=== PATIENT | female | born 1950 | race Caucasian/White ===

== ENCOUNTER 2018-04-14 22:10 | Inpatient (IN) | payer OTHER ==
[2018-04-14] MEDS ORDERED: MORPHINE 4 MG/ML SYR ONE (22:34)
[2018-04-14] MEDS ORDERED: ONDANSETRON 4 MG/2 ML VIAL ONE (22:34)
[2018-04-14] MEDS ORDERED: FAMOTIDINE 20 MG/2 ML VIAL IV ONE (22:34)
[2018-04-14 22:42] LABS: Absolute Lymphocytes (CBC) 1.6 K/uL (0.7-4.9); Absolute Monocytes 1.4 K/uL (0.1-1.3); Absolute Neutrophil 13.3 K/uL (1.8-8.0); Basophils % 0.2 % (0-1.3); Eosinophils % 1.2 % (0-4.4); Lymphocytes % 9.6 % (15.3-44.8); MCH 31.4 pg (27.0-35.0); MPV 7.5 fL (7.6-11.3); Monocytes % 8.4 % (3.3-12.3); RBC Red Blood Cell Count 4.67 M/uL (3.86-4.86)
[2018-04-14 23:00] LABS: Albumin 4.1 g/dL (3.4-5.0); Bilirubin Direct 0.2 mg/dL (0-0.2); Bilirubin Total 0.5 mg/dL (0.2-1.0); Magnesium 1.7 mg/dL (1.8-2.4); Potassium 3.6 mmol/L (3.5-5.1); Protein, Total 7.5 g/dL (6.4-8.2)
[2018-04-14] MEDS ORDERED: MAGNESIUM SULFATE 1 gm IVPB 1 GM/100 ML BAG IV ONE (23:39)
[2018-04-15] MEDS ORDERED: ONDANSETRON 4 MG/2 ML VIAL ONE (01:03)
[2018-04-15 01:42] LABS: Urine Blood TRACE (NEG); Urine Glucose NEGATIVE (NEG); Urine Protein NEGATIVE (NEG); Urine Specific Gravity <1.005 (1.005-1.030)
[2018-04-15] MEDS ORDERED: ACETAMINOPHEN 500 MG TAB PO PRN (02:25)
[2018-04-15] MEDS ORDERED: NA CHLORIDE 0.9% 2,000 ML ONE (02:31)
--- NOTE | 2018-04-15 02:43 | EDPHYS ---
Physician Documentation [facility] Name: Angella Jackson Age: 68 yrs Sex: Female : 1950 Arrival Date: 04/14/2018 Time: 22:12 Bed 7 Private MD: Vic Guerrero ED Physician James Bunch HPI: 04/14 22:30 This 68 yrs old Female presents to ER via EMS with complaints of Abdominal cp Pain. 22:30 The patient presents with abdominal pain in the upper abdomen. cp 22:30 Onset: The symptoms/episode began/occurred 3 month(s) ago, and became worse today. cp 22:30 Associated signs and symptoms: Pertinent positives: constipation, nausea, vomiting, cp Pertinent negatives: blood in stools, diarrhea, fever, vomiting blood. Severity of pain: in the emergency department the pain has improved mildly. Patient reports she was diagnosed with chronic pancreatitis by DR Guerrero and discharged from [facility] earlier today after being hospitalized overnight yesterday. Historical: - Allergies: 22:34 PENICILLINS; fc 22:34 Codeine; fc - Home Meds: 22:34 Zoloft 100 mg Oral tab 1 tab once daily [Active]; Valium 5 mg Oral tab 1 tab as needed fc [Active]; Singulair 10 mg Oral tab 1 tab once daily [Active]; Spiriva with HandiHaler 18 mcg inhalation CpDv 1 cap once daily [Active]; Carafate 1 gram Oral tab 1 tab 4 times per day [Active]; amlodipine 10 mg tab 1 tab once daily [Active]; aspirin 81 mg Oral chew 1 tab once daily [Active]; Cozaar 50 mg Oral tab 1 tab once daily [Active]; Dexilant 60 mg oral CpDB 1 cap once daily [Active]; ProAir HFA 90 mcg/actuation inhalation HFAA 2 puffs as needed [Active]; - PMHx: 22:34 Pancreatitis; COPD; Hypertension; GERD; Crohn's; fc - PSHx: 22:34 Tonsillectomy; Carpal Tunnel Repair; Cholecystectomy; Hysterectomy; spinal cord fc stimulator and removal; - Immunization history:: Adult Immunizations not up to date, . - Social history:: Smoking status: Patient uses tobacco products, smokes 1.5 packs per day, Patient/guardian denies using alcohol. - Ebola Screening: : Patient negative for fever greater than or equal to 101.5 degrees Fahrenheit, and additional compatible Ebola Virus Disease symptoms Patient denies exposure to infectious person Patient denies travel to an Ebola-affected area in the 21 days before illness onset Patient negative for fever greater than or equal to 101.5 degrees Fahrenheit, and additional compatible Ebola Virus Disease symptoms Patient denies exposure to infectious person Patient denies travel to an Ebola-affected area in the 21 days before illness onset. ROS: 22:32 Constitutional: Positive for poor PO intake, Negative for body aches, chills, fever. cp 22:32 Eyes: Negative for injury, pain, redness, and discharge. cp 22:32 ENT: Negative for drainage from ear(s), ear pain, sore throat, difficulty swallowing, difficulty handling secretions. 22:32 Cardiovascular: Negative for chest pain, edema, palpitations. 22:32 Respiratory: Negative for cough, shortness of breath, wheezing. 22:32 Abdomen/GI: Positive for abdominal pain, nausea and vomiting, constipation, anorexia, Negative for diarrhea, dysphagia, black/tarry stool, rectal bleeding. 22:32 : Negative for urinary symptoms, vaginal bleeding. 22:32 Skin: Negative for cellulitis, rash. 22:32 Neuro: Negative for altered mental status, headache, weakness. 22:32 All other systems are negative. Exam: 22:33 ECG was reviewed by the Attending Physician. cp 22:38 Constitutional: The patient appears in no acute distress, alert, awake, cp non-diaphoretic, non-toxic, well developed, well nourished. 22:38 Head/Face: Normocephalic, atraumatic. cp 22:38 Eyes: Periorbital structures: appear normal, Conjunctiva: normal, no exudate, no injection, Sclera: no appreciated abnormality, Lids and lashes: appear normal, bilaterally. 22:38 ENT: External ear(s): are unremarkable, Ear canal(s): are normal, clear, TM's: bulging, is not appreciated, bilaterally, dullness, bilaterally, erythema, is not appreciated, bilaterally, Nose: is normal, Mouth: Lips: dry, Oral mucosa: dry, Posterior pharynx: is normal, airway is patent, no erythema, no exudate. 22:38 Chest/axilla: Inspection: normal, Palpation: is normal, no crepitus, no tenderness. 22:38 Cardiovascular: Rate: normal, Rhythm: regular, Edema: is not appreciated, JVD: is not appreciated. 22:38 Respiratory: the patient does not display signs of respiratory distress, Respirations: normal, no use of accessory muscles, no retractions, no splinting, no tachypnea, labored breathing, is not present, Breath sounds: decreased breath sounds, that are mild, are located in both bases, wheezing: is not appreciated. 22:38 Abdomen/GI: Inspection: scar(s), Bowel sounds: active, all quadrants, Palpation: soft, in all quadrants, moderate abdominal tenderness, in the right upper quadrant and left upper quadrant, rebound tenderness, is not appreciated, voluntary guarding, is elicited in the right upper quadrant and left upper quadrant. 22:38 Back: pain, is absent, ROM is normal. 22:38 Skin: cellulitis, is not appreciated, no rash present. 22:38 Neuro: Orientation: to person, place \T\ time. Mentation: lucid, able to follow commands, Cerebellar function: is grossly normal, Motor: moves all fours, strength is normal. Vital Signs: 22:10 BP 117 / 71; Pulse 90; Resp 18; Temp 98.2(O); Pulse Ox 98% on R/A; Weight 53.52 kg (R); fc Height 5 ft. 2 in. (157.48 cm) (R); Pain 10/10; 04/15 00:15 BP 130 / 64; Pulse 84; Resp 16; Pulse Ox 99% on R/A; mt 01:45 BP 129 / 80; Pulse 76; Resp 16; Temp 98.2; Pulse Ox 99% on 2 lpm NC; Pain 0/10; ak1 03:34 BP 136 / 69; Pulse 76; Resp 18; Temp 98.; Pulse Ox 96% on 4 lpm NC; ak1 04/14 22:10 Body Mass Index 21.58 (53.52 kg, 157.48 cm) fc MDM: 04/14 22:13 Patient medically screened. cp 23:00 Differential diagnosis: AAA, acute coronary syndrome, appendicitis, bowel obstruction, cp diverticulitis, gastritis, GI Bleed, pancreatitis, Peptic Ulcer Disease, Perf. Duodenal Ulcer, Perf. Gastric Ulcer, Pyelonephritis, Ureterolithiasis, urinary tract infection. 04/15 02:25 Data reviewed: vital signs, nurses notes, lab test result(s), EKG, radiologic studies, cp CT scan. 02:25 Test interpretation: by ED physician or midlevel provider: ECG. Counseling: I had a cp detailed discussion with the patient and/or guardian regarding: the historical points, exam findings, and any diagnostic results supporting the discharge/admit diagnosis, lab results, radiology results, the need for further work-up and treatment in the hospital. Response to treatment: the patient's symptoms have mildly improved after treatment, and as a result, I will admit patient. 02:25 Physician consultation: Rosy Suarez MD was contacted at 02:15, regarding admission, cp to the telemetry unit. patient's condition, and will see patient in ED. 04/14 22:20 Order name: Basic Metabolic Panel; Complete Time: 23:24 cp 04/15 00:39 Interpretation: Normal except: NA 134; CL 96; BUN 6; GFR 71. cp 04/14 22:20 Order name: CBC with Diff; Complete Time: 23:24 cp 04/14 23:25 Interpretation: Normal except: WBC 16.5; MCV 92.0; MPV 7.5; JOCELYNN% 80.6; LYM% 9.6; NEUT A cp 13.3. 04/14 22:20 Order name: Creatinine for Radiology; Complete Time: 23:24 cp 04/14 22:20 Order name: Hepatic Function; Complete Time: 23:24 cp 04/14 22:20 Order name: Lipase; Complete Time: 23:24 cp 04/15 00:39 Interpretation: Within normal limits: LIP 121. cp 04/14 22:20 Order name: Magnesium; Complete Time: 23:24 cp 04/15 00:35 Order name: Urine Dipstick--Ancillary (enter results); Complete Time: 01:43 ms 04/15 01:43 Interpretation: Normal except: UKET 2+; UBLD TRACE. cp 04/15 02:29 Order name: CBC with Automated Diff EDMS 04/15 02:29 Order name: CBC with Automated Diff EDMS 04/15 02:29 Order name: Comprehensive Metabolic Panel EDMS 04/15 02:29 Order name: Comprehensive Metabolic Panel EDMS 04/15 02:29 Order name: Lipase EDMS 04/15 02:29 Order name: Lipase EDMS 04/15 02:29 Order name: Magnesium EDMS 04/14 22:27 Order name: CT Abd/Pelvis - W/Contrast: give oral contrast cp 04/15 02:23 Order name: XRAY Chest (1 view) cp 04/15 02:29 Order name: Magnesium EDMS 04/15 02:29 Order name: Phosphorus EDMS 04/15 02:29 Order name: Phosphorus EDMS 04/15 02:29 Order name: Abdomen W Erect EDMS 04/15 02:30 Order name: CBC with Automated Diff EDMS 04/15 02:30 Order name: Comprehensive Metabolic Panel EDIL 04/15 02:30 Order name: Lipase EDMS 04/15 02:30 Order name: Magnesium EDMS 04/15 02:30 Order name: Phosphorus EDMS 04/14 22:20 Order name: IV Saline Lock; Complete Time: 22:24 cp 04/14 22:20 Order name: Labs collected and sent; Complete Time: 22:27 cp 04/14 22:20 Order name: Urine Dipstick-Ancillary (obtain specimen); Complete Time: 03:31 cp 04/14 22:20 Order name: EKG; Complete Time: 22:20 cp 04/14 22:20 Order name: EKG - Nurse/Tech; Complete Time: 22:27 cp 04/15 02:21 Order name: NG Tube: low intermittent suction; Complete Time: 03:29 cp 04/15 02:29 Order name: CONS Physician Consult EDIL 04/15 02:29 Order name: NPO EDMS EC/30 22:33 Rate is 92 beats/min. Rhythm is regular. OR interval is normal. QRS interval is normal. cp QT interval is normal. Interpreted by me. Reviewed by me. Administered Medications: 22:32 Drug: Zofran 4 mg Route: IVP; Site: right forearm; ak1 23:00 Follow up: Response: No adverse reaction ea 22:32 Drug: Pepcid 20 mg Route: IVP; Site: right forearm; ak1 23:00 Follow up: Response: No adverse reaction ea 22:32 Drug: morphine 2 mg Route: IVP; Site: right forearm; ak1 23:00 Follow up: Response: No adverse reaction; Pain is decreased ea 23:40 Drug: Magnesium Sulfate 1 grams Route: IVPB; Infused Over: 1 hrs; Site: right ea antecubital; 04/15 00:50 Follow up: Response: No adverse reaction; IV Status: Completed infusion ea 00:55 Drug: morphine 2 mg Route: IVP; Site: right forearm; ea 03:29 Follow up: Response: No adverse reaction ak1 00:58 Drug: Zofran 4 mg Route: IVP; Site: right forearm; ea 03:30 Follow up: Response: No adverse reaction ak1 02:31 Drug: NS 0.9% 1000 ml Route: IV; Rate: 1 bolus; Site: right forearm; ak1 02:31 Follow up: IV Status: Completed infusion ak1 02:32 Drug: NS 0.9% 1000 ml Route: IV; Rate: 125 ml/hr; Site: right forearm; ak1 03:30 Follow up: IV Status: Infusion continued upon admission ak1 03:10 Drug: LevaQUIN 500 mg Volume: 100 ml; Route: IVPB; Infused Over: 60 mins; Site: left ea antecubital; 03:49 Follow up: IV Status: Infusion continued upon admission ak1 03:10 Drug: metroNIDAZOLE 500 mg Volume: 100 ml; Route: IVPB; Infused Over: 30 mins; Site: ea left antecubital; 03:44 Follow up: IV Status: Completed infusion ak1 Disposition: 06:42 Co-signature as Attending Physician, James Bunch MD I agree with the assessment and [facility] plan of care. Disposition: 04/15/18 02:43 Hospitalization ordered by Rosy Suarez for Inpatient Admission. Preliminary diagnosis is Small Bowel Obstruction. - Bed requested for Telemetry/MedSurg (Inpatient). - Status is Inpatient Admission. ak1 - Condition is Stable. - Problem is new. - Symptoms have improved. UTI on Admission? No Signatures: Dispatcher [employer] EDIL Shivani Crawford RN RN mw Anderson, Corey, MD MD cha Chretien, Felicia RN Keyla Marroquin RN RN [facility] James Mullins PA PA cp Antunez, Elena, RN RN ea Corrections: (The following items were deleted from the chart) 04/14 22:26 22:13 Social history: Smoking status: unknown [facility] 22:13 Immunization history: Adult Immunizations unknown, [facility] 04/15 03:23 02:43 Hospitalization Ordered by Rosy Suarez MD for Inpatient Admission. Preliminary mw diagnosis is Small Bowel Obstruction. Bed requested for Telemetry/MedSurg (Inpatient). Status is Inpatient Admission. Condition is Stable. Problem is new. Symptoms have improved. UTI on Admission? No. cp 04:12 03:23 04/15/2018 02:43 Hospitalization Ordered by Rosy Suarez MD for Inpatient ak1 Admission. Preliminary diagnosis is Small Bowel Obstruction. Bed requested for Telemetry/MedSurg (Inpatient). Status is Inpatient Admission. Condition is Stable. Problem is new. Symptoms have improved. UTI on Admission? No. mw
--- NOTE | 2018-04-15 02:43 | ER ---
Nurse's Notes [facility] Name: Angella Jackson Age: 68 yrs Sex: Female : 1950 Arrival Date: 04/14/2018 Time: 22:12 Bed 7 Private MD: Vic Guerrero Diagnosis: Small Bowel Obstruction Presentation: 04/14 22:10 Presenting complaint: EMS states: that pt is having severe abd pain that started on and fc off 3 months ago. Pt see's Dr Guerrero and was told that she has chronic pancreatitis. Pt ran out of her home Dilaudid 2 mg that she takes bid. Has called EMS and transported to ER x 4 in the past week. Was seen at [place] yesterday and admitted over night. Was discharged this am at 1100. Pt states that it is her upper abd that is hurting and she is also having nausea and vomiting. Pain worse today. Last BM 2 days ago. Transition of care: patient was not received from another setting of care. Onset of symptoms was April 14, 2018. Risk Assessment: Do you want to hurt yourself or someone else? Patient reports no desire to harm self or others. Initial Sepsis Screen: Does the patient meet any 2 criteria? No. Patient's initial sepsis screen is negative. Does the patient have a suspected source of infection? No. Patient's initial sepsis screen is negative. Care prior to arrival: Medication(s) given: Phenergan, 12.5 mg, Morphine 3 mg IVP IV initiated. 20 GA, in the right forearm. 22:10 Method Of Arrival: EMS: [facility] 22:10 Acuity: WADE 3 fc Historical: - Allergies: 22:34 PENICILLINS; fc 22:34 Codeine; fc - Home Meds: 22:34 Zoloft 100 mg Oral tab 1 tab once daily [Active]; Valium 5 mg Oral tab 1 tab as needed fc [Active]; Singulair 10 mg Oral tab 1 tab once daily [Active]; Spiriva with HandiHaler 18 mcg inhalation CpDv 1 cap once daily [Active]; Carafate 1 gram Oral tab 1 tab 4 times per day [Active]; amlodipine 10 mg tab 1 tab once daily [Active]; aspirin 81 mg Oral chew 1 tab once daily [Active]; Cozaar 50 mg Oral tab 1 tab once daily [Active]; Dexilant 60 mg oral CpDB 1 cap once daily [Active]; ProAir HFA 90 mcg/actuation inhalation HFAA 2 puffs as needed [Active]; - PMHx: 22:34 Pancreatitis; COPD; Hypertension; GERD; Crohn's; fc - PSHx: 22:34 Tonsillectomy; Carpal Tunnel Repair; Cholecystectomy; Hysterectomy; spinal cord fc stimulator and removal; - Immunization history:: Adult Immunizations not up to date, . - Social history:: Smoking status: Patient uses tobacco products, smokes 1.5 packs per day, Patient/guardian denies using alcohol. - Ebola Screening: : Patient negative for fever greater than or equal to 101.5 degrees Fahrenheit, and additional compatible Ebola Virus Disease symptoms Patient denies exposure to infectious person Patient denies travel to an Ebola-affected area in the 21 days before illness onset Patient negative for fever greater than or equal to 101.5 degrees Fahrenheit, and additional compatible Ebola Virus Disease symptoms Patient denies exposure to infectious person Patient denies travel to an Ebola-affected area in the 21 days before illness onset. Screenin:13 Abuse screen: Denies threats or abuse. Denies injuries from another. Nutritional ak1 screening: No deficits noted. Tuberculosis screening: No symptoms or risk factors identified. Fall Risk None identified. Assessment: 22:13 General: Appears in no apparent distress. Behavior is calm, cooperative. Pain: ak1 Complains of pain in abdomen. Neuro: No deficits noted. Cardiovascular: No deficits noted. Respiratory: No deficits noted. GI: Abdomen is round Bowel sounds present X 4 quads. Abd is soft and non tender X 4 quads. Reports nausea, vomiting. : No signs and/or symptoms were reported regarding the genitourinary system. EENT: No signs and/or symptoms were reported regarding the EENT system. Derm: No signs and/or symptoms reported regarding the dermatologic system. Musculoskeletal: No signs and/or symptoms reported regarding the musculoskeletal system. 23:11 Reassessment: Patient and/or family updated on plan of care and expected duration. Pain ea level reassessed. Patient is alert, oriented x 3, equal unlabored respirations, skin warm/dry/pink. pt completed contrast, radiation protection technician notified. 04/15 01:55 Reassessment: Patient appears in no apparent distress at this time. No changes from ak1 previously documented assessment. Patient and/or family updated on plan of care and expected duration. Pain level reassessed. Patient is alert, oriented x 3, equal unlabored respirations, skin warm/dry/pink. pt returned from CT. Vital Signs: 04/14 22:10 BP 117 / 71; Pulse 90; Resp 18; Temp 98.2(O); Pulse Ox 98% on R/A; Weight 53.52 kg (R); fc Height 5 ft. 2 in. (157.48 cm) (R); Pain 1010; 04/15 00:15 BP 130 / 64; Pulse 84; Resp 16; Pulse Ox 99% on R/A; mt 01:45 BP 129 / 80; Pulse 76; Resp 16; Temp 98.2; Pulse Ox 99% on 2 lpm NC; Pain 0/10; ak1 03:34 BP 136 / 69; Pulse 76; Resp 18; Temp 98.; Pulse Ox 96% on 4 lpm NC; ak1 04/14 22:10 Body Mass Index 21.58 (53.52 kg, 157.48 cm) ED Course: 04/14 22:10 Arm band placed on Patient placed in an exam room, on a stretcher. fc 22:12 Patient arrived in ED. am2 22:12 Vic Guerrero MD is Private Physician. am2 22:13 [facility]. cp 22:13 James Bunch MD is Attending Physician. cp 22:13 Patient has correct armband on for positive identification. Bed in low position. Call ak1 light in reach. Side rails up X2. Pulse ox on. NIBP on. 22:13 Maintain EMS IV. Dressing intact. Good blood return noted. Site clean \T\ dry. Gauge \T\ ak 1 site: 20g right forearm. 22:25 Triage completed. fc 22:32 Keyla Guzman RN is Primary Nurse. ak1 04/15 01:[address] via stretcher. kw1 01:39 CT Abd/Pelvis - W/Contrast: give oral contrast In Process Unspecified. EDMS 01:41 CT completed. Patient tolerated procedure well. Patient moved back from CT. kw1 02:34 X-ray completed. Portable x-ray completed in exam room. Patient tolerated procedure kw well. 02:35 XRAY Chest (1 view) In Process Unspecified. EDMS 02:42 Rosy Suarez MD is Hospitalizing Provider. cp 03:04 Inserted saline lock: 20 gauge in left antecubital area, using aseptic technique. ea 03:31 No provider procedures requiring assistance completed. 20g Right Forearm EMS IV ak1 infiltrated. 03:34 NGT: inserted 14 Fr. via right nare. other placed by Mina Sandra RN verified placement of ak1 air over stomach, to intermittent suction. Returned gastric contents. Amount of gastric contents removed by suction 300ml. Patient tolerated well. Administered Medications: 04/14 22:32 Drug: Zofran 4 mg Route: IVP; Site: right forearm; ak1 23:00 Follow up: Response: No adverse reaction ea 22:32 Drug: Pepcid 20 mg Route: IVP; Site: right forearm; ak1 23:00 Follow up: Response: No adverse reaction ea 22:32 Drug: morphine 2 mg Route: IVP; Site: right forearm; ak1 23:00 Follow up: Response: No adverse reaction; Pain is decreased ea 23:40 Drug: Magnesium Sulfate 1 grams Route: IVPB; Infused Over: 1 hrs; Site: right ea antecubital; 04/15 00:50 Follow up: Response: No adverse reaction; IV Status: Completed infusion ea 00:55 Drug: morphine 2 mg Route: IVP; Site: right forearm; ea 03:29 Follow up: Response: No adverse reaction ak1 00:58 Drug: Zofran 4 mg Route: IVP; Site: right forearm; ea 03:30 Follow up: Response: No adverse reaction ak1 02:31 Drug: NS 0.9% 1000 ml Route: IV; Rate: 1 bolus; Site: right forearm; ak1 02:31 Follow up: IV Status: Completed infusion ak1 02:32 Drug: NS 0.9% 1000 ml Route: IV; Rate: 125 ml/hr; Site: right forearm; ak1 03:30 Follow up: IV Status: Infusion continued upon admission ak1 03:10 Drug: LevaQUIN 500 mg Volume: 100 ml; Route: IVPB; Infused Over: 60 mins; Site: left ea antecubital; 03:49 Follow up: IV Status: Infusion continued upon admission ak1 03:10 Drug: metroNIDAZOLE 500 mg Volume: 100 ml; Route: IVPB; Infused Over: 30 mins; Site: ea left antecubital; 03:44 Follow up: IV Status: Completed infusion ak1 Outcome: 02:43 Decision to Hospitalize by Provider. cp 03:32 Condition: stable ak1 03:32 Instructed on the need for admit. 03:43 Admitted to Tele accompanied by tech, family with patient, via stretcher, room 425, ak1 with oxygen, with chart, Report called to Nikki Jamison RN 04:12 Patient left the ED. ak1 Signatures: Dispatcher [employer] EDMS Danica Elizabeth RN RN Suzette Alvarez Amber RN RN ak1 James Mullins PA PA cp Moreno, Amanda am2 Thompson, Moriah mt Antunez, Elena RN RN Reina Tejada kw1 Corrections: (The following items were deleted from the chart) 04/14 22: 22:13 Social history: Smoking status: unknown [facility] : 22:13 Immunization history: Adult Immunizations unknown, oh1
[2018-04-15] MEDS: METRONIDAZOLE 500mg IVPB 500 MG/100 ML BAG IV SCH ×3 (03:00→18:32)
[2018-04-15] MEDS: Levofloxacin500mg IV 500 MG/100 ML BAG IV SCH (03:00)
[2018-04-15] MEDS ORDERED: METRONIDAZOLE 500mg IVPB 500 MG/100 ML BAG IV ONE (03:09)
[2018-04-15] MEDS ORDERED: HYDROCORTISONE SUC 100 MG INJ IV ONE (03:49)
[2018-04-15] MEDS ORDERED: DIPHENHYDRAMINE 50 MG/ML VIAL IV PRN (03:49)
[2018-04-15] MEDS: NA CHLORIDE 0.9% 1,000 ML IV SCH ×3 (04:29→22:29)
[2018-04-15] MEDS: HYDROMORPHONE HCL 1 MG/ML INJ IV PRN ×5 (05:27→22:29)
[2018-04-15] MEDS: ONDANSETRON 4 MG/2 ML VIAL IV PRN ×3 (05:28→18:33)
[2018-04-15 06:31] LABS: Absolute Lymphocytes (CBC) 1.1 K/uL (0.7-4.9); Absolute Monocytes 0.8 K/uL (0.1-1.3); Absolute Neutrophil 6.8 K/uL (1.8-8.0); Basophils % 0.5 % (0-1.3); Eosinophils % 1.5 % (0-4.4); Hematocrit 37.9 % (36.0-45.0); Lymphocytes % 12.5 % (15.3-44.8); MCV 92.6 fL (80-100); MPV 7.4 fL (7.6-11.3); Monocytes % 9.2 % (3.3-12.3); RBC Red Blood Cell Count 4.09 M/uL (3.86-4.86)
--- NOTE | 2018-04-15 06:43 | EKG ---
Test Date: 2018-04-14 Test Time: 22:26:11 [facility]: JAMES MEASUREMENT RESULTS: Intervals: Rate: 92 NV: 150 QRSD: 78 QT: 336 QTc: 415 [place]: P: 86 NV: 150 QRS: 93 T: 71 INTERPRETIVE STATEMENTS: Normal sinus rhythm Rightward axis Borderline ECG Compared to ECG 04/10/2014 11:25:37 Right-axis deviation now present Electronically Signed On 04-15-18 06:43:01 CDT by Anton Perkins
[2018-04-15 06:45] LABS: Albumin 3.6 g/dL (3.4-5.0); Bilirubin Total 0.5 mg/dL (0.2-1.0); Magnesium 2.1 mg/dL (1.8-2.4); Phosphorus 4.1 mg/dL (2.5-4.9); Potassium 4.3 mmol/L (3.5-5.1); Protein, Total 6.6 g/dL (6.4-8.2)
[2018-04-15] MEDS ORDERED: INFLUENZA VACCINE (for 3y+) 0.5 ML DOSE IMVAC ONE (08:00)
--- NOTE | 2018-04-15 08:45 | P.HP ---
Certification for Inpatient Patient admitted to: Inpatient With expected LOS: >2 Midnights Patient will require the following post-hospital care: None Practitioner: I am a practitioner with admitting privileges, knowledge of patient current condition, hospital course, and medical plan of care. Services: Services provided to patient in accordance with Admission requirements found in Title 42 Section 412.3 of the Code of Federal Regulations Patient History Date of Service: 04/15/18 Reason for admission: Small-bowel obstruction History of Present Illness: Patient is a 68-year-old female who came into the hospital with abdominal pain. Patient was at [facility] and found to have chronic pancreatitis and Crohn 's disease with exacerbation. She was admitted for a few days. She was discharged, but her pain continued along with nausea and vomiting. She came into the emergency room for further evaluation. In the ER, we did a CT of the abdomen and pelvis which revealed a small-bowel obstruction. She states that she did not have any imaging studies done at [facility] although she did have some lab data. She states that the nausea and vomiting continued at the hospital. At this time, will go ahead and put a NG tube in get surgical consultation. She does take oral Dilaudid at home; however, the obstruction could be related to prior surgical intervention that she has had. Will wait for further recommendations per surgery. Allergies fentanyl Allergy (Verified 04/15/18 04:46) Itching hydrocodone Allergy (Verified 05/17/15 08:32) Nausea/Vomiting Penicillins Allergy (Verified 05/17/15 08:32) Hives venom-honey bee [bee venom (honey bee)] Allergy (Verified 05/17/15 08:32) Shortness of breath venom-wasp [wasp venom] Allergy (Verified 05/17/15 08:32) Shortness of breath Home Medications: Albuterol Sulfate [Proair Hfa] 2 inh IH QIDP PRN 05/17/15 Amlodipine [Norvasc] 10 mg PO BID 05/17/15 Aspirin 81 mg PO BEDTIME 05/17/15 Beclomethasone Dipropionate [Qnasl] 8.7 gm NS SEECOM 05/17/15 Cholecalciferol (Vitamin D3) [Vitamin D-3] 2,000 unit PO DAILY 05/17/15 Dexlansoprazole [Dexilant] 60 mg PO DAILY 05/17/15 Hydromorphone [Dilaudid] 2 mg PO BID PRN 05/17/15 Montelukast Sodium [Singulair] 10 mg PO BEDTIME 05/17/15 Multivitamin [Mpj-Ztsqad-Fpxuo] 1 each PO DAILY 05/17/15 Pravastatin [Pravachol] 40 mg PO BEDTIME 05/17/15 Tramadol HCl [Tramadol HCl ER] 100 mg PO Q8HP PRN 05/17/15 diazePAM [Valium] 5 mg PO QIDP PRN 05/17/15 sulfaSALAzine [AZULFIDINE EN-tabs] 1,000 mg PO BID 05/17/15 Baclofen 10 mg PO BID 04/15/18 Furosemide 40 mg PO BIDP PRN 04/15/18 Lipase/Protease/Amylase [Zenpep Dr 40,000 Unit Capsule] 1 tab PO WMP 04/15/18 Losartan Potassium 50 mg PO BEDTIME 04/15/18 Promethazine HCl 25 mg PO Q12HP PRN 04/15/18 Scopolamine [Transderm-Scop] 1 patch TD DIRECTED PRN 04/15/18 Sertraline HCl 100 mg PO DAILY 04/15/18 predniSONE [Deltasone*] 10 mg PO DAILYPRN PRN 04/15/18 - Past Medical/Surgical History Has patient received pneumonia vaccine in the past: Yes Diabetic: No -: Crohn's disease -: COPD -: Anxiety/Depression -: Hyperlipidemia -: GERD -: Chronic Pancreatitis -: Chronic Regional Pain Syndrome -: Left arm nerve surgery -: Carpel tunnel x3 -: Hysterectomy -: Tonsilectomy -: Cholecystectomy -: Appendectomy -: BLE Vascular Surgery (unable to state type) -: Spinal stimulator implanted and removed - Family History Father Medical History: Heart disease, Cancer Notes: kidney cancer Mother Medical History: Heart disease Brother Medical History: Cancer Notes: Brain tumor - Social History Smoking Status: Current every day smoker Alcohol use: No CD- Drugs: No Caffeine use: Yes Place of Residence: Home Review of Systems 10-point ROS is otherwise unremarkable Physical Examination - Vital Signs Temperature: 98.3 F Blood Pressure: 132/70 Pulse: 87 Respirations: 18 Pulse Ox (%): 92 - Physical Exam General: Alert, In no apparent distress, Oriented x3 HEENT: Atraumatic, PERRLA, Mucous membr. moist/pink, Other (NGT), EOMI, Sclerae nonicteric Neck: Supple, 2+ carotid pulse no bruit, No LAD, Without JVD or thyroid abnormality Respiratory: Clear to auscultation bilaterally, Normal air movement Cardiovascular: Regular rate/rhythm, Normal S1 S2, No murmurs Gastrointestinal: Normal bowel sounds, Soft and benign, Non-distended, No tenderness, No rebound, No guarding Musculoskeletal: No clubbing, No swelling, No tenderness Integumentary: No rashes Neurological: Normal gait, Normal speech, Normal strength at 5/5 x4 extr, Normal tone, Sensation intact, Cranial nerves 3-12 intact, Normal affect Lymphatics: No axilla or inguinal lymphadenopathy - Studies Laboratory Data (last 24 hrs) 04/14/18 22:30: Creatinine 0.80 04/14/18 22:30: WBC 16.5 H, Hgb 14.7, Hct 43.0, Plt Count 339 04/14/18 22:30: Sodium 134 L, Potassium 3.6, BUN 6 L, Creatinine 0.80, Glucose 106, Magnesium 1.7 L, Total Bilirubin 0.5, AST 21, ALT 24, Alkaline Phosphatase 60, Lipase 121 Assessment & Plan - Problems (Diagnosis) (1) SBO (small bowel obstruction) Current Visit: Yes Status: Acute (2) Crohn disease Current Visit: Yes Status: Acute (3) Chronic pancreatitis Current Visit: Yes Status: Acute (4) Chronic pain Current Visit: Yes Status: Acute (5) COPD (chronic obstructive pulmonary disease) Current Visit: No Status: Acute (6) Depression Current Visit: No Status: Acute (7) GERD (gastroesophageal reflux disease) Current Visit: No Status: Acute (8) Hyperlipidemia Current Visit: No Status: Acute - Plan Plan: 1. Continue with IV hydration 2. Continue with IV antibiotics 3. Continue with pain control 4. NPO 5. GI & general surgery consultation; NG tube to suction 6. Serial H&H, and we will monitor CBC, BMP, LFTs and lipase along with electrolytes. 7. GI and DVT prophylaxis Discharge Plan: Home Plan to discharge in: Greater than 2 days - Advance Directives Does patient have a Living Will: No Does patient have a Durable POA for Healthcare: No - Code Status/Comfort Care Code Status Assessed: Yes Code Status: Full Code Critical Care: No Time Spent Managing PTS Care (In Minutes): 50
--- NOTE | 2018-04-15 08:59 | RAD REPORT ---
EXAM DESCRIPTION: CTAbdomen Pelvis W Contrast - 04/15/2018 4:40 am CLINICAL HISTORY: Abdominal pain. ABD PAIN COMPARISON: No comparisons TECHNIQUE: Biphasic CT imaging of the abdomen and pelvis was performed with 100 ml non-ionic IV cont rast. All CT scans are performed using dose optimization technique as appropriate and may include automated exposure control or mA/KV adjustment according to patient size. FINDINGS: The lung bases are clear. The liver, spleen, pancreas, adrenal glands and kidneys are within normal limits. Cholecystectomy cli ps. Multiple distended loops of small intestine are seen compatible with mechanical small bowel obstructi on. Decompressed small-bowel loops which appears somewhat thickened are seen in the right lower quadr ant. Ioqy-od-binldfrl ascites. No free intraperitoneal air suspected. No pneumatosis suspected. No suspicious bony findings. IMPRESSION: Moderate grade severity mechanical small-bowel obstruction is present with mild ascites.
--- NOTE | 2018-04-15 09:01 | RAD REPORT ---
EXAM DESCRIPTION: RAD - Chest Single View - 04/15/2018 2:36 am CLINICAL HISTORY: abdominal pain Chest pain. COMPARISON: CHEST PA AND LAT 2 VIEW dated 04/10/2014; CHEST PA AND LAT 2 VIEW dated 11/11/2012; CHEST PA AND LAT 2 VIEW dated 10/09/2011; CHEST SINGLE VIEW dated 06/10/2009 FINDINGS: Portable technique limits examination quality. Emphysematous changes are present throughout the lungs. No focal infiltrate detected. The heart is no rmal in size. No displaced fractures. IMPRESSION: COPD.
--- NOTE | 2018-04-15 09:21 | RAD REPORT ---
EXAM DESCRIPTION: RAD - Abdomen W Erect - 04/15/2018 7:05 am CLINICAL HISTORY: SBO Pain COMPARISON: No comparisons FINDINGS: Multiple dilated small bowel loops compatible with mechanical small bowel obstruction appe ars mildly improved. Enteric tube descends in the stomach. No free air seen. Cholecystectomy clips. IMPRESSION: Mild improvement in small bowel obstruction since prior study.
[2018-04-15] MEDS: ENOXAPARIN 30 MG/0.3 ML SQ SCH (18:32)
--- NOTE | 2018-04-15 20:37 | CON ---
Date of Consultation: 04/15/2018 Reason: Small bowel obstruction. History Of Present Illness: The patient is a 68-year-old female, who was admitted with severe abdomi nal pain. On Sunday she was admitted to hospital, found to have chronic pancreatitis an d Crohn disease exacerbation and she was discharged yesterday morning; however pain became severe and she had nausea and vomiting following it and then she went to the ER in our facility and she had a C T scan, which revealed dilated small bowel, she was admitted and I was consulted. She is currently h aving some bowel movements up until yesterday. she is having gas. She had some diarrhea Sunday and Sunday. No blood in her stool. No dysuria or hematuria. No sore throat, runny nose, cough, heada ches, or dizziness. No chest pain. No fever or chills. Review of Systems: Otherwise unremarkable. Past Medical History: Significant for Crohn disease, COPD, anxiety, hyperlipidemia, GERD, chronic pa ncreatitis, chronic regional pain syndrome. Past Surgical History: Left arm surgery for nerve problems, carpal tunnel surgeries, hysterectomy, t onsillectomy, cholecystectomy, appendectomy, bilateral lower extremity vascular surgery and spinal st imulator implanted and removed. Allergies: FENTANYL, HYDROCODONE, PENICILLIN, VENOM. Social History: She does smoke, has been counseled. She denies using alcohol. Family History: Significant for heart disease, kidney cancer and brain cancer. Physical Examination: Vital signs: Stable. She is afebrile. General: She is awake, alert, and oriented x3. Head and neck: Cranial nerves 2 through 12 are grossly within normal limits. No neck masses. No JV D. Throat clear. Neck is supple. Chest: Clear. Heart: S1, S2. Abdomen: Soft, nondistended, nontender. Diminished bowel sounds. No peritonitis. No abdominal wal l hernia appreciated. Extremities: Adequately perfused. Nontender. Neuro: Nonfocal. Laboratory Data: CT of the abdomen and pelvis done yesterday shows moderate grade severity mechanica l small bowel obstruction with mild ascites. She had a followup abdominal x-ray done today, which sh ows improvement in the small bowel obstruction since prior study and her white count was 16.5, now it is 8.9 with a slight left shift. Chemistries and lipase are normal. Electrolytes are essentially w ithin normal limits. Assessment: Small-bowel obstruction. Etiology could be exacerbation of Crohn disease. Recommendation: N.p.o., IV fluids, IV antibiotics, Crohn's medication, serial abdominal exams. We w ill follow with another x-ray tomorrow and will make further recommendations as the case develops. N o need for any acute surgical intervention at this time. NAKITA/SMOOTH Voice ID: [id number] Report ID: [id number]
[2018-04-15] MEDS: METHYLPREDNISOLONE 40 MG INJ IV SCH (21:50)
[2018-04-15] MEDS: PROMETHAZINE 25 MG/ML VIAL IV PRN (21:50)
[2018-04-16] MEDS: ONDANSETRON 4 MG/2 ML VIAL IV PRN ×3 (01:42→22:43)
[2018-04-16] MEDS: METRONIDAZOLE 500mg IVPB 500 MG/100 ML BAG IV SCH ×3 (01:42→11:47)
[2018-04-16] MEDS: Levofloxacin500mg IV 500 MG/100 ML BAG IV SCH (03:44)
[2018-04-16 04:58] LABS: Absolute Lymphocytes (CBC) 0.4 K/uL (0.7-4.9); Absolute Monocytes 0.2 K/uL (0.1-1.3); Absolute Neutrophil 6.1 K/uL (1.8-8.0); Basophils % 0.2 % (0-1.3); Eosinophils % 0.2 % (0-4.4); Hematocrit 31.3 % (36.0-45.0); Lymphocytes % 6.4 % (15.3-44.8); MCV 94.2 fL (80-100); MPV 7.5 fL (7.6-11.3); Monocytes % 2.6 % (3.3-12.3); RBC Red Blood Cell Count 3.33 M/uL (3.86-4.86)
[2018-04-16 05:11] LABS: ALT/SGPT 16 U/L (12-78); AST/SGOT 13 U/L (15-37); Albumin 3.1 g/dL (3.4-5.0); Alkaline Phosphatase 42 U/L (45-117); BUN Blood Urea Nitrogen 6 mg/dL (7-18); Bicarbonate 24 mmol/L (21-32); Bilirubin Total 0.4 mg/dL (0.2-1.0); Glucose Level 94 mg/dL (74-106); Lipase 132 U/L (73-393); Magnesium 1.9 mg/dL (1.8-2.4); Protein, Total 5.9 g/dL (6.4-8.2); Sodium Level 141 mmol/L (136-145)
[2018-04-16 05:32] LABS: Blood Morphology Comment NOT SEEN (NOT SEEN); Platelet Estimate ADEQ
[2018-04-16] MEDS: PROMETHAZINE 25 MG/ML VIAL IV PRN ×3 (05:46→18:06)
[2018-04-16] MEDS: HYDROMORPHONE HCL 1 MG/ML INJ IV PRN ×4 (05:46→20:10)
--- NOTE | 2018-04-16 08:07 | RAD REPORT ---
EXAM DESCRIPTION: RAD - Abdomen W Erect - 04/16/2018 7:12 am CLINICAL HISTORY: Abdominal pain COMPARISON: 04/15/2018 FINDINGS: Nasogastric tube is coiled within the gastric fundus Dilated small bowel loops are mildly increased in caliber when compared to the prior exam. Contrast i s present within ileum. Small amount of contrast is present within the right colon Free air is not seen beneath the diaphragm IMPRESSION: Mild worsening in a mechanical small bowel obstruction
[2018-04-16] MEDS ORDERED: ALBUTEROL INHALER 60 PUFF/8 GM IH PRN (08:35)
[2018-04-16] MEDS ORDERED: BECLOMETHASONE DIPROPIONATE 8.7 GM NS SCH (08:45)
[2018-04-16] MEDS ORDERED: INFLUENZA VACCINE (for 3y+) 0.5 ML DOSE IMVAC ONE (10:00)
[2018-04-16] MEDS: ENOXAPARIN 30 MG/0.3 ML SQ SCH (10:01)
[2018-04-16] MEDS: METHYLPREDNISOLONE 40 MG INJ IV SCH ×2 (10:02→20:15)
[2018-04-16] MEDS: NA CHLORIDE 0.9% 1,000 ML IV SCH ×2 (10:33→20:16)
[2018-04-16] MEDS ORDERED: SODIUM CHLORIDE 0.9% 10ML INJ IV PRN (14:24)
[2018-04-16] MEDS: PANTOPRAZOLE 40 MG INJ IVP SCH (16:56)
[2018-04-16] MEDS: CLINDAMYCIN INJ 600 MG in NA CHLORIDE 0.9% 50 ML IV SCH (18:06)
--- NOTE | 2018-04-16 19:41 | PN ---
Date of Progress Note: 04/16/2018 Subjective: The patient states that her last flatus was last night and she felt a little bit bad thi s morning. However she had a lot of drainage out of the NG tube. This morning she feels much much b joe. She still has not had a bowel movement and not passing gas today. Objective: VITAL SIGNS: Her vital signs are stable. Afebrile. Abdominal x-ray showed slight worse erin of the small bowel obstruction pattern although there was contrast in the colon. ABDOMEN: Soft, nondistended, nontender. Positive bowel sounds. Laboratory Data: Reviewed. Assessment: Partial small bowel obstruction. Recommendations: We will follow the patient another 24 hours clinically and if she does not improve then a small bowel series will be ordered, serial abdominal exams. 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 liquids at this time. Steroids might help an d then once a small bowel series is done, I will make further recommendations. NAKITA/SMOOTH Voice ID: [id number] Report ID: [id number]
--- NOTE | 2018-04-16 19:50 | PN ---
Date of Progress Note: 04/16/2018 History: The patient is seen and examined. Chart reviewed and case discussed with RN and Dr. Rodriguez. The patient clinically seems better. States her abdominal pain has improved, not as distended. No nausea. NG tube still in place with significant output. Review of Systems: Negative except as above. Medications: List reviewed. Code Status: Full. Physical Examination: Vital Signs: Temperature 100, heart rate 89, blood pressure 157/68, respirations 20, O2 95% on room air. General: Awake, alert, oriented x3, not in any acute distress. Elderly female, somewhat ill appeari ng. CV: S1, S2. No murmurs. Peripheral pulses present. Regular rate and rhythm. Respiratory: Moving air well bilaterally. No wheezing or stridor. Gastrointestinal: Abdomen is soft. No tenderness to palpation. Not distended. Hypoactive bowel so unds. NG tube in place. Extremities: No clubbing, cyanosis, or edema. Neurologic: Nonfocal. Laboratory Data: Sodium 141, potassium 4, chloride 107, CO2 24, BUN 6, creatinine 0.6, glucose 94, c alcium 8.1, phosphorus 3, magnesium 1.9. WBC 6.7, H and H 10.6, 31.3, platelets 249, neutrophils 90% , bands 3. CT abdomen x-ray personally reviewed, shows mild worsening mechanical small bowel obstruc tion. Assessment And Plan: A 68-year-old female with: 1.Abdominal pain secondary to small bowel obstruction. 2.Crohn disease. We will continue with steroids IV as patient is n.p.o. GI on board. 3.Chronic pancreatitis. 4.Chronic pain syndrome, stable. 5.Chronic obstructive pulmonary disease, chronic bronchitis. We will continue with nebulizers as ne eded. 6.Major depressive disorder, stable. 7.Gastroesophageal reflux disease. Continue PPI IV. 8.Mixed hyperlipidemia. 9.Statin on hold. 10.Gastrointestinal and deep venous thrombosis prophylaxis addressed. Plan: Clinically, patient is improved. We will continue with IV antibiotics. The patient did have a low-grade fever of 100 degrees. We will obtain blood cultures. No signs of sepsis. The patient i s not tachycardic or tachypneic. Blood pressure stable. White count is normal, however, does have s ome bands. We will check lactate level. We will obtain small bowel series in a.m. and if the patien t is able to pass gas, we will clamp NG tube and ambulate. Continue antiemetics, IV fluids. Appreci ate Dr. Rodriguez's and Dr. Guerrero's input. /SMOOTH Voice ID: [id number] Report ID: [id number]
--- NOTE | 2018-04-16 20:53 | RAD REPORT ---
EXAM DESCRIPTION: RAD - Abdomen Single View - 04/16/2018 8:47 pm CLINICAL HISTORY: Enteric tube placement. Pain COMPARISON: Abdomen Pelvis W Contrast dated 04/15/2018 FINDINGS: The tip of the enteric tube is within the stomach.
[2018-04-17] MEDS: CLINDAMYCIN INJ 600 MG in NA CHLORIDE 0.9% 50 ML IV SCH ×3 (00:36→17:21)
[2018-04-17] MEDS: PROMETHAZINE 25 MG/ML VIAL IV PRN ×3 (00:37→15:57)
[2018-04-17] MEDS: HYDROMORPHONE HCL 1 MG/ML INJ IV PRN ×5 (00:37→23:08)
[2018-04-17] MEDS: Levofloxacin500mg IV 500 MG/100 ML BAG IV SCH (03:31)
[2018-04-17] MEDS: ONDANSETRON 4 MG/2 ML VIAL IV PRN ×2 (04:52→23:08)
[2018-04-17 05:00] LABS: Absolute Lymphocytes (CBC) 0.4 K/uL (0.7-4.9); Absolute Monocytes 0.3 K/uL (0.1-1.3); Absolute Neutrophil 10.1 K/uL (1.8-8.0); Basophils % 0.1 % (0-1.3); Hematocrit 32.4 % (36.0-45.0); Lymphocytes % 3.6 % (15.3-44.8); MCV 93.7 fL (80-100); MPV 7.8 fL (7.6-11.3); Monocytes % 3.1 % (3.3-12.3); RBC Red Blood Cell Count 3.46 M/uL (3.86-4.86)
[2018-04-17] MEDS: NA CHLORIDE 0.9% 1,000 ML IV SCH ×2 (05:00→09:49)
[2018-04-17 05:20] LABS: ALT/SGPT 15 U/L (12-78); AST/SGOT 12 U/L (15-37); Alkaline Phosphatase 37 U/L (45-117); BUN Blood Urea Nitrogen 7 mg/dL (7-18); Bicarbonate 20 mmol/L (21-32); Bilirubin Total 0.3 mg/dL (0.2-1.0); Glucose Level 94 mg/dL (74-106); Magnesium 1.8 mg/dL (1.8-2.4); Potassium 3.8 mmol/L (3.5-5.1); Protein, Total 5.9 g/dL (6.4-8.2); Sodium Level 142 mmol/L (136-145)
[2018-04-17] MEDS ORDERED: MAGNESIUM SULFATE 1 gm IVPB 1 GM/100 ML BAG IV ONE (06:30)
--- NOTE | 2018-04-17 08:57 | RAD REPORT ---
EXAM DESCRIPTION: RAD - Abdomen W Erect - 04/17/2018 8:44 am CLINICAL HISTORY: Abdominal pain, small bowel obstruction COMPARISON: None. TECHNIQUE: Supine and upright views of the abdomen were obtained. FINDINGS: The patient initially presented for small bowel follow-through examination. Television Cameraman images s how no free air or pneumatosis. No extravasation of contrast administered for the April 15 CT study. Multiple dilated small bowel loops are present. Oral contrast has reached the nondilated cecum and a scending colon. Oral contrast is still present in the dilated distal small bowel loops. Terminal ileu m is not dilated. No complete bowel obstruction is present. Patient likely has stricture or scarring at the terminal il eum. Terminal ileum detail is not sufficient to differentiate acute inflammatory changes from chronic scarring. After discussion with the referring physician, it was determined to proceed with the small bowel examination. Stomach is decompressed. NG tube is in place. Tip is in the proximal stomach with the side hole of th e NG tube in the distal esophagus. Patient was administered approximately 20 mL of small bowel contrast material. Patient quickly vomite d the small quantity that was ingested. Patient has for termination of the examination and was not li beatris that the patient would be able to ingest a quantity of contrast sufficient for small bowel exami nation. IMPRESSION: Small bowel follow-through examination was canceled. Patient quickly vomited the small a mount of contrast that was administered and mass for termination of the examination. Television Cameraman film does show that there is no complete small bowel obstruction. The April [address] has reached the right side of the colon. Narrowed, irregular terminal ileum is seen. However, detail is not sufficient to distinguish chronic terminal ileum scarring from acute inflammatory change.
[2018-04-17] MEDS ORDERED: KCL 20 MEQ/100 mL IVPB 20 MEQ/100 ML BAG IV SCH (09:00)
[2018-04-17] MEDS: METHYLPREDNISOLONE 40 MG INJ IV SCH (09:00)
[2018-04-17] MEDS: PANTOPRAZOLE 40 MG INJ IVP SCH (09:56)
[2018-04-17] MEDS: ENOXAPARIN 30 MG/0.3 ML SQ SCH (10:09)
[2018-04-17] MEDS: METHYLPREDNISOLONE 125 MG INJ IV SCH ×2 (10:58→23:08)
[2018-04-17] MEDS ORDERED: DEXTROSE 10%-WATER 500 ML IV SCH (12:00)
[2018-04-17] MEDS: AA 5%/D20W/ELECTROLYTES-TPN 2,000 ML, Lipids 20% 250 ML with MULTIVITAMINS INJ 10 ML IV SCH ×6 (17:00→23:29)
--- NOTE | 2018-04-17 19:33 | PN ---
Subjective: The patient is seen and examined. Chart reviewed and case discussed with RN. The patie nt had some deterioration in her condition today with worsening nausea and unable to tolerate her con trast. The patient states that she has had some difficulty protecting her airway and felt that she w as going to aspirate, therefore spit up the contrast. The patient will be started on TPN. Review of Systems: Negative except as above. Medications: List reviewed. Physical Examination: Vital Signs: Temperature 100.0, pulse 73, blood pressure 136/65, respiratory rate is 16, O2 99% on 3 L via nasal cannula. General: Awake, alert, oriented x3, ill-appearing elderly female. CV: S1, S2. Peripheral pulses present. Regular rate and rhythm. Respiratory: Moving air well bilaterally. No wheezing. Gastrointestinal: Abdomen is soft. Mild tenderness to palpation of the epigastric region. No rebou nd or guarding. Absent bowel sounds. NG tube in place. Extremities: No clubbing, cyanosis, or edema. Neurologic: Nonfocal. Laboratory Data: Sodium 142, potassium 3.8, chloride 109, CO2 20, BUN 7, creatinine 0.6, glucose 94, calcium 7.9, magnesium 1.8. Lipase 122. WBC 10.8, H and H 11.1 and 32.4, platelets 264, neutrophil s 93.2%. Blood cultures pending. Small-bowel series canceled. However, abdominal x-ray shows a sma ll bowel follow through examination was canceled. The patient quickly vomited small amount of contra st administered and therefore examination was terminated. Test And Balance Engineer film does show that there is no comp lete small-bowel obstruction. The April 15 CT study contrast has reached the right side of the co arthur, narrowed irregular terminal ileum is seen, however, detail is not sufficient to distinguish measurement advisor gregg terminal ileum scarring from acute inflammatory change. Assessment And Plan: A 68-year-old female with: 1.Acute abdominal pain is epigastric secondary to small-bowel obstruction. 2.Small-bowel obstruction. Even though the patient was unable to do the small-bowel series, the con trast from the CT has reached the right side of the colon. Therefore, it is not a complete obstructi on. The patient, however, is not passing gas. NG tube is still in place. Therefore, we will start on TPN and obtain PICC line. Dr. Fregoso is aware of the situation. The patient likely has small-love wel obstruction secondary to adhesions from her previous abdominal surgery. She has had appendectomy , cholecystectomy, and hysterectomy. Lipase level was normal. The patient does have history of measurement advisor gregg pancreatitis. We will continue supportive care and conservative treatment. If patient does not improve, may need surgical intervention. 3.Crohn disease. We will continue with IV steroids due to patient's n.p.o. status. GI on board. 4.Chronic pancreatitis. Lipase level is normal. 5.Chronic pain syndrome. The patient is on Dilaudid every 4 hours. We will continue along with ant iemetics. 6.Chronic obstructive pulmonary disease, chronic bronchitis. Continue nebulizer treatments. Supple mental oxygen. 7.Major depressive disorder. The patient is somewhat tearful today. Daughter at the bedside. SSRI on hold due to n.p.o. status. 8.Mixed hyperlipidemia. 9.Gastroesophageal reflux disease without esophagitis. Continue IV PPI. 10.Gastrointestinal and deep venous thrombosis prophylaxis addressed. YEVGENIY Voice ID: [id number] Report ID: [id number]
[2018-04-18] MEDS: CLINDAMYCIN INJ 600 MG in NA CHLORIDE 0.9% 50 ML IV SCH ×3 (01:11→17:32)
[2018-04-18] MEDS: NA CHLORIDE 0.9% 1,000 ML IV SCH (01:12)
[2018-04-18] MEDS: Levofloxacin500mg IV 500 MG/100 ML BAG IV SCH (03:00)
[2018-04-18] MEDS: HYDROMORPHONE HCL 1 MG/ML INJ IV PRN ×4 (04:14→22:15)
[2018-04-18] MEDS: PROMETHAZINE 25 MG/ML VIAL IV PRN ×2 (04:14→15:10)
[2018-04-18 06:10] LABS: Absolute Lymphocytes (CBC) 0.4 K/uL (0.7-4.9); Absolute Monocytes 0.4 K/uL (0.1-1.3); Absolute Neutrophil 7.6 K/uL (1.8-8.0); Basophils % 0.1 % (0-1.3); Hematocrit 29.7 % (36.0-45.0); Lymphocytes % 4.5 % (15.3-44.8); MCH 32.3 pg (27.0-35.0); MCV 92.6 fL (80-100); MPV 7.6 fL (7.6-11.3); Monocytes % 4.7 % (3.3-12.3); RBC Red Blood Cell Count 3.21 M/uL (3.86-4.86)
[2018-04-18 06:15] LABS: Bilirubin Total 0.2 mg/dL (0.2-1.0); Magnesium 1.9 mg/dL (1.8-2.4); Phosphorus 1.6 mg/dL (2.5-4.9); Potassium 3.7 mmol/L (3.5-5.1); Protein, Total 5.7 g/dL (6.4-8.2)
--- NOTE | 2018-04-18 06:31 | RAD REPORT ---
EXAM DESCRIPTION: RAD - Chest Single View - 04/17/2018 10:00 pm CLINICAL HISTORY: PICC line placement A preliminary report was provided at the time of the study and reviewed prior to final report. COMPARISON: None. FINDINGS: Portable chest was obtained following placement of a left upper extremity PICC line. The c atheter tip is in the mid SVC. Gastric tube tip overlies the proximal stomach. Distal side port is at the GE junction.
[2018-04-18] MEDS ORDERED: POTASSIUM PHOS IN 0.9 % NACL 15 MMOL/250 ML BAG IV ONE (08:00)
[2018-04-18] MEDS ORDERED: D50W 25 GM/50 ML SYRINGE IV PRN (09:02)
[2018-04-18] MEDS ORDERED: GLUCAGON 1 MG/VIAL IM PRN (09:02)
[2018-04-18] MEDS: ONDANSETRON 4 MG/2 ML VIAL IV PRN (09:18)
[2018-04-18] MEDS: ENOXAPARIN 30 MG/0.3 ML SQ SCH (09:19)
[2018-04-18] MEDS: PANTOPRAZOLE 40 MG INJ IVP SCH (09:24)
[2018-04-18] MEDS: METHYLPREDNISOLONE 125 MG INJ IV SCH ×2 (09:25→22:15)
[2018-04-18] MEDS: INSULIN -REGULAR HUMAN 50 UNIT/0.5 ML ML SQ SCH ×2 (12:00→18:00)
--- NOTE | 2018-04-18 12:16 | PN ---
Date of Progress Note: 04/18/2018 Subjective: The patient is awake, alert, but she did not have a bowel movement or flatus per nurse, however, patient insists that she did. She had an attempted small bowel series, but she was not able to tolerate, however, she does have contrast in the right side of the colon indicating there was no complete obstruction. Her vital signs are stable. Afebrile. Laboratory data reviewed. X-ray from yesterday reviewed. Abdomen is completely soft, nondistended, nontender. Positive bowel sounds. Assessment: Prolonged ileus secondary to partial small bowel obstruction. Recommendations: Continue n.p.o. NG tube, TPN, IV antibiotics and steroids for possible Crohn's exac erbation, and if patient clinically improves hopefully in the next day or 2, we can start her on akira rs and advance slowly. NAKITA/SMOOTH Voice ID: [id number] Report ID: [id number]
--- NOTE | 2018-04-18 16:03 | PN ---
Date of Progress Note: 04/18/2018 Subjective: The patient seen and examined. Chart reviewed and case discussed with RN and Dr. Rodriguez. The patient states she feels better than yesterday. Did have a very small bowel movement. She has been ambulating the hallways, was started on TPN yesterday. Pain is better controlled. Review of Systems: Negative except as above. Medications: List reviewed. Physical Examination: Vital Signs: Temperature 98.6, heart rate 78, blood pressure 131/94, respirations 18, O2 98% on 3 L via nasal cannula. General: Awake, alert, oriented x3. She is in mild distress. Elderly female, ill-appearing. CV: S1 and S2. Peripheral pulses present. No murmurs. Regular rate and rhythm. Respiratory: Clear to auscultation bilaterally. No wheezing or stridor. No use of accessory muscle s. Gastrointestinal: Abdomen is soft. Mild tenderness to palpation. No distention. Hypoactive bowel sounds. NG tube in place. No guarding or rigidity. Extremities: No clubbing, cyanosis, or edema. Neurologic: Nonfocal. Laboratory Data: Sodium 141, potassium 3.7, chloride 107, CO2 26, BUN 7, creatinine 0.8, glucose 158 , calcium 7.8, phosphorus 1.6, magnesium 1.9. Albumin is 3, lipase 122. WBC 8.3, H and H 10.4 and 2 9.7, platelets 268, neutrophils 90%. Blood cultures no growth to date. Assessment And Plan: A 68-year-old female with: 1.Acute abdominal pain epigastric, likely secondary to small bowel obstruction versus possible Crohn 's exacerbation. 2.Small bowel obstruction which is partial as studies have shown contrast passing through the right side of the colon. The patient has been started on TPN and PICC line was placed yesterday. Apprecia te Dr. Rodriguez's input. The patient continues to improve. We will start on clear liquids in a.m. the patient states she had a small bowel movement and has been ambulating. We will encourage ambulation with assist. Lipase is normal. 3.Acute on chronic Crohn disease exacerbation. Continue IV steroids, IV antibiotics. Continue n.p. o. Status. GI on board. 4.Chronic pancreatitis, stable. Repeat lipase level normal. 5.Chronic pain syndrome. Continue pain medications and antiemetics. 6.Chronic obstructive pulmonary disease, chronic bronchitis. We will continue nebulizer treatments. Continue supplemental oxygen. 7.Major depressive disorder and p.o. medications on hold at this time. 8.Mixed hyperlipidemia, stable. 9.Gastroesophageal reflux disease without esophagitis. We will continue IV PPI. 10.Gastrointestinal and deep venous thrombosis prophylaxis addressed. Plan: The patient is able to pass flatus and improving. We will start on clear liquids and clamp NG tube. If however, the patient does not improve, may need to go to LTAC for long-term TPN while mirela l function returns. /SMOOTH Voice ID: [id number] Report ID: [id number]
[2018-04-18] MEDS: AA 5%/D20W/ELECTROLYTES-TPN 2,000 ML, Lipids 20% 250 ML with MULTIVITAMINS INJ 10 ML IV SCH ×3 (17:35)
--- NOTE | 2018-04-19 00:33 | PN ---
I have been following the patient for the last few days. There seems to be some conflicting history, but to me she has completely denied having any bowel movement since Sunday, also denied passing any gas. She has a history of Crohn disease, has been in the hospital for a bowel obstruction and as per imaging appears to have a narrowing in the terminal ileum. She also has had hysterectomy prior and cholecystectomy. Her bowel obstruction likely is due to her Crohn's. Given the nature of the findin gs on the x-ray, however, fibroadhesive disease cannot be ruled out as well. Regardless, she has not seemed to have any improvement since she has been here. There is contrast that has reached the colo n; however, bowel loops are still distended. She is unable to eat at least at this time and there estrella s been no passage of gas or any bowel movement at all since Sunday, which is 5 days ago. At around 5 p.m., I had a detailed discussion with Dr. Castellon and subsequently, Dr. Rodriguez regarding the further m anagement. Given the fact that there seems to be minimal response, she may be a candidate for surgic al intervention; however, if it turns out to be Crohn disease related stricture or obstruction, it wo uld be best if she is managed by a Colorectal Surgery at a tertiary care center. I agree with Dr. Rimma briggs that we have not equipped to handle such a case here. He would like to transfer the patient to [facility] under Dr. Doll which is an appropriate plan in this case. We will continue her on the high-dose steroids as well as antibiotics. Keep the NG tube, TPN, transfer to [facility]. No active intervention from GI at this point in time. US/MODL Voice ID: [id number] Report ID: [id number]
[2018-04-19] MEDS: CLINDAMYCIN INJ 600 MG in NA CHLORIDE 0.9% 50 ML IV SCH ×3 (02:00→17:11)
[2018-04-19] MEDS: Levofloxacin500mg IV 500 MG/100 ML BAG IV SCH (03:51)
[2018-04-19 05:46] LABS: Phosphorus 1.7 mg/dL (2.5-4.9); Potassium 3.1 mmol/L (3.5-5.1)
[2018-04-19] MEDS: INSULIN -REGULAR HUMAN 50 UNIT/0.5 ML ML SQ SCH ×5 (06:00→23:54)
[2018-04-19] MEDS: ONDANSETRON 4 MG/2 ML VIAL IV PRN (07:20)
[2018-04-19] MEDS ORDERED: POTASS/SODIUM PHOSPHATE 1 PKT POWD.PACK PO SCH (08:00)
[2018-04-19] MEDS ORDERED: KCL 20 MEQ/100 mL IVPB 20 MEQ/100 ML BAG IV SCH ×2 (08:30→20:00)
[2018-04-19] MEDS: HYDROMORPHONE HCL 1 MG/ML INJ IV PRN ×3 (09:32→22:08)
[2018-04-19] MEDS: ENOXAPARIN 30 MG/0.3 ML SQ SCH (09:33)
[2018-04-19] MEDS: METHYLPREDNISOLONE 125 MG INJ IV SCH ×2 (10:00→20:16)
[2018-04-19] MEDS ORDERED: POTASSIUM PHOS IN 0.9 % NACL 15 MMOL/250 ML BAG IV ONE (10:30)
[2018-04-19] MEDS: PANTOPRAZOLE 40 MG INJ IVP SCH (10:53)
--- NOTE | 2018-04-19 12:29 | RAD REPORT ---
EXAM DESCRIPTION: RAD - Chest Single View - 04/19/2018 12:11 pm CLINICAL HISTORY: Device placement nasogastric tube placement IMPRESSION: The tip of a nasogastric tube lies within the lateral aspect of the gastric fundus proba franklin of abutting the gastric wall Dilated small bowel persists
--- NOTE | 2018-04-19 13:05 | PN ---
Date of Progress Note: 04/19/2018 Subjective: The patient states that she is passing gas, had 1 small bowel movement, no vomiting. Sh nabor did have some significant NG tube output last night, however, it looks like it has moved and may be in the distal esophagus. Her laboratory data reviewed. Objective: Abdomen is soft, nondistended, and nontender. Positive bowel sounds. There is absolutel y no evidence of obstruction clinically. Assessment: Small bowel obstruction, partial in nature. History of Crohn disease. Recommendations: This patient is clinically a little bit better. We will go ahead and check an x-ra y to make sure the NG tube is in proper place. We will clamp the NG tube, and we will start her on c lear liquids and see how the patient tolerates this. We will continue IV antibiotics and steroids as ordered. We will follow the patient. NAKITA/SMOOTH Voice ID: [id number] Report ID: [id number]
--- NOTE | 2018-04-19 17:56 | PN ---
Date of Progress Note: 04/19/2018 Subjective: The patient seen and examined. Chart reviewed and case discussed with Dr. Rodriguez. The p atient still unable to be transferred as awaiting on accepting physician. The patient, however, feel s significantly better. She is passing gas and has had multiple small bowel movements. Clinically m uch improved. Review of Systems: Negative except as above. Medications: List reviewed. Physical Examination: Vital Signs: Temperature 98.9, heart rate 62, blood pressure 137/75, respirations 20, O2 94% on 3 L via nasal cannula. General: Awake, alert, oriented x3, not in any acute distress. Elderly female, somewhat ill-appeari ng. CV: S1, S2. Regular rate and rhythm. Peripheral pulses present. Respiratory: Moving air well bilaterally. No wheezing or stridor. Gastrointestinal: Abdomen is soft. No distention. Positive bowel sounds. No guarding or rigidity. NG tube in place. Extremities: No clubbing, cyanosis, or edema. Neurologic: Nonfocal. Laboratory Data: Sodium 140, potassium 3.1, chloride 104, CO2 30, BUN 8, creatinine 0.7, glucose 183 , calcium 8, phosphorus 1.7. WBC 8.3. Blood cultures, no growth to date. Chest x-ray personally re viewed, shows tip of the nasogastric tube lies in the lateral aspect of the gastric fundus, probably abutting the gastric wall, dilated small bowel process. Assessment And Plan: A 68-year-old female with: 1.Acute abdominal pain, epigastric secondary to small bowel obstruction and Crohn's exacerbation. 2.Small bowel obstruction, partial. The patient is improving clinically, passing flatus. Has had s mall bowel movements, not as distended. Pain is better. NG tube will be clamped and starting on surendra ar liquids. Dr. Rodriguez on board. Continue ambulation. 3.Acute on chronic Crohn disease exacerbation, on IV steroids and IV antibiotics. Appreciate Dr. Rimma merritt's input. 4.Chronic pancreatitis, stable. 5.Chronic pain syndrome. Continue chronic narcotics and antiemetics. 6.Chronic obstructive pulmonary disease, chronic bronchitis. The patient on nebulizer treatments as needed and supplemental oxygen. 7.Major depressive disorder, stable. 8.Mixed hyperlipidemia, stable. 9.Gastroesophageal reflux disease without esophagitis. Continue IV PPI. 10.Gastrointestinal and deep venous thrombosis prophylaxis with PPI and Lovenox. Plan: Clamp NG tube, clear liquid diet. The patient seems to have turned around in the past 24 hour s passing gas and bowel movements. We will encourage ambulation. At this time, Dr. Rodriguez does not f eel that the patient needs to be transferred emergently for surgery by colorectal specialist. We olivia l continue to monitor. If improves over the weekend, may be discharged. However, if deteriorate, we will continue to attempt transfer process. /SMOOTH Voice ID: [id number] Report ID: [id number]
[2018-04-19] MEDS: AA 5%/D20W/ELECTROLYTES-TPN 2,000 ML, Lipids 20% 250 ML with MULTIVITAMINS INJ 10 ML IV SCH ×3 (18:18)
[2018-04-19] MEDS: PROMETHAZINE 25 MG/ML VIAL IV PRN (19:10)
[2018-04-19] MEDS: KCL 20 MEQ/100 mL IVPB 20 MEQ/100 ML BAG IV SCH ×2 (20:16→22:09)
[2018-04-20] MEDS: CLINDAMYCIN INJ 600 MG in NA CHLORIDE 0.9% 50 ML IV SCH ×3 (00:40→18:56)
[2018-04-20] MEDS: Levofloxacin500mg IV 500 MG/100 ML BAG IV SCH (02:04)
[2018-04-20] MEDS: INSULIN -REGULAR HUMAN 50 UNIT/0.5 ML ML SQ SCH ×3 (05:25→18:00)
[2018-04-20 06:27] LABS: BUN Blood Urea Nitrogen 9 mg/dL (7-18); Bicarbonate 30 mmol/L (21-32); Glucose Level 195 mg/dL (74-106); Phosphorus 2.9 mg/dL (2.5-4.9); Potassium 3.8 mmol/L (3.5-5.1); Sodium Level 139 mmol/L (136-145)
[2018-04-20] MEDS ORDERED: KCL 20 MEQ/100 mL IVPB 20 MEQ/100 ML BAG IV SCH (07:00)
[2018-04-20] MEDS: HYDROMORPHONE HCL 1 MG/ML INJ IV PRN ×2 (08:14→20:33)
[2018-04-20] MEDS: ENOXAPARIN 30 MG/0.3 ML SQ SCH (08:15)
[2018-04-20] MEDS: PANTOPRAZOLE 40 MG INJ IVP SCH (08:15)
[2018-04-20] MEDS: METHYLPREDNISOLONE 125 MG INJ IV SCH (08:15)
[2018-04-20] MEDS: ENSURE CLEAR 200 ML CAN PO SCH ×2 (09:00→14:00)
[2018-04-20] MEDS: PROMETHAZINE 25 MG/ML VIAL IV PRN ×2 (09:41→20:33)
--- NOTE | 2018-04-20 13:18 | PN ---
Date of Progress Note: 04/20/2018 Subjective: The patient is awake, alert, has mild nausea but her NG residual was only 5 cc. She did have a bowel movement again and she is passing gas. She is tolerating a clear liquids well. Objective: Vital Signs: Stable. She is afebrile. Abdomen: Soft, nondistended, nontender. Positive bowel sounds. Assessment: Small-bowel obstruction, resolving, secondary to Crohn disease. Recommendation: We will discontinue the NG tube. Slowly advance to full liquids this evening. She is cleared for treatment with sulfasalazine for her Crohn disease, and hopefully we can taper the gabriela roids down. Continue the antibiotics as ordered. At this time, the patient does not appear to need any surgical intervention, so we can hold off on the transfer. We will also taper the TPN. /MODL Voice ID: [id number] Report ID: [id number]
--- NOTE | 2018-04-20 17:27 | PN ---
Subjective: Currently, the patient is lying in bed. She looks comfortable. She had no chest pain. No abdominal pain. No fever, no chills. She was able to tolerate clear liquid diet this morning. She is still on TPN, but we were to bring that down, and transfer to [place] was aborted. Objective: Vital Signs: Currently, blood pressure is 140/76, respiratory rate 16, pulse 72, tempera ture 96.8. General: She is alert and oriented x3. Does not look in any distress. HEENT: Atraumatic, normocephalic. PERRLA. Oral mucosa is moist. Neck: Supple. No JVD. No carotid bruits. Chest: Clear to auscultation. Good air entry. Heart: Regular rate and rhythm. S1, S2 normal. No gallop or murmur. Abdomen: Soft, nontender. No masses. No hepatosplenomegaly. No guarding. Positive bowel sounds. Extremities: No clubbing, no cyanosis, no edema. No calf tenderness. Neurologic: Grossly intact. Cranial nerve exam 2 through 12 are intact. Normal sensation. Normal reflexes. Normal muscle strength. Laboratory Data: Today showed CBC normal, except for hemoglobin 10.4. Chemistry within normal. Cre atinine 0.5, glucose 195, calcium 8.2. Assessment And Plan: 1.Crohn disease exacerbation with small bowel obstruction, which is partial. At this point, the pat ient is doing better, and she is able to pass gas with active bowel sounds. The NG tube removed yest erday. She started on clear liquid, and she is tolerating that very well. 2.Abdominal pain, resolved secondary to the small-bowel obstruction. 3.Acute on chronic Crohn disease exacerbation. The patient on IV steroid and IV antibiotic still Levaquin, Solu-Medrol. GI will continue with that for now. 4.History of chronic pancreatitis, is stable at this point. 5.Chronic pain syndrome. The patient on Dilaudid as needed. 6.Deep vein thrombosis prophylaxis. She is on Lovenox 30, but I will change it to 40 as the patient 's kidney function back to normal. 7.History of major depression, depressive disorder, stable. 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 The patient on nebulizer treatment and as needed oxygen. She is currently off oxygen. 9.History of acid reflux with esophagitis. Continue with IV Protonix. 10.Discharge plan will depend on the patient tolerated of advancing diet and tapering steroid, kaushal reid would be in the next 48 hours. The patient transfer to [facility] aborted as she is clin ically doing much better. SIMI/SMOOTH Voice ID: [id number] Report ID: [id number]
--- NOTE | 2018-04-20 18:47 | RAD REPORT ---
EXAM DESCRIPTION: USExtremity Venous Uni Ltd04/20/2018 6:31 pm CLINICAL HISTORY: Left arm swelling COMPARISON: None FINDINGS: The left internal jugular, left subclavian, left cephalic, left axillary, left brachial, l eft basilic veins are generally compressible and demonstrate augmentation. Doppler demonstrates good flow. A PICC line is seen. IMPRESSION: No evidence of thrombus within the veins of the left upper extremity
[2018-04-20] MEDS: AA 5%/D20W/ELECTROLYTES-TPN 2,000 ML, Lipids 20% 250 ML with MULTIVITAMINS INJ 10 ML IV SCH ×3 (18:56)
[2018-04-21] MEDS: CLINDAMYCIN INJ 600 MG in NA CHLORIDE 0.9% 50 ML IV SCH ×3 (00:40→09:29)
[2018-04-21] MEDS: Levofloxacin500mg IV 500 MG/100 ML BAG IV SCH (02:29)
[2018-04-21 05:15] LABS: BUN Blood Urea Nitrogen 10 mg/dL (7-18); Bicarbonate 31 mmol/L (21-32); Glucose Level 94 mg/dL (74-106); Potassium 3.6 mmol/L (3.5-5.1); Sodium Level 140 mmol/L (136-145)
[2018-04-21] MEDS ORDERED: TRAMADOL HCL 50 MG TAB PO PRN (05:20)
[2018-04-21] MEDS: INSULIN -REGULAR HUMAN 50 UNIT/0.5 ML ML SQ SCH ×4 (05:57→18:00)
[2018-04-21 06:26] VITALS: BMI 21.7
[2018-04-21] MEDS ORDERED: POTASSIUM 25 MEQ EFFERV TAB PO ONE (06:36)
[2018-04-21] MEDS: PROMETHAZINE 25 MG/ML VIAL IV PRN (07:23)
[2018-04-21 08:55] VITALS: O2SAT 96
[2018-04-21] MEDS: ENSURE CLEAR 200 ML CAN PO SCH ×2 (09:00→13:51)
[2018-04-21] MEDS: PANTOPRAZOLE 40 MG INJ IVP SCH (09:22)
[2018-04-21] MEDS: predniSONE 20 MG TAB PO SCH (09:29)
[2018-04-21] MEDS: HYDROMORPHONE ORAL 2 MG TAB PO PRN ×2 (10:45→18:13)
[2018-04-21] MEDS: ONDANSETRON 4 MG/2 ML VIAL IV PRN (10:45)
[2018-04-21] MEDS: PROMETHAZINE 25 MG TABLET PO PRN ×2 (13:29→20:11)
[2018-04-21] MEDS: NICOTINE 21 MG/PAT TD SCH (13:30)
[2018-04-21] MEDS ORDERED: ENOXAPARIN 40 MG/0.4 ML SQ SCH (17:00)
[2018-04-21] MEDS: PANTOPRAZOLE 40MG TABLET PO SCH (18:14)
--- NOTE | 2018-04-21 19:30 | PN ---
Subjective: Currently, the patient is lying in bed. She looks comfortable, but she is complaining of abdominal pain and she thinks that was because I stopped he Dilaudid, which she takes chronically at home. She is able to tolerate liquid diet and some mechanical. No fever. No chills. Overnight, she had a low-grade temp of 99.1. No chest pain. No nausea or vomiting. Review of Systems: Otherwise negative. Objective: Vital Signs: Blood pressure 154/67, respiratory rate 24, heart rate 68, temperature 99.1. She is saturating normal mid 90s on room air. General: She is alert, oriented x3. Does not look in any distress. HEENT: Atraumatic, normocephalic. PERRLA. Oral mucosa is moist. Neck: Supple. No JVD. No carotid bruits. Chest: Clear to auscultation. Good air entry. Heart: Regular rate and rhythm. S1, S2 normal. No gallop or murmur. Abdomen: Soft, nontender. No masses. No hepatosplenomegaly. Positive bowel sounds. There is no rebound or guarding. Extremities: No clubbing, cyanosis, or edema. No calf tenderness. Neurologic: Grossly intact. Laboratory Data: Today showed CBC was normal except for hemoglobin 10.4, platelets 268. Chemistry was normal except for creatinine of 0.5, calcium is 8.1. Left lower extremity Doppler yesterday was negative for DVT. Assessment And Plan: 1. Crohn disease exacerbation with partial small bowel obstruction. The patient continued to improve. She is tolerating diet. 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 She had small bowel movement this morning. She continued to have abdominal pain, which apparently is somewhat chronic. She will resume her Dilaudid 2 mg every 6 hours. 2. Acute on chronic Crohn disease exacerbation, doing better. So, we switched her from IV Solu-Medrol to prednisone 60. The patient already on antibiotic with Levaquin. May be GI will consider starting the patient on sulfasalazine when they follow her up tomorrow morning. 3. History of chronic pancreatitis, stable, but the patient continued to have some abdominal pain, which is apparently chronic. We will continue with Dilaudid 2 mg every 6 hours. 4. Major depression, stable. 5. Chronic obstructive pulmonary disease history with history of emphysema. The patient on nebulizer treatment as needed. She is not requiring oxygen. 6. History of acid reflux with esophagitis. Continue Protonix and we will switch that to oral. 7. Deep vein thrombosis prophylaxis, on 40 of Lovenox. 8. Discharge plan, most likely this week in the next couple of days if the patient continued to improve and tolerate diet and GI agrees. MIRZA Voice ID: [id number] Report ID: [id number] MTDZandra
[2018-04-22] MEDS: HYDROMORPHONE ORAL 2 MG TAB PO PRN ×2 (00:43→06:16)
[2018-04-22] MEDS: CLINDAMYCIN INJ 600 MG in NA CHLORIDE 0.9% 50 ML IV SCH ×2 (00:43→09:00)
[2018-04-22] MEDS: Levofloxacin500mg IV 500 MG/100 ML BAG IV SCH (02:06)
[2018-04-22 05:32] LABS: Potassium 3.8 mmol/L (3.5-5.1)
[2018-04-22] MEDS: INSULIN -REGULAR HUMAN 50 UNIT/0.5 ML ML SQ SCH ×2 (05:56)
[2018-04-22] MEDS: PROMETHAZINE 25 MG TABLET PO PRN (06:16)
[2018-04-22] MEDS ORDERED: POTASSIUM CL SA 10 MEQ TAB PO ONE (06:20)
[2018-04-22] MEDS: predniSONE 20 MG TAB PO SCH (09:00)
[2018-04-22] MEDS: PANTOPRAZOLE 40MG TABLET PO SCH (09:00)
[2018-04-22] MEDS: NICOTINE 21 MG/PAT TD SCH (09:00)
[2018-04-22] MEDS: ENSURE CLEAR 200 ML CAN PO SCH (09:00)
[2018-04-22] MEDS ORDERED: INSULIN -REGULAR HUMAN 50 UNIT/0.5 ML ML SQ SCH (11:30)
[2018-04-22 12:11] VITALS: BP 143/70; TEMP 100
--- NOTE | 2018-04-22 16:10 | PN ---
Date of Progress Note: 04/22/2018 Subjective: The patient is awake, alert, complaining of chronic abdominal pain and nausea that she h as on a regular basis at home. She is passing gas. She is tolerating what she eats but she does not like the food over here. She has had a bowel movement. Physical Examination: Vital Signs: Stable. She is afebrile. Abdomen: Completely benign. Soft, nondistended, nontender. Positive bowel sounds. Assessment: Small-bowel obstruction resolved secondary to Crohn disease and chronic pain syndrome. Recommendation: Medical management from this point on. Reconsult Surgery p.r.n. The patient does no t need surgical intervention. Can follow up with her pain doctor as well as GI doctor as an outpatie nt. NAKITA/SMOOTH Voice ID: [id number] Report ID: [id number]
--- NOTE | 2018-04-23 14:00 | DS ---
Date of Discharge: 04/22/2018 Consultants: 1.Dr. Guerrero, GI. 2.Dr. Rodriguez with General Surgery. Procedures: None. Admitting Diagnoses: 1.Small bowel obstruction. 2.Acute Crohn disease. 3.Chronic pancreatitis. 4.Chronic pain syndrome. 5.Chronic obstructive pulmonary disease. 6.Major depressive disorder. 7.Gastroesophageal reflux disease. 8.Hyperlipidemia. Discharge Diagnoses: 1.Acute abdominal pain, epigastric, resolved. 2.Small bowel obstruction, partial, resolved. 3.Cyvrf-oh-cpcamla Crohn disease exacerbation. 4.Chronic pancreatitis. 5.Chronic pain syndrome, on chronic narcotics. 6.Chronic obstructive pulmonary disease, chronic bronchitis. 7.Major depressive disorder. 8.Mixed hyperlipidemia. 9.Gastroesophageal reflux without esophagitis. Hospital Course: The patient did have relatively prolonged course in the hospital due to her small b owel obstruction, complicated with Crohn disease. The patient was seen by General Surgery and GI. S he was started on IV antibiotics, IV fluids, and antibiotics. She was kept n.p.o. for imaging studie s. CT scan of the abdomen and pelvis showed moderate severity of mechanical small bowel obstruction with mild ascites. The patient had repeat abdominal x-rays done, however, did not have any improveme nt. She was unable to tolerate a small bowel series done on 04/17/2018. However, the physicist solid state film did show that there was some contrast from the April 15 CT that showed right-sided colon given her Cr ohn's exacerbation. The patient was started on IV steroids as well. GI and General Surgery did darrius mmend transfer to colorectal surgeon for possible surgery and Stricturoplasty as the patient had not responded well to conservative treatment. However by the time, bed was available in the transfer corinne ter and Richard called from the specialist surgery service. The patient has starting passing gas, passed stools, and being able to tolerate clear liquids. Her NG tube has been clamped at that time. Therefore, Richard recommended outpatient followup with Dr. Doll. The patient otherwise did well. The patient need TPN, however, was gradually weaned off as she was able to tolerate clear liquids a nd then finally soft liquid diet. The patient otherwise did well. She did not have any further feve rs. She was cleared for discharge from GI and surgeon's standpoint. She was able to ambulate withou t difficulty. The patient is on chronic narcotics due to chronic pain syndrome. Followup: She will need follow up with her PCP in 2-3 days. Follow up with general surgeon, Dr. Saad estrella in 2 weeks. Follow up with GI, Dr. Guerrero in 2 weeks. Return to ER for worsening condition. F ollow up with colorectal surgeon, Dr. Doll in 2-4 weeks for her possible strictures. Diet: Low GI soft, bland diet. Activity: No driving or operating heavy machinery while on narcotics. Medications: As per medication reconciliation list. The patient will finish a course of Levaquin an d taper off the steroids. The patient is on some chronic steroids. She will go back to her home dos e after taper. Total time spent discharging the patient was 39 minutes. Physical Examination: General: Awake, alert, oriented x3. No acute distress. Elderly female. CV: S1, S2. No murmurs. Respiratory: Moving air well bilaterally. Abdomen: Soft, nontender, nondistended. Positive bowel sounds. Extremities: No clubbing, cyanosis, edema. Neurologic: Nonfocal. SA/MODL Voice ID: [id number] Report ID: [id number]
== END 2018-04-22 13:39 | disposition home or self-care (01) | DRG 389 ==
LOC: ER 22:10 → ERHOLD 04-15 02:25 → 4TH 04-15 03:42
PROVIDERS: ADMIT Hospitalist; ATTEND Family Medicine
PROC: 0D9670Z Drainage of Stomach with Drainage Device, Via Natural or Artificial Opening (ICD-10-PCS; principal; 2018-04-16)
PROC: 3E0436Z Introduction of Nutritional Substance into Central Vein, Percutaneous Approach (ICD-10-PCS; 2018-04-17)
PROC: 02HV33Z Insertion of Infusion Device into Superior Vena Cava, Percutaneous Approach (ICD-10-PCS; 2018-04-17)
PROC: B548ZZA Ultrasonography of Superior Vena Cava, Guidance (ICD-10-PCS; 2018-04-17)
DX: K56.600 Partial intestinal obstruction, unspecified as to cause (principal); K50.012 Crohn's disease of small intestine with intestinal obstruction; K86.1 Other chronic pancreatitis; R18.8 Other ascites; G89.4 Chronic pain syndrome; J44.9 Chronic obstructive pulmonary disease, unspecified; F32.9 Major depressive disorder, single episode, unspecified; E78.2 Mixed hyperlipidemia; K21.9 Gastro-esophageal reflux disease without esophagitis; Z88.5 Allergy status to narcotic agent; Z88.0 Allergy status to penicillin; I10 Essential (primary) hypertension; F17.210 Nicotine dependence, cigarettes, uncomplicated; Z80.51 Family history of malignant neoplasm of kidney; Z80.8 Family history of malignant neoplasm of other organs or systems; K56.7 Ileus, unspecified
CPT/HCPCS: 36415; 71045; 74018; 74019; 74177; 80048; 80053; 80076; 81003; 82962; 83605; 83690; 83735; 84100; 84132; 84478; 85025; 87040; 93005; 93971; 99285; C9113; G0008; J1170; J1650; J1720; J2405; J2550; J2920; J2930; J3475; J7030; J7512; Q2035; Q9967

== ENCOUNTER 2018-04-23 00:02 | Emergency (ER) | payer OTHER ==
[2018-04-23] MEDS ORDERED: DIAZEPAM 10 MG/2 ML INJ SYRINGE ONE (01:02)
[2018-04-23] MEDS ORDERED: NA CHLORIDE 0.9% 1,000 ML ONE (01:59)
[2018-04-23] MEDS ORDERED: PROMETHAZINE 25 MG/ML VIAL ONE (01:59)
[2018-04-23 03:21] LABS: Absolute Monocytes 2.1 K/uL (0.1-1.3); Absolute Neutrophil 14.4 K/uL (1.8-8.0); Eosinophils % 0.1 % (0-4.4); Hematocrit 40.1 % (36.0-45.0); Lymphocytes % 10.8 % (15.3-44.8); MCH 31.5 pg (27.0-35.0); MCV 92.6 fL (80-100); Monocytes % 11.2 % (3.3-12.3); RBC Red Blood Cell Count 4.33 M/uL (3.86-4.86)
[2018-04-23 03:33] LABS: Albumin 4.1 g/dL (3.4-5.0); Bilirubin Direct 0.2 mg/dL (0-0.2); Bilirubin Total 0.5 mg/dL (0.2-1.0); Potassium 3.8 mmol/L (3.5-5.1); Protein, Total 7.6 g/dL (6.4-8.2)
[2018-04-23] MEDS ORDERED: MORPHINE 4 MG/ML SYR ONE (03:41)
[2018-04-23] MEDS ORDERED: METRONIDAZOLE 500mg IVPB 500 MG/100 ML BAG IV ONE (04:00)
[2018-04-23] MEDS ORDERED: Levofloxacin500mg IV 500 MG/100 ML BAG IV ONE (04:00)
--- NOTE | 2018-04-23 04:19 | EDPHYS ---
Physician Documentation [facility] Name: Angella Jackson Age: 68 yrs Sex: Female : 1950 Arrival Date: 04/23/2018 Time: 00:14 Bed 8 Private MD: ED Physician Waqar Longoria HPI: 04/23 01:40 This 68 yrs old Female presents to ER via EMS with complaints of Abd Pain > snw 49 y/o, Nausea/Vomiting/Diarrhea. 01:40 The patient presents with abdominal pain abdominal distention. Onset: The snw symptoms/episode began/occurred suddenly, and became persistent. The symptoms do not radiate. Associated signs and symptoms: Pertinent positives: nausea, vomiting. The symptoms are described as crampy. Severity of pain: At its worst the pain was moderate severe. The patient has experienced similar episodes in the past. Pt was dc'd from this facility less than 12 hours ago. Historical: - Allergies: 00:35 Codeine; aa1 00:35 PENICILLINS; aa1 00:35 Bees; aa1 00:35 Wasps; aa1 00:35 hydrocodone; aa1 - Home Meds: 00:35 amlodipine 10 mg tab 1 tab once daily [Active]; aspirin 81 mg Oral chew 1 tab once aa1 daily [Active]; Carafate 1 gram Oral tab 1 tab 4 times per day [Active]; Cozaar 50 mg Oral tab 1 tab once daily [Active]; Dexilant 60 mg Oral CpDB 1 cap once daily [Active]; ProAir HFA 90 mcg/actuation inhalation HFAA 2 puffs as needed [Active]; Singulair 10 mg Oral tab 1 tab once daily [Active]; Spiriva with HandiHaler 18 mcg inhalation CpDv 1 cap once daily [Active]; Valium 5 mg Oral tab 1 tab as needed [Active]; Zoloft 100 mg Oral tab 1 tab once daily [Active]; - PMHx: 00:35 COPD; Crohn's; GERD; Hypertension; Pancreatitis; SBO; aa1 - PSHx: 00:35 Tonsillectomy; Carpal Tunnel Repair; Cholecystectomy; Hysterectomy; spinal cord aa1 stimulator placement and removal; Appendectomy; - Immunization history:: Flu vaccine is up to date. - Social history:: Smoking status: Patient uses tobacco products, 1.5 PPD. - Ebola Screening: : No symptoms or risks identified at this time. ROS: 01:40 Constitutional: Negative for fever, chills, and weight loss, Eyes: Negative for injury, snw pain, redness, and discharge, ENT: Negative for injury, pain, and discharge, Neck: Negative for injury, pain, and swelling, Cardiovascular: Negative for chest pain, palpitations, and edema, Respiratory: Negative for shortness of breath, cough, wheezing, and pleuritic chest pain, Back: Negative for injury and pain, : Negative for injury, bleeding, discharge, and swelling, MS/Extremity: Negative for injury and deformity, Skin: Negative for injury, rash, and discoloration, Neuro: Negative for headache, weakness, numbness, tingling, and seizure. 01:40 Abdomen/GI: Positive for abdominal pain, nausea and vomiting, abdominal distension. Exam: 01:39 Constitutional: This is a well developed, well nourished patient who is awake, alert, snw and in no acute distress. Head/Face: Normocephalic, atraumatic. Eyes: Pupils equal round and reactive to light, extra-ocular motions intact. Lids and lashes normal. Conjunctiva and sclera are non-icteric and not injected. Cornea within normal limits. Periorbital areas with no swelling, redness, or edema. ENT: Nares patent. No nasal discharge, no septal abnormalities noted. Tympanic membranes are normal and external auditory canals are clear. Oropharynx with no redness, swelling, or masses, exudates, or evidence of obstruction, uvula midline. Mucous membranes moist. Neck: Trachea midline, no thyromegaly or masses palpated, and no cervical lymphadenopathy. Supple, full range of motion without nuchal rigidity, or vertebral point tenderness. No Meningismus. Chest/axilla: Normal chest wall appearance and motion. Nontender with no deformity. No lesions are appreciated. Cardiovascular: Regular rate and rhythm with a normal S1 and S2. No gallops, murmurs, or rubs. Normal PMI, no JVD. No pulse deficits. Respiratory: Lungs have equal breath sounds bilaterally, clear to auscultation and percussion. No rales, rhonchi or wheezes noted. No increased work of breathing, no retractions or nasal flaring. Back: No spinal tenderness. No costovertebral tenderness. Full range of motion. Skin: Warm, dry with normal turgor. Normal color with no rashes, no lesions, and no evidence of cellulitis. MS/ Extremity: Pulses equal, no cyanosis. Neurovascular intact. Full, normal range of motion. Neuro: Awake and alert, GCS 15, oriented to person, place, time, and situation. Cranial nerves II-XII grossly intact. Motor strength 5/5 in all extremities. Sensory grossly intact. Cerebellar exam normal. Normal gait. Psych: Awake, alert, with orientation to person, place and time. Behavior, mood, and affect are within normal limits. 01:39 Abdomen/GI: Inspection: distension, that is moderate, Bowel sounds: tinkling, Palpation: moderate abdominal tenderness, in all quadrants. Vital Signs: 00:14 BP 157 / 83; Pulse 84; Resp 20; Temp 97.6; Pulse Ox 98% on R/A; Weight 53.98 kg; Height aa1 5 ft. 2 in. (157.48 cm); Pain 10/10; 01:00 BP 154 / 84; Pulse 84; Resp 16; Pulse Ox 95% on 2 lpm NC; Pain 8/10; aa1 02:37 BP 170 / 97; Pulse 88; Resp 20; Pulse Ox 95% on R/A; aa1 03:39 BP 157 / 82; Pulse 76; Resp 16; Pulse Ox 95% on R/A; aa1 05:03 BP 130 / 77; Pulse 72; Resp 16; Temp 97.8; Pulse Ox 95% on 2 lpm NC; aa1 00:14 Body Mass Index 21.77 (53.98 kg, 157.48 cm) aa1 Procedures: 02:33 G-tube placement: per ED nurse. pt tolerated well, + gastric contents . snw MDM: 00:47 Patient medically screened. [facility] 03:01 Data reviewed: vital signs, nurses notes, EMS record, old medical records. Data snw interpreted: Pulse oximetry: on room air is 98 %. Interpretation: normal. Counseling: I had a detailed discussion with the patient and/or guardian regarding: the historical points, exam findings, and any diagnostic results supporting the discharge/admit diagnosis, the presence of at least one elevated blood pressure reading (>120/80) during this emergency department visit, lab results, radiology results, the need to transfer to another facility. Physician consultation: Waqar Longoria MD. Transition of care: After a detail discussion of the patient's case, care is transferred to Waqar Longoria MD. 04/23 01:38 Order name: Basic Metabolic Panel; Complete Time: 04:13 snw 04/23 01:38 Order name: CBC with Diff; Complete Time: 03:23 snw 04/23 00:48 Order name: CT Abd/Pelvis - Without Cont snw 04/23 01:38 Order name: Hepatic Function; Complete Time: 04:13 snw 04/23 01:38 Order name: Lipase; Complete Time: 04:13 snw 04/23 01:39 Order name: Blood Culture* snw 04/23 01:38 Order name: NG Tube; Complete Time: 02:19 snw 04/23 02:44 Order name: Abdomen 1 View XRAY snw 04/23 01:38 Order name: IV Saline Lock; Complete Time: 02:19 snw 04/23 01:38 Order name: Labs collected and sent; Complete Time: 02:39 snw Administered Medications: 01:02 Drug: Valium 5 mg Route: IM; Site: right deltoid; aa1 02:00 Follow up: Response: No adverse reaction; Pain is decreased aa1 01:55 Drug: NS 0.9% 1000 ml Route: IV; Rate: 75 ml/hr; Site: right wrist; aa1 04:56 Follow up: IV Status: Infusion continued upon transfer aa1 01:55 Drug: Phenergan 12.5 mg Route: IVP; Site: right wrist; aa1 02:55 Follow up: Response: No adverse reaction; Nausea is decreased aa1 03:38 Drug: morphine 4 mg Route: IVP; Site: right wrist; aa1 04:30 Follow up: Response: No adverse reaction; Pain is decreased aa1 04:05 Drug: Flagyl 500 mg Volume: 100 ml; Route: IVPB; Rate: 200 ml/hr; Infused Over: 30 aa1 mins; Site: right wrist; 04:56 Follow up: IV Status: Completed infusion aa1 04:05 Drug: LevaQUIN 500 mg Volume: 100 ml; Route: IVPB; Infused Over: 60 mins; Site: right aa1 wrist; 05:20 Follow up: IV Status: Completed infusion aa1 Disposition: 04:17 Co-signature as Attending Physician, Waqar Longoria MD. pkl Disposition: 04/23/18 04:19 Transfer ordered to [facility]. Diagnosis is Small bowel obstruction. Crohn's disease. - Reason for transfer: Higher level of care. - Accepting physician is Dr. Chetna Cruz. - Condition is Stable. - Problem is new. - Symptoms have improved. Signatures: Dispatcher [employer] Vi Bonilla, DANIELLE RN aa1 James Bunch MD MD cha Lam, Pin, MD MD pkHalina Skinner, CLINICAL UNIT EDUCATOR-C CLINICAL UNIT EDUCATOR-Csnw Corrections: (The following items were deleted from the chart) 05:31 04:19 04/23/2018 04:19 Transfer ordered to [facility]. Diagnosis is aa1 Small bowel obstruction. Crohn's disease. Reason for transfer: Higher level of care. Accepting physician is Dr. Chetna Cruz. Condition is Stable. Problem is new. Symptoms have improved. pkl
--- NOTE | 2018-04-23 04:19 | ER ---
Nurse's Notes [facility] Name: Angella Jackson Age: 68 yrs Sex: Female : 1950 Arrival Date: 04/23/2018 Time: 00:14 Bed 8 Private MD: Diagnosis: Small bowel obstruction. Crohn's disease Presentation: 04/23 00:14 Presenting complaint: Patient states: she was dc'd from the hospital earlier today aa1 after being admitted for a SBO and she is still having generalized abd pain and N/V/D. Reports she did not have to have sx for her SBO but did have an NG tube x 4 days. Pt also states she has not been eating solid foods yet either but did eat some soup earlier tonight. C/O abd pain 04/24. States she is allergic to all pain medications except Dilaudid. Transition of care: patient was not received from another setting of care. Onset of symptoms was April 14, 2018. Risk Assessment: Do you want to hurt yourself or someone else? Patient reports no desire to harm self or others. Initial Sepsis Screen: Does the patient meet any 2 criteria? No. Patient's initial sepsis screen is negative. Does the patient have a suspected source of infection? Yes: Acute abdominal pain. Care prior to arrival: Medication(s) given: Normal saline infusion, 500 mL, IV initiated. 18 GA, in the right hand. 00:14 Method Of Arrival: EMS: [facility] aa1 00:14 Acuity: WADE 3 aa1 00:15 Care prior to arrival: Medication(s) given: zofran 8 mg. aa1 Historical: - Allergies: 00:35 Codeine; aa1 00:35 PENICILLINS; aa1 00:35 Bees; aa1 00:35 Wasps; aa1 00:35 hydrocodone; aa1 - Home Meds: 00:35 amlodipine 10 mg tab 1 tab once daily [Active]; aspirin 81 mg Oral chew 1 tab once aa1 daily [Active]; Carafate 1 gram Oral tab 1 tab 4 times per day [Active]; Cozaar 50 mg Oral tab 1 tab once daily [Active]; Dexilant 60 mg Oral CpDB 1 cap once daily [Active]; ProAir HFA 90 mcg/actuation inhalation HFAA 2 puffs as needed [Active]; Singulair 10 mg Oral tab 1 tab once daily [Active]; Spiriva with HandiHaler 18 mcg inhalation CpDv 1 cap once daily [Active]; Valium 5 mg Oral tab 1 tab as needed [Active]; Zoloft 100 mg Oral tab 1 tab once daily [Active]; - PMHx: 00:35 COPD; Crohn's; GERD; Hypertension; Pancreatitis; SBO; aa1 - PSHx: 00:35 Tonsillectomy; Carpal Tunnel Repair; Cholecystectomy; Hysterectomy; spinal cord aa1 stimulator placement and removal; Appendectomy; - Immunization history:: Flu vaccine is up to date. - Social history:: Smoking status: Patient uses tobacco products, 1.5 PPD. - Ebola Screening: : No symptoms or risks identified at this time. Screenin:35 Abuse screen: Denies threats or abuse. Denies injuries from another. Nutritional aa1 screening: No deficits noted. Tuberculosis screening: No symptoms or risk factors identified. Fall Risk None identified. Assessment: 00:35 General: Appears in no apparent distress. comfortable, Behavior is calm, cooperative, aa1 appropriate for age. Pain: Complains of pain in abdomen Pain currently is 10 out of 10 on a pain scale. Pain began 1 week ago Is continuous. Neuro: Level of Consciousness is awake, alert, obeys commands, Oriented to person, place, time, situation, Moves all extremities. Cardiovascular: Heart tones S1 S2 present. Respiratory: Airway is patent Respiratory effort is even, unlabored, Respiratory pattern is regular, symmetrical. GI: Abdomen is non-distended, Abdomen is tender to palpation X 4 quads. Reports lower abdominal pain, upper abdominal pain, diarrhea, nausea, vomiting. : No signs and/or symptoms were reported regarding the genitourinary system. EENT: No signs and/or symptoms were reported regarding the EENT system. Derm: Skin is intact, is healthy with good turgor, Skin is pink, warm \T\ dry. Musculoskeletal: Circulation, motion, and sensation intact. Capillary refill < 3 seconds. 01:00 Reassessment: Patient appears in no apparent distress at this time. Patient and/or aa1 family updated on plan of care and expected duration. Pain level reassessed. Patient is alert, oriented x 3, equal unlabored respirations, skin warm/dry/pink. Pt report she uses O2 while sleeping, place on nasal cannula at this time. 01:30 Reassessment: Patient appears in no apparent distress at this time. Patient and/or aa1 family updated on plan of care and expected duration. Pain level reassessed. Patient is alert, oriented x 3, equal unlabored respirations, skin warm/dry/pink. Awaiting CT results. 02:41 Reassessment: Patient appears in no apparent distress at this time. Patient and/or aa1 family updated on plan of care and expected duration. Pain level reassessed. Patient is alert, oriented x 3, equal unlabored respirations, skin warm/dry/pink. Awaiting lab results. 03:39 Reassessment: Patient appears in no apparent distress at this time. Patient and/or aa1 family updated on plan of care and expected duration. Pain level reassessed. Patient is alert, oriented x 3, equal unlabored respirations, skin warm/dry/pink. Awaiting provider reassessment. 05:00 Reassessment: Patient appears in no apparent distress at this time. Patient and/or aa1 family updated on plan of care and expected duration. Pain level reassessed. Patient is alert, oriented x 3, equal unlabored respirations, skin warm/dry/pink. Report given to Rico Mathew RN at [facility]. 05:30 Reassessment: Patient appears in no apparent distress at this time. Patient is alert, aa1 oriented x 3, equal unlabored respirations, skin warm/dry/pink. EMS present for transport. Vital Signs: 00:14 BP 157 / 83; Pulse 84; Resp 20; Temp 97.6; Pulse Ox 98% on R/A; Weight 53.98 kg; Height aa1 5 ft. 2 in. (157.48 cm); Pain 10/10; 01:00 BP 154 / 84; Pulse 84; Resp 16; Pulse Ox 95% on 2 lpm NC; Pain 8/10; aa1 02:37 BP 170 / 97; Pulse 88; Resp 20; Pulse Ox 95% on R/A; aa1 03:39 BP 157 / 82; Pulse 76; Resp 16; Pulse Ox 95% on R/A; aa1 05:03 BP 130 / 77; Pulse 72; Resp 16; Temp 97.8; Pulse Ox 95% on 2 lpm NC; aa1 00:14 Body Mass Index 21.77 (53.98 kg, 157.48 cm) aa1 ED Course: 00:14 Patient arrived in ED. aa1 00:14 Arm band placed on right wrist. Patient placed in an exam room, on a stretcher. aa1 00:25 Vi Alves, RN is Primary Nurse. aa1 00:29 Triage completed. aa1 00:35 Patient has correct armband on for positive identification. Bed in low position. Call aa1 light in reach. Pulse ox on. NIBP on. Warm blanket given. 00:35 Maintain EMS IV. Dressing intact. Site clean \T\ dry. Gauge \T\ site: 18g R hand. aa 1 00:47 Halina Mullen FNP-C is PHCP. snw 00:47 James Bunch MD is Attending Physician. snw 01:00 Oxygen administration via nasal cannula \T\ 2L/min. aa1 01:[address] via stretcher. kw1 01:23 CT Abd/Pelvis - Without Cont In Process Unspecified. EDMS 01:24 CT completed. Patient tolerated procedure well. Patient moved back from CT. kw1 02:00 NGT: inserted 12 Fr. via right nare. verified placement of air over stomach, verified aa1 return of gastric contents, to intermittent suction. Returned bile. Patient tolerated well. 02:20 Initial lab(s) drawn, by ia, sent to lab. First set of blood cultures drawn by ia. aa1 02:35 Second set of blood cultures drawn by ia. aa1 03:04 X-ray completed. Portable x-ray completed in exam room. Patient tolerated procedure kw well. 03:05 Abdomen 1 View XRAY In Process Unspecified. EDMS 03:11 Attending Physician role handed off by James Bunch MD pkl 03:11 Waqar Longoria MD is Attending Physician. pkl 05:30 No provider procedures requiring assistance completed. Patient transferred, IV remains aa1 in place. Administered Medications: 01:02 Drug: Valium 5 mg Route: IM; Site: right deltoid; aa1 02:00 Follow up: Response: No adverse reaction; Pain is decreased aa1 01:55 Drug: NS 0.9% 1000 ml Route: IV; Rate: 75 ml/hr; Site: right wrist; aa1 04:56 Follow up: IV Status: Infusion continued upon transfer aa1 01:55 Drug: Phenergan 12.5 mg Route: IVP; Site: right wrist; aa1 02:55 Follow up: Response: No adverse reaction; Nausea is decreased aa1 03:38 Drug: morphine 4 mg Route: IVP; Site: right wrist; aa1 04:30 Follow up: Response: No adverse reaction; Pain is decreased aa1 04:05 Drug: Flagyl 500 mg Volume: 100 ml; Route: IVPB; Rate: 200 ml/hr; Infused Over: 30 aa1 mins; Site: right wrist; 04:56 Follow up: IV Status: Completed infusion aa1 04:05 Drug: LevaQUIN 500 mg Volume: 100 ml; Route: IVPB; Infused Over: 60 mins; Site: right aa1 wrist; 05:20 Follow up: IV Status: Completed infusion aa1 Outcome: 04:19 ER care complete, transfer ordered by . pkjosé luis 05:30 Transferred by ground EMS to [facility], Transfer form completed. aa1 05:30 Condition: stable 05:30 Instructed on the need for transfer, Demonstrated understanding of instructions. 05:31 Patient left the ED. aa1 Signatures: Dispatcher [employer] Vi Bonilla RN RN aa1 Waqar Longoria MD MD pkl Halina Mullen, MUSEUM TECHNICIAN-C MUSEUM TECHNICIAN-Csnw Suzette Bey Kimberly kw1
[2018-04-23 05:36] VITALS: O2SAT 95
[2018-04-23 05:40] VITALS: BP 130/77; TEMP 97.8
--- NOTE | 2018-04-23 09:09 | RAD REPORT ---
EXAM DESCRIPTION: CT - Abdomen Pelvis Wo Contrast - 04/23/2018 6:27 am CLINICAL HISTORY: Abdominal pain, recent hospitalization for bowel obstruction, prior cholecystectom y, hysterectomy and spinal cord neurostimulator placed and subsequently removed, prior appendectomy A preliminary report was provided at the time of the study and reviewed prior to final report. COMPARISON: CT imaging April 15 TECHNIQUE: Axial [address] imaging of the abdomen and pelvis was performed without IV contrast. No IV contrast was given because of allergy, abnormal renal function, patient refusal or physician re quest. No oral contrast is believed to have been given to the patient. Bowel contrast is believed to be remnant from earlier studies. All CT scans are performed using dose optimization technique as appropriate and may include automated exposure control or mA/KV adjustment according to patient size. FINDINGS: No suspicious findings in the lung bases. The liver, spleen and pancreas show no suspicious findings on non-contrast imaging. Cholecystectomy c lips are present. No biliary tree dilatation. No hydronephrosis or suspicious renal mass. No significant adrenal finding. Isodense renal masses an d pyelonephritis cannot be excluded in the absence of IV contrast. The urinary bladder is without sig nificant finding. Uterus is absent. Ovaries are absent, atrophic or obscured by adjacent on opacified bowel. Fluid is present filling but not dilating the stomach. Hiatal hernia is present. Primary gastric wall mass or gastric outlet obstruction not suspected. Contrast is present in the colon from cecum to dis vivek rectum. This is a small amount of contrast. Prominent sigmoid diverticulosis present without dive rticulitis. The colon is decompressed. Multiple dilated small bowel loops are present similar or slig htly worse than the April 15 study. There is contrast in the small bowel. This increases in density at the distal aspect of the small bowel. There is an abrupt transition near the distal ileum. There i s a short segment of contrast opacified bowel with on opacified bowel at the proximal and distal duran in. This could be scarring or adhesion. Small bowel or adjacent mesenteric mass is not excluded. Cont rast within the colon indicates that the obstruction was incomplete at the time of the April 15 ad mission. No bulky lymphadenopathy. Small amount of ascites is present. There is no free air or pneumatosis. No hernia or other mass lesion identifiable. No suspicious bony findings. IMPRESSION: Small bowel obstruction pattern with the transition point in the distal ileum. Contrast from the prior imaging is seen in the dilated distal small bowel as well is in the decompressed colon . There is irregular soft tissue at the transition point and a nondilated partially opacified closed lo op of small bowel between dilated ileum and the terminal ileum. There could be scarring or adhesion in the distal ileum. An external mass such as carcinoid near the terminal ileum is not excluded. Ascites has worsened slightly since the April 15 imaging. No free air or extravasation of contrast.
--- NOTE | 2018-04-23 09:22 | RAD REPORT ---
EXAM DESCRIPTION: RAD - Abdomen Single View - 04/23/2018 3:08 am CLINICAL HISTORY: Abdominal pain, NG tube placement COMPARISON: CT imaging same date FINDINGS: NG tube is in place curled in the stomach. No abnormal or acute bend or kink seen. Stomach does not appear to be dilated on this examination. Numerous dilated small bowel loops are present. N o free air or pneumatosis. No suspicious calcifications. No significant bony findings IMPRESSION: Multiple dilated small bowel loops to the level of the lower pelvis. No free air or pneu matosis. NG tube is in place curled in the stomach.
== END 2018-04-23 05:31 | disposition short-term general hospital (02) ==
LOC: ER 00:02
DX: K56.609 Unspecified intestinal obstruction, unspecified as to partial versus complete obstruction (principal); K50.90 Crohn's disease, unspecified, without complications; I10 Essential (primary) hypertension; J44.9 Chronic obstructive pulmonary disease, unspecified; Z79.82 Long term (current) use of aspirin; Z88.0 Allergy status to penicillin; Z88.5 Allergy status to narcotic agent; Z91.030 Bee allergy status; Z91.038 Other insect allergy status
CPT/HCPCS: 36415; 74018; 74176; 80048; 80076; 83690; 85025; 87040 ×2; 96361; 96365; 96368; 96372; 96375; 99285; J2550; J3360; J7030

== ENCOUNTER 2019-01-17 15:28 | Emergency (ER) | payer OTHER ==
--- OUTSIDE RECORDS SUMMARY | 2019-01-17 15:32 | XMS REPORT ---
:1950 [facility] Address [address] [place] [address] Dr. Keyes. [address] [place] [id number] Care Team Providers Name Role Phone Unavailable Unavailable Unavailable Problems This patient has no known problems. Allergies, Adverse Reactions, Alerts This patient has no known allergies or adverse reactions. Medications This patient has no known medications.
--- OUTSIDE RECORDS SUMMARY | 2019-01-17 15:32 | XMS REPORT | Clinical Summary ---
:1950 Author Organization [facility] Address [address] [place] [address] Care Team Providers Name Role Phone Mark Paz DO Primary Care Provider Allergies Active Allergy Reactions Severity Noted Date Comments Fentanyl Itching 04/25/2018 Fentanyl patch Penicillins Rash High 04/23/2018 Medications Medication Sig Dispensed Refills Start End Date Status Date PROAIR HFA 90 Inhale 90 mcg 0 Active mcg/actuation every 4 (four) 8 inhaler hours as needed. amLODIPine (NORVASC) Take 10 mg by 0 Active 10 mg tablet mouth daily. baclofen (LIORESAL) Take 10 mg by 0 Active 10 MG tablet mouth 3 (three) 8 times a day. SPIRIVA WITH Place 18 mcg into 0 Active HANDIHALER 18 mcg inhaler and 8 per inhalation inhale daily. capsule losartan (COZAAR) 50 Take 50 mg by 0 Active MG tablet mouth daily. 8 sulfaSALAzine Take 500 mg by 0 Active (AZULFIDINE) 500 mg mouth 4 (four) tablet times a day. diazePAM (VALIUM) 5 Take 10 mg by 0 Active MG tablet mouth every 12 (twelve) hours as needed for anxiety. dexlansoprazole Take 60 mg by 0 Active (DEXILANT) 60 mg mouth daily. capsule pravastatin Take 40 mg by 0 Active (PRAVACHOL) 40 MG mouth daily. tablet aspirin (ECOTRIN) 81 Take 81 mg by 0 Active MG enteric coated mouth daily. tablet sertraline (ZOLOFT) Take 50 mg by 0 Active 50 MG tablet mouth daily. traMADol (ULTRAM) 50 Take 50 mg by 0 Active mg tablet mouth every 6 (six) hours as needed for moderate pain. buPROPion XL Take 300 mg by 0 04/26/20 Discontinued (WELLBUTRIN XL) 300 mouth daily. 18 MG 24 hr tablet pregabalin (LYRICA) Take 75 mg by 0 04/26/20 Discontinued 75 MG capsule mouth once. 18 primidone (MYSOLINE) Take 50 mg by 0 04/26/20 Discontinued 50 MG tablet mouth 4 (four) 18 times a day. ipratropium-albutero Take 3 mL by 360 mL 0 05/27/20 l (DUO-NEB) 0.5-2.5 nebulization 8 18 mg/mL nebulizer every 4 (four) hours while awake for 30 days. promethazine Take 1 tablet (25 30 tablet 0 06/14/20 (PHENERGAN) 25 MG mg total) by 8 18 tablet mouth every 6 (six) hours as needed for nausea or vomiting for up to 30 days. Active Problems Problem Noted Date Bowel obstruction 04/23/2018 Crohn disease 04/23/2018 Essential hypertension 04/23/2018 COPD (chronic obstructive pulmonary disease) 04/23/2018 Essential tremor 04/23/2018 Chronic pain syndrome 04/23/2018 Encounters Date Type Specialty Care Team Description 05/15/2018 Refill General Surgery Tiffanie Enamorado MA 05/13/2018 Office Visit General Surgery Suzanne, Partial small bowel Paula Riley MD obstruction (HCC) (Primary Dx) 05/09/2018 Telephone General Surgery Paula Palacios MD 04/27/2018 Patient Outreach Kinjal Pepe RN 04/25/2018 Surgery General Surgery MARIA ESTHER Palacios MD LAPAROSCOPY, LYSIS OF ADHESIONS WITH RELEASE OF SMAL BOWEL OBSRTUCTION, REMOVAL OF INCARCERATED PELVIC NODULE 04/25/2018 Anesthesia Event General Surgery Brittani Gaines CRNA 04/23/2018 - Hospital Encounter General Internal Anthony, Intestinal adhesions 04/27/2018 Medicine Chetna Jamison MD with partial obstruction (HCC) (Primary Dx) 04/23/2018 Intake Access N/A 04/18/2018 Intake Access N/A after 01/16/2018 Family History Medical History Relation Name Comments Cancer Neg Hx Heart disease Neg Hx Social History Tobacco Use Types Packs/Day Years Used Date Current Every Day Smoker 1 Smokeless Tobacco: Never Used Comments: 55 pack year history Alcohol Use Drinks/Week oz/Week Comments Yes occasional Sex Assigned at Date Recorded Not on file Job Start Date Occupation Industry Not on file Not on file Not on file Travel History Travel Start Travel End No recent travel history available. Last Filed Vital Signs Vital Sign Reading Time Taken Blood Pressure 118/56 05/13/2018 2:41 PM CDT Pulse 73 05/13/2018 2:41 PM CDT Temperature 37.1 C (98.7 F) 05/13/2018 2:41 PM CDT Respiratory Rate 16 04/27/2018 12:02 PM CDT Oxygen Saturation 96% 04/27/2018 8:55 AM CDT Inhaled Oxygen Concentration - - Weight 55.8 kg (123 lb) 05/13/2018 2:41 PM CDT Height 157.5 cm (5' 2") 05/13/2018 2:41 PM CDT Body Mass Index 22.5 05/13/2018 2:41 PM CDT Plan of Treatment Health Maintenance Due Date Last Done Comments BREAST CANCER SCREENING 1999 COLONOSCOPY SCREENING 1999 SHINGLES VACCINES (#1) 1999 65+ PNEUMOCOCCAL VACCINE (1 of 2 - PCV13) 2014 INFLUENZA VACCINE 02/13/2019 Procedures Procedure Name Priority Date/Time Associated Comments Diagnosis ESTIMATED GFR Routine 04/27/2018 4:12 Results for this AM CDT procedure are in the results section. PHOSPHORUS LEVEL Routine 04/27/2018 4:12 Results for this AM CDT procedure are in the results section. MAGNESIUM LEVEL Routine 04/27/2018 4:12 Results for this AM CDT procedure are in the results section. BASIC METABOLIC PANEL Routine 04/27/2018 4:12 Results for this AM CDT procedure are in the results section. CBC WITH PLATELET AND Routine 04/27/2018 4:12 Results for this DIFFERENTIAL AM CDT procedure are in the results section. ESTIMATED GFR Routine 04/26/2018 4:06 Results for this PM CDT procedure are in the results section. COMPREHENSIVE Routine 04/26/2018 4:06 Results for this METABOLIC PANEL PM CDT procedure are in the results section. ESTIMATED GFR Routine 04/26/2018 4:56 Results for this AM CDT procedure are in the results section. PHOSPHORUS LEVEL Routine 04/26/2018 4:56 Results for this AM CDT procedure are in the results section. MAGNESIUM LEVEL Routine 04/26/2018 4:56 Results for this AM CDT procedure are in the results section. BASIC METABOLIC PANEL Routine 04/26/2018 4:56 Results for this AM CDT procedure are in the results section. ND AN ELECTIVE Routine 04/25/2018 4:51 ENDOTRACHEAL AIRWAY PM CDT Procedure Note - Chiara Josh - 04/25/2018 4:51 PM CDT Airway Performed by: SIVA JUAREZ Authorized by: SIVA JUAREZ Location: OR Urgency: Elective Difficult Airway: No Preoxygenated with 100% O2: Yes Mask Ventilation: Not attempted Final Airway Type: Endotracheal airway Final Endotracheal Airway: ETT Cuffed: Yes Technique Used: Direct laryngoscopy Devices/Methods Used in Placement: Intubating stylet and cricoid pressure Insertion Site: Oral Blade Type: [place] Laryngoscope Blade/Videolaryngoscope Blade Size: 2 ETT Size (mm): 7.0 Cuff at minimum occlusion pressure: Yes Measured from: Lips ETT to Lips (cm): 22 Placement Verified by: CO2 detection and equal breath sounds Laryngoscopic view: Grade IIb - view of arytenoids or posterior of glottis only Rapid Sequence Induction (RSI): Yes Number of Attempts at Approach: 1 NG placed on suction prior to induction. Eyes taped with LOC. Lips, dentition, and soft palate unchanged. CREATION, COLOSTOMY, 04/25/2018 4:05 PM CDT LAPAROSCOPIC SURGICAL PATHOLOGY REQUEST Routine 04/25/2018 8:43 AM CDT TYPE AND SCREEN Routine 04/25/2018 6:00 AM CDT PROTHROMBIN TIME WITH INR Routine 04/25/2018 6:00 AM CDT PARTIAL THROMBOPLASTIN TIME Routine 04/25/2018 6:00 AM CDT Results for this (PTT) procedure are in the results section. HC COMPLETE BLD COUNT W/AUTO Routine 04/25/2018 6:00 AM CDT Results for this DIFF procedure are in the results section. ESTIMATED GFR Routine 04/25/2018 4:00 AM CDT PHOSPHORUS LEVEL Routine 04/25/2018 4:00 AM CDT MAGNESIUM LEVEL Routine 04/25/2018 4:00 AM CDT BASIC METABOLIC PANEL Routine 04/25/2018 4:00 AM CDT XR ABDOMEN 1 VW STAT 04/24/2018 8:[address] ABDOMEN PELVIS W CONTRAST Routine 04/24/2018 8:34 AM CDT ESTIMATED GFR Routine 04/24/2018 4:00 AM CDT LACTIC ACID LEVEL Routine 04/24/2018 4:00 AM CDT PHOSPHORUS LEVEL Routine 04/24/2018 4:00 AM CDT MAGNESIUM LEVEL Routine 04/24/2018 4:00 AM CDT COMPREHENSIVE METABOLIC Routine 04/24/2018 4:00 AM CDT Results for this PANEL procedure are in the results section. HC COMPLETE BLD COUNT W/AUTO Routine 04/24/2018 4:00 AM CDT Results for this DIFF procedure are in the results section. XR ABDOMEN 1 VW PORTABLE STAT 04/23/2018 10:16 PM CDT XR ABDOMEN 1 VW PORTABLE Routine 04/23/2018 10:16 PM CDT BLOOD CULTURE, AEROBIC & Routine 04/23/2018 8:00 PM CDT Results for this ANAEROBIC procedure are in the results section. XR ABDOMEN 2 VW AP W UPRIGHT Routine 04/23/2018 5:51 PM CDT Results for this AND/OR DECUBITUS procedure are in the results section. XR CHEST 1 VW PORTABLE Routine 04/23/2018 11:04 AM CDT SMEAR REVIEW Routine 04/23/2018 10:45 AM CDT HEMOGLOBIN A1C Routine 04/23/2018 10:45 AM CDT HC COMPLETE BLD COUNT W/AUTO Routine 04/23/2018 10:45 AM CDT Results for this DIFF procedure are in the results section. PROTHROMBIN TIME WITH INR Routine 04/23/2018 10:45 AM CDT ECG 12-LEAD STAT 04/23/2018 10:22 AM CDT LIPASE LEVEL STAT 04/23/2018 10:03 AM CDT LACTIC ACID LEVEL STAT 04/23/2018 10:03 AM CDT LIPASE LEVEL Routine 04/23/2018 7:43 AM CDT ESTIMATED GFR Routine 04/23/2018 7:43 AM CDT PREALBUMIN LEVEL Routine 04/23/2018 7:43 AM CDT PHOSPHORUS LEVEL Routine 04/23/2018 7:43 AM CDT MAGNESIUM LEVEL Routine 04/23/2018 7:43 AM CDT LIPID PANEL Routine 04/23/2018 7:43 AM CDT COMPREHENSIVE METABOLIC Routine 04/23/2018 7:43 AM CDT Results for this PANEL procedure are in the results section. after 01/16/2018 Results Estimated GFR (04/27/2018 4:12 AM CDT)Only the most recent of6 resultswithin the time period is included. Estimated GFR >=90 mL/min/1.73 [facility] DEPARTMENT OF Comment: m2 PATHOLOGY AND CatergoryUnitsInterpretation GENOMIC MEDICINE G1 >=90 Normal or high G2 60-89Mildly decreased [id number] to moderately decreased [id number] to severely decreased G4 15-29Severely decreased G5 <15Kidney failure The eGFR was calculated using the Chronic Kidney Disease Epidemiology Collaboration (CKD-EPI) equation. Interpretation is based on recommendations of the National Kidney Foundation-Kidney Disease Outcomes Quality Initiative (NKF-KDOQI) published in 2014. Specimen Plasma specimen Performing Organization Address City/State/Zipcode Phone Number [facility] DEPARTMENT OF PATHOLOGY AND [address] [place] [address] [employer] MEDICINE CBC with platelet and differential (04/27/2018 4:12 AM CDT)Only the most recent of4 resultswithin the time period is included. WBC 6.38 4.50 - 11.00 [facility] DEPARTMENT OF k/uL PATHOLOGY AND GENOMIC MEDICINE RBC 3.24 (L) 4.20 - 5.50 [facility] DEPARTMENT OF m/uL PATHOLOGY AND GENOMIC MEDICINE HGB 10.0 (L) 12.0 - 16.0 [facility] DEPARTMENT OF g/dL PATHOLOGY AND GENOMIC MEDICINE HCT 30.5 (L) 37.0 - 47.0 % [facility] DEPARTMENT OF PATHOLOGY AND GENOMIC MEDICINE MCV 94.1 82.0 - 100.0 [facility] DEPARTMENT OF fL PATHOLOGY AND GENOMIC MEDICINE MCH 30.9 27.0 - 34.0 [facility] DEPARTMENT OF PATHOLOGY AND GENOMIC MEDICINE MCHC 32.8 31.0 - 37.0 [facility] DEPARTMENT OF g/dL PATHOLOGY AND GENOMIC MEDICINE RDW - SD 46.5 37.0 - 55.0 [facility] DEPARTMENT OF AK PATHOLOGY AND GENOMIC MEDICINE MPV 9.2 8.8 - 13.2 fL [facility] DEPARTMENT OF PATHOLOGY AND GENOMIC MEDICINE Platelet count 344 150 - 400 [facility] DEPARTMENT OF k/uL PATHOLOGY AND GENOMIC MEDICINE Nucleated RBC 0.00 /100 WBC [facility] DEPARTMENT OF PATHOLOGY AND GENOMIC MEDICINE Neutrophils 49.3 39.0 - 69.0 % [facility] DEPARTMENT OF PATHOLOGY AND GENOMIC MEDICINE Lymphocytes 33.1 25.0 - 45.0 % [facility] DEPARTMENT OF PATHOLOGY AND GENOMIC MEDICINE Monocytes 13.6 (H) 0.0 - 10.0 % [facility] DEPARTMENT OF PATHOLOGY AND GENOMIC MEDICINE Eosinophils 2.8 0.0 - 5.0 % [facility] DEPARTMENT OF PATHOLOGY AND GENOMIC MEDICINE Basophils 0.9 0.0 - 1.0 % [facility] DEPARTMENT OF PATHOLOGY AND GENOMIC MEDICINE Immature granulocytes 0.3Comment: 0.0 - 1.0 % [facility] DEPARTMENT OF "Immature PATHOLOGY AND granulocytes" GENOMIC MEDICINE (promyelocytes , myelocytes, metamyelocytes ) Specimen Blood Performing Organization Address City/State/Zipcode Phone Number [facility] DEPARTMENT OF PATHOLOGY AND [address] [place] [address] GENOMIC MEDICINE Phosphorus level (04/27/2018 4:12 AM CDT)Only the most recent of5 resultswithin the time period is included. Phosphorus 2.7 2.4 - 4.5 mg/dL [facility] DEPARTMENT OF PATHOLOGY AND GENOMIC MEDICINE Specimen Plasma specimen Performing Organization Address City/State/Zipcode Phone Number [facility] DEPARTMENT OF PATHOLOGY AND [address] [place] [address] GENOMIC MEDICINE Magnesium level (04/27/2018 4:12 AM CDT)Only the most recent of5 resultswithin the time period is included. Magnesium 2.0 1.6 - 2.4 mg/dL [facility] DEPARTMENT OF PATHOLOGY AND GENOMIC MEDICINE Specimen Plasma specimen Performing Organization Address City/[facility] Phone Number [facility] DEPARTMENT OF PATHOLOGY AND [address] [place] [address] GENOMIC MEDICINE Basic metabolic panel (04/27/2018 4:12 AM CDT)Only the most recent of3 resultswithin the time period is included. Sodium 139 135 - 148 mEq/L [facility] DEPARTMENT OF PATHOLOGY AND GENOMIC MEDICINE Potassium 3.4 (L) 3.5 - 5.0 mEq/L [facility] DEPARTMENT OF PATHOLOGY AND GENOMIC MEDICINE Chloride 103 98 - 112 mEq/L [facility] DEPARTMENT OF PATHOLOGY AND GENOMIC MEDICINE CO2 28 24 - 31 mEq/L [facility] DEPARTMENT OF PATHOLOGY AND GENOMIC MEDICINE Anion gap 8@ANIO 7 - 15 mEq/L [facility] DEPARTMENT OF PATHOLOGY AND GENOMIC MEDICINE BUN 4 (L) 8 - 23 mg/dL [facility] DEPARTMENT OF PATHOLOGY AND GENOMIC MEDICINE Creatinine 0.65 0.50 - 0.90 mg/dL [facility] DEPARTMENT OF PATHOLOGY AND GENOMIC MEDICINE Glucose 90 65 - 99 mg/dL [facility] DEPARTMENT OF PATHOLOGY AND GENOMIC MEDICINE Calcium 8.7 (L) 8.8 - 10.2 mg/dL [facility] DEPARTMENT OF PATHOLOGY AND GENOMIC MEDICINE Specimen Plasma specimen Performing Organization Address City/[facility] Cent[facility]ode Phone Number [facility] DEPARTMENT OF PATHOLOGY AND [address] [place], [place] [id number] GENOMIC MEDICINE Comprehensive metabolic panel (04/26/2018 4:06 PM CDT)Only the most recent of3 resultswithin the time period is included. Sodium 135 135 - 148 [facility] DEPARTMENT OF mEq/L PATHOLOGY AND GENOMIC MEDICINE Potassium 3.6 3.5 - 5.0 [facility] DEPARTMENT OF mEq/L PATHOLOGY AND GENOMIC MEDICINE Chloride 98 98 - 112 mEq/L [facility] DEPARTMENT OF PATHOLOGY AND GENOMIC MEDICINE CO2 26 24 - 31 mEq/L [facility] DEPARTMENT OF PATHOLOGY AND GENOMIC MEDICINE Anion gap 11@ANIO 7 - 15 mEq/L [facility] DEPARTMENT OF PATHOLOGY AND GENOMIC MEDICINE BUN 5 (L) 8 - 23 mg/dL [facility] DEPARTMENT OF PATHOLOGY AND GENOMIC MEDICINE Creatinine 0.65 0.50 - 0.90 [facility] DEPARTMENT OF mg/dL PATHOLOGY AND GENOMIC MEDICINE Glucose 97 65 - 99 mg/dL [facility] DEPARTMENT OF PATHOLOGY AND GENOMIC MEDICINE Calcium 8.6 (L) 8.8 - 10.2 [facility] DEPARTMENT OF mg/dL PATHOLOGY AND GENOMIC MEDICINE Protein 5.9 (L) 6.3 - 8.3 g/dL [facility] DEPARTMENT OF Comment: PATHOLOGY AND 4.6-7.0 g/dL GENOMIC MEDICINE 1 week 4.4-7.6 g/dL 7 months-1year5.1-7.3 g/dL 1-2 years5.6-7.5 g/dL >3 years6.0-8.0 g/dL 18-150 6.3-8.3 g/dL Albumin 3.0 (L) 3.5 - 5.0 g/dL [facility] DEPARTMENT OF PATHOLOGY AND GENOMIC MEDICINE A/G ratio 1.0 0.7 - 3.8 [facility] DEPARTMENT OF PATHOLOGY AND GENOMIC MEDICINE Alkaline phosphatase 40 35 - 104 U/L [facility] DEPARTMENT OF PATHOLOGY AND GENOMIC MEDICINE AST 78 (H) 10 - 35 U/L [facility] DEPARTMENT OF PATHOLOGY AND GENOMIC MEDICINE ALT 103 (H) 5 - 50 U/L [facility] DEPARTMENT OF PATHOLOGY AND GENOMIC MEDICINE Total bilirubin 0.4 0.0 - 1.2 [facility] DEPARTMENT OF mg/dL PATHOLOGY AND GENOMIC MEDICINE Specimen Plasma specimen Performing Organization Address City/State/[facility] Cent[facility]ode Phone Number [facility] DEPARTMENT OF PATHOLOGY AND [address] [place] [id number] GENOMIC MEDICINE Surgical pathology request (04/25/2018 8:43 AM CDT) [facility] DEPARTMENT OF PATHOLOGY AND GENOMIC MEDICINE Surgical pathology See link below [facility] DEPARTMENT OF report for PDF Lab PATHOLOGY AND Report GENOMIC MEDICINE Result status This is Final [facility] DEPARTMENT OF Report for PATHOLOGY AND [id number] GENOMIC MEDICINE Specimen Performing Organization Address City/[facility] Centercode Phone Number [facility] DEPARTMENT OF PATHOLOGY AND [address] [place] [address] [address] [facility] MEDICINE Partial thromboplastin time, activated (04/25/2018 6:00 AM CDT) PTT 27.2 23.0 - 36.0 [facility] DEPARTMENT OF Comment: sec PATHOLOGY AND PTT therapeutic range for unfractionated heparin is GENOMIC MEDICINE 61.0-112.0 seconds which corresponds to Anti-Xa 0.3-0.7 U/ml. Specimen Blood Performing Organization Address City/State/Zipcode Phone Number [facility] DEPARTMENT OF PATHOLOGY AND [address] [place] [address] GENOMIC [facility] Prothrombin time with INR (04/25/2018 6:00 AM CDT)Only the most recent of2 resultswithin the time period is included. Prothrombin time 14.6 12.0 - 15.0 [facility] DEPARTMENT OF sec PATHOLOGY AND GENOMIC MEDICINE INR 1.1 [facility] DEPARTMENT OF Comment: PATHOLOGY AND The International Normalized Ratio (INR) is a therapeutic GENOMIC MEDICINE monitoring tool for patients who are stable on oral anticoagulant therapy. An INR of 2.0-3.0 is suggested for deep vein thrombosis/pulmonary embolism. Specimen Blood Performing Organization Address City/[facility] Centercode Phone Number [facility] DEPARTMENT OF PATHOLOGY AND [address] [place] [address] GENOMIC MEDICINE Type and screen (04/25/2018 6:00 AM CDT) Pathologist [facility] ABO grouping A [facility] DEPARTMENT OF PATHOLOGY AND GENOMIC MEDICINE Rh type POS [facility] DEPARTMENT OF PATHOLOGY AND GENOMIC MEDICINE Antibody screen (gel) NEG [facility] DEPARTMENT OF PATHOLOGY AND GENOMIC MEDICINE Specimen Performing Organization Address City/[facility] Centercode Phone Number [facility] DEPARTMENT OF PATHOLOGY AND [address] [place] [address] GENOMIC MEDICINE XR Abdomen 1 Vw (04/24/2018 8:55 AM CDT) Specimen Narrative Performed At EXAMINATION: XR ABDOMEN 1 VW RADIANT INDICATION: NG tube insertion COMPARISON: 04/23/2018 IMPRESSION: Persistently dilated loops of small bowel, compatible with small bowel obstruction. No discrete free air. Nasogastric tube tip projects over the expected location of the gastric body. Contrast material is present in the renal collecting systems. Calcified granuloma left midlung. Scattered degenerative osseous changes. [facility]-[id number] Procedure Note Hm Interface, Radiology Results Incoming - 04/24/2018 9:04 AM CDT EXAMINATION: XR ABDOMEN 1 VW INDICATION: NG tube insertion COMPARISON: 04/23/2018 IMPRESSION: Persistently dilated loops of small bowel, compatible with small bowel obstruction. No discrete free air. Nasogastric tube tip projects over the expected location of the gastric body. Contrast material is present in the renal collecting systems. Calcified granuloma left midlung. Scattered degenerative osseous changes. [facility]-[id number] Performing Organization Address City/State/Zipcode Phone Number [facility] [address] [place] [address] CT Abdomen Pelvis W Contrast (04/24/2018 8:34 AM CDT) Specimen Narrative Performed At EXAMINATION:CT ABDOMEN PELVIS W CONTRAST RADIANT CLINICAL HISTORY:Abd distension, Abd painunspecified, hx of crohn's TECHNIQUE: Multiple axial images of the abdomen and pelvis were obtained following intravenous administration of iodinated contrast. Sagittal and coronal computerized reformatted images were also obtained..All CT images were acquired using radiation dose lowering technique with automated exposure control and / or iterative reconstruction. COMPARISON:No IMPRESSION: ABDOMEN: 1. Tiny right pleural effusion. Calcified granuloma in the left lung base. Otherwise clear. 2.Colonic diverticulosis most pronounced distally. The colon is completely collapsed and poorly visualized as a result. 3.A small to moderate hiatal hernia. Stomach is collapsed around an NG tube. 4.Majority of the small bowel is moderately distended, measuring up to 5.5 cm, with multiple air-fluid levels. The distal small bowel is relatively collapsed. An abrupt transition point is noted in a loop of ileum in the lower abdomen, just left of midline, series 2 image 110 through 112, and series 601 image 33 through 35. Findings indicate at least a high-grade partial small bowel obstruction. 5.No pneumatosis, portal venous gas, or free air identified. 6.Small amount of enteric contrast within the collapsed large bowel is likely from an earlier exam. 7.Cholecystectomy. Liver, demonstrates nothing unusual. Prominence of the intrahepatic bile ducts likely reservoir effect postcholecystectomy. The common bile duct is not dilated. Ectasia of the main pancreatic duct likely from senescence. Pancreas is mildly atrophic diffusely, likely from senescence. 8.Spleen, adrenal glands, abdominal aorta and kidneys demonstrates nothing unusual. PELVIS: 1. Small amount of free fluid, mostly within the pelvis. 2.No definite lymphadenopathy identified within the abdomen or pelvis. Sensitivity for detection is decreased due to the paucity of intra-abdominal fat and diffusely dilated small bowel. 3.Urinary bladder is mostly collapsed. Hysterectomy. SUMMARY: At least a high-grade partial small bowel obstruction, with transition point in the distal ileum, see above for details. No evidence of active inflammatory Crohn's disease, though the small bowel obstruction could be due to an underlying chronic Crohn's stricture given the clinical history. Incidental findings see above. Findings were discussed with nurseRachelat 04/24/2018 9:00 AM who repeated the findings and verbalized understanding. [facility]-[id number] Procedure Note [facility], Radiology Results Incoming - 04/24/2018 9:03 AM CDT EXAMINATION: CT ABDOMEN PELVIS W CONTRAST CLINICAL HISTORY: Abd distension, Abd pain unspecified, hx of crohn's TECHNIQUE: Multiple axial images of the abdomen and pelvis were obtained following intravenous administration of iodinated contrast. Sagittal and coronal computerized reformatted images were also obtained.. All CT images were acquired using radiation dose lowering technique with automated exposure control and / or iterative reconstruction. COMPARISON: No IMPRESSION: ABDOMEN: 1. Tiny right pleural effusion. Calcified granuloma in the left lung base. Otherwise clear. 2. Colonic diverticulosis most pronounced distally. The colon is completely collapsed and poorly visualized as a result. 3. A small to moderate hiatal hernia. Stomach is collapsed around an NG tube. 4. Majority of the small bowel is moderately distended, measuring up to 5.5 cm , with multiple air-fluid levels. The distal small bowel is relatively collapsed. An abrupt transition point is noted in a loop of ileum in the lower abdomen, just left of midline, series 2 image 110 through 112, and series 601 image 33 through 35. Findings indicate at least a high-grade partial small bowel obstruction. 5. No pneumatosis, portal venous gas, or free air identified. 6. Small amount of enteric contrast within the collapsed large bowel is likely from an earlier exam. 7. Cholecystectomy. Liver, demonstrates nothing unusual. Prominence of the intrahepatic bile ducts likely reservoir effect postcholecystectomy. The common bile duct is not dilated. Ectasia of the main pancreatic duct likely from senescence. Pancreas is mildly atrophic diffusely, likely from senescence. 8. Spleen, adrenal glands, abdominal aorta and kidneys demonstrates nothing unusual. PELVIS: 1. Small amount of free fluid, mostly within the pelvis. 2. No definite lymphadenopathy identified within the abdomen or pelvis. Sensitivity for detection is decreased due to the paucity of intra-abdominal fat and diffusely dilated small bowel. 3. Urinary bladder is mostly collapsed. Hysterectomy. SUMMARY: At least a high-grade partial small bowel obstruction, with transition point in the distal ileum, see above for details. No evidence of active inflammatory Crohn's disease, though the small bowel obstruction could be due to an underlying chronic Crohn's stricture given the clinical history. Incidental findings see above. Findings were discussed with nurse Paula at 04/24/2018 9:00 AM who repeated the findings and verbalized understanding. [facility]-[id number] Performing Organization Address [facility] Cent[facility]ode Phone Number [facility] [address] [place] [address] Lactic acid level (04/24/2018 4:00 AM CDT)Only the most recent of2 resultswithin the time period is included. Lactic acid 1.9 0.5 - 2.2 mmol/L [facility] DEPARTMENT OF PATHOLOGY AND GENOMIC MEDICINE Specimen Plasma specimen Performing Organization Address [facility] Phone Number [facility] DEPARTMENT OF PATHOLOGY AND [address] [place] [id number] GENOMIC MEDICINE XR Abdomen 1 Vw Portable (04/23/2018 10:16 PM CDT)Only the most recent of2 resultswithin the time period is included. Specimen Narrative Performed At EXAMINATION:XR ABDOMEN 1 VW PORTABLE [facility] CLINICAL HISTORY:NGT adjustment COMPARISON:Same day abdomen radiograph FINDINGS: NG tube has been pulled back somewhat and thickness projected over the body of the stomach Diffuse small bowel distention unchanged in keeping with distal small bowel obstruction IMPRESSION: NG tube now projects over the body of the stomach No change distal small bowel obstruction [facility]-[id number] Procedure Note Interface, Radiology Results Incoming - 04/23/2018 10:47 PM CDT EXAMINATION: XR ABDOMEN 1 VW PORTABLE CLINICAL HISTORY: NGT adjustment COMPARISON: Same day abdomen radiograph FINDINGS: NG tube has been pulled back somewhat and thickness projected over the body of the stomach Diffuse small bowel distention unchanged in keeping with distal small bowel obstruction IMPRESSION: NG tube now projects over the body of the stomach No change distal small bowel obstruction [facility]-[id number] Performing Organization Address [facility] Centercout Phone Number [facility] [address] [place] [address] Blood culture, aerobic & anaerobic (04/23/2018 8:00 PM CDT) Blood culture No growth after 5 days of incubation. [facility] DEPARTMENT OF isolate Comment: PATHOLOGY AND Specimen Information GENOMIC MEDICINE Specimen Source: Blood Specimen Site: Unspecified Specimen Blood Performing Organization Address [facility]/Zipcode Phone Number [facility] DEPARTMENT OF PATHOLOGY AND [address] [place] [address] GENOMIC MEDICINE XR Abdomen 2 Vw Ap W Upright And/Or Decubitus (04/23/2018 5:51 PM CDT) Specimen Narrative Performed At Examination: XR ABDOMEN 2 VW AP W UPRIGHT AND OR DECUBITUS [facility] Clinical history: eval for free air Comparison: None Impression: 1. Moderate gaseous distention of small bowel to as much is 5.9 cm with very minimal gas in the colon is compatible with a high-grade small bowel obstruction. Upright, flat, and decubitus images demonstrate no evidence of pneumoperitoneum at this time, though CT scan would be more sensitive for detection of small amounts of extraluminal gas. 2. NG tube is coiled in the expected location of the second portion of the duodenum. Cholecystectomy clips are present. 3. The visualized lung bases are clear. Visualized osseous structures are intact. [facility]-[id number] Procedure Note Interface, Radiology Results Incoming - 04/23/2018 6:30 PM CDT Examination: XR ABDOMEN 2 VW AP W UPRIGHT AND OR DECUBITUS Clinical history: eval for free air Comparison: None Impression: 1. Moderate gaseous distention of small bowel to as much is 5.9 cm with very minimal gas in the colon is compatible with a high-grade small bowel obstruction. Upright, flat, and decubitus images demonstrate no evidence of pneumoperitoneum at this time, though CT scan would be more sensitive for detection of small amounts of extraluminal gas. 2. NG tube is coiled in the expected location of the second portion of the duodenum. Cholecystectomy clips are present. 3. The visualized lung bases are clear. Visualized osseous structures are intact. [facility]-[id number] Performing Organization Address City/State/Zipcode Phone Number [facility] [address] [place] [address] XR Chest 1 Vw Portable (04/23/2018 11:04 AM CDT) Specimen Narrative Performed At EXAMINATION:XR CHEST 1 VW PORTABLE [facility] CLINICAL HISTORY:Shortness of breath COMPARISON:None. IMPRESSION: Calcified granuloma in the left lung Remaining lungs are clear Heart is nonenlarged Degenerative changes are present throughout the bony structures without evidence of a suspicious focal lesion. Nasogastric tube courses below the lower limits of the film [facility]-[id number] Procedure Note Hm Interface, Radiology Results Incoming - 04/23/2018 11:16 AM CDT EXAMINATION: XR CHEST 1 VW PORTABLE CLINICAL HISTORY: Shortness of breath COMPARISON: None. IMPRESSION: Calcified granuloma in the left lung Remaining lungs are clear Heart is nonenlarged Degenerative changes are present throughout the bony structures without evidence of a suspicious focal lesion. Nasogastric tube courses below the lower limits of the film [facility]-[id number] Performing Organization Address [facility]/Zipcode Phone Number [facility] [address] [place] [phone] Smear review (04/23/2018 10:45 AM CDT) Platelet slide review Maile adequate [facility] DEPARTMENT OF PATHOLOGY AND GENOMIC MEDICINE Anisocytosis Moderate [facility] DEPARTMENT OF PATHOLOGY AND GENOMIC MEDICINE Enlarged platelets Moderate (A) [facility] DEPARTMENT OF PATHOLOGY AND GENOMIC MEDICINE Specimen Performing Organization Address [facility] Centercode Phone Number [facility] DEPARTMENT OF PATHOLOGY AND [address] [place] [phone] GENOMIC MEDICINE Hemoglobin A1c (04/23/2018 10:45 AM CDT) Hemoglobin A1C 5.0 4.0 - 5.6 % [facility] DEPARTMENT OF Comment: PATHOLOGY AND HbA1c cutoffs for diagnosing diabetes: GENOMIC MEDICINE 4.0% - 5.6%=normal 5.7% - 6.4%=increased risk for diabetes (prediabetes) >=6.5%=diabetes Goals for glycemic control (ADA 2016) < 7.0%Target for non adults with diabetes. More or less stringent targets may be appropriate for individual patients. <7.5% Target for Children and adolescents with type 1 diabetes. Specimen Blood Performing Organization Address [facility] Centercode Phone Number [facility] DEPARTMENT OF PATHOLOGY AND [address] [place] [phone] [facility] ECG 12 lead (04/23/2018 10:22 AM CDT) Ventricular rate 85 [facility] Atrial rate 85 [facility] ND interval 140 [facility] QRSD interval 78 [facility] QT interval 354 [facility] QTC interval 421 [facility] P axis 1 79 [facility] QRS axis 1 80 [facility] T wave axis 69 [facility] EKG impression Normal sinus [facility] MUSE rhythm-Possible Left atrial enlargement-Borderline ECG-No previous ECGs available-Electronicall y Signed By Jeferson Grant MD ([id number]) on 04/24/2018 8:24:28 PM Specimen Performing Organization Address City/[facility] Centercode Phone Number [facility] MUSE [address] [place] [phone] Lipase level (04/23/2018 10:03 AM CDT)Only the most recent of2 resultswithin the time period is included. Lipase 37 13 - 60 U/L [facility] DEPARTMENT OF PATHOLOGY AND GENOMIC MEDICINE Specimen Blood Performing Organization Address City/[facility]ercode Phone Number [facility] DEPARTMENT OF PATHOLOGY AND [address] [place] [address] [facility] Prealbumin level (04/23/2018 7:43 AM CDT) Prealbumin 22 16 - 32 mg/dL [facility] DEPARTMENT OF PATHOLOGY AND GENOMIC MEDICINE Specimen Serum Performing Organization Address [facility] Phone Number [facility] DEPARTMENT OF PATHOLOGY AND [address] [place] [address] [facility] Lipid panel (04/23/2018 7:43 AM CDT) Cholesterol 116 <200 mg/dL [facility] DEPARTMENT OF PATHOLOGY AND GENOMIC MEDICINE Triglycerides 105 <150 mg/dL [facility] DEPARTMENT OF PATHOLOGY AND GENOMIC MEDICINE HDL cholesterol 51 >40 mg/dL [facility] DEPARTMENT OF PATHOLOGY AND GENOMIC MEDICINE LDL cholesterol 52Comment: Result <100 mg/dL [facility] DEPARTMENT obtained by direct OF PATHOLOGY AND LDL measurement GENOMIC MEDICINE Lipid panel SeeBelow [facility] DEPARTMENT interpretation Comment: OF PATHOLOGY AND Total Cholesterol (mg/dL) GENOMIC MEDICINE <200 Desirable 087-120Rabjqyjawy-[id number] >=240High Triglycerides (mg/dL) <150 Normal [id number] 200-499High >=500Very high HDL Cholesterol (mg/dL) <40Low (male) <40Low (female) LDL Cholesterol (mg/dL) <100 Optimal 100-129Near or above optimal 367-056Kbhpvfvugm-urbh 160-189High >=190Very high Risk Catergories that modify LDL goals. Risk CatergoriesLDL goal (mg/dL) CHD and CHD risk equivalent<100 (10-year risk >20%) Multiple (2+) risk factors <130 (10-year risk=<20%) 0-1 risk factors <160 (<10-year risk) Defining levels of lipids in metabolic syndrome Triglycerides>=150 mg/dL HDL Cholesterol Men<40 mg/dL Women<40 mg/dL Non-HDL cholesterol is a second target for therapy in persons with high triglycerides (>=200 mg/dL) Specimen Plasma specimen Performing Organization Address City/State/Zipcode Phone Number [facility] DEPARTMENT OF PATHOLOGY AND [address] [place] [address] GENOMIC MEDICINE after 01/16/2018 Insurance Payer Benefit Plan / Subscriber ID Effective Dates Phone Address Type Group MEDICARE MEDICARE PART A xxxxxxxxxx 2004-Present [place], [place] Medicare AND B FOR LIFE xxxxxxxxx 2016-Present Advance Directives Patient has advance care planning documents on file. For more information, please contact:Jose A [id number] [place] [address]
[2019-01-17 16:20] LABS: Absolute Lymphocytes (CBC) 1.2 K/uL (0.7-4.9); Basophils % 0.5 % (0-1.3); Eosinophils % 1.9 % (0-4.4); Hematocrit 36.4 % (36.0-45.0); Lymphocytes % 13.7 % (15.3-44.8); Monocytes % 11.5 % (3.3-12.3); RBC Red Blood Cell Count 4.08 M/uL (3.86-4.86)
[2019-01-17 16:29] LABS: Albumin 3.8 g/dL (3.4-5.0); Bilirubin Direct 0.1 mg/dL (0-0.2); Bilirubin Total 0.3 mg/dL (0.2-1.0); Magnesium 2.1 mg/dL (1.8-2.4); Potassium 3.1 mmol/L (3.5-5.1); Protein, Total 7.4 g/dL (6.4-8.2)
[2019-01-17] MEDS ORDERED: NA CHLORIDE 0.9% 1,000 ML ONE (16:38)
[2019-01-17] MEDS ORDERED: ONDANSETRON 4 MG/2 ML VIAL ONE (16:38)
[2019-01-17] MEDS ORDERED: FENTANYL CITR 100 MCG/2 ML ONE (16:38)
[2019-01-17 17:26] LABS: Urine Blood TRACE (NEG); Urine Glucose NEGATIVE (NEG); Urine Protein NEGATIVE (NEG); Urine Specific Gravity 1.005 (1.005-1.030)
--- NOTE | 2019-01-17 18:08 | RAD REPORT ---
EXAM DESCRIPTION: CT - Abdomen Pelvis W Contrast - 01/17/2019 5:48 pm CLINICAL HISTORY: Abdominal pain, history of Crohn's disease COMPARISON: CT study April 2018 TECHNIQUE: Biphasic, helical CT imaging of the abdomen and pelvis was performed following 100 ml non -ionic IV contrast. Oral contrast was given. All CT scans are performed using dose optimization technique as appropriate and may include automated exposure control or mA/KV adjustment according to patient size. FINDINGS: No suspicious findings in the lung bases. The liver, spleen, and pancreas show no suspicious findings. Cholecystectomy clips are present. No bi liary tree dilatation. Symmetric renal function is seen with no hydronephrosis or suspicious renal mass. No pyelonephritis o r acute parenchymal process. No bladder abnormalities. No adrenal abnormalities. Uterus is absent. Ov elvia are absent or atrophic. No adnexal mass. No gastric dilatation or gastric wall thickening. No dilated large or small bowel loops. No active in flammatory bowel changes identifiable. Sigmoid diverticulosis is present. Oral contrast has reached t he distal rectum. No free air, free fluid or inflammatory stranding. No hernia, mass or bulky lymphadenopathy. No suspicious bony findings. IMPRESSION: Contrast enhanced CT abdomen and pelvis imaging shows no acute finding.
[2019-01-17] MEDS ORDERED: POTASSIUM 25 MEQ EFFERV TAB ONE (18:51)
--- NOTE | 2019-01-17 19:04 | EDPHYS ---
Physician Documentation [facility] Name: Angella Jackson Age: 68 yrs Sex: Female : 1950 Arrival Date: 01/17/2019 Time: 15:33 Bed 14 Private MD: JAN Physician James Bunch HPI: 01/17 15:50 This 68 yrs old Female presents to ER via EMS with complaints of Abdominal cp Pain. 15:50 The patient presents with abdominal pain in the upper abdomen. Onset: The cp symptoms/episode began/occurred for months. The symptoms do not radiate. Associated signs and symptoms: Pertinent positives: nausea, Pertinent negatives: blood in stools, constipation, diarrhea, fever, vomiting. Historical: - Allergies: 15:48 Bees; ls4 15:48 Codeine; ls4 15:48 HYDROCODONE; ls4 15:48 PENICILLINS; ls4 15:48 Wasps; ls4 - PMHx: 15:40 COPD; Crohn's; GERD; Hypertension; Pancreatitis; SBO; ls4 - PSHx: 15:40 Tonsillectomy; Carpal Tunnel Repair; Cholecystectomy; Hysterectomy; spinal cord ls4 stimulator placement and removal; Appendectomy; - Immunization history:: Adult Immunizations unknown. - Social history:: Smoking status: unknown. - Ebola Screening: : Patient negative for fever greater than or equal to 101.5 degrees Fahrenheit, and additional compatible Ebola Virus Disease symptoms Patient denies exposure to infectious person Patient denies travel to an Ebola-affected area in the 21 days before illness onset No symptoms or risks identified at this time. ROS: 16:00 Constitutional: Negative for body aches, chills, fever, poor PO intake. cp 16:00 Eyes: Negative for injury, pain, redness, and discharge. cp 16:00 ENT: Negative for drainage from ear(s), ear pain, sore throat, difficulty swallowing, difficulty handling secretions. 16:00 Cardiovascular: Negative for chest pain, edema, palpitations. 16:00 Respiratory: Negative for cough, shortness of breath, wheezing. 16:00 Abdomen/GI: Positive for abdominal pain, nausea, anorexia, Negative for vomiting, diarrhea, constipation, black/tarry stool, rectal bleeding. 16:00 Back: Negative for radiated pain. 16:00 : Negative for urinary symptoms. 16:00 Skin: Negative for rash. 16:00 Neuro: Negative for altered mental status, headache, weakness. 16:00 All other systems are negative. Exam: 18:10 Head/Face: Normocephalic, atraumatic. cp 18:10 Constitutional: The patient appears in no acute distress, alert, awake, non-diaphoretic, non-toxic, well developed, well nourished. 18:10 Eyes: Periorbital structures: appear normal, Conjunctiva: normal, no exudate, no injection, Sclera: no appreciated abnormality, Lids and lashes: appear normal, bilaterally. 18:10 ENT: External ear(s): are unremarkable, Nose: is normal, Mouth: Lips: moist, Oral mucosa: pink and intact, moist, Posterior pharynx: is normal, airway is patent, no erythema, no exudate. 18:10 Chest/axilla: Inspection: normal, Palpation: is normal, no crepitus, no tenderness. cp 18:10 Cardiovascular: Rate: normal, Rhythm: regular, Edema: is not appreciated, JVD: is not appreciated. 18:10 Respiratory: the patient does not display signs of respiratory distress, Respirations: normal, no use of accessory muscles, no retractions, no splinting, no tachypnea, labored breathing, is not present, Breath sounds: are clear throughout, no decreased breath sounds, no stridor, no wheezing. 18:10 Abdomen/GI: Inspection: abdomen appears normal, Bowel sounds: active, all quadrants, Palpation: soft, in all quadrants, moderate abdominal tenderness, in the right upper quadrant and left upper quadrant, rebound tenderness, is not appreciated, involuntary guarding, is not appreciated. 18:10 Back: pain, is absent, ROM is normal. 18:10 Skin: no rash present. 18:10 Neuro: Orientation: to person, place \T\ time. Mentation: is normal, Motor: moves all fours, strength is normal. Vital Signs: 15:40 BP 140 / 103; Pulse 66; Resp 14; Pulse Ox 99% ; Pain 8/10; ls4 16:32 BP 150 / 81; Pulse 71; Resp 16; Pulse Ox 99% on R/A; Pain 5/10; ls4 18:55 BP 157 / 78; Pulse 75; Resp 18; Pulse Ox 99% ; jb1 19:45 BP 142 / 87; Pulse 84; Resp 18; Temp 98.6(O); Pulse Ox 100% on R/A; Pain 8/10; lp1 MDM: 15:41 Patient medically screened. carlyn 16:00 Differential diagnosis: bowel obstruction, gastritis, non-specific abd pain, cp pancreatitis, Peptic Ulcer Disease, Perf. Duodenal Ulcer, Perf. Gastric Ulcer, Pyelonephritis, Ureterolithiasis, urinary tract infection. 19:01 Data reviewed: vital signs, nurses notes, lab test result(s), radiologic studies, CT cp scan. 19:01 Counseling: I had a detailed discussion with the patient and/or guardian regarding: the cp historical points, exam findings, and any diagnostic results supporting the discharge/admit diagnosis, lab results, radiology results, the need for outpatient follow up, a technical staff assistant, to return to the emergency department if symptoms worsen or persist or if there are any questions or concerns that arise at home. Response to treatment: the patient's symptoms have mildly improved after treatment, and as a result, I will discharge patient. ED course: VSS. CT abdomen and pelvis negative for acute findings. Will discharge to home for continued monitoring. 01/17 15:42 Order name: Basic Metabolic Panel 01/17 15:42 Order name: CBC with Diff 01/17 15:42 Order name: Creatinine for Radiology 01/17 15:42 Order name: Hepatic Function; Complete Time: 16:44 cp 01/17 18:13 Interpretation: Normal except: AST 13; GLOB 3.6. cp 01/17 15:42 Order name: Lipase; Complete Time: 16:44 cp 01/17 15:42 Order name: Magnesium; Complete Time: 16:44 cp 01/17 15:42 Order name: CT Abd/Pelvis - PO and IV Contrast; Complete Time: 18:13 cp 01/17 15:43 Order name: Basic Metabolic Panel; Complete Time: 16:44 EDMS 01/17 15:43 Order name: CBC with Automated Diff; Complete Time: 16:44 EDMS 01/17 15:43 Order name: Creatinine (Radiology Only); Complete Time: 16:44 EDMS 01/17 17:16 Order name: Urine Dipstick--Ancillary (enter results); Complete Time: 18:03 dh3 01/17 15:42 Order name: IV Saline Lock; Complete Time: 16:27 cp 01/17 15:42 Order name: Labs collected and sent; Complete Time: 16:27 cp 01/17 18:14 Order name: PO challenge; Complete Time: 18:31 cp Administered Medications: 16:22 Drug: Zofran 4 mg Route: IVP; Site: left antecubital; ls4 16:50 Follow up: Response: No adverse reaction; Marked relief of symptoms ls4 16:22 Drug: fentaNYL (PF) 25 mcg Route: IVP; Site: left antecubital; ls4 16:50 Follow up: Response: No adverse reaction; Marked relief of symptoms ls4 16:29 Drug: NS 0.9% 500 ml Route: IV; Rate: bolus; Site: left antecubital; ls4 17:09 Follow up: IV Status: Completed infusion; IV Intake: 500ml ls4 17:09 Drug: NS 0.9% 1000 ml Route: IV; Rate: 125 ml/hr; Site: left antecubital; ls4 19:16 Follow up: IV Status: Completed infusion; IV Intake: 250ml ls4 18:38 Drug: Potassium Effervescent Tablet 50 mEq Route: PO; ls4 19:15 Follow up: Response: No adverse reaction ls4 19:52 Drug: Bentyl 20 mg Route: PO; lp1 19:55 Follow up: Response: Medication administered at discharge. lp1 Disposition: 01/17/19 19:02 Discharged to Home. Impression: Upper abdominal pain, unspecified. - Condition is Stable. - Discharge Instructions: Abdominal Pain, Adult. - Prescriptions for Bentyl 20 mg Oral Tablet - take 2 tablet by ORAL route every 6 hours As needed; 40 tablet. Zofran 4 mg Oral Tablet - take 1 tablet by ORAL route every 12 hours As needed; 20 tablet. - Medication Reconciliation Form, Thank You Letter, Antibiotic Education, Prescription Opioid Use form. - Follow up: Private Physician; When: 1 - 2 days; Reason: Recheck today's complaints. - Problem is new. - Symptoms have improved. Addendum: 01/22/2019 16:40 Co-signature as Attending Physician, James Bunch MD I agree with the assessment and c estrella plan of care. Signatures: Dispatcher [employer] EDSC James Bunch MD MD cha Pena, Laura RN RN lp1 Page, JamesNAHUM hogan cp, Lisa, RN RN ls4 Corrections: (The following items were deleted from the chart) 01/17 20:14 19:02 01/17/2019 19:02 Discharged to Home. Impression: Upper abdominal pain, ls4 unspecified. Condition is Stable. Forms are Medication Reconciliation Form, Thank You Letter, Antibiotic Education, Prescription Opioid Use. Follow up: Private Physician; When: 1 - 2 days; Reason: Recheck today's complaints. Problem is new. Symptoms have improved. cp
--- NOTE | 2019-01-17 19:04 | ER ---
Nurse's Notes [facility] Name: Angella Jackson Age: 68 yrs Sex: Female : 1950 Arrival Date: 01/17/2019 Time: 15:33 Bed 14 Private MD: Diagnosis: Upper abdominal pain, unspecified Presentation: 01/17 15:41 Presenting complaint: EMS states: upper abdominal pain for a few months. belching more ls4 often. Transition of care: patient was not received from another setting of care. Onset of symptoms is unknown. Risk Assessment: Do you want to hurt yourself or someone else? Patient reports no desire to harm self or others. Initial Sepsis Screen: Does the patient meet any 2 criteria? No. Patient's initial sepsis screen is negative. Does the patient have a suspected source of infection? No. Patient's initial sepsis screen is negative. Care prior to arrival: None. 15:41 Method Of Arrival: EMS: [facility] ls4 15:41 Acuity: WADE 3 ls4 Triage Assessment: 16:18 General: Appears in no apparent distress. Behavior is fussy. Pain: Complains of pain in ls4 right upper quadrant and left upper quadrant Neuro: Level of Consciousness is awake, alert, Oriented to person, place, time, situation. GI: Abdomen is non-distended, Last BM was January 17, 2019. at 08:00. Bowel sounds present X 4 quads. GI: Reports bloating, gaseousness, Patient currently denies. : No deficits noted. Derm: No deficits noted. Musculoskeletal: No deficits noted. Historical: - Allergies: 15:48 Bees; ls4 15:48 Codeine; ls4 15:48 HYDROCODONE; ls4 15:48 PENICILLINS; ls4 15:48 Wasps; ls4 - PMHx: 15:40 COPD; Crohn's; GERD; Hypertension; Pancreatitis; SBO; ls4 - PSHx: 15:40 Tonsillectomy; Carpal Tunnel Repair; Cholecystectomy; Hysterectomy; spinal cord ls4 stimulator placement and removal; Appendectomy; - Immunization history:: Adult Immunizations unknown. - Social history:: Smoking status: unknown. - Ebola Screening: : Patient negative for fever greater than or equal to 101.5 degrees Fahrenheit, and additional compatible Ebola Virus Disease symptoms Patient denies exposure to infectious person Patient denies travel to an Ebola-affected area in the 21 days before illness onset No symptoms or risks identified at this time. Screenin:51 Abuse screen: Denies threats or abuse. Denies injuries from another. ls4 14:51 Nutritional screening: No deficits noted. Tuberculosis screening: No symptoms or risk ls4 factors identified. Fall Risk None identified. Assessment: 15:45 General: Appears in no apparent distress. uncomfortable, Behavior is fussy. GI: Abd is ls4 soft and non tender X 4 quads. Abd is non tender X 4 quads Reports epigastric pain. GI: Abdomen is non-distended, Bowel sounds present X 4 quads. : No deficits noted. Derm: No deficits noted. Musculoskeletal: No deficits noted. 19:15 Reassessment: No changes from previously documented assessment. Patient and/or family ls4 updated on plan of care and expected duration. Pain level reassessed. po challenge tolerated well Patient denies pain at this time. 19:30 Reassessment: Patient appears in no apparent distress at this time. Patient reports lp1 pain 8/10 to upper abdomen;. Neuro: Level of Consciousness is awake, alert, obeys commands. Respiratory: Respiratory effort is even, unlabored. GI: Abdomen is non-distended, Reports upper abdominal pain. Derm: Skin is intact, Skin is dry, Skin is normal. 19:50 Reassessment: Patient states continued pain to upper abdomen, provider notified; Verbal lp1 order for Bentyl 20mg PO. Vital Signs: 15:40 BP 140 / 103; Pulse 66; Resp 14; Pulse Ox 99% ; Pain 8/10; ls4 16:32 BP 150 / 81; Pulse 71; Resp 16; Pulse Ox 99% on R/A; Pain 5/10; ls4 18:55 BP 157 / 78; Pulse 75; Resp 18; Pulse Ox 99% ; jb1 19:45 BP 142 / 87; Pulse 84; Resp 18; Temp 98.6(O); Pulse Ox 100% on R/A; Pain 8/10; lp1 ED Course: 14:51 Patient has correct armband on for positive identification. Bed in low position. Call ls4 light in reach. Side rails up X 1. Warm blanket given. Pillow given. Verbal reassurance given. 15:33 Patient arrived in ED. iw 15:33 Page, James, PA is PHCP. cp 15:34 James Bunch MD is Attending Physician. cp 15:40 Arm band placed on. ls4 15:41 Nikki Whelan, DANIELLE is Primary Nurse. ls4 15:44 Triage completed. ls4 15:45 Maintain EMS IV. Dressing intact. Good blood return noted. Site clean \T\ dry. Gauge \T\ ls 4 site: 20 g left ac . 17:09 Basic Metabolic Panel Sent. ls4 17:09 CBC with Diff Sent. ls4 17:09 Creatinine for Radiology Sent. ls4 17:49 CT Abd/Pelvis - PO and IV Contrast In Process Unspecified. EDMS 18:41 No provider procedures requiring assistance completed. ls4 19:50 IV discontinued, No redness/swelling at site. Pressure dressing applied. lp1 Administered Medications: 16:22 Drug: Zofran 4 mg Route: IVP; Site: left antecubital; ls4 16:50 Follow up: Response: No adverse reaction; Marked relief of symptoms ls4 16:22 Drug: fentaNYL (PF) 25 mcg Route: IVP; Site: left antecubital; ls4 16:50 Follow up: Response: No adverse reaction; Marked relief of symptoms ls4 16:29 Drug: NS 0.9% 500 ml Route: IV; Rate: bolus; Site: left antecubital; ls4 17:09 Follow up: IV Status: Completed infusion; IV Intake: 500ml ls4 17:09 Drug: NS 0.9% 1000 ml Route: IV; Rate: 125 ml/hr; Site: left antecubital; ls4 19:16 Follow up: IV Status: Completed infusion; IV Intake: 250ml ls4 18:38 Drug: Potassium Effervescent Tablet 50 mEq Route: PO; ls4 19:15 Follow up: Response: No adverse reaction ls4 19:52 Drug: Bentyl 20 mg Route: PO; lp1 19:55 Follow up: Response: Medication administered at discharge. lp1 Intake: 17:09 IV: 500ml; Total: 500ml. ls4 19:16 IV: 250ml; Total: 750ml. ls4 Outcome: 19:02 Discharge ordered by MD. cp 19:50 Discharge instructions given to patient, Instructed on discharge instructions, follow lp1 up and referral plans. medication usage, Demonstrated understanding of instructions, follow-up care, medications, Prescriptions given X 2. 19:55 Patient left the ED. lp1 19:55 Discharged to home ambulatory, with significant other. lp1 19:55 Condition: good Signatures: Dispatcher [employer] EDMS Ramon Hernández jb1 Beth Pastor, RN DANIELLE iw Fabiana Escamilla RN RN lp1 James Mullins PA PA cp Stewart, Lisa, RN RN ls4 Corrections: (The following items were deleted from the chart) 20:17 19:50 Discharged to home ambulatory, with significant other, ls4 lp1 20:17 19:50 Condition: good ls4 lp1 20:17 19:50 Discharge instructions given to patient, Instructed on discharge instructions, lp1 follow up and referral plans. medication usage, Demonstrated understanding of instructions, follow-up care, medications, Prescriptions given X 2, ls4 20:17 20:14 Patient left the ED. ls4 lp1 20:18 19:30 Reassessment: Patient appears in no apparent distress at this time. ls4 lp1 20:18 19:30 GI: Abdomen is non-distended, Reports upper abdominal pain, ls4 lp1 20:18 19:30 Neuro: Level of Consciousness is awake, alert, obeys commands, ls4 lp1 20:18 19:30 Derm: Skin is intact, Skin is normal, ls4 lp1 20:18 19:30 Respiratory: Respiratory effort is even, unlabored, ls4 lp1 20:18 19:30 Reassessment: Report pain 8/10 to upper abdomen ls4 lp1 20:19 19:45 BP 142 / 87; Pulse 84bpm; Resp 18bpm; Pulse Ox 100% RA; Temp 98.6F Oral; Pain lp1 8/10; ls4 20:20 19:50 IV discontinued, No redness/swelling at site. Pressure dressing applied, ls4 lp1
[2019-01-17] MEDS ORDERED: DICYCLOMINE HCL 10 MG CAP ONE (20:07)
[2019-01-17 21:06] VITALS: BP 142/87; TEMP 98.6; O2SAT 100
== END 2019-01-17 20:14 | disposition home or self-care (01) ==
LOC: ER 15:28
DX: R10.10 Upper abdominal pain, unspecified (principal); I10 Essential (primary) hypertension; K50.90 Crohn's disease, unspecified, without complications; Z88.0 Allergy status to penicillin; Z88.5 Allergy status to narcotic agent; Z91.030 Bee allergy status; Z91.038 Other insect allergy status
CPT/HCPCS: 96361; 85025; 80048; 36415; 83735; 80076; 81003; 83690; 74177; 96375; 96374; 99284; Q9967; J3010; J7030; J2405

== ENCOUNTER 2020-01-19 08:15 | Day surgery (SDC) | payer OTHER ==
[2020-01-19] MEDS ORDERED: Ringers Lactate 1,000 ML IV ONE (08:36)
--- OUTSIDE RECORDS SUMMARY | 2020-01-19 09:14 | XMS REPORT | Clinical Summary ---
:1950 Author Organization [facility] Address [address] [place] [address] Care Team Providers Name Role Phone Mark Paz DO Primary Care Provider Allergies Active Allergy Reactions Severity Noted Date Comments Fentanyl Itching 04/25/2018 Fentanyl patch Penicillins Rash High 04/23/2018 Medications Medication Sig Dispensed Refills Start Date End Date Status PROAIR HFA 90 Inhale 90 mcg 0 03/15/2018 A ctive mcg/actuation inhaler every 4 (four) hours as needed. amLODIPine (NORVASC) 10 Take 10 mg by 0 Active mg tablet mouth daily. baclofen (LIORESAL) 10 Take 10 mg by 0 03/04/2018 Active MG tablet mouth 3 (three) times a day. SPIRIVA WITH HANDIHALER Place 18 mcg 0 03/21/2018 Active 18 mcg per inhalation into inhaler and capsule inhale daily. losartan (COZAAR) 50 MG Take 50 mg by 0 03/04/2018 Active tablet mouth daily. sulfaSALAzine Take 500 mg by 0 A ctive (AZULFIDINE) 500 mg mouth 4 (four) tablet times a day. diazePAM (VALIUM) 5 MG Take 10 mg by 0 Active tablet mouth every 12 (twelve) hours as needed for anxiety. dexlansoprazole Take 60 mg by 0 Active (DEXILANT) 60 mg capsule mouth daily. pravastatin (PRAVACHOL) Take 40 mg by 0 Active 40 MG tablet mouth daily. aspirin (ECOTRIN) 81 MG Take 81 mg by 0 Active enteric coated tablet mouth daily. sertraline (ZOLOFT) 50 Take 50 mg by 0 Active MG tablet mouth daily. traMADol (ULTRAM) 50 mg Take 50 mg by 0 Active tablet mouth every 6 (six) hours as needed for moderate pain. Active Problems Problem Noted Date Bowel obstruction 04/23/2018 Crohn disease 04/23/2018 Essential hypertension 04/23/2018 COPD (chronic obstructive pulmonary disease) 8 Essential tremor 04/23/2018 Chronic pain syndrome 04/23/2018 Family History Medical History Relation Name Comments [...] travel history available. Last Filed Vital Signs Not on file Plan of Treatment Health Maintenance Due Date Last Done Comments DIABETIC RETINAL EYE EXAM 1950 DIABETIC FOOT EXAM 1959 URINE MICROALBUMIN 1959 BREAST CANCER SCREENING 1999 COLONOSCOPY SCREENING 1999 SHINGLES VACCINES (#1) 1999 65+ PNEUMOCOCCAL VACCINE (1 of 2 - PCV13) 2014 INFLUENZA VACCINE 02/14/2020 Results Not on fileafter 01/18/2019 Insurance Payer Benefit Plan / Subscriber ID Effective Dates Phone Addre ss Type Group MEDICARE MEDICARE PART A xxxxxxxxxx 2004-Present [place], [place] Medicare AND B FOR LIFE xxxxxxxxx 2016-Present [facility] SUPPLEMENT Advance Directives For more information, please contact: [phone] Type Date Recorded Patient Insulation Mechanic Explanati on Advance Directives, Living Will and Medical Power of Heel Cutter
--- OUTSIDE RECORDS SUMMARY | 2020-01-19 09:15 | XMS REPORT | Continuity of Care Document ---
:1950 Author Organization [facility] t Address [address] [place] [address] [address] [place] [address] Care Team Providers Name Role Phone Monica Paz DO Primary Care Physician Juanita COFFEY Attending Clinician Doctor Unassigned, Name Attending Clinician Unavailable Problems Condition Condition Condition Status Onset Resolution Last Treating Co mments Source Name Details Category Date Date Treatment Clinician Date Bowel Bowel Disease Active 2017-07 [place] obstructio obstructio 0-09 Me thodi n n 00:00: st 00 Crohn Crohn Disease Active 2017-07 [place] disease disease 0-09 [facility] 00:[facility]: st 00 Essential Essential Disease Active 2017-07 Yamil ston hypertensi hypertensi 0-09 Me thodi on on 00:00: st 00 COPD COPD Disease Active 2017-07 [place] (chronic (chronic 0-09 [facility] i obstructiv obstructiv 00:00: st e e 00 pulmonary pulmonary disease) disease) Essential Essential Disease Active 2017-07 Yamil ston tremor tremor 0-09 [facility] 00:00: st 00 Chronic Chronic Disease Active 2017-07 [place] pain 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 00:00: st 00 Allergies, Adverse Reactions, Alerts Allergy Allergy Status Severity Reaction(s) Onset Inactive Treating Comm ents Source Name Type Date Date Clinician Fentanyl [place] Active Itching 2017-07 Fentanyl Yamil ston ty to 0-11 patch [facility] adverse 00:00: st reaction 00 s to drug Penicill [place]i Active Rash 2017-07 [place] ty to 009 [facility] adverse 00:00: st reaction 00 s to drug Family History Family Member Diagnosis Comments Start Date Stop Date Source Family member Cancer [place] [facility] Family member Heart disease [place] [facility] Social History Social Habit Start Date Stop Date Quantity Comments Source Sex Assigned At [place] [facility] Cigarettes smoked 2018-05-13 2018-05-13 [place] current (pack per 00:00:00 00:00:00 [facility] ) - Reported Alcohol intake 2018-05-13 2018-05-13 Current drinker [place] 00:00:00 00:00:00 of alcohol [facility] (finding) Tobacco Comment 2018-04-23 2018-04-23 55 pack year [place] 00:00:00 00:00:00 history [facility] Alcohol Comment 2018-04-23 2018-04-23 occasional [place] 00:00:00 00:00:00 [facility] Smoking Status Start Date Stop Date Source Current every day smoker 2018-05-13 00:00:00 Yamilmicheal mattan [facility] Medications Ordered Filled Start Stop Current Ordering Indication Dosage Frequency Signature Comments Components Source Medication Medication Date Date Medication? Clinician (SIG) Name Name amLODIPine 2017-07 Yes 10mg QD Take 10 mg [place] (NORVASC) 0-13 by mouth [facility] i 10 mg 15:07: daily. st tablet 54 sulfaSALAzi 2017-07 Yes 500mg Q.25D Take 500 [place] 0-13 mg by [facility] (AZULFIDINE 15:07: mouth 4 st ) 500 mg 54 (four) tablet times a day. diazePAM 2017-07 Yes 10mg Q12H Take 10 mg Yamil suarez (VALIUM) 5 0-13 by mouth Metho di MG tablet 15:07: every 12 st 54 (twelve) hours as needed for anxiety. dexlansopra 2017-07 Yes 60mg QD Take 60 mg Jose A zole 0-13 by mouth [facility] (DEXILANT) 15:07: daily. st 60 mg 54 capsule pravastatin 2017-07 Yes 40mg QD Take 40 mg Jose A (PRAVACHOL) 0-13 by mouth Meth eusebio 40 MG 15:07: daily. st tablet 54 aspirin 2017-07 Yes 81mg QD Take 81 mg [place] (ECOTRIN) 0-13 by mouth Method i 81 MG 15:07: daily. st enteric 54 coated tablet sertraline 2017-07 Yes 50mg QD Take 50 mg [place] (ZOLOFT) 50 0-13 by mouth Meth eusebio MG tablet 15:07: daily. st 54 traMADol 2017-07 Yes 50mg Q6H Take 50 mg Yamil ston (ULTRAM) 50 0-13 by mouth Meth eusebio mg tablet 15:07: every 6 st 54 (six) hours as needed for moderate pain. SPIRIVA Yes 18ug QD Place 18 [place] WITH 9-06 mcg into [facility] HANDIHALER 00:00: inhaler st 18 mcg per 00 and inhale inhalation daily. capsule PROAIR HFA Yes 90ug Q4H Inhale 90 [place] 90 8-31 mcg every [facility] mcg/actuati 00:00: 4 (four) st on inhaler 00 hours as needed. baclofen Yes 10mg [id number] Take 10 mg [place] (LIORESAL) 8-20 [id number] by mouth 3 [facility] 10 MG 00:00: 3D (three) st tablet 00 times a day. losartan Yes 50mg QD Take 50 mg Yamil ston (COZAAR) 50 8-20 by mouth Meth eusebio MG tablet 00:00: daily. st 00 Procedures This patient has no known procedures. Plan of Care Planned Activity Planned Date Details Comments Source Future Scheduled 2020-02-14 INFLUENZA VACCINE [place] [facility] Test 00:00:00 [code = INFLUENZA VACCINE] Future Scheduled 2014 65+ PNEUMOCOCCAL [place] [facility] Test 00:00:00 VACCINE (1 of 2 - PCV13) [code = 65+ PNEUMOCOCCAL VACCINE (1 of 2 - PCV13)] Future Scheduled 1999 BREAST CANCER [facility]odist Test 00:00:00 SCREENING [code = BREAST CANCER SCREENING] Future Scheduled 1999 COLONOSCOPY SCREENING [place] [facility] Test 00:00:00 [code = COLONOSCOPY SCREENING] Future Scheduled 1999 SHINGLES VACCINES (#1) [place] [facility] Test 00:00:00 [code = SHINGLES VACCINES (#1)] Future Scheduled 1959 DIABETIC FOOT EXAM [place] [facility] Test 00:00:00 [code = DIABETIC FOOT EXAM] Future Scheduled 1959 URINE MICROALBUMIN [place] [facility] Test 00:00:00 [code = URINE MICROALBUMIN] Future Scheduled 1950 DIABETIC RETINAL EYE Yamil ston [facility] Test 00:00:00 EXAM [code = DIABETIC RETINAL EYE EXAM] Encounters Start End Encounter Admission Attending Care Care Encounter Source Date/Time Date/Time Type Type Clinicians Facility Department ID 2019-12-01 2019-12-01 Telephone Juanita [facility] [id number] 00:00:00 00:00:00 Shimichaeln [place] [id number] [place] [id number] Professio [phone] [address] 2019-11-28 2019-11-28 [facility] [id number] 00:00:00 00:00:00 (Out) Shinoemi [place] [id number] [place] [id number] Professio [phone] [address] 2019-11-26 2019-11-26 [facility] [id number] 00:00:00 00:00:00 Shimichaeln Vand[place] [id number] [place] [id number] Professio [phone] [address] 2019-11-25 2019-11-25 Orders Doctor MANJINDER [id number] 00:00:00 00:00:00 Only Unassigned, DELFIN [id number] [place] [facility] [id number] 2019-11-16 2019-11-16 [facility] [id number] 00:00:00 00:00:00 Shimichaeln [place] [id number] [place] [id number] Professio [phone] [address] 2019-11-13 2019-11-13 [facility] [id number] 08:26:11 08:46:11 ne Visit Karla Ross [id number] [place] [id number] Professio [phone] nal 085 [facility] 2019-10-27 2019-10-27 Telephone GrantEMETERIO [id number] 00:00:00 00:00:00 Karla Ross [id number] [place] [id number] Professio [phone] [facility] 085 [facility] 2019-08-14 2019-08-14 Office EMETERIO Grant [id number] 14:22:50 14:42:50 Visit Karla Ross [id number] [place] [id number] [facility] [phone] [address] Results This patient has no known results.
--- OUTSIDE RECORDS SUMMARY | 2020-01-19 09:15 | XMS REPORT | Summary of Care ---
:1950 Author Organization [facility] Address [address] [place] [address] Care Team Providers Name Role Phone Pcp, Patient Does Not Have A Primary Care Provider +[id number] 0-0000 Reason for Visit Reason Comments Assessment Encounter Details Date Type Department Care Team Description 10/27/2019 Telephone [facility] ADC Pulmonary Karla Grant DO Assessment [facility] [address] Sabrina Collier [address] [place] [id number] [phone] Allergies Active Allergy Reactions Severity Noted Date Comments Azithromycin Other - See comments 10/27/2019 Codeine Nausea and/or Vomiting 01/06/2019 Metronidazole Hcl Nausea and/or Vomiting 10/27/2019 Hydrocodone Nausea and/or Vomiting 01/06/2019 Penicillin Hives 03/30/2016 documented as of this encounter (statuses as of 10/30/2019) Medications Medication Sig Dispensed Refills Start Date End Date Status pravastatin Take 10 mg by 0 Acti ve (PRAVACHOL) 10 mg mouth at bedtime. tablet primidone (MYSOLINE) Take 250 mg by 0 Active 250 mg tablet mouth every 8 (eight) hours. ergocalciferol, Take 50,000 Units 0 Active vitamin d2, (VITAMIN by mouth weekly. D2) 50,000 unit capsule baclofen (LIORESAL) Take 10 mg by 0 Active 10 mg tablet mouth 3 (three) times daily. SERTraline (ZOLOFT) Take 25 mg by 0 Active 25 mg tablet mouth daily. cyclobenzaprine Take 10 mg by 0 Active (FLEXERIL) 10 mg mouth daily. tablet roflumilast Take by mouth 0 Act keily (DALIRESP) 500 mcg daily. tablet pregabalin (LYRICA) Take 75 mg by 0 Active 75 mg mouth 2 (two) capsuleIndications: times daily. 2caps Indications: 2caps Dexlansoprazole Take by mouth 0 Active (DEXILANT) 60 mg daily. capsule MULTIVITAMIN ORAL Take by mouth 0 Active daily. VITAMIN E, Take by mouth 0 Acti ve DL,TOCOPHERYL ACET, daily. (VITAMIN E, DL, Indications: 2 ACETATE,) 400 unit CapIndications: 2 amLODIPine (NORVASC) Take 10 mg by 0 Active 10 mg tablet mouth daily. LACTOBACILLUS Take by mouth 0 A ctive ACIDOPHILUS daily. (ACIDOPHILUS ORAL) aspirin 81 mg Take 81 mg by 0 Ac tive chewable tablet mouth daily. Cholecalciferol, Take by mouth 0 Active Vitamin D3, (VITAMIN daily. D3) 2,000 unit capsule diazepam (VALIUM) 5 Take 5 mg by 0 Active mg tablet mouth 2 (two) times daily. BECLOMETHASONE Use in each 0 Ac tive DIPROPIONATE (QNASL nostril. NASAL)Indications: 2 Indications: 2 sprays each nostril sprays each daily nostril daily CETIRIZINE HCL Take by mouth 0 Active (ZYRTEC ORAL) daily. predniSONE Take 10 mg by 0 Activ e (DELTASONE) 10 mg mouth daily. tabletIndications: as Indications: as needed needed budesonide-formoterol Inhale 2 Puffs 2 10.2 g 11 11/09/2016 Active (SYMBICORT) 160-4.5 (two) times mcg/actuation daily. inhalerIndications: 2 Indications: 2 puffs puffs tiotropium (SPIRIVA Inhale 1 capsule 30 capsule 11 11/09/2016 Active WITH HANDIHALER) 18 daily. mcg inhalation MONTELUKAST 10 mg TAKE 1 TABLET 90 tablet 3 06/03/2018 Active tablet DAILY ondansetron (ZOFRAN Take 1 tablet by 10 tablet 0 01/06/2019 Active ODT) 4 mg mouth every 8 disintegrating (eight) hours as tabletIndications: needed for Nausea Abdominal pain, and Vomiting unspecified abdominal (N/V). location albuterol (PROAIR USE 2 INHALATIONS 34 g 4 08/18/2019 Active HFA) 90 mcg/actuation EVERY 6 HOURS inhaler NEEDED doxycycline hyclate Take 1 tablet by 14 tablet 0 10/29/2019 Active 100 mg mouth 2 (two) tabletIndications: times daily for 7 Bronchitis days. documented as of this encounter (statuses as of 10/30/2019) Active Problems No known active problemsdocumented as of this encounter (statuses as of 10/30/2019) Immunizations Name Administration Dates Next Due Influenza High Dose 07/03/2017 Pneumococcal Polysaccharide, PPSV23 (PNEUMOVAX) 04/19/2015 Tdap 04/29/2015 documented as of this encounter Social History Tobacco Use Types Packs/Day Years Used Date Current Every Day Smoker 1 55 Smokeless Tobacco: Never Used Comments: 1-2 packs Alcohol Use Drinks/Week oz/Week Comments Not Asked 0 Standard drinks or equivalent 0.0 Sex Assigned at Date Recorded Not on file Job Start Date Occupation Industry Not on file Not on file Not on file Travel History Travel Start Travel End No recent travel history available. documented as of this encounter Last Filed Vital Signs Not on filedocumented in this encounter Plan of Treatment Date Type Specialty Care Team Description 11/13/2019 Office Visit Pulmonary Disease Karla Grant, [facility] [place] [address] Health Maintenance Due Date Last Done Comments LUNG CANCER SCREEN: Recommended 01/26/2004 for age 55-80 with 30 + pack year history Breast Cancer Screening 07/16/2020 Postpone d from 1989 (MAMMOGRAM) (Alternative [place]) COLONOSCOPY 07/16/2020 Postponed from 0 1999 (Alternative [place]) HEPATITIS C (HCV) SCREEN 07/16/2020 Postpon ed from 1949 (Alternative [place]) Osteoporosis Screening 07/16/2020 Postponed from 2014 (Alternative [place]) Zoster Recombinant Vaccine 07/16/2020 Postp oned from 1999 (SHINGRIX) (1 of 2) (Alternative Guidelines) INFLUENZA VACCINE (#1) 2020 07/03/2017 Postponed from 03/16/2019 (Refused) Medicare Wellness Visit 08/14/2020 Postpone d from 2014 (Alternative [place]) PNEUMOCOCCAL VACCINES 65+ (2 of 2 08/15/2020 04/19/2015 Postponed from 04/19/2016 - PCV13) (Alternative [place]) DTaP,Tdap,and Td Vaccines (2 - 04/29/2025 04/29/2015 Td) documented as of this encounter Results Not on filedocumented in this encounter Visit Diagnoses Diagnosis Bronchitis - Primary Bronchitis, not specified as acute or ch ronic documented in this encounter Insurance Payer Benefit Plan Subscriber ID Effective Phone Address Typ e / Group Dates MEDICARE MEDICARE PART xxxxxxxxxxx 2004-[place] [phone] [address] [place] X Medicare A & B nt [id number] [place] [phone] FOR [id number] 2014-[place] Med icare LIFE nt Supplement documented as of this encounter
--- OUTSIDE RECORDS SUMMARY | 2020-01-19 09:16 | XMS REPORT | Summary of Care ---
:1950 Author Organization [facility] Address [address] [place] [address] Care Team Providers Name Role Phone Pcp, Patient Does Not Have A Primary Care Provider +1-000-00 0-0000 Reason for Visit Reason Comments Forms Encounter Details Date Type Department Care Team Description 11/26/2019 Telephone [facility] ADC Pulmonary Karla Grant, DO Forms Clinic [address] Sabrina Collier [address] [place] [phone] Allergies Active Allergy Reactions Severity Noted Date Comments Azithromycin Other - See comments 10/27/2019 Codeine Nausea and/or Vomiting 01/06/2019 Metronidazole Hcl Nausea and/or Vomiting 10/27/2019 Hydrocodone Nausea and/or Vomiting 01/06/2019 Penicillin Hives 03/30/2016 documented as of this encounter (statuses as of 11/27/2019) Medications Medication Sig Dispensed Refills Start Date End Date Status pravastatin Take 10 mg by 0 Acti ve (PRAVACHOL) 10 mg mouth at bedtime. tablet primidone (MYSOLINE) Take 250 mg by 0 Active 250 mg tablet mouth every 8 (eight) hours. ergocalciferol, Take 50,000 Units 0 Active vitamin d2, (VITAMIN by mouth weekly. D2) 50,000 unit capsule baclofen (LIORESAL) 10 Take 10 mg by 0 Active mg tablet mouth 3 (three) times daily. SERTraline (ZOLOFT) 25 Take 25 mg by 0 Active mg tablet mouth daily. cyclobenzaprine Take 10 mg by 0 Active (FLEXERIL) 10 mg mouth daily. tablet roflumilast (DALIRESP) Take by mouth 0 Active 500 mcg tablet daily. pregabalin (LYRICA) 75 Take 75 mg by 0 Active mg capsuleIndications: mouth 2 (two) 2caps times daily. Indications: 2caps Dexlansoprazole Take by mouth 0 [...] ACIDOPHILUS daily. (ACIDOPHILUS ORAL) aspirin 81 mg chewable Take 81 mg by 0 Active tablet mouth daily. Cholecalciferol, Take by mouth 0 Active Vitamin D3, (VITAMIN daily. D3) 2,000 unit capsule diazepam (VALIUM) 5 mg Take 5 mg by 0 Active tablet mouth 2 (two) times daily. CETIRIZINE HCL (ZYRTEC Take by mouth 0 Active ORAL) daily. predniSONE (DELTASONE) Take 10 mg by 0 Active 10 mg mouth daily. tabletIndications: as Indications: as needed needed MONTELUKAST 10 mg TAKE 1 TABLET 90 tablet 3 06/03/2018 Active tablet DAILY ondansetron (ZOFRAN Take 1 tablet by 10 tablet 0 01/06/2019 Active ODT) 4 mg mouth every 8 disintegrating (eight) hours as tabletIndications: needed for Nausea Abdominal pain, and Vomiting unspecified abdominal (N/V). location albuterol (PROAIR HFA) USE 2 INHALATIONS 34 g 4 0 Active 90 mcg/actuation EVERY 6 HOURS inhaler NEEDED beclomethasone Use 2 Sprays in 26.1 g 3 11/13/2019 Active dipropionate (QNASL) each nostril 80 mcg/actuation nasal daily. sprayIndications: Allergic rhinitis, unspecified seasonality, unspecified trigger albuterol 2.5 mg /3 mL Inhale 3 mL every 12 Box 3 0 Active (0.083 %) nebulizer 4 (four) hours as solutionIndications: needed for Allergic rhinitis, Wheezing or unspecified Shortness of seasonality, Breath. unspecified trigger budesonide-formoteroL Inhale 2 Puffs 2 10.2 g 11 11/13/2019 Active (SYMBICORT) 160-4.5 (two) times mcg/actuation daily. inhalerIndications: 2 Indications: 2 puffs puffs tiotropium (SPIRIVA Inhale 1 capsule 30 capsule 11 11/13/2019 Active WITH HANDIHALER) 18 daily. mcg inhalationIndications: Allergic rhinitis, unspecified seasonality, unspecified trigger documented as of this encounter (statuses as of 11/27/2019) Active Problems No known active problemsdocumented as of this encounter (statuses as of 11/27/2019) Immunizations Name Administration Dates Next Due Influenza [...] Treatment Date Type Specialty Care Team Description 02/19/2020 Office Visit Pulmonary Disease Karla Grant DO [address] [place] [phone] Health Maintenance Due Date Last Done Comments [...] (1 of 2) (Alternative Guidelines) INFLUENZA VACCINE (Season Ended) 2020 07/03/2017 Postponed from 03/16/2020 (Refused) Medicare Wellness Visit 08/14/2020 Postpone d from 2014 (Alternative [place]) PNEUMOCOCCAL VACCINES 65+ (2 of 2 08/15/2020 04/19/2015 Postponed from 04/19/2016 - PCV13) (Alternative [place]) DTaP,Tdap,and Td Vaccines (2 - 04/29/2025 04/29/2015 Td) documented as of this encounter Results Not on filedocumented in this encounter Insurance Payer Benefit Plan Subscriber ID Effective Phone Address Typ e / Group Dates MEDICARE MEDICARE PART xxxxxxxxxxx 2004-Erik [phone] [address] X Medicare A & B nt [id number] NA[place]UM [place]CC[place] [id number] FOR [id number] 2014-Erik Med icare LIFE nt Supplement documented as of this encounter
--- OUTSIDE RECORDS SUMMARY | 2020-01-19 09:16 | XMS REPORT | Summary of Care ---
:1950 Author Organization [facility] Address [address] [place] [address] Care Team Providers Name Role Phone Pcp, Patient Does Not Have A Primary Care Provider +1-000-00 0-0000 Reason for Visit Reason Comments Rx Concern/Question Alternate per insurance Encounter Details Date Type Department Care Team Description 11/16/2019 Telephone [facility] ADC Karla Grant DO Rx Concern/Question Pulmonary Clinic [address] [place] [address] (Alternate per [address] [place] [address] , [facility]) [address] [place] [phone] Allergies Active Allergy Reactions Severity Noted Date Comments Azithromycin Other - See comments 10/27/2019 Codeine Nausea and/or Vomiting 01/06/2019 Metronidazole Hcl Nausea and/or Vomiting 10/27/2019 Hydrocodone Nausea and/or Vomiting 01/06/2019 Penicillin Hives 03/30/2016 documented as of this encounter (statuses as of 11/18/2019) Medications Medication Sig Dispensed Refills Start Date [...] mg tablet mouth 2 (two) times daily. CETIRIZINE HCL Take by mouth 0 Active [...] Active dipropionate (QNASL) each nostril 80 mcg/actuation daily. nasal sprayIndications: Allergic rhinitis, unspecified seasonality, unspecified trigger albuterol 2.5 mg /3 Inhale 3 mL every 12 Box 3 11/13/2019 Active mL (0.083 %) 4 (four) hours as nebulizer needed for solutionIndications: Wheezing or Allergic rhinitis, Shortness of unspecified Breath. seasonality, unspecified trigger predniSONE 20 mg Take 2 tablets by 10 tablet 0 11/13/2019 05/0 11/2019 Active tabletIndications: mouth daily for 5 Allergic rhinitis, days. unspecified seasonality, unspecified trigger budesonide-formoteroL Inhale 2 Puffs 2 10.2 g 11 11/13/2019 Active (SYMBICORT) 160-4.5 (two) times mcg/actuation daily. inhalerIndications: 2 Indications: 2 puffs puffs tiotropium (SPIRIVA Inhale 1 capsule 30 capsule 11 11/13/2019 Active WITH HANDIHALER) 18 daily. mcg inhalationIndications : Allergic rhinitis, unspecified seasonality, unspecified trigger documented as of this encounter (statuses as of 11/18/2019) Active Problems No known active problemsdocumented as of this encounter (statuses as of 11/18/2019) Immunizations Name Administration Dates Next Due Influenza [...] Description 02/19/2020 Office Visit Pulmonary Disease Karla Grant, [address] [place] [address] Health Maintenance Due Date Last [...] / Group Dates MEDICARE MEDICARE PART xxxxxxxxxxx 2004-Prese [phone] [address] Medicare A & B nt [id number] [place] [id number] FOR [id number] 2014-Prese Med icare LIFE nt Supplement documented as of this encounter
--- OUTSIDE RECORDS SUMMARY | 2020-01-19 09:16 | XMS REPORT | Summary of Care ---
:1950 Author Organization [facility] Address [address] [place] [address] Care Team Providers Name Role Phone Pcp, Patient Does Not Have A Primary Care Provider +1-000-00 0-0000 Reason for Visit Reason Comments COPD Encounter Details Date Type Department Care Team Description 11/13/2019 Telemedicine Visit [facility] ADC Karla Grant DO COPD exacerbation (Primary Dx); Pulmonary Clinic [address] [place] [address] Allergic rhinitis, unspecifi ed seasonality, unspecified trigger [address] [place] [address] , [facility] [address] [place] [phone] Allergies Active Allergy Reactions Severity Noted Date Comments Azithromycin Other - See comments 10/27/2019 Codeine Nausea and/or Vomiting 01/06/2019 Metronidazole Hcl Nausea and/or Vomiting 10/27/2019 Hydrocodone Nausea and/or Vomiting 01/06/2019 Penicillin Hives 03/30/2016 documented as of this encounter (statuses as of 11/13/2019) Medications Medication Sig Dispensed Refills Start End Date Status Date pravastatin Take 10 mg by 0 Acti ve (PRAVACHOL) 10 mg mouth at tablet bedtime. primidone Take 250 mg by 0 Activ e (MYSOLINE) 250 mg mouth every 8 tablet (eight) hours. ergocalciferol, Take 50,000 0 Ac tive vitamin d2, Units by mouth (VITAMIN D2) 50,000 weekly. unit capsule baclofen (LIORESAL) Take 10 mg [...] 2 ACETATE,) 400 unit CapIndications: 2 amLODIPine Take 10 mg by 0 Activ e (NORVASC) 10 mg mouth daily. tablet LACTOBACILLUS Take by mouth 0 A ctive ACIDOPHILUS daily. (ACIDOPHILUS ORAL) aspirin 81 mg Take 81 mg by 0 Ac tive chewable tablet mouth daily. Cholecalciferol, Take by mouth 0 Active Vitamin D3, daily. (VITAMIN D3) 2,000 unit capsule diazepam (VALIUM) 5 Take 5 mg by 0 Active mg tablet mouth 2 (two) times daily. CETIRIZINE HCL Take by mouth 0 Active (ZYRTEC ORAL) daily. predniSONE Take 10 mg by 0 Activ e (DELTASONE) 10 mg mouth daily. tabletIndications: Indications: as as needed needed MONTELUKAST 10 mg TAKE 1 TABLET 90 tablet 3 Active tablet DAILY 8 ondansetron (ZOFRAN Take 1 tablet 10 tablet 0 Active ODT) 4 mg by mouth every 9 disintegrating 8 (eight) hours tabletIndications: as needed for Abdominal pain, Nausea and unspecified Vomiting (N/V). abdominal location albuterol (PROAIR USE 2 34 g 4 Ac tive HFA) 90 INHALATIONS 0 mcg/actuation EVERY 6 HOURS inhaler NEEDED beclomethasone Use 2 Sprays in 26.1 g 3 Active dipropionate each nostril 0 (QNASL) 80 daily. mcg/actuation nasal sprayIndications: Allergic rhinitis, unspecified seasonality, unspecified trigger albuterol 2.5 mg /3 Inhale 3 mL 12 Box 3 Active mL (0.083 %) every 4 (four) 0 nebulizer hours as needed solutionIndications for Wheezing or : Allergic Shortness of rhinitis, Breath. unspecified seasonality, unspecified trigger predniSONE 20 mg Take 2 tablets 10 tablet 0 11/18/19 Active tabletIndications: by mouth daily 0 20 Allergic rhinitis, for 5 days. unspecified seasonality, unspecified trigger budesonide-formoter Inhale 2 Puffs 10.2 g 11 Active oL (SYMBICORT) 2 (two) times 0 160-4.5 daily. mcg/actuation Indications: 2 inhalerIndications: puffs 2 puffs tiotropium (SPIRIVA Inhale 1 30 capsule 11 Active WITH HANDIHALER) 18 capsule daily. 0 mcg inhalationIndicatio ns: Allergic rhinitis, unspecified seasonality, unspecified trigger BECLOMETHASONE Use in each 0 11/13/19 Di scontinued DIPROPIONATE (QNASL nostril. 20 NASAL)Indications: Indications: 2 2 sprays each sprays each nostril daily nostril daily budesonide-formoter Inhale 2 Puffs 10.2 g 11 11/12 Discontinued ol (SYMBICORT) 2 (two) times 7 20 ( Reorder) 160-4.5 daily. mcg/actuation Indications: 2 inhalerIndications: puffs 2 puffs tiotropium (SPIRIVA Inhale 1 30 capsule 11 11/13/19 Discontinued WITH HANDIHALER) 18 capsule daily. 7 20 (Reorder) mcg inhalation documented as of this encounter (statuses as of 11/13/2019) Active Problems No known active problemsdocumented as of this encounter (statuses as of 11/13/2019) Immunizations Name Administration Dates Next Due Influenza [...] Signs Not on filedocumented in this encounter Progress Notes Karla Grant DO - 11/13/2019 1:00 PM CDT [facility] Interventional Pulmonology Telemedicine Note Verbal consent obtained from Patient: Angella Jackson for telehealth services provided below. Communication with patient was conducted via Telephone due to patient unable to obtain video call option. Location of Patient: Home Location of Provider: Clinic Date of Service: 11/13/2019 Chief Complaint: Follow up COPD/bronchitis History of Present Illness: Angella Jackson is a 69 year old female here for follow up. In interval developed bronchitis given antibiotics and they did help some. Still with some coughing, and sinus issues, nasal congestion, and breathing is worse then baseline. Right now shortness of breath with fairly normal exertion. Improved with rest. No fevers. Past Medical History: has a past medical history of Hypertension, Pulmonary emphysema, Transfusion history, and Tremor. She also has no past medical history of Cancer, CHF (congestive heart failure), Diabetes mellitus, Seizures, or Stroke. Past Surgical History: has a past surgical history that includes tonsillectomy; hysterectomy; cholecystectomy; and endoscopic carpal tunnel release. Family History: family history includes Brain Cancer in her brother; Cancer in her paternal grandmother; Heart in her father and mother; Kidney Cancer in her father. Social History: reports that she has been smoking. She has a 55.00 pack-year smoking history. She has never used smokeless tobacco. Review of Systems: Review of Systems Constitutional: Negative. HENT: Positive for congestion and rhinorrhea. Eyes: Negative. Respiratory: Positive for cough and shortness of breath. Cardiovascular: Negative. Gastrointestinal: Negative. Genitourinary: Negative. Musculoskeletal: Negative. Skin: Negative. Neurological: Negative. Psychiatric/Behavioral: Negative. Endocrine: Endocrine negative Physical Examination: A limited physical exam was able to be performed due to the telephone encounter Physical Exam Constitutional: She is oriented to person, place, and time. No distress. Pulmonary/Chest: Effort normal. No respiratory distress. Neurological: She is alert and oriented to person, place, and time. Psychiatric: Mood, memory, affect and judgment normal. Laboratory/Studies: Spirometry: FVC 3.6L (126%), FEV1 1.55L (70%), ratio 43%, TLC 140%, RV/TLC 139%, DLCO 66%, DLVA 66% 6MW 780 ft, Lowest O2 saturation 90% Assessment & Plan Angella Jackson is a 69 year old female with ICD-10-CM ICD-9-CM 1. COPD exacerbation J44.1 491.21 2. Allergic rhinitis, unspecified seasonality, unspecified trigger J30.9 477.9 1. Five days of prednisone 2. Continue with Spiriva and Symbicort 3. Continue with Albuterol 4. Continue with QNasal for allergic rhinitis A total of 15 minutes was spent on the Telephone due to patient unable to obtain video call option with the patient. After visit summary (AVS) documentation will be available through [employer] for this encounter. documented in this encounter Plan of Treatment Health Maintenance Due Date [...] filedocumented in this encounter Visit Diagnoses Diagnosis COPD exacerbation - Primary Obstructive chronic bronchitis with exac erbation Allergic rhinitis, unspecified seasonali ty, unspecified trigger documented in this encounter Insurance Payer Benefit Plan Subscriber ID Effective Phone Address Typ e / Group Dates MEDICARE MEDICARE PART xxxxxxxxxxx 2004-Erik [phone] [address] X Medicare A & B nt 82 [id number] NA[place]UM [place] [id number] FOR [id number] 2014-Erik Med icare LIFE nt Supplement documented as of this encounter
--- OUTSIDE RECORDS SUMMARY | 2020-01-19 09:17 | XMS REPORT | Summary of Care ---
:1950 Author Organization [facility] Address [address] [place] [address] Care Team Providers Name Role Phone Pcp, Patient Does Not Have A Primary Care Provider +1-000-00 0-0000 Encounter Details Date Type Department Care Team Description 11/25/2019 Orders Only [facility] Doctor Unassigned, No [address] [facility] Name [place] [phone] [place] [address] Allergies Active Allergy Reactions Severity Noted Date [...] 02/19/2020 Office Visit Pulmonary Disease Karla Grant, [facility] [place] [address] Health Maintenance Due Date Last [...] 04/29/2015 Td) documented as of this encounter Procedures Procedure Name Priority Date/Time Associated Diagnosis Comme nts MEDICAL Routine 11/25/2019 12:01 AM CDT RELEASE/CLEARANCE FORMS documented in this encounter Results Not on filedocumented in this encounter Insurance Payer Benefit Plan Subscriber ID Effective Phone Address Typ e / Group Dates MEDICARE MEDICARE PART xxxxxxxxxxx 2004-Erik [phone] [address] X Medicare A & B nt [id number] NA[place]UM [place] [phone] FOR [id number] 2014-Erik Med icare LIFE nt Supplement documented as of this encounter
--- OUTSIDE RECORDS SUMMARY | 2020-01-19 09:18 | XMS REPORT | Summary of Care ---
:1950 Author Organization [facility] Address [address] [place] [address] Care Team Providers Name Role Phone Pcp, Patient Does Not Have A Primary Care Provider +1-000-00 0-0000 Encounter Details Date Type Department Care Team Description 11/28/2019 Letter (Out) [facility] ADC Pulmonary Karla Grant DO Clinic [address] , [place] [address] [place] [address] [phone] Allergies Active Allergy Reactions Severity Noted Date Comments Azithromycin Other - See comments 10/27/2019 Codeine Nausea and/or Vomiting 01/06/2019 Metronidazole Hcl Nausea and/or Vomiting 10/27/2019 Hydrocodone Nausea and/or Vomiting 01/06/2019 Penicillin Hives 03/30/2016 documented as of this encounter (statuses as of 11/28/2019) Medications Medication Sig Dispensed Refills Start Date [...] as of this encounter (statuses as of 11/28/2019) Active Problems No known active problemsdocumented as of this encounter (statuses as of 11/28/2019) Immunizations Name Administration Dates Next Due Influenza [...] 02/19/2020 Office Visit Pulmonary Disease Karla Grant, DO [address] [place] [phone] Health Maintenance Due Date Last Done [...] X Medicare A & B nt 82 [id number] [place] [id number] FOR [id number] 2014-Erik Med icare LIFE nt Supplement documented as of this encounter
--- OUTSIDE RECORDS SUMMARY | 2020-01-19 09:18 | XMS REPORT | Summary of Care ---
:1950 Author Organization [facility] Address [address] [place] [address] Care Team Providers Name Role Phone Pcp, Patient Does Not Have A Primary Care Provider +1-000-00 0-0000 Reason for Visit Reason Comments Assessment Encounter Details Date Type Department Care Team Description 12/01/2019 Telephone [facility] ADC Pulmonary Karla Grant DO Assessment Clinic [address] Sabrina Collier [address] [place] [address] [phone] Allergies Active Allergy Reactions Severity Noted Date Comments Azithromycin Other - See comments 10/27/2019 Codeine Nausea and/or Vomiting 01/06/2019 Metronidazole Hcl Nausea and/or Vomiting 10/27/2019 Hydrocodone Nausea and/or Vomiting 01/06/2019 Penicillin Hives 03/30/2016 documented as of this encounter (statuses as of 12/03/2019) Medications Medication Sig Dispensed Refills Start Date [...] as of this encounter (statuses as of 12/03/2019) Active Problems No known active problemsdocumented as of this encounter (statuses as of 12/03/2019) Immunizations Name Administration Dates Next Due Influenza [...] Visit Pulmonary Disease Karla Grant DO [address] [place] [phone] Health Maintenance Due Date Last Done Comments [...] X Medicare A & B nt 82 [id number] [place] [id number] FOR [id number] 2014-Erik Med icare LIFE nt Supplement documented as of this encounter
[2020-01-19] MEDS ORDERED: LIDOCAINE 1% MPF 5 ML VIAL ONE (10:35)
[2020-01-19] MEDS ORDERED: propofoL 200 MG/20 ML VIAL IV ONE ×2 (10:35→10:58)
[2020-01-19] MEDS ORDERED: ONDANSETRON 4 MG/2 ML VIAL ONE (10:38)
--- NOTE | 2020-01-19 10:58 | ENDO RPT ---
[address], [address] EGD WITH DILATION PROCEDURE REPORT EXAM DATE: 01/19/2020 PATIENT NAME: Angella Jackson MR#: [id number] BIRTHDATE: 1950 ATTENDING: Ryan Hansen Dr STATUS: outpatient OPTIONS ADVISOR: Bren Pillai RN and Leann Telles RN INDICATIONS: The patient is a 69 yr old Female here for an EGD with dilation due to GERD, dysphagia, mid epigastric abdominal pain, and left upper quadrant abdominal pain PROCEDURE PERFORMED: EGD with biopsy and EGD with dilatation over guidewire MEDICATIONS: Per Anesthesia. TOPICAL ANESTHETIC: none CONSENT: The patient understands the risks and benefits of the procedure and understands that these risks include, but are not limited to: sedation, allergic reaction, infection, perforation and/or bleeding. Alternative means of evaluation and treatment include, among others: physical exam, x-rays, and/or surgical intervention. The patient elects to proceed with this endoscopic procedure. DESCRIPTION OF PROCEDURE: During intra-op preparation period all mechanical medical equipment was checked for proper function. Hand hygiene and appropriate measures for infection prevention was taken. After the risks, benefits and alternatives of the procedure were thoroughly explained, Informed consent was verified, confirmed and timeout was successfully executed by the treatment team. The patient was anesthetized with topical anesthesia and the [id number] ([id number]) endoscope was introduced through the mouth and advanced to the second portion of the duodenum. The instrument was slowly withdrawn as the mucosa was fully examined. A Schatzki's ring was found in the lower esophagus. Savary dilation over a eosinophiic esophagitis with some concentric rings in the mid to distal esophagus. A moderate sized hiatal hernia was found Nodular mucosa was found in the body of the stomach. Mild gastritis was found in the body and the antrum of the stomach. Multiple biopsies were obtained and sent to pathology. Dilation was performed at lower esophagus. DILATOR: SIZE(S): RESISTANCE: HEME: APPEARANCE: Dilator: Savary over guidewire Size(s): 14 mm Resistance: minimal Heme: none Appearance: adequate COMMENT: Retroflexed views revealed a moderate sized hiatal hernia. ADVERSE EVENTS: There were no complications. IMPRESSIONS: 1. Schatzki's ring in the lower esophagus, s/p 14 mm Savary with some concentric rings in the mid to distal esophagus 2. Moderate sized hiatal hernia 3. Nodular mucosa in the body of the stomach 4. Mild gastritis in the body and the antrum of the stomach RECOMMENDATIONS: 1. await biopsy results 2. acid suppression therapy REPEAT EXAM: Ryan Hansen Dr eSigned: Ryan Hansen Dr 01/19/2020 10:58 AM cc: Mark Paz CPT CODES: ICD9 CODES: PATIENT NAME: Angella Jackson MR#: [id number]
[2020-01-19 11:03] VITALS: TEMP 97.8
[2020-01-19 11:06] VITALS: O2SAT 100
[2020-01-19 11:07] VITALS: BP 140/49
== END 2020-01-19 11:22 | disposition home or self-care (01) ==
LOC: OR 08:15
PROVIDERS: ATTEND Internal Medicine Gastroenterology
PROC: 0DB58ZX Excision of Esophagus, Via Natural or Artificial Opening Endoscopic, Diagnostic (ICD-10-PCS; 2020-01-19)
PROC: 0DB68ZX Excision of Stomach, Via Natural or Artificial Opening Endoscopic, Diagnostic (ICD-10-PCS; 2020-01-19)
PROC: 0D758ZZ Dilation of Esophagus, Via Natural or Artificial Opening Endoscopic (ICD-10-PCS; principal; 2020-01-19 09:45)
DX: K22.2 Esophageal obstruction (principal); K44.9 Diaphragmatic hernia without obstruction or gangrene; K21.0 Gastro-esophageal reflux disease with esophagitis; K29.50 Unspecified chronic gastritis without bleeding; K50.80 Crohn's disease of both small and large intestine without complications; I10 Essential (primary) hypertension; J44.9 Chronic obstructive pulmonary disease, unspecified; F41.8 Other specified anxiety disorders; F17.210 Nicotine dependence, cigarettes, uncomplicated; Z71.6 Tobacco abuse counseling; Z11.59 Encounter for screening for other viral diseases; Z88.6 Allergy status to analgesic agent; Z88.0 Allergy status to penicillin; Z88.3 Allergy status to other anti-infective agents
CPT/HCPCS: 43248; 43239; 88312; 88305; U0002; J2704 ×2; J7120; J2405

== ENCOUNTER 2020-03-04 10:53 | Day surgery (SDC) | payer OTHER ==
[2020-03-04] MEDS ORDERED: DIPHENHYDRAMINE 25 MG TAB/CAP ONE (11:43)
[2020-03-04] MEDS ORDERED: METHYLPREDNISOLONE 125 MG INJ ONE (11:43)
[2020-03-04] MEDS ORDERED: NA CHLORIDE 0.9% 250 ML ONE ×2 (11:44→12:26)
[2020-03-04] MEDS ORDERED: ACETAMINOPHEN 325 MG TABLET ONE (11:50)
[2020-03-04] MEDS ORDERED: INFLIXIMAB-DYYB 400 MG in NA CHLORIDE 0.9% 250 ML IV ONE (12:00)
--- OUTSIDE RECORDS SUMMARY | 2020-03-04 12:11 | XMS REPORT | Continuity of Care Document ---
:1950 Author Organization [facility] t Address [address] [place] [address] Dr. Case [address] [place] [address] Care Team Providers Name Role Phone Monica Paz DO Primary Care Physician Juanita COFFEY Attending Clinician Doctor Unassigned, Name Attending Clinician Unavailable Problems Condition Condition Condition Status Onset Resolution Last Treating Co mments Source Name Details Category Date Date Treatment Clinician Date Bowel Bowel Disease Active 2017-07 [place] obstructio obstructio 0-09 Me thodi n n 00:00: st 00 Crohn Crohn Disease Active 2017-07 Shaniko disease disease 0-09 Methodi 00:00: st 00 Essential Essential Disease Active 2017-07 Yamil ston hypertensi hypertensi 0-09 Me thodi on on 00:00: st 00 COPD COPD Disease Active 2017-07 Shaniko (chronic (chronic 0-09 Method i obstructiv obstructiv 00:00: st e e 00 pulmonary pulmonary disease) disease) Essential Essential Disease Active 2017-07 Yamil ston tremor tremor 0-09 Methodi 00:00: st 00 Chronic Chronic Disease Active 2017-07 Shaniko pain 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 00:00: [...] Met hodist Family member Heart disease [place] Hinduism Social History Social Habit Start Date Stop Date Quantity Comments Source Sex Assigned At Shaniko Hinduism Cigarettes smoked 2018-05-13 2018-05-13 Shaniko current (pack per 00:00:00 00:00:00 Methodi ) - Reported Alcohol intake 2018-05-13 2018-05-13 Current drinker [place] 00:00:00 00:00:00 of alcohol Hinduism (finding) Tobacco Comment 2018-04-23 2018-04-23 55 pack year Shaniko 00:00:00 00:00:00 history Hinduism Alcohol Comment 2018-04-23 2018-04-23 occasional Shaniko 00:00:00 00:00:00 Hinduism Smoking Status Start Date Stop Date Source Current every day smoker 2018-05-13 00:00:00 Yamilmicheal mattan Hinduism Medications Ordered Filled Start Stop Current Ordering [...] 00 hours as needed. baclofen Yes 10mg [id number] Take 10 mg [place] (LIORESAL) 8-20 [id number] by mouth 3 Methodi 10 MG 00:00: 3D (three) st tablet 00 times a day. losartan Yes 50mg QD Take 50 mg Yamil ston (COZAAR) 50 8-20 by mouth Meth eusebio MG tablet 00:00: daily. st 00 Procedures This patient has no known procedures. Plan of Care Planned Activity Planned Date Details Comments Source Future Scheduled 2020-03-16 INFLUENZA VACCINE [place] [facility] Test 00:00:00 [code = INFLUENZA VACCINE] Future Scheduled 2014 65+ PNEUMOCOCCAL [place] Hinduism Test 00:00:00 VACCINE (1 of 2 - PCV13) [code = 65+ PNEUMOCOCCAL VACCINE (1 of 2 - PCV13)] Future Scheduled 1999 BREAST CANCER [facility] thodist Test 00:00:00 SCREENING [code = BREAST CANCER SCREENING] Future Scheduled 1999 COLONOSCOPY SCREENING [place] [facility] Test 00:00:00 [code = COLONOSCOPY SCREENING] Future Scheduled 1999 SHINGLES VACCINES (#1) [place] [facility] Test 00:00:00 [code = SHINGLES VACCINES (#1)] Future Scheduled 1959 DIABETIC FOOT EXAM [place] [facility] Test 00:00:00 [code = DIABETIC FOOT EXAM] Future Scheduled 1959 URINE MICROALBUMIN [place] [facility] Test 00:00:00 [code = URINE MICROALBUMIN] Future Scheduled 1949 DIABETIC RETINAL EYE Yamil ston Hinduism Test 00:00:00 EXAM [code = DIABETIC RETINAL EYE EXAM] Encounters Start End Encounter Admission Attending Care Care Encounter Source Date/Time Date/Time Type Type Clinicians Facility Department ID 2019-12-01 2019-12-01 Telephone Juanita [facility] [id number] 00:00:00 00:00:00 Shimichaeln [place] [id number] [place] [id number] Professio [phone] [address] 2019-11-28 2019-11-28 [facility] [id number] 00:00:00 00:00:00 (Out) Shinoemi [place] [id number] [place] [id number] Professio [phone] [address] 2019-11-26 2019-11-26 [facility] [id number] 00:00:00 00:00:00 Shimichaeln Vandana [id number] [place] [id number] Professio [phone] [address] 2019-11-25 2019-11-25 Orders Doctor MANJINDER [id number] 00:00:00 00:00:00 Only Unassigned, DELFIN [id number] [place] [facility] [phone] [id number] 2019-11-16 2019-11-16 [facility] [id number] 00:00:00 00:00:00 Shimichaeln [place] [id number] [place] [id number] Professio [phone] [address] 2019-11-13 2019-11-13 Telemedici [facility] [id number] 08:26:11 08:46:11 ne Visit Karla Ross [id number] [place] [id number] Professio [phone] nal 085 [facility] 2019-10-27 2019-10-27 Telephone GrantEMETERIO [id number] 00:00:00 00:00:00 Karla Ross [id number] [place] [id number] Professio [phone] [facility] 085 [facility] 2019-08-14 2019-08-14 Office EMETERIO Grant [id number] 14:22:50 14:42:50 Visit Karla Ross [id number] [place] [id number] [phone] [address] Results This patient has no known results.
--- OUTSIDE RECORDS SUMMARY | 2020-03-04 12:11 | XMS REPORT | Clinical Summary ---
:1950 Author Organization [facility] Address [address] [place] [address] Care Team Providers Name Role Phone Mark [...] of 2 - PCV13) 2014 INFLUENZA VACCINE 03/16/2020 Results Not on fileafter 03/04/2019 Insurance Payer Benefit Plan / Subscriber ID Effective Dates Phone Addre ss Type Group MEDICARE MEDICARE PART A xxxxxxxxxx 2004-Present [place], [place] Medicare AND B FOR LIFE xxxxxxxxx 2016-Present [facility] SUPPLEMENT Advance Directives For more information, please contact: [phone] Type Date Recorded Patient Photography Instructor Explanati on Advance Directives, Living Will and Medical Power of Maternal Fetal Physician
[2020-03-04 14:28] VITALS: BMI 29.4
[2020-03-04 14:38] VITALS: BP 93/70; TEMP 98.5; O2SAT 93
== END 2020-03-04 14:45 | disposition home or self-care (01) ==
LOC: DS 10:53
PROVIDERS: ATTEND Internal Medicine Gastroenterology
DX: K50.818 Crohn's disease of both small and large intestine with other complication (principal)
CPT/HCPCS: 96365; 96366; Q5103; J7050 ×3; J2930

== ENCOUNTER → 2020-03-26 | Day surgery (SDC) | payer OTHER ==
[~2020-03-26] MED LIST: ACETAMINOPHEN 325 MG TABLET ONE; INFLIXIMAB-DYYB 400 MG in NA CHLORIDE 0.9% 250 ML IV ONE; METHYLPREDNISOLONE 125 MG INJ ONE; NA CHLORIDE 0.9% 250 ML ONE
--- OUTSIDE RECORDS SUMMARY | 2020-03-26 10:58 | XMS REPORT | Continuity of Care Document ---
:1950 Author Organization [facility] t Address [address] [place] [address] [address]. [address] [place] [address] Care Team Providers Name Role Phone Monica Paz DO Primary Care Physician Juanita COFFEY Attending Clinician Doctor Unassigned, Name Attending Clinician Unavailable Problems Condition Condition Condition Status Onset Resolution Last Treating Co mments Source Name Details Category Date Date Treatment Clinician Date Bowel Bowel Disease Active 2017-07 [place] obstructio obstructio 0-09 Me thodi n n 00:00: st 00 Crohn Crohn Disease Active 2017-07 [place] disease disease 0-09 Methodi 00:00: st 00 Essential Essential Disease Active 2017-07 Yamil ston hypertensi hypertensi 0-09 Me thodi on on 00:00: st 00 COPD COPD Disease Active 2017-07 [place] (chronic (chronic 0-09 Method i obstructiv obstructiv 00:00: st e e 00 pulmonary pulmonary disease) disease) Essential Essential Disease Active 2017-07 Yamil ston tremor tremor 0-09 Methodi 00:00: st 00 Chronic Chronic Disease Active 2017-07 [place] pain 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 00:00: [...] Met hodist Family member Heart disease [place] Religious Social History Social Habit Start Date Stop Date Quantity Comments Source Sex Assigned At [place] Religious Cigarettes smoked 2018-05-13 2018-05-13 [place] current (pack per 00:00:00 00:00:00 Methodi ) - Reported Alcohol intake 2018-05-13 2018-05-13 Current drinker [place] 00:00:00 00:00:00 of alcohol Religious (finding) Tobacco Comment 2018-04-23 2018-04-23 55 pack year [place] 00:00:00 00:00:00 history Religious Alcohol Comment 2018-04-23 2018-04-23 occasional [place] 00:00:00 00:00:00 Religious Smoking Status Start Date Stop Date Source Current every day smoker 2018-05-13 00:00:00 Yamilmicheal mattan Religious Medications Ordered Filled Start Stop Current Ordering [...] 00 hours as needed. baclofen Yes 10mg [id number] Take 10 mg [place] (LIORESAL) 8-20 [id number] by mouth 3 Methodi 10 MG 00:00: 3D (three) st tablet 00 times a day. losartan Yes 50mg QD Take 50 mg Yamil ston (COZAAR) 50 8-20 by mouth Meth eusebio MG tablet 00:00: daily. st 00 Procedures This patient has no known procedures. Plan of Care Planned Activity Planned Date Details Comments Source Future Scheduled 2020-04-15 INFLUENZA VACCINE [place] [facility] Test 00:00:00 [code = INFLUENZA VACCINE] Future Scheduled 2014 65+ PNEUMOCOCCAL [place] Religious Test 00:00:00 VACCINE (1 of 2 - PCV13) [code = 65+ PNEUMOCOCCAL VACCINE (1 of 2 - PCV13)] Future Scheduled 1999 BREAST CANCER [facility] thodist Test 00:00:00 SCREENING [code = BREAST CANCER SCREENING] Future Scheduled 1999 COLONOSCOPY SCREENING [place] [facility] Test 00:00:00 [code = COLONOSCOPY SCREENING] Future Scheduled 1999 SHINGLES VACCINES (#1) [place] [facility] Test 00:00:00 [code = SHINGLES VACCINES (#1)] Future Scheduled 1959 DIABETIC FOOT EXAM [place] [facility] Test 00:00:00 [code = DIABETIC FOOT EXAM] Future Scheduled 1959 URINE MICROALBUMIN [place] [facility] Test 00:00:00 [code = URINE MICROALBUMIN] Future Scheduled 1949 DIABETIC RETINAL EYE Yamil ston Religious Test 00:00:00 EXAM [code = DIABETIC RETINAL EYE EXAM] Encounters Start End Encounter Admission Attending Care Care Encounter Source Date/Time Date/Time Type Type Clinicians Facility Department ID 2019-12-01 2019-12-01 Telephone Juanita [facility] [id number] 00:00:00 00:00:00 Shimichaeln [place] [id number] [place] [id number] Professio [phone] [address] 2019-11-28 2019-11-28 [facility] [id number] 00:00:00 00:00:00 (Out) Shinoemi [place] [id number] [place] [id number] Professio [phone] [address] 2019-11-26 2019-11-26 [facility]phone [facility] [id number] 00:00:00 00:00:00 Shimichaeln Vandana [id number] [place] [id number] Professio [phone] [address] 2019-11-25 2019-11-25 Orders Doctor MANJINDER [id number] 00:00:00 00:00:00 Only Unassigned, DELFIN [id number] [place] [facility] [id number] [id number] 2019-11-16 2019-11-16 Telephone [facility] [id number] 00:00:00 00:00:00 Shimichaeln [place] [id number] [place] [id number] Professio [phone] [address] 2019-11-13 2019-11-13 Telemedici [facility] [id number] 08:26:11 08:46:11 ne Visit Karla Ross [id number] [place] [id number] Professio [phone] nal 085 [facility] 2019-10-27 2019-10-27 Telephone GrantEMETERIO [id number] 00:00:00 00:00:00 Karla Ross [id number] [place] [id number] Professio [phone] [facility] 085 [facility] 2019-08-14 2019-08-14 Office EMETERIO Grant [id number] 14:22:50 14:42:50 Visit Karla Ross [id number] [place] [id number] [facility] [phone] [address] Results This patient has no known results.
--- OUTSIDE RECORDS SUMMARY | 2020-03-26 10:58 | XMS REPORT | Clinical Summary ---
:1950 Author Organization [facility] Address [address] [place] [address] Care Team Providers Name Role Phone Mark [...] of 2 - PCV13) 2014 INFLUENZA VACCINE 04/15/2020 Results Not on fileafter 03/26/2019 Insurance Payer Benefit Plan / Subscriber ID Effective Dates Phone Addre ss Type Group MEDICARE MEDICARE PART A xxxxxxxxxx 2004-Present [place], [place] Medicare AND B FOR LIFE xxxxxxxxx 2016-Present [facility] SUPPLEMENT Advance Directives For more information, please contact: [phone] Type Date Recorded Patient Senior Office Support Assistant Sosa Explanati on Advance Directives, Living Will and Medical Power of Map Editor
[2020-03-26 15:43] VITALS: BMI 29.2
[2020-03-26 15:59] VITALS: TEMP 98.1
[2020-03-26 16:09] VITALS: BP 129/59; O2SAT 85
== END ==
LOC: DS 10:56
PROVIDERS: ATTEND Internal Medicine Gastroenterology
DX: K50.818 Crohn's disease of both small and large intestine with other complication (principal)
CPT/HCPCS: 96365; 96366; Q5103; J7050 ×2; J2930

== ENCOUNTER 2020-05-25 11:21 | Day surgery (SDC) | payer OTHER ==
--- OUTSIDE RECORDS SUMMARY | 2020-05-25 11:46 | XMS REPORT | Continuity of Care Document ---
:1950 Author Organization [facility] t Address [address] [place] [address] Dr. Case [address] [place] [address] Care Team Providers Name Role Phone Monica Paz DO Primary Care Physician Juanita COFFEY Attending Clinician Doctor Unassigned, Name Attending Clinician Unavailable Problems Condition Condition Condition Status Onset Resolution Last Treating Co mments Source Name Details Category Date Date Treatment Clinician Date Bowel Bowel Disease Active 2017-07 [place] obstructio obstructio 0-09 Me thodi n n 00:00: st 00 Crohn Crohn Disease Active 2017-07 [place] disease disease 0-09 Methodi 00:00: st 00 Essential Essential Disease Active 2017-07 Yamil ston hypertensi hypertensi 0-09 Me thodi on on 00:00: st 00 COPD COPD Disease Active 2017-07 [place] (chronic (chronic 0-09 Method i obstructiv obstructiv 00:00: st e e 00 pulmonary pulmonary disease) disease) Essential Essential Disease Active 2017-07 Yamil ston tremor tremor 0-09 Methodi 00:00: st 00 Chronic Chronic Disease Active 2017-07 [place] pain 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 00:00: st 00 Allergies, Adverse Reactions, Alerts Allergy Allergy Status Severity Reaction(s) Onset Inactive Treating Comm ents Source Name Type Date Date Clinician Fentanyl Propensi Active Itching 2017-07 Fentanyl Yamil ston ty to 0-11 patch Methodi adverse 00:00: st reaction 00 s to drug Penicill Propensi Active Rash 2017-07 [place] ty to 0-09 Methodi adverse 00:00: st reaction 00 s to drug Family History Family Member Diagnosis Comments Start Date Stop Date Source Family member Cancer [place] Met hodist Family member Heart disease [place] Sabianist Social History Social Habit Start Date Stop Date Quantity Comments Source Sex Assigned At [place] Sabianist Cigarettes smoked 2018-05-13 2018-05-13 [place] current (pack per 00:00:00 00:00:[address] day) - Reported Tobacco use and 2018-05-13 2018-05-13 Never used [place] exposure 00:00:00 00:00:00 Sabianist Alcohol intake 2018-05-13 2018-05-13 Current drinker [place] 00:00:00 00:00:00 of alcohol Sabianist (finding) Tobacco Comment 2018-04-23 2018-04-23 55 pack year [place] 00:00:00 00:00:00 history Sabianist Alcohol Comment 2018-04-23 2018-04-23 occasional [place] 00:00:00 00:00:00 Sabianist Smoking Status Start Date Stop Date Source Current every day smoker 2018-05-13 00:00:00 Yamil ston Sabianist Medications Ordered Filled Start Stop Current Ordering Indication Dosage Frequency Signature Comments Components Source Medication Medication Date Date Medication? Clinician (SIG) Name Name amLODIPine 2017-07 Yes 10mg QD Take 10 mg [place] (NORVASC) 0-13 by mouth Method i 10 mg 15:07: daily. st tablet 54 sulfaSALAzi 2017-07 Yes 500mg Q.25D Take 500 [place] ne 0-13 mg by Methodi (AZULFIDINE 15:07: mouth 4 st ) 500 mg 54 (four) tablet times a day. diazePAM 2017-07 Yes 10mg Q12H Take 10 mg Yamil ston (VALIUM) 5 0-13 by mouth Metho di MG tablet 15:07: every 12 st 54 (twelve) hours as needed for anxiety. dexlansopra 2017-07 Yes 60mg QD Take 60 mg Jose A zole 0-13 by mouth Methodi (DEXILANT) 15:07: daily. st 60 mg 54 capsule pravastatin 2017-07 Yes 40mg QD Take 40 mg [place] (PRAVACHOL) 0-13 by mouth Meth eusebio 40 MG 15:07: daily. st tablet 54 aspirin 2017-07 Yes 81mg QD Take 81 mg [place] (ECOTRIN) 0-13 by mouth Method i 81 [...] 00 hours as needed. baclofen Yes 10mg [id number] Take 10 mg [place] (LIORESAL) 8-20 [id number] by mouth 3 Methodi 10 MG 00:00: 3D (three) st tablet 00 times a day. losartan Yes 50mg QD Take 50 mg Yamil ston (COZAAR) 50 8-20 by mouth Meth eusebio MG tablet 00:00: daily. st 00 Procedures This patient has no known procedures. Plan of Care Planned Activity Planned Date Details Comments Source Future Scheduled 2020-02-14 INFLUENZA VACCINE [place] Sab[facility]ist Test 00:00:00 [code = INFLUENZA VACCINE] Future Scheduled 2014 65+ PNEUMOCOCCAL [place] Sabianist Test 00:00:00 VACCINE (1 of 1 - PPSV23) [code = 65+ PNEUMOCOCCAL VACCINE (1 of 1 - PPSV23)] Future Scheduled 1999 BREAST CANCER [facility] thodist Test 00:00:00 SCREENING [code = BREAST CANCER SCREENING] Future Scheduled 1999 COLONOSCOPY SCREENING [place] [facility] Sabianist Test 00:00:00 [code = COLONOSCOPY SCREENING] Future Scheduled 1999 SHINGLES VACCINES (#1) [place] Sabianist Test 00:00:00 [code = SHINGLES VACCINES (#1)] Future Scheduled 1959 DIABETES: RETINAL EYE [place] [facility] Test 00:00:00 EXAM [code = DIABETES: RETINAL EYE EXAM] Future Scheduled 1959 DIABETIC FOOT EXAM [place] [facility] Test 00:00:00 [code = DIABETIC FOOT EXAM] Future Scheduled 1959 URINE MICROALBUMIN [place] [facility]ist Test 00:00:00 [code = URINE MICROALBUMIN] Encounters Start End Encounter Admission Attending Care Care Encounter Source Date/Time Date/Time Type Type Clinicians Facility Department ID 2020-05-14 2020-05-14 Telemedici EMETERIO Grant [id number] 11:24:18 11:44:18 ne Visit Karla Ross [id number] [place] [id number] Professio [phone] [address] 2019-12-01 2019-12-01 Telephone EMETERIO Grant [id number] 00:00:00 00:00:00 Karla Ross [id number] [place] [id number] Professio [phone] [address] 2019-11-28 2019-11-28 Letter EMETERIO Grant [id number] 00:00:00 00:00:00 (Out) Karla Ross [id number] [place] [id number] Professio [phone] [address] 2019-11-26 2019-11-26 Telephone EMETERIO Grant [id number] 00:00:00 00:00:00 Karla Ross [id number] [place] [id number] Professio [phone] [address] 2019-11-25 2019-11-25 Orders Doctor MANJINDER [id number] 00:00:00 00:00:00 Only Unassigned, [place] [id number] [place] [facility] [phone] [id number] 2019-11-16 2019-11-16 Telephone Juanita IDJARRED [id number] 00:00:00 00:00:00 Ashleen Turpin [id number] [place] [id number] Professio [phone] [address] 2019-11-13 2019-11-13 Telemedici [place] [id number] 08:26:11 08:46:11 ne Visit Karla Ross [id number] [place] [id number] Professio [phone] [address] 2019-10-27 2019-10-27 Telephone [facility] [id number] 00:00:00 00:00:00 Karla [place] [id number] [place] [id number] Professio [phone] [address] 2019-08-14 2019-08-14 Office [facility] [id number] 14:22:50 14:42:50 Visit Karla Ross [id number] [place] [id number] Professio [phone] [address] Results This patient has no known results.
--- OUTSIDE RECORDS SUMMARY | 2020-05-25 11:46 | XMS REPORT | Clinical Summary ---
:1950 Author Organization [facility] Address [address] [place] [address] Care Team Providers Name Role Phone Mark [...] Essential tremor 04/23/2018 Chronic pain syndrome 04/23/2018 Surgical History Surgery Date Site/Laterality Comments HYSTERECTOMY CHOLECYSTECTOMY CARPAL TUNNEL RELEASE TONSILLECTOMY CREATION, COLOSTOMY, 04/25/2018 Abdomen/N/A Procedure: DIAGNOSTIC LAPAROSCOPIC LAPAROSCOPY, PREMA IS OF ADHESIONS WITH R ELEASE OF SMAL BOWEL OBSRT UCTION, REMOVAL OF INCAR CERATED PELVIC NODULE; Surgeon: Paula del castillo MD; Location: [facility] OR; Service: Colon a nd Rectal Surgery; Latera lity: N/A; Medical History Medical History Date Comments Crohn disease (HCC) COPD (chronic obstructive pulmonary disease) (HCC) Hypertension PAD (peripheral artery disease) (HCC) RSD (reflex sympathetic dystrophy) Essential tremor Anxiety Family History Medical History Relation Name Comments Cancer Neg Hx Heart disease Neg Hx Social History Tobacco Use Types Packs/Day Years Used Date Current Every Day Smoker 1 Smokeless Tobacco: Never Used Comments: 55 pack year history Alcohol Use Drinks/Week oz/Week Comments Yes occasional Sex Assigned at Date Recorded Not on file Last Filed Vital Signs Not on file Plan of Treatment Health Maintenance Due Date Last Done Comments DIABETES: RETINAL EYE EXAM 1959 DIABETIC FOOT EXAM 1959 URINE MICROALBUMIN 1959 BREAST CANCER SCREENING 1999 COLONOSCOPY SCREENING 1999 SHINGLES VACCINES (#1) 1999 65+ PNEUMOCOCCAL VACCINE (1 of 1 - PPSV23) 2014 INFLUENZA VACCINE 02/14/2020 Results Not on fileafter 05/25/2019 Insurance Payer Benefit Plan / Subscriber ID Effective Dates Phone Addre ss Type Group MEDICARE MEDICARE PART A [id number] 2004-Present [place] MCNEIL Medicare AND B FOR LIFE [id number] 2016-Present [facility] SUPPLEMENT Advance Directives For more information, please contact: [phone] Type Date Recorded Patient Windows Infrastructure Engineer Explanati on Advance Directives, Living Will and Medical Power of Manager Channel
--- OUTSIDE RECORDS SUMMARY | 2020-05-25 11:46 | XMS REPORT | Summary of Care ---
:1950 Author Organization [facility] Address [address] [place] [address] Care Team Providers Name Role Phone Pcp, Patient Does Not Have A Primary Care Provider +1-000-00 0-0000 Reason for Referral (Routine) Status Reason Specialty Diagnoses / Referred By Referred To Procedures Contact Contact Open Patient is Diagnoses Moderate COPD (chronic obstructive pulmonary disease) Karla Grant Herrera, Established with a Procedures CONSULT/REFERRAL ENT DO Denise Friend Specific Provider [address] [place] [address] [place] [phone] Phone: Fax: Reason for Visit Reason Comments Shortness of Breath Encounter Details Date Type Department Care Team Description 05/14/2020 Telemedicine Visit [facility] ADC Karla Grant DO Moderate COPD Pulmonary Clinic [address] [place] [address] ([address] , [facility] pulmonary disease) [address] [place], [place] (Primary Dx) [place] [phone] Allergies Active Allergy Reactions Severity Noted Date Comments Azithromycin Other - See comments 10/27/2019 Codeine Nausea and/or Vomiting 01/06/2019 Metronidazole Hcl Nausea and/or Vomiting 10/27/2019 Hydrocodone Nausea and/or Vomiting 01/06/2019 Penicillin Hives 03/30/2016 documented as of this encounter (statuses as of 05/14/2020) Medications Medication Sig Dispensed Refills Start Date [...] inhalationIndications: Allergic rhinitis, unspecified seasonality, unspecified trigger buPROPion XL 300 mg 24 Take 300 mg by 0 Active hr tablet mouth. dicyclomine 20 mg Take 20 mg by 0 10/07/2019 Active tablet mouth. dicyclomine 10 mg 0 05/10/2020 A ctive capsule escitalopram oxalate Take 20 mg by 0 Active 20 mg tablet mouth. losartan 50 mg tablet Take 50 mg by 0 03/04/2018 Active mouth. lubiprostone (AMITIZA) 0 09/19/2019 Active 24 mcg capsule methotrexate 2.5 mg Take by mouth 0 04/15/2020 Active tablet documented as of this encounter (statuses as of 05/14/2020) Active Problems No known active problemsdocumented as of this encounter (statuses as of 05/14/2020) Immunizations Name Administration Dates Next Due Influenza High Dose 07/03/2017 Pneumococcal Polysaccharide, PPSV23 (PNEUMOVAX) 04/19/2015 TDAP 04/29/2015 documented as of this encounter Social History Tobacco Use Types Packs/Day Years Used Date Current Every Day Smoker 1 55 Smokeless Tobacco: Never Used Comments: 1-2 packs Alcohol Use Drinks/Week oz/Week Comments Not Asked 0 Standard drinks or equivalent 0.0 Sex Assigned at Date Recorded Not on file documented as of this encounter Last Filed Vital Signs Not on filedocumented in this encounter Progress Notes Karla Grant, - 05/14/2020 3:40 PM CDT [facility] Interventional Pulmonology Telemedicine Note Verbal consent obtained from Patient: Angella Jackson for telehealth services provided below. Communication with patient was conducted via Video Call. Location of Patient: Home Location of Provider: Clinic Date of Service: 05/14/2020 Chief Complaint: Shortness of breath History of Present Illness: Angella Jackson is a 70 year old female here or follow up of COPD. She has been having shortness of breath that comes and goes that is different than her asthma and COPD. She has spells in which she has trouble breathing that comes and goes. Not related to exertion. Feels like she has trouble getting air in AND out. Does not improve with inhaler. Improves when she uses CPAP. Has been using prednisone 10 mg daily for her asthma. Past Medical History: has a past medical [...] Systems: Review of Systems Constitutional: Negative. HENT: Negative. Eyes: Negative. Respiratory: Positive for cough and shortness of breath. Cardiovascular: Negative. Gastrointestinal: Negative. Genitourinary: Negative. Musculoskeletal: Negative. Skin: Negative. Neurological: Negative. Psychiatric/Behavioral: Negative. Endocrine: Endocrine negative Physical Examination: A limited physical exam was able to be performed due to the video encounter Physical Exam Constitutional: She is oriented to person, place, and time and well-developed, well-nourished, and in no distress. HENT: Head: Normocephalic and atraumatic. Eyes: Conjunctivae and EOM are normal. Pulmonary/Chest: Effort normal. No respiratory distress. Neurological: She is alert and oriented to person, place, and time. Psychiatric: Mood, memory, affect and judgment normal. Laboratory/Studies: PFT moderate obstruction Assessment & Plan Angella Jackson is a 70 year old female with ICD-10-CM ICD-9-CM 1. Moderate COPD (chronic obstructive pulmonary disease) J44.9 496 Dyspnea may be related to COPD or may be something else May be related to medications (methotrexate) May be vocal cord dysfunction PLAN 1. Will get CXR 2. Will c/w Spirva, Symbicort, Albuterol 3. Okay to continue prednisone 10 mg daily for now 4. ENT evaluation for vocal cord dysfunction A total of 15 minutes was spent on the Video Call, chart review, and coordination of care with specialists. documented in this encounter Plan of Treatment Name Type Priority Associated Diagnoses Order S chedule XR CHEST 2 VW IMAGING Routine Moderate COPD (chronic Expe cted: 05/14/2020, obstructive pulmonary s: 05/14/2021 disease) Health Maintenance Due Date Last Done Comments COLON CANCER SCREENING ANNUAL 1999 FIT/FOBT COLON CANCER SCREENING FIT DNA 1999 EVERY 3 YEARS COLON CANCER SCREENING 1999 SIGMOIDOSCOPY EVERY 5 YEARS LUNG CANCER SCREEN: Recommended 01/26/2004 for age 55-80 with 30 + pack year history INFLUENZA VACCINE (#1) 2020 07/03/2017 Breast Cancer Screening 07/16/2020 Postpone d from 1989 (MAMMOGRAM) (Alternative [place]) COLONOSCOPY 07/16/2020 Postponed from 0 1999 (Alternative [place]) Colorectal Cancer Screening 07/16/2020 Post poned from 1999 HEPATITIS C (HCV) SCREEN 07/16/2020 Postpon ed from 1949 (Alternative [place]) Osteoporosis Screening 07/16/2020 Postponed from 2014 (Alternative [place]) Zoster Recombinant Vaccine 07/16/2020 Postp oned from 1999 (SHINGRIX) (1 of 2) (Alternative Guidelines) Depression Screening 08/14/2020 08/14/2019 Medicare Wellness Visit 08/14/2020 Postpone d from 2014 (Alternative [place]) DTaP,Tdap,and Td Vaccines (2 - Td) 04/29/2025 04/29/2015 PNEUMOCOCCAL VACCINES 65+ Completed 04/19/2015 documented as of this encounter Results Not on filedocumented in this encounter Visit Diagnoses Diagnosis Moderate COPD (chronic obstructive pulmo nary disease) - Primary Chronic airway obstruction, not elsewher e classified documented in this encounter Insurance Payer Benefit Plan Subscriber ID Effective Phone Address Typ e / Group Dates MEDICARE MEDICARE PART [id number] 2004-Prese [phone] [address] [place] X Medicare A & B nt 82 [id number] NAHUM [place] [phone] FOR [id number] 2014-Prese Med icare LIFE nt Supplement documented as of this encounter
[2020-05-25 11:47] VITALS: BMI 29.2
[2020-05-25] MEDS ORDERED: INFLIXIMAB-DYYB 400 MG in NA CHLORIDE 0.9% 250 ML IV ONE (12:00)
[2020-05-25] MEDS ORDERED: NA CHLORIDE 0.9% 250 ML ONE (12:01)
[2020-05-25 15:30] VITALS: BP 119/65; TEMP 97.5; O2SAT 96
== END 2020-05-25 14:25 | disposition home or self-care (01) ==
LOC: DS 11:21
PROVIDERS: ATTEND Internal Medicine Gastroenterology
DX: K50.818 Crohn's disease of both small and large intestine with other complication (principal)
CPT/HCPCS: 96365; 96366; Q5103; J7050 ×2

== ENCOUNTER 2020-08-11 06:17 | Day surgery (SDC) | payer OTHER ==
--- OUTSIDE RECORDS SUMMARY | 2020-08-11 06:19 | XMS REPORT | Clinical Summary ---
:1950 Author Organization [facility] Address [address] [place] [address] Care Team Providers Name Role Phone Mark [...] NODULE; Surgeon: Paula del castillo MD; Location: [facility] OR; Service: Colon a nd Rectal Surgery; [...] DIABETIC FOOT EXAM 1959 URINE MICROALBUMIN 1959 COVID-19 VACCINE (1 of 2) 1965 BREAST CANCER SCREENING 1999 COLONOSCOPY SCREENING 1999 SHINGLES VACCINES (#1) 1999 65+ PNEUMOCOCCAL VACCINE (1 of 1 - PPSV23) 2014 INFLUENZA VACCINE 02/14/2020 Results Not on fileafter 08/11/2019 Insurance Payer Benefit Plan / Subscriber ID Effective Dates Phone Addre ss Type Group MEDICARE MEDICARE PART A [id number] 2004-Present SAMSON Merrill, [place] Medicare AND B FOR LIFE [id number] 2016-Present [facility] SUPPLEMENT Advance Directives For more information, please contact: [phone] Type Date Recorded Patient Condominium Property Manager Explanati on Advance Directives, Living Will and Medical Power of Manual Equipment Mechanic
--- OUTSIDE RECORDS SUMMARY | 2020-08-11 06:20 | XMS REPORT | Continuity of Care Document ---
:1950 Author Organization [facility] t Address [address] [place] [address] [address] [place] [address] Care Team Providers Name Role Phone Monica Paz DO Primary Care Physician Juanita COFFEY Attending Clinician Doctor Unassigned, Name Attending Clinician Unavailable Problems Condition Condition Condition Status Onset Resolution Last Treating Co mments Source Name Details Category Date Date Treatment Clinician Date Bowel Bowel Disease Active 2017-07 [place] obstructio obstructio 0-09 Me thodi n n 00:00: st 00 Crohn Crohn Disease Active 2017-07 [place] disease disease 0-09 Methodi 00:00: st 00 Essential Essential Disease Active 2017-07 Yamil ston hypertensi hypertensi 0-09 Me thodi on on 00:00: st 00 COPD COPD Disease Active 2017-07 [place] (chronic (chronic 0-09 Method i obstructiv obstructiv 00:00: st e e 00 pulmonary pulmonary disease) disease) Essential Essential Disease Active 2017-07 Yamil ston tremor tremor 0-09 Methodi 00:00: st 00 Chronic Chronic Disease Active 2017-07 [place] pain 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 00:00: [...] Date Quantity Comments Source Sex Assigned At [place] [facility] Cigarettes smoked 2018-05-13 2018-05-13 [place] current (pack per 00:00:00 00:00:[address] day) - Reported Tobacco use and 2018-05-13 2018-05-13 Never used [place] exposure 00:00:00 00:00:00 Protestant Alcohol intake 2018-05-13 2018-05-13 Current drinker [place] 00:00:00 00:00:00 of alcohol Protestant (finding) Tobacco Comment 2018-04-23 2018-04-23 55 pack year [place] 00:00:00 00:00:00 history Protestant Alcohol Comment 2018-04-23 2018-04-23 occasional [place] 00:00:00 00:00:00 [facility] Smoking Status Start Date Stop Date Source Current every day smoker 2018-05-13 00:00:00 Yamil ston Protestant Medications Ordered Filled Start Stop Current [...] 00 hours as needed. baclofen Yes 10mg [id number] Take 10 mg [place] (LIORESAL) 8-20 [id number] by mouth 3 Methodi 10 MG 00:00: 3D (three) st tablet 00 times a day. losartan Yes 50mg QD Take 50 mg Yamil ston (COZAAR) 50 8-20 by mouth Meth eusebio MG tablet 00:00: daily. st 00 Procedures This patient has no known procedures. Plan of Care Planned Activity Planned Date Details Comments Source Future Scheduled 2020-02-14 INFLUENZA VACCINE Dave n Protestant Test 00:00:00 [code = INFLUENZA VACCINE] Future Scheduled 2014 65+ PNEUMOCOCCAL [place] Protestant Test 00:00:00 VACCINE (1 of 1 - PPSV23) [code = 65+ PNEUMOCOCCAL VACCINE (1 of 1 - PPSV23)] Future Scheduled 1999 BREAST CANCER [facility] thodist Test 00:00:00 SCREENING [code = BREAST CANCER SCREENING] Future Scheduled 1999 COLONOSCOPY SCREENING Ho ch[place]u Protestant Test 00:00:00 [code = COLONOSCOPY SCREENING] Future Scheduled 1999 SHINGLES VACCINES (#1) H von Protestant Test 00:00:00 [code = SHINGLES VACCINES (#1)] Future Scheduled 1965 COVID-19 VACCINE (1 of [place] Protestant Test 00:00:00 2) [code = COVID-19 VACCINE (1 of 2)] Future Scheduled 1959 DIABETES: RETINAL EYE [place] [facility] Test 00:00:00 EXAM [code = DIABETES: RETINAL EYE EXAM] Future Scheduled 1959 DIABETIC FOOT EXAM [place] [facility] Test 00:00:00 [code = DIABETIC FOOT EXAM] Future Scheduled 1959 URINE MICROALBUMIN [place] [facility] Test 00:00:00 [code = URINE MICROALBUMIN] Encounters Start End Encounter Admission Attending Care Care Encounter Source Date/Time Date/Time Type Type Clinicians Facility Department ID 2020-07-02 2020-07-02 Juan Grant [place] [id number] 08:53:25 09:08:25 ne Visit Juliannenoemi Vandana [id number] [place] [id number] Professio [phone] [address] 2020-06-03 2020-06-03 Telephone Juanita COJARRED [id number] 00:00:00 00:00:00 Ashleecat Ross [id number] [place] [id number] Professio [phone] [address] 2020-06-03 2020-06-03 Orders Doctor MANJINDER [id number] 00:00:00 00:00:00 Only Unassigned, DELFIN [id number] Potter [facility] [phone] [id number] 2020-05-14 2020-05-14 [facility] Juanita [facility] [id number] 11:24:18 11:44:18 ne Visit Karla Oconnorton [id number] [place] [id number] Professio [phone] [address] 2019-12-01 2019-12-01 Telephone Juanita COJARRED [id number] 00:00:00 00:00:00 Ashleecat Ross [id number] [place] [id number] Professio [phone] [address] 2019-11-28 2019-11-28 Letter [facility] [id number] 00:00:00 00:00:00 (Out) Karla Ross [id number] [place] [id number] Professio [phone] [address] 2019-11-26 2019-11-26 Telephone [facility] [id number] 00:00:00 00:00:00 Shimichaeln Vandana [id number] [place] [id number] Professio [phone] [address] 2019-11-25 2019-11-25 Orders Doctor MANJINDER [id number] 00:00:00 00:00:00 Only Unassigned, DELFIN [id number] Potter [facility] [phone] [facility] 2019-11-16 2019-11-16 Telephone [facility] [id number] 00:00:00 00:00:00 Karla Ross [id number] [place] [id number] Professio [phone] [address] 2019-11-13 2019-11-13 Telemedici [facility] [id number] 08:26:11 08:46:11 ne Visit Karla Ross [id number] [place] [id number] Professio [phone] [address] 2019-10-27 2019-10-27 Telephone [facility] [id number] 00:00:00 00:00:00 Karla Ross [id number] [place] [id number] Professio [phone] [address] 2019-08-14 2019-08-14 Office [facility] [id number] 14:22:50 14:42:50 Visit Karla Ross [id number] [place] [id number] Professio [phone] [facility] Building Results This patient has no known results.
--- OUTSIDE RECORDS SUMMARY | 2020-08-11 06:20 | XMS REPORT | Summary of Care ---
:1950 Author Organization [facility] Address [address] [place] [address] Care Team Providers Name Role Phone Pcp, Patient Does Not Have A Primary Care Provider +1-000-00 0-0000 Reason for Visit Reason Comments Refill Request Rx Concern/Question Encounter Details Date Type Department Care Team Description 06/03/2020 Telephone [facility] ADC Karla Grant, Refill Request; Rx Pulmonary Clinic [address] [facility] Concern/Question [address] [place] [address] , [facility] [address] [place] [phone] Allergies Active Allergy Reactions Severity Noted Date Comments Azithromycin Other - See comments 10/27/2019 Codeine Nausea and/or Vomiting 01/06/2019 Metronidazole Hcl Nausea and/or Vomiting 10/27/2019 Hydrocodone Nausea and/or Vomiting 01/06/2019 Penicillin Hives 03/30/2016 documented as of this encounter (statuses as of 06/03/2020) Medications Medication Sig Dispensed Refills Start Date [...] as of this encounter (statuses as of 06/03/2020) Active Problems No known active problemsdocumented as of this encounter (statuses as of 06/03/2020) Immunizations Name Administration Dates Next Due Influenza [...] Signs Not on filedocumented in this encounter Miscellaneous Notes Telephone Encounter - Laura Marshall MA - 06/03/2020 4:30 PM CSTOrder for new nebulizer machine faxed to [facility] Patient. elephone Encounter - Yady Reyes - 06/03/2020 2:42 PM CSTAngella Jackson is a 70 year old female patient calling requesting a order be called in for new nebulizer to [facility]. She is stating that the machine has been used for a while and is not steaming correctly. Please advise. documented in this encounter Plan of Treatment Date Type Specialty Care Team Description 07/02/2020 Telemedicine Visit Pulmonary Disease Ashlee Grant, DO [address] [place] [address] Health Maintenance Due Date Last [...] e / Group Dates MEDICARE MEDICARE PART [id number] 2004-[place] [phone] [address] [place] X Medicare A & B nt 82 [id number] NA[place] [phone] FOR [id number] 2014-[facility] LIFE nt Supplement documented as of this encounter
--- OUTSIDE RECORDS SUMMARY | 2020-08-11 06:21 | XMS REPORT | Summary of Care ---
:1950 Author Organization [facility] Address [address] [place] [address] Care Team Providers Name Role Phone Pcp, Patient Does Not Have A Primary Care Provider +1-000-00 0-0000 Reason for Visit Reason Comments Cancellation (Routine) Status Reason Specialty Diagnoses / Referred By Referred To Procedures Contact Contact Open Patient is Otolaryngology Diagnoses Moderate COPD (chronic obstructive pulmonary disease) Karla Grant Herrera, Established with Procedures CONSULT/REFERRAL ENT DO Denise wetzel Specific [address] [place] [address] [place] [address] [place] [address] Phone: Fax: Encounter Details Date Type Department Care Team Description 07/02/2020 Telemedicine Visit [facility] Karla Grant DO CANCELLATION Pulmonary Clinic [facility] (Primary Dx) [address] [place] [address] , [facility] [address] [place] [phone] Allergies Active Allergy Reactions Severity Noted Date Comments Azithromycin Other - See comments 10/27/2019 Codeine Nausea and/or Vomiting 01/06/2019 Metronidazole Hcl Nausea and/or Vomiting 10/27/2019 Hydrocodone Nausea and/or Vomiting 01/06/2019 Penicillin Hives 03/30/2016 documented as of this encounter (statuses as of 07/02/2020) Medications Medication Sig Dispensed Refills Start Date [...] as of this encounter (statuses as of 07/02/2020) Active Problems No known active problemsdocumented as of this encounter (statuses as of 07/02/2020) Immunizations Name Administration Dates Next Due Influenza [...] encounter Progress Notes Karla Grant DO - 07/02/2020 3:40 PM CSTUnable to get a hold of patient. documented in this encounter Plan of Treatment [...] filedocumented in this encounter Visit Diagnoses Diagnosis CANCELLATION - Primary documented in this encounter Insurance Payer Benefit Plan Subscriber ID Effective Phone Address Typ e / Group Dates MEDICARE MEDICARE PART [id number] 2004-Erik [phone] [address] [place] X Medicare A & B nt [id number] NAHUM [place] [phone] FOR [id number] 2014-[place] Med icare LIFE nt Supplement documented as of this encounter
--- OUTSIDE RECORDS SUMMARY | 2020-08-11 06:21 | XMS REPORT | Summary of Care ---
:1950 Author Organization [facility] Address [address] [place] [address] Care Team Providers Name Role Phone Pcp, Patient Does Not Have A Primary Care Provider +1-000-00 0-0000 Encounter Details Date Type Department Care Team Description 06/03/2020 Orders Only [facility] Doctor Unassigned, No [address] [facility] Name [place] [phone] [place] [id number] Allergies Active Allergy Reactions Severity Noted Date Comments Azithromycin Other - See comments 10/27/2019 Codeine Nausea and/or Vomiting 01/06/2019 Metronidazole Hcl Nausea and/or Vomiting 10/27/2019 Hydrocodone Nausea and/or Vomiting 01/06/2019 Penicillin Hives 03/30/2016 documented as of this encounter (statuses as of 06/17/2020) Medications Medication Sig Dispensed Refills Start Date [...] as of this encounter (statuses as of 06/17/2020) Active Problems No known active problemsdocumented as of this encounter (statuses as of 06/17/2020) Immunizations Name Administration Dates Next Due Influenza [...] Description 07/02/2020 Telemedicine Visit Pulmonary Disease Ashlee Grant n, [address] [place] [phone] Health Maintenance Due Date Last Done Comments [...] Completed 04/19/2015 documented as of this encounter Procedures Procedure Name Priority Date/Time Associated Diagnosis Comme nts DME/SUPPLY JUSTIFICATION Routine 06/03/2020 12:01 AM [employer] documented in this encounter Results Not on filedocumented in this encounter Insurance Payer Benefit Plan Subscriber ID Effective Phone Address Typ e / Group Dates MEDICARE MEDICARE PART [id number] 2004-Erik [phone] [address] [place] X Medicare A & B nt 82 [id number] NAHUM [place] [phone] FOR [id number] 2014-[place] Med icare LIFE nt Supplement documented as of this encounter
[2020-08-11] MEDS ORDERED: Ringers Lactate 1,000 ML IV ONE (06:58)
[2020-08-11] MEDS ORDERED: EPINEPHRINE/PF 1 MG/ML AMP ONE (07:17)
[2020-08-11] MEDS ORDERED: propofoL 200 MG/20 ML VIAL IV ONE ×2 (10:12→10:13)
[2020-08-11] MEDS ORDERED: LIDOCAINE 1% MPF 5 ML VIAL ONE (10:13)
[2020-08-11] MEDS ORDERED: PROMETHAZINE INJ 25 MG/ML AMP ONE (10:21)
--- NOTE | 2020-08-11 10:38 | ENDO RPT ---
[address], [address] COLONOSCOPY PROCEDURE REPORT EXAM DATE: 08/11/2020 PATIENT NAME: Angella Jackson MR #: [id number] BIRTHDATE: 1950 ATTENDING: Ryan Hansen Dr STATUS: outpatient STARCH FACTORY LABORER: Beryl Arana RN, Bri Richards RN, and Lizbeth Chandler CST INDICATIONS: The patient is a 70 yr old Female here for a colonoscopy due to history of chronic inflammatory bowel disease / Crohn's disease, change in bowel habits, and unexplained chronic diarrhea PROCEDURE PERFORMED: Colonoscopy with biopsy and Colonoscopy with biopsy - cold polypectomy MEDICATIONS: Per Anesthesia. ESTIMATED BLOOD LOSS: None CONSENT: The patient understands the risks and benefits of the procedure and understands that these risks include, but are not limited to: sedation, allergic reaction, infection, perforation and/or bleeding. Alternative means of evaluation and treatment include, among others: physical exam, x-rays, and/or surgical intervention. The patient elects to proceed with this endoscopic procedure. DESCRIPTION OF PROCEDURE: During intra-op preparation period all mechanical medical equipment was checked for proper function. Hand hygiene and appropriate measures for infection prevention was taken. Procedure, possible complications, alternatives including, but not limited to possibility of bleeding, perforation, tear, infection, sepsis, need for surgery, need for blood transfusion, were explained to the patient. After the risks, benefits and alternatives of the procedure were thoroughly explained, Informed consent was verified, confirmed and timeout was successfully executed by the treatment team. The patient was placed in the left lateral position. A digital rectal exam was performed and revealed no abnormalities of the rectum. After appropriate level of anesthesia, the scope was passed. The EC-[id number] ([id number]) endoscope was introduced through the anus and advanced to the terminal ileum which was intubated for a short distance. The quality of the prep was fair. The instrument was then slowly withdrawn as the colon was fully examined. Scope withdrawal time was 8 minutes. COLON FINDINGS: A sessile polyp measuring 4 mm in size was found in the rectum. A polypectomy was performed with cold forceps. Mild diverticulosis was noted throughout the entire examined colon. No bleeding was noted from the diverticulosis. Random biopsies of the terminal ileum / right colon / left colon / rectum obtained with history of Crohn's disease. Small internal hemorrhoids were found. Retroflexed views revealed small hemorrhoids. The scope was then completely withdrawn from the patient and the procedure terminated. ADVERSE EVENTS: There were no complications. IMPRESSIONS: 1. 4 mm sessile polyp in the rectum; polypectomy was performed with cold forceps 2. Random biopsies of the terminal ileum / right colon / left colon / rectum obtained with history of Crohn's disease 3. Mild diverticulosis was noted throughout the entire examined colon 4. Small internal hemorrhoids 5. Intubation to terminal ileum RECOMMENDATIONS: 1. await biopsy results 2. avoid NSAIDS for 2 weeks 3. fiber rich diet RECALL: Return in 1 year(s) for Colonoscopy. Ryan Hansen Dr eSigned: Ryan Hansen Dr 08/11/2020 10:38 AM cc: Mark Paz CPT CODES: ICD9 CODES: PATIENT NAME: Angella Jackson MR#: [id number]
[2020-08-11 11:35] VITALS: BP 146/82; TEMP 98.7; O2SAT 98
== END 2020-08-11 11:00 | disposition home or self-care (01) ==
LOC: OR 06:17
PROVIDERS: ATTEND Internal Medicine Gastroenterology
PROC: 0DBP8ZX Excision of Rectum, Via Natural or Artificial Opening Endoscopic, Diagnostic (ICD-10-PCS; 2020-08-11)
PROC: 0DBF8ZX Excision of Right Large Intestine, Via Natural or Artificial Opening Endoscopic, Diagnostic (ICD-10-PCS; 2020-08-11)
PROC: 0DBG8ZX Excision of Left Large Intestine, Via Natural or Artificial Opening Endoscopic, Diagnostic (ICD-10-PCS; 2020-08-11)
PROC: 0DBB8ZX Excision of Ileum, Via Natural or Artificial Opening Endoscopic, Diagnostic (ICD-10-PCS; principal; 2020-08-11 07:30)
DX: D12.7 Benign neoplasm of rectosigmoid junction (principal); J44.9 Chronic obstructive pulmonary disease, unspecified; K21.9 Gastro-esophageal reflux disease without esophagitis; K57.92 Diverticulitis of intestine, part unspecified, without perforation or abscess without bleeding; I10 Essential (primary) hypertension; F17.210 Nicotine dependence, cigarettes, uncomplicated
CPT/HCPCS: 45380; 88305; U0002; J2704; J2550; J7120; J0171

== ENCOUNTER 2020-08-20 11:38 | Day surgery (SDC) | payer OTHER ==
--- OUTSIDE RECORDS SUMMARY | 2020-08-20 11:43 | XMS REPORT | Clinical Summary ---
:1950 Author Organization [facility] Address [address] [place] [address] Care Team Providers Name Role Phone Mark [...] Paula del castillo MD; Location: [facility] OR; Service: Colon a nd Rectal [...] 1959 COVID-19 VACCINE (1 of 2) 1965 HEPATITIS C SCREENING 1967 BREAST CANCER SCREENING 1999 COLONOSCOPY SCREENING 1999 SHINGLES VACCINES (#1) 1999 65+ PNEUMOCOCCAL VACCINE (1 of 1 - PPSV23) 2014 INFLUENZA VACCINE 02/14/2020 Results Not on fileafter 08/20/2019 Insurance Payer Benefit Plan / Subscriber ID Effective Dates Phone Addre ss Type Group MEDICARE MEDICARE PART A [id number] 2004-Present OLIVER MCNEIL Medicare AND B FOR LIFE [id number] 2016-Present [facility] SUPPLEMENT Advance Directives For more information, please contact: [phone] Type Date Recorded Patient Assistant Community Director Explanati on Advance Directives, Living Will and Medical Power of Site Physician
--- OUTSIDE RECORDS SUMMARY | 2020-08-20 11:43 | XMS REPORT | Continuity of Care Document ---
:1950 Author Organization [facility] t Address [address] [place] [address] [address] [place] [address] Care Team Providers Name Role Phone Monica Paz DO Primary Care Physician Juanita COFFEY Attending Clinician Doctor Unassigned, Name Attending Clinician Unavailable Problems Condition Condition Condition Status Onset Resolution Last Treating Co mments Source Name Details Category Date Date Treatment Clinician Date Bowel Bowel Disease Active 2017-07 [place] obstructio obstructio 0-09 Me thodi n n 00:00: st 00 Crohn Crohn Disease Active 2017-07 [place] disease disease 0-09 Methodi 00:00: st 00 Essential Essential Disease Active 2017-07 [facility] [address]on hypertensi hypertensi 0-09 Me thodi on on 00:00: st 00 COPD COPD Disease Active 2017-07 [place] (chronic (chronic 0-09 Method i obstructiv obstructiv 00:00: st e e 00 pulmonary pulmonary disease) disease) Essential Essential Disease Active 2017-07 Yamil ston tremor tremor 0-09 Methodi 00:00: st 00 Chronic Chronic Disease Active 2017-07 [place] pain 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 00:00: [...] Met hodist Family member Heart disease [place] [facility] Social History Social Habit Start Date Stop Date Quantity Comments Source Sex Assigned At [place] [facility] Cigarettes smoked 2018-05-13 2018-05-13 [place] current (pack per 00:00:00 00:00:[address] day) - Reported Tobacco use and 2018-05-13 2018-05-13 Never used [place] exposure 00:00:00 00:00:00 Voodoo Alcohol intake 2018-05-13 2018-05-13 Current drinker [place] 00:00:00 00:00:00 of alcohol V[facility]oo (finding) Tobacco Comment 2018-04-23 2018-04-23 55 pack year [place] 00:00:00 00:00:00 history Voodoo Alcohol Comment 2018-04-23 2018-04-23 occasional [place] 00:00:00 00:00:00 Voodoo Smoking Status Start Date Stop Date Source Current every day smoker 2018-05-13 00:00:00 Yamil ston [facility]oo Medications Ordered Filled Start Stop Current Ordering [...] 00 hours as needed. baclofen Yes 10mg [id number] Take 10 mg [place] (LIORESAL) 8-20 [id number] by mouth 3 Methodi 10 MG 00:00: 3D (three) st tablet 00 times a day. losartan Yes 50mg QD Take 50 mg Yamil ston (COZAAR) 50 8-20 by mouth Meth eusebio MG tablet 00:00: daily. st 00 Procedures This patient has no known procedures. Plan of Care Planned Activity Planned Date Details Comments Source Future Scheduled 2020-02-14 INFLUENZA VACCINE Dave n [facility]oo Test 00:00:00 [code = INFLUENZA VACCINE] Future Scheduled 2014 65+ PNEUMOCOCCAL Jose A Voodoo Test 00:00:00 VACCINE (1 of 1 - PPSV23) [code = 65+ PNEUMOCOCCAL VACCINE (1 of 1 - PPSV23)] Future Scheduled 1999 BREAST CANCER [facility] thodist Test 00:00:00 SCREENING [code = BREAST CANCER SCREENING] Future Scheduled 1999 COLONOSCOPY SCREENING Ho chinedu Voodoo Test 00:00:00 [code = COLONOSCOPY SCREENING] Future Scheduled 1999 SHINGLES VACCINES (#1) H von [facility] Test 00:00:00 [code = SHINGLES VACCINES (#1)] Future Scheduled 1967 Hepatitis C screening [place] [facility] Test 00:00:00 (procedure) [code = [id number]] Future Scheduled 1965 COVID-19 VACCINE (1 of [place] [facility] Test 00:00:00 2) [code = COVID-19 VACCINE (1 of 2)] Future Scheduled 1959 DIABETES: RETINAL EYE [place] [facility] Test 00:00:00 EXAM [code = DIABETES: RETINAL EYE EXAM] Future Scheduled 1959 DIABETIC FOOT EXAM [place] [facility] Test 00:00:00 [code = DIABETIC FOOT EXAM] Future Scheduled 1959 URINE MICROALBUMIN [place] [facility] Test 00:00:00 [code = URINE MICROALBUMIN] Encounters Start End Encounter Admission Attending Care Care Encounter Source Date/Time Date/Time Type Type Clinicians Facility Department ID 2020-07-02 2020-07-02 EMETERIO Artis [id number] 08:53:25 09:08:25 ne Visit Ashleecat Vandana [id number] [place] [id number] Professio [phone] [address] 2020-06-03 2020-06-03 Telephone EMETERIO Grant [id number] 00:00:00 00:00:00 Karla Oconnorton [id number] [place] [id number] Professio [phone] [address] 2020-06-03 2020-06-03 Orders Doctor MANJINDER [id number] 00:00:00 00:00:00 Only Unassigned, DELFIN [id number] [place] [facility] [id number] [id number] 2020-05-14 2020-05-14 EMETERIO Artis [id number] 11:24:18 11:44:18 ne Visit Karla Oconnorton [id number] [place] [id number] Professio [phone] [address] 2019-12-01 2019-12-01 Telephone EMETERIO Grant [id number] 00:00:00 00:00:00 [place] [id number] [place] [id number] Professio [phone] [address] 2019-11-28 2019-11-28 [facility] [id number] 00:00:00 00:00:00 (Out) [place]wan [place] [id number] [place] [id number] Professio [phone] [address] 2019-11-26 2019-11-[address] [facility] [id number] 00:00:00 00:00:00 [place] [id number] [place] [id number] Professio [phone] [address] 2019-11-25 2019-11-25 Orders Doctor MANJINDER [id number] 00:00:00 00:00:00 Only Unassigned, DELFIN [id number] [place] [facility] [id number] [id number] 2019-11-16 2019-11-16 [facility]phone [facility] [id number] 00:00:00 00:00:00 [place]wan [place] [id number] [place] [id number] Professio [phone] [address] 2019-11-13 2019-11-13 [facility] [id number] 08:26:11 08:46:11 ne Visit Shimichaeln [place] [id number] [place] [id number] Professio [id number] [address] 2019-10-27 2019-10-27 [facility]phone [facility] [id number] 00:00:00 00:00:00 [place] [id number] [place] [id number] Professio [phone] [address] 2019-08-14 2019-08-14 Office EMETERIO Grant [id number] 14:22:50 14:42:50 Visit Karla Ross [id number] [place] [id number] Cec[place] [phone] [facility] Building Results This patient has no known results.
[2020-08-20] MEDS ORDERED: INFLIXIMAB-DYYB 400 MG in NA CHLORIDE 0.9% 250 ML IV ONE (12:00)
[2020-08-20] MEDS ORDERED: METHYLPREDNISOLONE 125 MG INJ ONE (12:17)
[2020-08-20] MEDS ORDERED: ACETAMINOPHEN 325 MG TABLET ONE (12:17)
[2020-08-20 16:12] VITALS: BP 128/70; TEMP 97.6; O2SAT 99; BMI 30.7
== END 2020-08-20 15:30 | disposition home or self-care (01) ==
LOC: DS 11:38
PROVIDERS: ATTEND Internal Medicine Gastroenterology
DX: K50.818 Crohn's disease of both small and large intestine with other complication (principal)
CPT/HCPCS: 96365; 96366; Q5103; J7050; J2930

== ENCOUNTER 2021-06-02 12:38 | Emergency (ER) | payer OTHER ==
--- OUTSIDE RECORDS SUMMARY | 2021-06-02 12:45 | XMS REPORT | Continuity of Care Document ---
:[address] [facility] t Address [address] [place] [address] [address] [place] [address] Care Team Providers Name Role Phone Pcp, Does Not Have A Primary Care Physician Doctor Unassigned, Name Attending Clinician Unavailable Albert Attending Clinician Unavailable CHRISTIANO Attending Clinician Unavailable CHRISTIANO Attending Clinician Unavailable Christiano COFFEY Attending Clinician Payers Payer Name Policy Type Policy Number Effective Date Expiration Date Amelia [employer] [id number] 2014 00:00:00 Problems Condition Condition Condition Status Onset Resolution Last Treating Co mments Source Name Details Category Date Date Treatment Clinician Date No known No known Disease Unive rs active active ity of problems problems [facility] Allergies, Adverse Reactions, Alerts Allergy Allergy Status Severity Reaction(s) Onset Inactive Treating Comm ents Source Name Type Date Date Clinician AZITHROM DRUG Active Other-Cmnt 2020-0 Univ ers YCIN INGREDI 4-13 ity of 00:00: [place] 00 [facility] METRONID DRUG Active N/V 2020-0 Univers AZOLE INGREDI 4-13 ity of HCL 00:00: [place] 00 [facility] Azithrom Propensi Active Other - See 2020-0 U nivers ycin ty to comments 4-13 ity of adverse 00:00: [place] reaction 00 [facility] Branch Metronid Propensi Active Nausea 2020-0 Univer s azole ty to and/or 4-13 ity of Hcl adverse Vomiting 00:00: [place] reaction 00 [facility] Codeine Propensi Active Nausea 2019-0 Univers ty to and/or 6-24 ity of adverse Vomiting 00:00: [place] reaction 00 [facility] Hydrocod Propensi Active Nausea 2018-0 Univer s one ty to and/or 624 ity of adverse Vomiting 00:00: [place] reaction 00 Medical s Branch CODEINE DRUG Active N/V 2018-0 Univers INGREDI 6-24 ity of 00:00: [place] 00 Medical Branch HYDROCOD DRUG Active N/V 2019-0 Univers ONE INGREDI 6 ity of 00:00: [place] 00 [facility] Penicill Propensi Active Hives 2015-0 Univer s in ty to 15 ity of adverse 00:00: [place] reaction 00 Medical s Branch Penicill Propensi Active Hives 2015-0 Univer s in ty to 15 ity of adverse 00:00: [place] reaction 00 Medical s Branch PENICILL DRUG Active Hives 2015- Univers IN INGREDI 03-30 ity of 00:00: [place] 00 Medical Branch Social History Social Habit Start Date Stop Date Quantity Comments Source Alcohol intake 2019-08-14 2019-08-14 0 /d [facility] 00:00:00 00:00:00 Medical Branch Tobacco use and 2016-03-30 2016-03-30 Never used [facility] exposure 00:00:00 00:00:00 Medical Branch Cigarettes smoked 2016-03-30 2016-03-30 [facility] current (pack per 00:00:00 00:00:00 Medical Branch day) - Reported Cigarette 2016-03-30 2016-03-30 [facility] pack-years 00:00:00 00:00:00 Medical Branch Tobacco Comment 2016-03-30 2016-03-30 1-2 packs [facility] 00:00:00 00:00:00 Medical Branch Sex [birth year] [facility] 00:00:00 00:00:00 Medical Branch Smoking Status Start Date Stop Date Source Current every day smoker 2016-03-30 00:00:[facility] [place] Medications Ordered Filled Start Stop Current Ordering Indication Dosage Frequency Signature Comments Components Source Medication Medication Date Date Medication? Clinician (SIG) Name Name escitalopra 2019-07 Yes 20mg Take 20 mg Univers m oxalate 0-29 by mouth. ity o f 20 mg 13:25: [place] tablet 37 Medical Branch escitalopra 2019-07 Yes 20mg Take 20 mg Univers m oxalate 0-29 by mouth. ity o f 20 mg 13:25: [place] tablet 37 Medical Branch escitalopra 2019- Yes 20mg Take 20 mg Univers m oxalate 0-29 by mouth. ity o f 20 mg 13:25: [place] tablet 37 Medical Branch escitalopra 2019- Yes 20mg Take 20 mg Univers m oxalate 0-29 by mouth. ity o f 20 mg 13:25: [place] tablet 37 Medical Branch buPROPion 2019- Yes 300mg Take 300 Uni vers XL 300 mg 0-29 mg by ity of 24 hr 13:25: mouth. [place] tablet 36 Medical Branch buPROPion 2019- Yes 300mg Take 300 Uni vers XL 300 mg 0-29 mg by ity of 24 hr 13:25: mouth. [place] tablet 36 Medical Branch buPROPion 2019-07 Yes 300mg Take 300 Uni vers XL 300 mg 0-29 mg by ity of 24 hr 13:25: mouth. [place] tablet 36 Medical Branch buPROPion 2019-07 Yes 300mg Take 300 Uni vers XL 300 mg 0-29 mg by ity of 24 hr 13:25: mouth. [place] tablet 36 Medical Branch escitalopra 2019-07 Yes 20mg Take 20 mg Univers m oxalate 0-29 by mouth. ity o f 20 mg 08:25: [place] tablet 37 Medical Branch buPROPion 2019-07 Yes 300mg Take 300 Uni vers XL 300 mg 0-29 mg by ity of 24 hr 08:25: mouth. [place] tablet 36 Medical Branch dicyclomine 2019-07 Yes Univer s 10 mg 0-26 ity of capsule 00:00: Medical Branch dicyclomine 2019- Yes Univer s 10 mg 0-26 ity of capsule 00:00: Medical Branch dicyclomine 2019- Yes Univer s 10 mg 0-26 ity of capsule 00:00: Medical Branch dicyclomine 2019- Yes Univer s 10 mg 0-26 ity of capsule 00:00: Medical Branch dicyclomine 2019- Yes Univer s 10 mg 0-26 ity of capsule 00:00: Medical Branch methotrexat 2019- Yes Take by Uni vers e 2.5 mg 0-01 mouth ity of tablet 00:00: Medical Branch methotrexat 2019- Yes Take by Uni vers e 2.5 mg 0-01 mouth ity of tablet 00:00: [place] 00 Medical Branch methotrexat 2019- Yes Take by Uni vers e 2.5 mg 0-01 mouth ity of tablet 00:00: [place] 00 Medical Branch methotrexat 2019- Yes Take by Uni vers e 2.5 mg 0-01 mouth ity of tablet 00:00: [place] 00 Medical Branch methotrexat 2019- Yes Take by Uni vers e 2.5 mg 0-01 mouth ity of tablet 00:00: [place] 00 Medical Branch BECLOMETHAS 2019-0 2020- No Use in Un lia ONE 4-30 04-30 each ity of DIPROPIONAT 19:04: 00:00 nostril. [place] E (QNASL 58 :00 Indication Medic al NASAL) s: 2 Branch sprays each nostril daily beclomethas 2019-0 Yes [id number] 2{spray Use 2 Univers one 4-30 } Sprays in ity of dipropionat 00:00: each [place] e (QNASL) 00 nostril Medical 80 daily. Branch mcg/actuati on nasal spray albuterol 2019-0 Yes [id number] 2.5mg Inhale 3 Univers 2.5 mg /3 4-30 mL every 4 ity of mL (0.083 00:00: (four) [place] %) 00 hours as Medical nebulizer needed for Bran ch solution Wheezing or Shortness of Breath. budesonide- Yes 2{puff} Inhale 2 Univers formoteroL 4-30 Puffs 2 ity of (SYMBICORT) 00:00: (two) [place] 160-4.5 00 times Medical mcg/actuati daily. Branch on inhaler Indication s: 2 puffs tiotropium 2019-0 Yes [id number] 18ug Inhale 1 Univers (SPIRIVA 4-30 capsule ity of WITH 00:00: daily. [place] HANDIHALER) 00 Medical 18 mcg Branch inhalation beclomethas 2020-0 Yes [id number] 2{spray Use 2 Univers one 4-30 } Sprays in ity of dipropionat 00:00: each [place] e (QNASL) 00 nostril Medical 80 daily. Branch mcg/actuati on nasal spray albuterol 2019-0 Yes [id number] 2.5mg Inhale 3 Univers 2.5 mg /3 4-30 mL every 4 ity of mL (0.083 00:00: (four) [place] %) 00 hours as Medical nebulizer needed for Bran ch solution Wheezing or Shortness of Breath. budesonide- 2020-0 Yes 2{puff} Inhale 2 Univers formoteroL 4-30 Puffs 2 ity of (SYMBICORT) 00:00: (two) [place] 160-4.5 00 times Medical mcg/actuati daily. Branch on inhaler Indication s: 2 puffs tiotropium 2020-0 Yes [id number] 18ug Inhale 1 Univers (SPIRIVA 4-30 capsule ity of WITH 00:00: daily. [place] HANDIHALER) 00 Medical 18 mcg Branch inhalation beclomethas 2020-0 Yes [id number] 2{spray Use 2 Univers one 4-30 } Sprays in ity of dipropionat 00:00: each [place] e (QNASL) 00 nostril Medical 80 daily. Branch mcg/actuati on nasal spray albuterol 2020-0 Yes [id number] 2.5mg Inhale 3 Univers 2.5 mg /3 4-30 mL every 4 ity of mL (0.083 00:00: (four) [place] %) 00 hours as Medical nebulizer needed for Bran ch solution Wheezing or Shortness of Breath. budesonide- 2020-0 Yes 2{puff} Inhale 2 Univers formoteroL 4-30 Puffs 2 ity of (SYMBICORT) 00:00: (two) [place] 160-4.5 00 times Medical mcg/actuati daily. Branch on inhaler Indication s: 2 puffs tiotropium 2020-0 Yes [id number] 18ug Inhale 1 Univers (SPIRIVA 4-30 capsule ity of WITH 00:00: daily. [place] HANDIHALER) 00 Medical 18 mcg Branch inhalation beclomethas 2020-0 Yes [id number] 2{spray Use 2 Univers one 4-30 } Sprays in ity of dipropionat 00:00: each [place] e (QNASL) 00 nostril Medical 80 daily. Branch mcg/actuati on nasal spray albuterol 2020-0 Yes [id number] 2.5mg Inhale 3 Univers 2.5 mg /3 4-30 mL every 4 ity of mL (0.083 00:00: (four) [place] %) 00 hours as Medical nebulizer needed for Bran ch solution Wheezing or Shortness of Breath. budesonide- 2020-0 Yes 2{puff} Inhale 2 Univers formoteroL 4-30 Puffs 2 ity of (SYMBICORT) 00:00: (two) [place] 160-4.5 00 times Medical mcg/actuati daily. Branch on inhaler Indication s: 2 puffs tiotropium 2020-0 Yes [id number] 18ug Inhale 1 Univers (SPIRIVA 4-30 capsule ity of WITH 00:00: daily. [place] HANDIHALER) 00 Medical 18 mcg Branch inhalation beclomethas 2020-0 Yes [id number] 2{spray Use 2 Univers one 4-30 } Sprays in ity of dipropionat 00:00: each [place] e (QNASL) 00 nostril Medical 80 daily. Branch mcg/actuati on nasal spray albuterol 2020-0 Yes [id number] 2.5mg Inhale 3 Univers 2.5 mg /3 4-30 mL every 4 ity of mL (0.083 00:00: (four) [place] %) 00 hours as Medical nebulizer needed for Bran ch solution Wheezing or Shortness of Breath. budesonide- 2020-0 Yes 2{puff} Inhale 2 Univers formoteroL 4-30 Puffs 2 ity of (SYMBICORT) 00:00: (two) [place] 160-4.5 00 times Medical mcg/actuati daily. Branch on inhaler Indication s: 2 puffs tiotropium 2020-0 Yes [id number] 18ug Inhale 1 Univers (SPIRIVA 4-30 capsule ity of WITH 00:00: daily. [place] HANDIHALER) 00 Medical 18 mcg Branch inhalation beclomethas 2020-0 Yes [id number] 2{spray Use 2 Univers one 4-30 } Sprays in ity of dipropionat 00:00: each [place] e (QNASL) 00 nostril Medical 80 daily. Branch mcg/actuati on nasal spray albuterol 2020-0 Yes [id number] 2.5mg Inhale 3 Univers 2.5 mg /3 4-30 mL every 4 ity of mL (0.083 00:00: (four) [place] %) 00 hours as Medical nebulizer needed for Bran ch solution Wheezing or Shortness of Breath. budesonide- 2020-0 Yes 2{puff} Inhale 2 Univers formoteroL 4-30 Puffs 2 ity of (SYMBICORT) 00:00: (two) [place] 160-4.5 00 times Medical mcg/actuati daily. Branch on inhaler Indication s: 2 puffs tiotropium 2020-0 Yes [id number] 18ug Inhale 1 Univers (SPIRIVA 4-30 capsule ity of WITH 00:00: daily. [place] HANDIHALER) 00 Medical 18 mcg Branch inhalation beclomethas 2020-0 Yes [id number] 2{spray Use 2 Univers one 4-30 } Sprays in ity of dipropionat 00:00: each [place] e (QNASL) 00 nostril Medical 80 daily. Branch mcg/actuati on nasal spray albuterol 2020-0 Yes [id number] 2.5mg Inhale 3 Univers 2.5 mg /3 4-30 mL every 4 ity of mL (0.083 00:00: (four) [place] %) 00 hours as Medical nebulizer needed for Bran ch solution Wheezing or Shortness of Breath. budesonide- 2020-0 Yes 2{puff} Inhale 2 Univers formoteroL 4-30 Puffs 2 ity of (SYMBICORT) 00:00: (two) [place] 160-4.5 00 times Medical mcg/actuati daily. Branch on inhaler Indication s: 2 puffs tiotropium 2020-0 Yes [id number] 18ug Inhale 1 Univers (SPIRIVA 4-30 capsule ity of WITH 00:00: daily. [place] HANDIHALER) 00 Medical 18 mcg Branch inhalation beclomethas 2020-0 Yes [id number] 2{spray Use 2 Univers one 4-30 } Sprays in ity of dipropionat 00:00: each [place] e (QNASL) 00 nostril Medical 80 daily. Branch mcg/actuati on nasal spray albuterol 2020-0 Yes [id number] 2.5mg Inhale 3 Univers 2.5 mg /3 4-30 mL every 4 ity of mL (0.083 00:00: (four) [place] %) 00 hours as Medical nebulizer needed for Bran ch solution Wheezing or Shortness of Breath. budesonide- 2020-0 Yes 2{puff} Inhale 2 Univers formoteroL 4-30 Puffs 2 ity of (SYMBICORT) 00:00: (two) [place] 160-4.5 00 times Medical mcg/actuati daily. Branch on inhaler Indication s: 2 puffs tiotropium 2020-0 Yes [id number] 18ug Inhale 1 Univers (SPIRIVA 4-30 capsule ity of WITH 00:00: daily. [place] HANDIHALER) 00 Medical 18 mcg Branch inhalation beclomethas 2020-0 Yes [id number] 2{spray Use 2 Univers one 4-30 } Sprays in ity of dipropionat 00:00: each [place] e (QNASL) 00 nostril Medical 80 daily. Branch mcg/actuati on nasal spray albuterol 2020-0 Yes [id number] 2.5mg Inhale 3 Univers 2.5 mg /3 4-30 mL every 4 ity of mL (0.083 00:00: (four) [place] %) 00 hours as Medical nebulizer needed for Bran ch solution Wheezing or Shortness of Breath. budesonide- 2020-0 Yes 2{puff} Inhale 2 Univers formoteroL 4-30 Puffs 2 ity of (SYMBICORT) 00:00: (two) [place] 160-4.5 00 times Medical mcg/actuati daily. Branch on inhaler Indication s: 2 puffs tiotropium 2020-0 Yes [id number] 18ug Inhale 1 Univers (SPIRIVA 4-30 capsule ity of WITH 00:00: daily. [place] HANDIHALER) 00 Medical 18 mcg Branch inhalation beclomethas 2020-0 Yes [id number] 2{spray Use 2 Univers one 4-30 } Sprays in ity of dipropionat 00:00: each [place] e (QNASL) 00 nostril Medical 80 daily. Branch mcg/actuati on nasal spray albuterol 2020-0 Yes [id number] 2.5mg Inhale 3 Univers 2.5 mg /3 4-30 mL every 4 ity of mL (0.083 00:00: (four) [place] %) 00 hours as Medical nebulizer needed for Bran ch solution Wheezing or Shortness of Breath. budesonide- 2020-0 Yes 2{puff} Inhale 2 Univers formoteroL 4-30 Puffs 2 ity of (SYMBICORT) 00:00: (two) [place] 160-4.5 00 times Medical mcg/actuati daily. Branch on inhaler Indication s: 2 puffs tiotropium 2020-0 Yes [id number] 18ug Inhale 1 Univers (SPIRIVA 4-30 capsule ity of WITH 00:00: daily. [place] HANDIHALER) 00 Medical 18 mcg Branch inhalation beclomethas 2020-0 Yes [id number] 2{spray Use 2 Univers one 4-30 } Sprays in ity of dipropionat 00:00: each [place] e (QNASL) 00 nostril Medical 80 daily. Branch mcg/actuati on nasal spray albuterol 2020-0 Yes [id number] 2.5mg Inhale 3 Univers 2.5 mg /3 4-30 mL every 4 ity of mL (0.083 00:00: (four) [place] %) 00 hours as Medical nebulizer needed for Bran ch solution Wheezing or Shortness of Breath. budesonide- 2020-0 Yes 2{puff} Inhale 2 Univers formoteroL 4-30 Puffs 2 ity of (SYMBICORT) 00:00: (two) [place] 160-4.5 00 times Medical mcg/actuati daily. Branch on inhaler Indication s: 2 puffs tiotropium 2020-0 Yes [id number] 18ug Inhale 1 Univers (SPIRIVA 4-30 capsule ity of WITH 00:00: daily. [place] HANDIHALER) 00 Medical 18 mcg Branch inhalation predniSONE 2020-0 2020- No [id number] 40mg Take 2 Univers 20 mg 4-30 05-06 tablets by ity of tablet 00:00: 04:59 mouth [place] 00 :00 daily for Medical 5 days. Branch predniSONE 2020-0 2020- No [id number] 40mg Take 2 Univers 20 mg 4-30 05-06 tablets by ity of tablet 00:00: 04:59 mouth [place] 00 :00 daily for Medical 5 days. Branch doxycycline 2020-0 2020- No [id number] 100mg Take 1 Univers hyclate 100 4-15 04-23 tablet by it y of mg tablet 00:00: 04:59 mouth 2 [place] :00 (two) Medical times Branch daily for 7 days. dicyclomine 2020-0 Yes 20mg Take 20 mg Univers 20 mg 3-24 by mouth. ity of tablet 00:00: 00 Medical Branch dicyclomine 2020-0 Yes 20mg Take 20 mg Univers 20 mg 3-24 by mouth. ity of tablet 00:00: Medical Branch dicyclomine 2020-0 Yes 20mg Take 20 mg Univers 20 mg 3-24 by mouth. ity of tablet 00:00: Medical Branch dicyclomine 2020-0 Yes 20mg Take 20 mg Univers 20 mg 3-24 by mouth. ity of tablet 00:00: Medical Branch dicyclomine 2020-0 Yes 20mg Take 20 mg Univers 20 mg 3-24 by mouth. ity of tablet 00:00: Medical Branch lubiproston 2020-0 Yes Univer s e (AMITIZA) 3-06 ity of 24 mcg 00:00: [place] capsule 00 Medical Branch lubiproston 2020-0 Yes Univer s e (AMITIZA) 3-06 ity of 24 mcg 00:00: [place] capsule 00 Medical Branch lubiproston 2020-0 Yes Univer s e (AMITIZA) 3-06 ity of 24 mcg 00:00: [place] capsule 00 Medical Branch lubiproston 2020-0 Yes Univer s e (AMITIZA) 3-06 ity of 24 mcg 00:00: [place] capsule 00 Medical Branch lubiproston 2020-0 Yes Univer s e (AMITIZA) 3-06 ity of 24 mcg 00:00: [place] capsule Medical Branch albuterol 2020-0 Yes USE 2 Univers (PROAIR 2-03 INHALATION ity of HFA) 90 00:00: S EVERY 6 [place] mcg/actuati 00 HOURS Medi sean on inhaler NEEDED Branch albuterol 2020-0 Yes USE 2 Univers (PROAIR 2-03 INHALATION ity of HFA) 90 00:00: S EVERY 6 [place] mcg/actuati 00 HOURS Medi sean on inhaler NEEDED Branch albuterol 2020-0 Yes USE 2 Univers (PROAIR 2-03 INHALATION ity of HFA) 90 00:00: S EVERY 6 [place] mcg/actuati 00 HOURS Medi sean on inhaler NEEDED Branch albuterol 2020-0 Yes USE 2 Univers (PROAIR 2-03 INHALATION ity of HFA) 90 00:00: S EVERY 6 [place] mcg/actuati 00 HOURS Medi sean on inhaler NEEDED Branch albuterol 2020-0 Yes USE 2 Univers (PROAIR 2-03 INHALATION ity of HFA) 90 00:00: S EVERY 6 [place] mcg/actuati 00 HOURS Medi sean on inhaler NEEDED Branch albuterol 2020-0 Yes USE 2 Univers (PROAIR 2-03 INHALATION ity of HFA) 90 00:00: S EVERY 6 [place] mcg/actuati 00 HOURS Medi sean on inhaler NEEDED Branch albuterol 2020-0 Yes USE 2 Univers (PROAIR 2-03 INHALATION ity of HFA) 90 00:00: S EVERY 6 [place] mcg/actuati 00 HOURS Medi sean on inhaler NEEDED Branch albuterol 2020-0 Yes USE 2 Univers (PROAIR 2-03 INHALATION ity of HFA) 90 00:00: S EVERY 6 [place] mcg/actuati 00 HOURS Medi sean on inhaler NEEDED Branch albuterol 2020-0 Yes USE 2 Univers (PROAIR 2-03 INHALATION ity of HFA) 90 00:00: S EVERY 6 [place] mcg/actuati 00 HOURS Medi sean on inhaler NEEDED Branch albuterol 2020-0 Yes USE 2 Univers (PROAIR 2-03 INHALATION ity of HFA) 90 00:00: S EVERY 6 [place] mcg/actuati 00 HOURS Medi sean on inhaler NEEDED Branch albuterol 2020-0 Yes USE 2 Univers (PROAIR 2-03 INHALATION ity of HFA) 90 00:00: S EVERY 6 [place] mcg/actuati 00 HOURS Medi sean on inhaler NEEDED Branch albuterol 2020-0 Yes USE 2 Univers (PROAIR 2-03 INHALATION ity of HFA) 90 00:00: S EVERY 6 [place] mcg/actuati 00 HOURS Medi sean on inhaler NEEDED Branch ondansetron 2019-0 Yes [id number] 4mg Take 1 Univers (ZOFRAN 6-24 tablet by ity of ODT) 4 mg 00:00: mouth [place] disintegrat 00 every 8 Medic al ing tablet (eight) Branch hours as needed for Nausea and Vomiting (N/V). ondansetron 2019-0 Yes [id number] 4mg Take 1 Univers (ZOFRAN 6-24 tablet by ity of ODT) 4 mg 00:00: mouth [place] disintegrat 00 every 8 Medic al ing tablet (eight) Branch hours as needed for Nausea and Vomiting (N/V). ondansetron 2019-0 Yes [id number] 4mg Take 1 Univers (ZOFRAN 6-24 tablet by ity of ODT) 4 mg 00:00: mouth [place] disintegrat 00 every 8 Medic al ing tablet (eight) Branch hours as needed for Nausea and Vomiting (N/V). ondansetron 2019-0 Yes [id number] 4mg Take 1 Univers (ZOFRAN 6-24 tablet by ity of ODT) 4 mg 00:00: mouth [place] disintegrat 00 every 8 Medic al ing tablet (eight) Branch hours as needed for Nausea and Vomiting (N/V). ondansetron 2019-0 Yes [id number] 4mg Take 1 Univers (ZOFRAN 6-24 tablet by ity of ODT) 4 mg 00:00: mouth [place] disintegrat 00 every 8 Medic al ing tablet (eight) Branch hours as needed for Nausea and Vomiting (N/V). ondansetron 2019-0 Yes [id number] 4mg Take 1 Univers (ZOFRAN 6-24 tablet by ity of ODT) 4 mg 00:00: mouth [place] disintegrat 00 every 8 Medic al ing tablet (eight) Branch hours as needed for Nausea and Vomiting (N/V). ondansetron 2019-0 Yes [id number] 4mg Take 1 Univers (ZOFRAN 6-24 tablet by ity of ODT) 4 mg 00:00: mouth [place] disintegrat 00 every 8 Medic al ing tablet (eight) Branch hours as needed for Nausea and Vomiting (N/V). ondansetron 2019-0 Yes [id number] 4mg Take 1 Univers (ZOFRAN 6-24 tablet by ity of ODT) 4 mg 00:00: mouth [place] disintegrat 00 every 8 Medic al ing tablet (eight) Branch hours as needed for Nausea and Vomiting (N/V). ondansetron 2019-0 Yes [id number] 4mg Take 1 Univers (ZOFRAN 6-24 tablet by ity of ODT) 4 mg 00:00: mouth [place] disintegrat 00 every 8 Medic al ing tablet (eight) Branch hours as needed for Nausea and Vomiting (N/V). ondansetron 2019-0 Yes [id number] 4mg Take 1 Univers (ZOFRAN 6-24 tablet by ity of ODT) 4 mg 00:00: mouth [place] disintegrat 00 every 8 Medic al ing tablet (eight) Branch hours as needed for Nausea and Vomiting (N/V). ondansetron 2019-0 Yes [id number] 4mg Take 1 Univers (ZOFRAN 6-24 tablet by ity of ODT) 4 mg 00:00: mouth [place] disintegrat 00 every 8 Medic al ing tablet (eight) Branch hours as needed for Nausea and Vomiting (N/V). ondansetron 2019-0 Yes [id number] 4mg Take 1 Univers (ZOFRAN 6-24 tablet by ity of ODT) 4 mg 00:00: mouth [place] disintegrat 00 every 8 Medic al ing tablet (eight) Branch hours as needed for Nausea and Vomiting (N/V). ondansetron 2019-0 Yes [id number] 4mg Take 1 Univers (ZOFRAN 6-24 tablet by ity of ODT) 4 mg 00:00: mouth [place] disintegrat 00 every 8 Medic al ing tablet (eight) Branch hours as needed for Nausea and Vomiting (N/V). ondansetron 2018-0 Yes [id number] 4mg Take 1 Univers (ZOFRAN 6-24 tablet by ity of ODT) 4 mg 00:00: mouth [place] disintegrat 00 every 8 Medic al ing tablet (eight) Branch hours as needed for Nausea and Vomiting (N/V). MONTELUKAST 2017-07 Yes TAKE 1 Univ ers 10 mg 1-19 TABLET [facility] ers 10 mg 1-19 TABLET ity of tablet 00:00: DAILY [facility] MONTELUKAST 2017-07 Yes TAKE 1 Univ ers 10 mg 1-19 TABLET ity of tablet 00:00: DAILY [facility] MONTELUKAST 2017-07 Yes TAKE 1 Univ ers 10 mg 1-19 TABLET ity of tablet 00:00: DAILY [facility] MONTELUKAST 2017-07 Yes TAKE 1 Univ ers 10 mg 1-19 TABLET ity of tablet 00:00: DAILY [facility] MONTELUKAST 2017-07 Yes TAKE 1 Univ ers 10 mg 1-19 TABLET ity of tablet 00:00: DAILY [facility] MONTELUKAST 2017-07 Yes TAKE 1 Univ ers 10 mg 1-19 TABLET ity of tablet 00:00: DAILY [facility] MONTELUKAST 2017-07 Yes TAKE 1 Univ ers 10 mg 1-19 TABLET ity of tablet 00:00: DAILY [facility] MONTELUKAST 2017-07 Yes TAKE 1 Univ ers 10 mg 1-19 TABLET ity of tablet 00:00: DAILY [facility] MONTELUKAST 2017-07 Yes TAKE 1 Univ ers 10 mg 1-19 TABLET ity of tablet 00:00: DAILY [facility] MONTELUKAST 2017-07 Yes TAKE 1 Univ ers 10 mg 1-19 TABLET ity of tablet 00:00: DAILY [facility] MONTELUKAST 2017-07 Yes TAKE 1 Univ ers 10 mg 1-19 TABLET ity of tablet 00:00: DAILY [facility] MONTELUKAST 2017-07 Yes TAKE 1 Univ ers 10 mg 1-19 TABLET ity of tablet 00:00: DAILY [facility] MONTELUKAST 2017-07 Yes TAKE 1 Univ ers 10 mg 1-19 TABLET ity of tablet 00:00: DAILY [facility] PROAIR HFA Yes USE 2 Univer s 90 8-31 INHALATION ity of mcg/actuati 00:00: S EVERY 6 [place] on inhaler 00 HOURS Medic al NEEDED Branch PROAIR HFA Yes USE 2 Univer s 90 8-31 INHALATION ity of mcg/actuati 00:00: S EVERY 6 [place] on inhaler 00 HOURS Medic al NEEDED Branch losartan 50 0 Yes 50mg Take 50 mg Univers mg tablet 8-20 by mouth. ity o f 00:00: [place] [facility] losartan 50 2017-0 Yes 50mg Take 50 mg Univers mg tablet 8-20 by mouth. ity o f 00:00: [place] [facility] losartan 50 0 Yes 50mg Take 50 mg Univers mg tablet 8-20 by mouth. ity o f 00:00: [place] [facility] losartan 50 2018-0 Yes 50mg Take 50 mg Univers mg tablet 8-20 by mouth. ity o f 00:00: [place] [facility] losartan 50 0 Yes 50mg Take 50 mg Univers mg tablet 8-20 by mouth. ity o f 00:00: [place] [facility] budesonide- 2017-0 Yes 2{puff} Inhale 2 Univers formoterol 4-27 Puffs 2 ity of (SYMBICORT) 00:00: (two) [place] 160-4.5 00 times Medical mcg/actuati daily. Branch on inhaler Indication s: 2 puffs tiotropium 2017-0 Yes 18ug Inhale 1 Uni vers (SPIRIVA 4-27 capsule ity of WITH 00:00: daily. [place] HANDIHALER) 00 Medical 18 mcg Branch inhalation budesonide- [id number] Yes 2{puff} Inhale 2 Univers formoterol 4-27 Puffs 2 ity of (SYMBICORT) 00:00: (two) [place] 160-4.5 00 times Medical mcg/actuati daily. Branch on inhaler Indication s: 2 puffs tiotropium 2017-0 Yes 18ug Inhale 1 Uni vers (SPIRIVA 4-27 capsule ity of WITH 00:00: daily. [place] HANDIHALER) 00 Medical 18 mcg Branch inhalation budesonide- 0 Yes 2{puff} Inhale 2 Univers formoterol 4-27 Puffs 2 ity of (SYMBICORT) 00:00: (two) [place] 160-4.5 00 times Medical mcg/actuati daily. Branch on inhaler Indication s: 2 puffs tiotropium 2017-0 Yes 18ug Inhale 1 Uni vers (SPIRIVA 4-27 capsule ity of WITH 00:00: daily. [place] HANDIHALER) 00 Medical 18 mcg Branch inhalation budesonide- 2017-0 2020- No 2{puff} Inhale 2 [facility] formoterol 4-27 04-30 Puffs 2 ity o f (SYMBICORT) 00:00: 00:00 (two[place] 160-4.5 00 :00 times Medical mcg/actuati daily. Branch on inhaler Indication s: 2 puffs tiotropium 2017-0 2020- No 18ug Inhale 1 [facility] (SPIRIVA 4-27 04-30 capsule ity of WITH 00:00: 00:00 daily. [place] HANDIHALER) 00 :00 Medical 18 mcg Branch inhalation predniSONE 2015-07 Yes 10mg Take 10 mg [facility] (DELTASONE) 1-10 by mouth ity of 10 mg 19:12: daily. [place] tablet 44 Indication Medical s: as Branch needed pravastatin 2015-07 Yes 10mg Take 10 mg [facility] (PRAVACHOL) 1-10 by mouth ity of 10 mg 19:12: at [place] tablet 44 bedtime. Medical Branch primidone 2015-07 Yes 250mg Take 250 Uni vers (MYSOLINE) 1-10 mg by ity of 250 mg 19:12: mouth [place] tablet 44 every 8 Medical (eight) Branch hours. ergocalcife 2015-07 Yes [id number] Take [facility] ers rol, 1-10 50,000 ity of vitamin d2, 19:12: Units by [place] (VITAMIN 44 mouth Medical D2) 50,000 weekly. Branch unit capsule baclofen 2015-07 Yes 10mg Take 10 mg [facility] vers (LIORESAL) 1-10 by mouth 3 ity of 10 mg 19:12: (three) [place] tablet 44 times Medical daily. Branch SERTraline 2015-07 Yes 25mg Take 25 mg [facility] (ZOLOFT) 25 1-10 by mouth ity of mg tablet 19:12: daily. [address] Branch cyclobenzap 2015-07 Yes 10mg Take 10 mg [facility] rine 1-10 by mouth ity of (FLEXERIL) 19:12: daily. [place] 10 mg 44 Medical tablet Branch roflumilast 2015-07 Yes Take by [facility] (DALIRESP) 1-10 mouth ity of 500 mcg 19:12: daily. [address] Branch pregabalin 2015-07 Yes 75mg Take 75 mg [facility] (LYRICA) 75 1-10 by mouth 2 it y of mg capsule 19:12: (two) [place] 44 times Medical daily. Branch Indication s: 2caps Dexlansopra 2015-07 Yes Take by [facility] zole 1-10 mouth ity of (DEXILANT) 19:12: daily. [place] 60 mg 44 Medical capsule Branch MULTIVITAMI 2015-07 Yes Take by [facility] N ORAL 1-10 mouth ity of 19:12: daily. [address] Branch VITAMIN E, 2015-07 Yes Take by Uni vers DL,TOCOPHER 1-10 mouth ity of YL ACET, 19:12: daily. [place] (VITAMIN E, 44 Indication Me dical DL, s: 2 Branch ACETATE,) 400 unit Cap amLODIPine 2015-07 Yes 10mg Take 10 mg [facility] (NORVASC) 1-10 by mouth ity of 10 mg 19:12: daily. [address] Branch LACTOBACILL 2015-07 Yes Take by [facility] US 1-10 mouth ity of ACIDOPHILUS 19:12: daily. [place] (ACIDOPHILU 44 Medical S ORAL) Branch aspirin 81 2015-07 Yes 81mg Take 81 mg [facility] mg chewable 1-10 by mouth ity of tablet 19:12: daily. [address] Branch Cholecalcif 2015-07 Yes Take by [facility] george, 1-10 mouth ity of Vitamin D3, 19:12: daily. [place] (VITAMIN 44 Medical D3) 2,000 Branch unit capsule diazepam 2015-07 Yes 5mg Take 5 mg [facility] ers (VALIUM) 5 1-10 by mouth 2 ity of mg tablet 19:12: (two) [place] 44 times Medical daily. Branch CETIRIZINE 2015-07 Yes Take by [facility] HCL (ZYRTEC 1-10 mouth ity of ORAL) 19:12: daily. [address] predniSONE 2015-07 Yes 10mg Take 10 mg [facility] (DELTASONE) 1-10 by mouth ity of 10 mg 19:12: daily. [place] tablet 44 Indication Medical s: as Branch needed pravastatin 2015-07 Yes 10mg Take 10 mg [facility] (PRAVACHOL) 1-10 by mouth ity of 10 mg 19:12: at [place] tablet 44 bedtime. Medical Branch primidone 2015-07 Yes 250mg Take 250 [facility] vers (MYSOLINE) 1-10 mg by ity of 250 mg 19:12: mouth [place] tablet 44 every 8 Medical (eight) Branch hours. pravastatin 2015-07 Yes 10mg Take 10 mg [facility] (PRAVACHOL) 1-10 by mouth ity of 10 mg 19:12: at [place] tablet 44 bedtime. Medical Branch ergocalcife 2015-07 Yes [id number] Take [facility] ers rol, 1-10 50,000 ity of vitamin d2, 19:12: Units by [place] (VITAMIN 44 mouth Medical D2) 50,000 weekly. Branch unit capsule baclofen 2015-07 Yes 10mg Take 10 mg [facility] (LIORESAL) 1-10 by mouth 3 ity of 10 mg 19:12: (three) [place] tablet 44 times Medical daily. Branch SERTraline 2015-07 Yes 25mg Take 25 mg [facility] (ZOLOFT) 25 1-10 by mouth ity of mg tablet 19:12: daily. [place] 44 Medical Branch cyclobenzap 2015-07 Yes 10mg Take 10 mg [facility] rine 1-10 by mouth ity of (FLEXERIL) 19:12: daily. [place] 10 mg 44 Medical tablet Branch roflumilast 2015- Yes Take by [facility] (DALIRESP) 1-10 mouth ity of 500 mcg 19:12: daily. [place] tablet Medical Branch pregabalin 2015- Yes 75mg Take 75 mg [facility] (LYRICA) 75 1-10 by mouth 2 it y of mg capsule 19:12: (two) [place] [address] times Medical daily. Branch Indication s: 2caps Dexlansopra 2015- Yes Take by [facility] zole 1-10 mouth ity of (DEXILANT) 19:12: daily. [place] 60 mg 44 Medical capsule Branch MULTIVITAMI 2015-07 Yes Take by [facility] N ORAL 1-10 mouth ity of 19:12: daily. [address] VITAMIN E, 2015- Yes Take by Uni vers DL,TOCOPHER 1-10 mouth ity of YL ACET, 19:12: daily. [place] (VITAMIN E, 44 Indication Me dical DL, s: 2 Branch ACETATE,) 400 unit Cap amLODIPine 2015- Yes 10mg Take 10 mg [facility] (NORVASC) 1-10 by mouth ity of 10 mg 19:12: daily. [place] [address] Medical Branch primidone 2015-07 Yes 250mg Take 250 Uni vers (MYSOLINE) 1-10 mg by ity of 250 mg 19:12: mouth [place] tablet 44 every 8 Medical (eight) Branch hours. LACTOBACILL 2015- Yes Take by [facility] US 1-10 mouth ity of ACIDOPHILUS 19:12: daily. [place] (ACIDOPHILU 44 Medical S ORAL) Branch aspirin 81 2015- Yes 81mg Take 81 mg [facility] mg chewable 1-10 by mouth ity of tablet 19:12: daily. [address] Branch Cholecalcif 2015- Yes Take by [facility] george, 1-10 mouth ity of Vitamin D3, 19:12: daily. [place] (VITAMIN 44 Medical D3) 2,000 Branch unit capsule diazepam 2015- Yes 5mg Take 5 mg [facility] ers (VALIUM) 5 1-10 by mouth 2 ity of mg tablet 19:12: (two) [place] [address] times Medical daily. Branch CETIRIZINE 2016-1 Yes Take by [facility] vers HCL (ZYRTEC 1-10 mouth ity of ORAL) 19:12: daily. [place] [address] Medical Branch predniSONE 2015-07 Yes 10mg Take 10 mg [facility] (DELTASONE) 1-10 by mouth ity of 10 mg 19:12: daily. [place] tablet 44 Indication Medical s: as Branch needed ergocalcife 2015-07 Yes [id number] Take [facility] ers rol, 1-10 50,000 ity of vitamin d2, 19:12: Units by [place] (VITAMIN 44 mouth Medical D2) 50,000 weekly. Branch unit capsule pravastatin 2015-07 Yes 10mg Take 10 mg [facility] (PRAVACHOL) 1-10 by mouth ity of 10 mg 19:12: at [place] tablet 44 bedtime. Medical Branch baclofen 2015-07 Yes 10mg Take 10 mg [facility] vers (LIORESAL) 1-10 by mouth 3 ity of 10 mg 19:12: (three) [place] tablet 44 times Medical daily. Branch primidone 2015-07 Yes 250mg Take 250 [facility] vers (MYSOLINE) 1-10 mg by ity of 250 mg 19:12: mouth [place] tablet 44 every 8 Medical (eight) Branch hours. ergocalcife 2015-07 Yes [id number] Take [facility] ers rol, 1-10 50,000 ity of vitamin d2, 19:12: Units by [place] (VITAMIN 44 mouth Medical D2) 50,000 weekly. Branch unit capsule baclofen 2015-07 Yes 10mg Take 10 mg [facility] vers (LIORESAL) 1-10 by mouth 3 ity of 10 mg 19:12: (three) [place] tablet 44 times Medical daily. Branch SERTraline 2015-07 Yes 25mg Take 25 mg [facility] (ZOLOFT) 25 1-10 by mouth ity of mg tablet 19:12: daily. [place] [address] Medical Branch cyclobenzap 2015-07 Yes 10mg Take 10 mg [facility] rine 1-10 by mouth ity of (FLEXERIL) 19:12: daily. [place] 10 mg 44 Medical tablet Branch roflumilast 2015-07 Yes Take by [facility] (DALIRESP) 1-10 mouth ity of 500 mcg 19:12: daily. [place] [address] Medical Branch pregabalin 2015-07 Yes 75mg Take 75 mg [facility] (LYRICA) 75 1-10 by mouth 2 it y of mg capsule 19:12: (two) [place] [address] times Medical daily. Branch Indication s: 2caps Dexlansopra 2015-07 Yes Take by [facility] zole 1-10 mouth ity of (DEXILANT) 19:12: daily. [place] 60 mg 44 Medical capsule Branch MULTIVITAMI 2015-07 Yes Take by [facility] N ORAL 1-10 mouth ity of 19:12: daily. [place] [address] Medical Branch VITAMIN E, 2015-07 Yes Take by Uni vers DL,TOCOPHER 1-10 mouth ity of YL ACET, 19:12: daily. [place] (VITAMIN E, 44 Indication Me dical DL, s: 2 Branch ACETATE,) 400 unit Cap SERTraline 2015-07 Yes 25mg Take 25 mg [facility] (ZOLOFT) 25 1-10 by mouth ity of mg tablet 19:12: daily. [address] Branch amLODIPine 2015-07 Yes 10mg Take 10 mg [facility] (NORVASC) 1-10 by mouth ity of 10 mg 19:12: daily. [place] [address] Medical Branch LACTOBACILL 2015-07 Yes Take by [facility] US 1-10 mouth ity of ACIDOPHILUS 19:12: daily. [place] (ACIDOPHILU 44 Medical S ORAL) Branch aspirin 81 2015-07 Yes 81mg Take 81 mg [facility] mg chewable 1-10 by mouth ity of tablet 19:12: daily. [address] Branch Cholecalcif 2015-07 Yes Take by [facility] george, 1-10 mouth ity of Vitamin D3, 19:12: daily. [place] (VITAMIN 44 Medical D3) 2,000 Branch unit capsule diazepam 2015-07 Yes 5mg Take 5 mg [facility] ers (VALIUM) 5 1-10 by mouth 2 ity of mg tablet 19:12: (two) [place] [address] times Medical daily. Branch CETIRIZINE 2015-07 Yes Take by [facility] vers HCL (ZYRTEC 1-10 mouth ity of ORAL) 19:12: daily. [address] Branch predniSONE 2015-07 Yes 10mg Take 10 mg [facility] (DELTASONE) 1-10 by mouth ity of 10 mg 19:12: daily. [place] tablet 44 Indication Medical s: as Branch needed cyclobenzap 2015-07 Yes 10mg Take 10 mg [facility] rine 1-10 by mouth ity of (FLEXERIL) 19:12: daily. [place] 10 mg 44 Medical tablet Branch pravastatin 2015-07 Yes 10mg Take 10 mg [facility] (PRAVACHOL) 1-10 by mouth ity of 10 mg 19:12: at [place] tablet 44 bedtime. Medical Branch roflumilast 2015-07 Yes Take by [facility] (DALIRESP) 1-10 mouth ity of 500 mcg 19:12: daily. [place] tablet 44 Medical Branch primidone 2015-07 Yes 250mg Take 250 Uni vers (MYSOLINE) 1-10 mg by ity of 250 mg 19:12: mouth [place] tablet 44 every 8 Medical (eight) Branch hours. ergocalcife 2015-07 Yes [id number] Take [facility] ers rol, 1-10 50,000 ity of vitamin d2, 19:12: Units by [place] (VITAMIN 44 mouth Medical D2) 50,000 weekly. Branch unit capsule baclofen 2015-07 Yes 10mg Take 10 mg [facility] vers (LIORESAL) 1-10 by mouth 3 ity of 10 mg 19:12: (three) [place] tablet 44 times Medical daily. Branch SERTraline 2015-07 Yes 25mg Take 25 mg [facility] (ZOLOFT) 25 1-10 by mouth ity of mg tablet 19:12: daily. [address] Branch cyclobenzap 2015-07 Yes 10mg Take 10 mg [facility] rine 1-10 by mouth ity of (FLEXERIL) 19:12: daily. [place] 10 mg 44 Medical tablet Branch roflumilast 2015-07 Yes Take by [facility] (DALIRESP) 1-10 mouth ity of 500 mcg 19:12: daily. [place] tablet 44 Medical Branch pregabalin 2015-07 Yes 75mg Take 75 mg [facility] (LYRICA) 75 1-10 by mouth 2 it y of mg capsule 19:12: (two) [place] 44 times Medical daily. Branch Indication s: 2caps Dexlansopra 2015- Yes Take by [facility] zole 1-10 mouth ity of (DEXILANT) 19:12: daily. [place] 60 mg 44 Medical capsule Branch MULTIVITAMI 2015-07 Yes Take by [facility] N ORAL 1-10 mouth ity of 19:12: daily. [address] Branch VITAMIN E, 2015-07 Yes Take by Uni vers DL,TOCOPHER 1-10 mouth ity of YL ACET, 19:12: daily. [place] (VITAMIN E, 44 Indication Me dical DL, s: 2 Branch ACETATE,) 400 unit Cap pregabalin 2016- Yes 75mg Take 75 mg [facility] (LYRICA) 75 1-10 by mouth 2 it y of mg capsule 19:12: (two) [place] 44 times Medical daily. Branch Indication s: 2caps amLODIPine 2015- Yes 10mg Take 10 mg [facility] (NORVASC) 1-10 by mouth ity of 10 mg 19:12: daily. [place] tablet 44 Medical Branch LACTOBACILL 2015- Yes Take by [facility] US 1-10 mouth ity of ACIDOPHILUS 19:12: daily. [place] (ACIDOPHILU 44 Medical S ORAL) Branch aspirin 81 2015-07 Yes 81mg Take 81 mg [facility] mg chewable 1-10 by mouth ity of tablet 19:12: daily. [place] [address] Medical Branch Cholecalcif 2015-07 Yes Take by [facility] george, 1-10 mouth ity of Vitamin D3, 19:12: daily. [place] (VITAMIN 44 Medical D3) 2,000 Branch unit capsule diazepam 2015-07 Yes 5mg Take 5 mg [facility] ers (VALIUM) 5 1-10 by mouth 2 ity of mg tablet 19:12: (two) [place] [address] times Medical daily. Branch CETIRIZINE 2015-07 Yes Take by [facility] vers HCL (ZYRTEC 1-10 mouth ity of ORAL) 19:12: daily. [place] [address] Medical Branch predniSONE 2015-07 Yes 10mg Take 10 mg [facility]ivers (DELTASONE) 1-10 by mouth ity of 10 mg 19:12: daily. [place] tablet 44 Indication Medical s: as Branch needed Dexlansopra 2015-07 Yes Take by [facility] zole 1-10 mouth ity of (DEXILANT) 19:12: daily. [place] 60 mg 44 Medical capsule Branch MULTIVITAMI 2015-07 Yes Take by [facility] N ORAL 1-10 mouth ity of 19:12: daily. [place] [address] Medical Branch pravastatin 2015-07 Yes 10mg Take 10 mg [facility] (PRAVACHOL) 1-10 by mouth ity of 10 mg 19:12: at [place] [address] bedtime. Medical Branch primidone 2015-07 Yes 250mg Take 250 Uni vers (MYSOLINE) 1-10 mg by ity of 250 mg 19:12: mouth [place] tablet 44 every 8 Medical (eight) Branch hours. ergocalcife 2015-07 Yes [id number] Take Univ ers rol, 1-10 50,000 ity of vitamin d2, 19:12: Units by [place] (VITAMIN 44 mouth Medical D2) 50,000 weekly. Branch unit capsule baclofen 2015-07 Yes 10mg Take 10 mg [facility] vers (LIORESAL) 1-10 by mouth 3 ity of 10 mg 19:12: (three) [place] tablet 44 times Medical daily. Branch SERTraline 2015-07 Yes 25mg Take 25 mg [facility] (ZOLOFT) 25 1-10 by mouth ity of mg tablet 19:12: daily. [address] Branch cyclobenzap 2015-07 Yes 10mg Take 10 mg [facility] rine 1-10 by mouth ity of (FLEXERIL) 19:12: daily. [place] 10 mg 44 Medical tablet Branch roflumilast 2015-07 Yes Take by [facility] (DALIRESP) 1-10 mouth ity of 500 mcg 19:12: daily. [address] Branch pregabalin 2015-07 Yes 75mg Take 75 mg [facility] (LYRICA) 75 1-10 by mouth 2 it y of mg capsule 19:12: (two) [place] 44 times Medical daily. Branch Indication s: 2caps Dexlansopra 2015- Yes Take by [facility] zole 1-10 mouth ity of (DEXILANT) 19:12: daily. [place] 60 mg 44 Medical capsule Branch MULTIVITAMI 2015-07 Yes Take by [facility] N ORAL 1-10 mouth ity of 19:12: daily. [address] VITAMIN E, 2015-07 Yes Take by Uni vers DL,TOCOPHER 1-10 mouth ity of YL ACET, 19:12: daily. [place] (VITAMIN E, 44 Indication Me dical DL, s: 2 Branch ACETATE,) 400 unit Cap VITAMIN E, 2015-07 Yes Take by Uni vers DL,TOCOPHER 1-10 mouth ity of YL ACET, 19:12: daily. [place] (VITAMIN E, 44 Indication Me dical DL, s: 2 Branch ACETATE,) 400 unit Cap amLODIPine 2015- Yes 10mg Take 10 mg [facility] (NORVASC) 1-10 by mouth ity of 10 mg 19:12: daily. [place] tablet 44 Medical Branch LACTOBACILL 2015-07 Yes Take by Un [facility] US 1-10 mouth ity of ACIDOPHILUS 19:12: daily. [place] (ACIDOPHILU 44 Medical S ORAL) Branch aspirin 81 2015-07 Yes 81mg Take 81 mg [facility] mg chewable 1-10 by mouth ity of tablet 19:12: daily. [place] [address] Medical Branch Cholecalcif 2015-07 Yes Take by [facility] george, 1-10 mouth ity of Vitamin D3, 19:12: daily. [place] (VITAMIN 44 Medical D3) 2,000 Branch unit capsule diazepam 2015- Yes 5mg Take 5 mg [facility] ers (VALIUM) 5 1-10 by mouth 2 ity of mg tablet 19:12: (two) [place] [address] times Medical daily. Branch CETIRIZINE 2015-07 Yes Take by [facility] vers HCL (ZYRTEC 1-10 mouth ity of ORAL) 19:12: daily. [place] [address] Medical Branch predniSONE 2015-07 Yes 10mg Take 10 mg [facility] (DELTASONE) 1-10 by mouth ity of 10 mg 19:12: daily. [place] [address] Indication Medical s: as Branch needed amLODIPine 2015-07 Yes 10mg Take 10 mg [facility] (NORVASC) 1-10 by mouth ity of 10 mg 19:12: daily. [place] [address] Medical Branch LACTOBACILL 2015-07 Yes Take by Un lia US 1-10 mouth ity of ACIDOPHILUS 19:12: daily. [place] (ACIDOPHILU 44 Medical S ORAL) Branch pravastatin 2015-07 Yes 10mg Take 10 mg [facility] (PRAVACHOL) 1-10 by mouth ity of 10 mg 19:12: at [place] tablet 44 bedtime. Medical Branch primidone 2015-07 Yes 250mg Take 250 Uni vers (MYSOLINE) 1-10 mg by ity of 250 mg 19:12: mouth [place] tablet 44 every 8 Medical (eight) Branch hours. ergocalcife 2015- Yes [id number] Take Univ ers rol, 1-10 50,000 ity of vitamin d2, 19:12: Units by [place] (VITAMIN 44 mouth Medical D2) 50,000 weekly. Branch unit capsule baclofen 2015-07 Yes 10mg Take 10 mg [facility] vers (LIORESAL) 1-10 by mouth 3 ity of 10 mg 19:12: (three) [place] tablet 44 times Medical daily. Branch SERTraline 2015-07 Yes 25mg Take 25 mg [facility] (ZOLOFT) 25 1-10 by mouth ity of mg tablet 19:12: daily. [address] Branch cyclobenzap 2015-07 Yes 10mg Take 10 mg [facility] rine 1-10 by mouth ity of (FLEXERIL) 19:12: daily. [place] 10 mg 44 Medical tablet Branch roflumilast 2015-07 Yes Take by [facility] (DALIRESP) 1-10 mouth ity of 500 mcg 19:12: daily. [place] [address] Medical Branch pregabalin 2015-07 Yes 75mg Take 75 mg [facility] (LYRICA) 75 1-10 by mouth 2 it y of mg capsule 19:12: (two) [place] 44 times Medical daily. Branch Indication s: 2caps Dexlansopra 2015-07 Yes Take by [facility] zole 1-10 mouth ity of (DEXILANT) 19:12: daily. [place] 60 mg 44 Medical capsule Branch MULTIVITAMI 2015-07 Yes Take by [facility] N ORAL 1-10 mouth ity of 19:12: daily. [address] aspirin 81 2015-07 Yes 81mg Take 81 mg U nivers mg chewable 1-10 by mouth ity of tablet 19:12: daily. [address] Branch VITAMIN E, 2015-07 Yes Take by Uni vers DL,TOCOPHER 1-10 mouth ity of YL ACET, 19:12: daily. [place] (VITAMIN E, 44 Indication Me dical DL, s: 2 Branch ACETATE,) 400 unit Cap amLODIPine 2015-07 Yes 10mg Take 10 mg [facility] (NORVASC) 1-10 by mouth ity of 10 mg 19:12: daily. [address] Branch LACTOBACILL 2015-07 Yes Take by Un lia US 1-10 mouth ity of ACIDOPHILUS 19:12: daily. [place] (ACIDOPHILU 44 Medical S ORAL) Branch aspirin 81 2015-07 Yes 81mg Take 81 mg U nivers mg chewable 1-10 by mouth ity of tablet 19:12: daily. [address] Branch Cholecalcif 2015-07 Yes Take by [facility] ge[place], 1-10 mouth ity of Vitamin D3, 19:12: daily. [place] (VITAMIN 44 Medical D3) 2,000 Branch unit capsule diazepam 2015-07 Yes 5mg Take 5 mg [facility] ers (VALIUM) 5 1-10 by mouth 2 ity of mg tablet 19:12: (two) [place] 44 times Medical daily. Branch CETIRIZINE 2015-07 Yes Take by [facility] vers HCL (ZYRTEC 1-10 mouth ity of ORAL) 19:12: daily. [place] [address] Medical Branch predniSONE 2015-07 Yes 10mg Take 10 mg [facility] (DELTASONE) 1-10 by mouth ity of 10 mg 19:12: daily. [place] tablet 44 Indication Medical s: as Branch needed Cholecalcif 2015-07 Yes Take by [facility] [place], 1-10 mouth ity of Vitamin D3, 19:12: daily. [place] (VITAMIN 44 Medical D3) 2,000 Branch unit capsule diazepam 2015-07 Yes 5mg Take 5 mg [facility] ers (VALIUM) 5 1-10 by mouth 2 ity of mg tablet 19:12: (two) [place] [address] times Medical daily. Branch pravastatin 2015-07 Yes 10mg Take 10 mg [facility] (PRAVACHOL) 1-10 by mouth ity of 10 mg 19:12: at [place] tablet 44 bedtime. Medical Branch primidone 2015-07 Yes 250mg Take 250 Uni vers (MYSOLINE) 1-10 mg by ity of 250 mg 19:12: mouth [place] tablet 44 every 8 Medical (eight) Branch hours. ergocalcife 2015-07 Yes [id number] Take Univ ers rol, 1-10 50,000 ity of vitamin d2, 19:12: Units by [place] (VITAMIN 44 mouth Medical D2) 50,000 weekly. Branch unit capsule baclofen 2015-07 Yes 10mg Take 10 mg Uni vers (LIORESAL) 1-10 by mouth 3 ity of 10 mg 19:12: (three) [place] tablet 44 times Medical daily. Branch SERTraline 2015-07 Yes 25mg Take 25 mg U nivers (ZOLOFT) 25 1-10 by mouth ity of mg tablet 19:12: daily. [place] [address] Medical Branch cyclobenzap 2015-07 Yes 10mg Take 10 mg [facility] rine 1-10 by mouth ity of (FLEXERIL) 19:12: daily. [place] 10 mg 44 Medical tablet Branch roflumilast 2015-07 Yes Take by [facility] (DALIRESP) 1-10 mouth ity of 500 mcg 19:12: daily. [place] [address] Medical Branch BECLOMETHAS 2015-07 Yes Use in Uni vers ONE 1-10 each ity of DIPROPIONAT 19:12: nostril. [place] (QNASL 44 Indication Medic al NASAL) s: 2 Branch sprays each nostril daily pregabalin 2015-07 Yes 75mg Take 75 mg [facility]ivers (LYRICA) 75 1-10 by mouth 2 it y of mg capsule 19:12: (two) [place] [address] times Medical daily. Branch Indication s: 2caps Dexlansopra 2015-07 Yes Take by [facility] zole 1-10 mouth ity of (DEXILANT) 19:12: daily. [place] 60 mg 44 Medical capsule Branch MULTIVITAMI 2015-07 Yes Take by [facility] N ORAL 1-10 mouth ity of 19:12: daily. [address] VITAMIN E, 2015-07 Yes Take by Uni vers DL,TOCOPHER 1-10 mouth ity of YL ACET, 19:12: daily. [place] (VITAMIN E, 44 Indication Me dical DL, s: 2 Branch ACETATE,) 400 unit Cap amLODIPine 2015-07 Yes 10mg Take 10 mg [facility] nivers (NORVASC) 1-10 by mouth ity of 10 mg 19:12: daily. [place] [address] Medical Branch LACTOBACILL 2015-07 Yes Take by Un lia US 1-10 mouth ity of ACIDOPHILUS 19:12: daily. [place] (ACIDOPHILU 44 Medical S ORAL) Branch aspirin 81 2015-07 Yes 81mg Take 81 mg U nivers mg chewable 1-10 by mouth ity of tablet 19:12: daily. [address] Branch Cholecalcif 2015-07 Yes Take by Un lia [place], 1-10 mouth ity of Vitamin D3, 19:12: daily. [place] (VITAMIN 44 Medical D3) 2,000 Branch unit capsule diazepam 2015-07 Yes 5mg Take 5 mg [facility] ers (VALIUM) 5 1-10 by mouth 2 ity of mg tablet 19:12: (two) [place] [address] times Medical daily. Branch CETIRIZINE 2015-07 Yes Take by [facility] vers HCL (ZYRTEC 1-10 mouth ity of ORAL) 19:12: daily. [address] CETIRIZINE 2015-07 Yes Take by [facility] vers HCL (ZYRTEC 1-10 mouth ity of ORAL) 19:12: daily. [place] [address] Medical Branch predniSONE 2015-07 Yes 10mg Take 10 mg U nivers (DELTASONE) 1-10 by mouth ity of 10 mg 19:12: daily. [place] tablet 44 Indication Medical s: as Branch needed predniSONE 2015-07 Yes 10mg Take 10 mg U nivers (DELTASONE) 1-10 by mouth ity of 10 mg 19:12: daily. [place] tablet 44 Indication Medical s: as Branch needed pravastatin 2015-07 Yes 10mg Take 10 mg [facility] (PRAVACHOL) 1-10 by mouth ity of 10 mg 19:12: at [place] tablet 44 bedtime. Medical Branch primidone 2015-07 Yes 250mg Take 250 Uni vers (MYSOLINE) 1-10 mg by ity of 250 mg 19:12: mouth [place] tablet 44 every 8 Medical (eight) Branch hours. ergocalcife 2015-07 Yes [id number] Take Univ ers rol, 1-10 50,000 ity of vitamin d2, 19:12: Units by [place] (VITAMIN 44 mouth Medical D2) 50,000 weekly. Branch unit capsule baclofen 2015-07 Yes 10mg Take 10 mg Uni vers (LIORESAL) 1-10 by mouth 3 ity of 10 mg 19:12: (three) [place] tablet 44 times Medical daily. Branch SERTraline 2015-07 Yes 25mg Take 25 mg U nivers (ZOLOFT) 25 1-10 by mouth ity of mg tablet 19:12: daily. [address] Branch cyclobenzap 2015-07 Yes 10mg Take 10 mg [facility] rine 1-10 by mouth ity of (FLEXERIL) 19:12: daily. [place] 10 mg 44 Medical tablet Branch roflumilast 2015-07 Yes Take by [facility] (DALIRESP) 1-10 mouth ity of 500 mcg 19:12: daily. [place] [address] Medical Branch pregabalin 2015-07 Yes 75mg Take 75 mg U nivers (LYRICA) 75 1-10 by mouth 2 it y of mg capsule 19:12: (two) [place] 44 times Medical daily. Branch Indication s: 2caps Dexlansopra 2015-07 Yes Take by [facility] zole 1-10 mouth ity of (DEXILANT) 19:12: daily. [place] 60 mg 44 Medical capsule Branch MULTIVITAMI 2015-07 Yes Take by Un lia N ORAL 1-10 mouth ity of 19:12: daily. [place] [address] Medical Branch VITAMIN E, 2015-07 Yes Take by Uni vers DL,TOCOPHER 1-10 mouth ity of YL ACET, 19:12: daily. [place] (VITAMIN E, 44 Indication Me dical DL, s: 2 Branch ACETATE,) 400 unit Cap amLODIPine 2016- Yes 10mg Take 10 mg U nivers (NORVASC) 1-10 by mouth ity of 10 mg 19:12: daily. [place] tablet Medical Branch LACTOBACILL 2015- Yes Take by Un lia US 1-10 mouth ity of ACIDOPHILUS 19:12: daily. [place] (ACIDOPHILU 44 Medical S ORAL) Branch aspirin 81 2015-07 Yes 81mg Take 81 mg U nivers mg chewable 1-10 by mouth ity of tablet 19:12: daily. [address] Branch Cholecalcif 2015-07 Yes Take by Un lia [place], 1-10 mouth ity of Vitamin D3, 19:12: daily. [place] (VITAMIN 44 Medical D3) 2,000 Branch unit capsule diazepam 2015-07 Yes 5mg Take 5 mg Univ ers (VALIUM) 5 1-10 by mouth 2 ity of mg tablet 19:12: (two) [place] [address] times Medical daily. Branch CETIRIZINE 2015-07 Yes Take by [facility] HCL (ZYRTEC 1-10 mouth ity of ORAL) 19:12: daily. [address] Branch predniSONE 2015-07 Yes 10mg Take 10 mg U nivers (DELTASONE) 1-10 by mouth ity of 10 mg 19:12: daily. [place] tablet 44 Indication Medical s: as Branch needed pravastatin 2015-07 Yes 10mg Take 10 mg [facility] (PRAVACHOL) 1-10 by mouth ity of 10 mg 19:12: at [place] tablet 44 bedtime. Medical Branch primidone 2015-07 Yes 250mg Take 250 Uni vers (MYSOLINE) 1-10 mg by ity of 250 mg 19:12: mouth [place] tablet 44 every 8 Medical (eight) Branch hours. ergocalcife 2015-07 Yes [id number] Take Univ ers rol, 1-10 50,000 ity of vitamin d2, 19:12: Units by [place] (VITAMIN 44 mouth Medical D2) 50,000 weekly. Branch unit capsule baclofen 2015-07 Yes 10mg Take 10 mg [facility] vers (LIORESAL) 1-10 by mouth 3 ity of 10 mg 19:12: (three) [place] tablet 44 times Medical daily. Branch SERTraline 2015-07 Yes 25mg Take 25 mg U nivers (ZOLOFT) 25 1-10 by mouth ity of mg tablet 19:12: daily. [address] Branch cyclobenzap 2015-07 Yes 10mg Take 10 mg Univers rine 1-10 by mouth ity of (FLEXERIL) 19:12: daily. [place] 10 mg 44 Medical tablet Branch roflumilast 2015-07 Yes Take by Un lia (DALIRESP) 1-10 mouth ity of 500 mcg 19:12: daily. [place] tablet Medical Branch pregabalin 2015-07 Yes 75mg Take 75 mg U nivers (LYRICA) 75 1-10 by mouth 2 it y of mg capsule 19:12: (two) [place] [address] times Medical daily. Branch Indication s: 2caps Dexlansopra 2015-07 Yes Take by Un lia zole 1-10 mouth ity of (DEXILANT) 19:12: daily. [place] 60 mg 44 Medical capsule Branch MULTIVITAMI 2015-07 Yes Take by Un lia N ORAL 1-10 mouth ity of 19:12: daily. [address] VITAMIN E, 2015-07 Yes Take by Uni vers DL,TOCOPHER 1-10 mouth ity of YL ACET, 19:12: daily. [place] (VITAMIN E, 44 Indication Me dical DL, s: 2 Branch ACETATE,) 400 unit Cap amLODIPine 2015- Yes 10mg Take 10 mg U nivers (NORVASC) 1-10 by mouth ity of 10 mg 19:12: daily. [address] Branch LACTOBACILL 2015-07 Yes Take by Un lia US 1-10 mouth ity of ACIDOPHILUS 19:12: daily. [place] (ACIDOPHILU 44 Medical S ORAL) Branch aspirin 81 2015-07 Yes 81mg Take 81 mg U nivers mg chewable 1-10 by mouth ity of tablet 19:12: daily. [address] Branch Cholecalcif 2015-07 Yes Take by Un lia george, 1-10 mouth ity of Vitamin D3, 19:12: daily. [place] (VITAMIN 44 Medical D3) 2,000 Branch unit capsule diazepam 2015-07 Yes 5mg Take 5 mg Univ ers (VALIUM) 5 1-10 by mouth 2 ity of mg tablet 19:12: (two) [place] 44 times Medical daily. Branch CETIRIZINE 2015-07 Yes Take by Uni vers HCL (ZYRTEC 1-10 mouth ity of ORAL) 19:12: daily. [place] [address] Medical Branch predniSONE 2015-07 Yes 10mg Take 10 mg U nivers (DELTASONE) 1-10 by mouth ity of 10 mg 19:12: daily. [place] tablet 44 Indication Medical s: as Branch needed pravastatin 2015-07 Yes 10mg Take 10 mg Univers (PRAVACHOL) 1-10 by mouth ity of 10 mg 19:12: at [place] tablet 44 bedtime. Medical Branch primidone 2015-07 Yes 250mg Take 250 Uni vers (MYSOLINE) 1-10 mg by ity of 250 mg 19:12: mouth [place] tablet 44 every 8 Medical (eight) Branch hours. ergocalcife 2015-07 Yes [id number] Take Univ ers rol, 1-10 50,000 ity of vitamin d2, 19:12: Units by [place] (VITAMIN 44 mouth Medical D2) 50,000 weekly. Branch unit capsule baclofen 2015-07 Yes 10mg Take 10 mg Uni vers (LIORESAL) 1-10 by mouth 3 ity of 10 mg 19:12: (three) [place] tablet 44 times Medical daily. Branch SERTraline 2015-07 Yes 25mg Take 25 mg U nivers (ZOLOFT) 25 1-10 by mouth ity of mg tablet 19:12: daily. [place] [address] Medical Branch cyclobenzap 2015-07 Yes 10mg Take 10 mg Univers rine 1-10 by mouth ity of (FLEXERIL) 19:12: daily. [place] 10 mg 44 Medical tablet Branch roflumilast 2015-07 Yes Take by Un lia (DALIRESP) 1-10 mouth ity of 500 mcg 19:12: daily. [place] [address] Medical Branch pregabalin 2015-07 Yes 75mg Take 75 mg U nivers (LYRICA) 75 1-10 by mouth 2 it y of mg capsule 19:12: (two) [place] 44 times Medical daily. Branch Indication s: 2caps Dexlansopra 2015-07 Yes Take by Un lia zole 1-10 mouth ity of (DEXILANT) 19:12: daily. [place] 60 mg 44 Medical capsule Branch MULTIVITAMI 2015-07 Yes Take by Un lia N ORAL 1-10 mouth ity of 19:12: daily. [place] [address] Medical Branch VITAMIN E, 2015-07 Yes Take by Uni vers DL,TOCOPHER 1-10 mouth ity of YL ACET, 19:12: daily. [place] (VITAMIN E, 44 Indication Me dical DL, s: 2 Branch ACETATE,) 400 unit Cap amLODIPine 2016- Yes 10mg Take 10 mg U nivers (NORVASC) 1-10 by mouth ity of 10 mg 19:12: daily. [place] tablet Medical Branch LACTOBACILL 2015- Yes Take by Un lia US 1-10 mouth ity of ACIDOPHILUS 19:12: daily. [place] (ACIDOPHILU 44 Medical S ORAL) Branch aspirin 81 2015-07 Yes 81mg Take 81 mg U nivers mg chewable 1-10 by mouth ity of tablet 19:12: daily. [address] Branch Cholecalcif 2015-07 Yes Take by Un lia george, 1-10 mouth ity of Vitamin D3, 19:12: daily. [place] (VITAMIN 44 Medical D3) 2,000 Branch unit capsule diazepam 2015-07 Yes 5mg Take 5 mg Univ ers (VALIUM) 5 1-10 by mouth 2 ity of mg tablet 19:12: (two) [place] [address] times Medical daily. Branch CETIRIZINE 2015-07 Yes Take by Uni vers HCL (ZYRTEC 1-10 mouth ity of ORAL) 19:12: daily. [address] Branch predniSONE 2015-07 Yes 10mg Take 10 mg U nivers (DELTASONE) 1-10 by mouth ity of 10 mg 19:12: daily. [place] tablet 44 Indication Medical s: as Branch needed pravastatin 2015- Yes 10mg Take 10 mg Univers (PRAVACHOL) 1-10 by mouth ity of 10 mg 19:12: at [place] tablet 44 bedtime. Medical Branch primidone 2015-07 Yes 250mg Take 250 Uni vers (MYSOLINE) 1-10 mg by ity of 250 mg 19:12: mouth [place] tablet 44 every 8 Medical (eight) Branch hours. ergocalcife 2015-07 Yes [id number] Take Univ ers rol, 1-10 50,000 ity of vitamin d2, 19:12: Units [place] (VITAMIN 44 mouth Medical D2) 50,000 weekly. Branch unit capsule baclofen 2015-07 Yes 10mg Take 10 mg Uni vers (LIORESAL) 1-10 by mouth 3 ity of 10 mg 19:12: (three) [place] tablet 44 times Medical daily. Branch SERTraline 2015-07 Yes 25mg Take 25 mg U nivers (ZOLOFT) 25 1-10 by mouth ity of mg tablet 19:12: daily. [address] Branch cyclobenzap 2015-07 Yes 10mg Take 10 mg Univers rine 1-10 by mouth ity of (FLEXERIL) 19:12: daily. [place] 10 mg 44 Medical tablet Branch roflumilast 2015-07 Yes Take by Un lia (DALIRESP) 1-10 mouth ity of 500 mcg 19:12: daily. [place] tablet Medical Branch pregabalin 2015-07 Yes 75mg Take 75 mg U nivers (LYRICA) 75 1-10 by mouth 2 it y of mg capsule 19:12: (two) [place] [address] times Medical daily. Branch Indication s: 2caps Dexlansopra 2015-07 Yes Take by Un lia zole 1-10 mouth ity of (DEXILANT) 19:12: daily. [place] 60 mg 44 Medical capsule Branch MULTIVITAMI 2015-07 Yes Take by Un lia N ORAL 1-10 mouth ity of 19:12: daily. [address] VITAMIN E, 2015-07 Yes Take by Uni vers DL,TOCOPHER 1-10 mouth ity of YL ACET, 19:12: daily. [place] (VITAMIN E, 44 Indication Me dical DL, s: 2 Branch ACETATE,) 400 unit Cap amLODIPine 2015-07 Yes 10mg Take 10 mg U nivers (NORVASC) 1-10 by mouth ity of 10 mg 19:12: daily. [address] Branch LACTOBACILL 2015-07 Yes Take by Un lia US 1-10 mouth ity of ACIDOPHILUS 19:12: [facility]. [facility] Medical S ORAL) Branch aspirin 81 2015-07 Yes 81mg Take 81 mg U nivers mg chewable 1-10 by mouth ity of tablet 19:12: daily. [address] Cholecalcif 2015-07 Yes Take by Un lia george, 1-10 mouth ity of Vitamin D3, 19:12: daily. [place] (VITAMIN 44 Medical D3) 2,000 Branch unit capsule diazepam 2015-07 Yes 5mg Take 5 mg Univ ers (VALIUM) 5 1-10 by mouth 2 ity of mg tablet 19:12: (two) [place] 44 times Medical daily. Branch BECLOMETHAS 2015-07 Yes Use in Uni vers ONE 1-10 each ity of DIPROPIONAT 19:12: nostril. [place] (QNASL 44 Indication Medic al NASAL) s: 2 Branch sprays each nostril daily CETIRIZINE 2015-07 Yes Take by Uni vers HCL (ZYRTEC 1-10 mouth ity of ORAL) 19:12: daily. [place] [address] Medical Branch predniSONE 2015-07 Yes 10mg Take 10 mg U nivers (DELTASONE) 1-10 by mouth ity of 10 mg 19:12: daily. [place] tablet 44 Indication Medical s: as Branch needed pravastatin 2015-07 Yes 10mg Take 10 mg Univers (PRAVACHOL) 1-10 by mouth ity of 10 mg 19:12: at [place] tablet 44 bedtime. Medical Branch primidone 2015-07 Yes 250mg Take 250 Uni vers (MYSOLINE) 1-10 mg by ity of 250 mg 19:12: mouth [place] tablet 44 every 8 Medical (eight) Branch hours. ergocalcife 2015-07 Yes [id number] Take Univ ers rol, 1-10 50,000 ity of vitamin d2, 19:12: Units by [place] (VITAMIN 44 mouth Medical D2) 50,000 weekly. Branch unit capsule baclofen 2015-07 Yes 10mg Take 10 mg Uni vers (LIORESAL) 1-10 by mouth 3 ity of 10 mg 19:12: (three) [place] tablet 44 times Medical daily. Branch SERTraline 2015-07 Yes 25mg Take 25 mg U nivers (ZOLOFT) 25 1-10 by mouth ity of mg tablet 19:12: daily. [place] [address] Medical Branch cyclobenzap 2015-07 Yes 10mg Take 10 mg Univers rine 1-10 by mouth ity of (FLEXERIL) 19:12: daily. [place] 10 mg 44 Medical tablet Branch roflumilast 2015-07 Yes Take by Un lia (DALIRESP) 1-10 mouth ity of 500 mcg 19:12: daily. [place] tablet 44 Medical Branch pregabalin 2015-07 Yes 75mg Take 75 mg U nivers (LYRICA) 75 1-10 by mouth 2 it y of mg capsule 19:12: (two) [place] [address] times Medical daily. Branch Indication s: 2caps Dexlansopra 2015-07 Yes Take by Un lia zole 1-10 mouth ity of (DEXILANT) 19:12: daily. [place] 60 mg 44 Medical capsule Branch MULTIVITAMI 2015-07 Yes Take by Un lia N ORAL 1-10 mouth ity of 19:12: daily. [address] Branch VITAMIN E, 2015-07 Yes Take by Uni vers DL,TOCOPHER 1-10 mouth ity of YL ACET, 19:12: daily. [place] (VITAMIN E, 44 Indication Me dical DL, s: 2 Branch ACETATE,) 400 unit Cap amLODIPine 2015- Yes 10mg Take 10 mg U nivers (NORVASC) 1-10 by mouth ity of 10 mg 19:12: daily. [place] [address] Medical Branch LACTOBACILL 2015-07 Yes Take by Un lia US 1-10 mouth ity of ACIDOPHILUS 19:12: daily. [place] (ACIDOPHILU 44 Medical S ORAL) Branch aspirin 81 2015-07 Yes 81mg Take 81 mg U nivers mg chewable 1-10 by mouth ity of tablet 19:12: daily. [address] Branch Cholecalcif 2015-07 Yes Take by Un lia george, 1-10 mouth ity of Vitamin D3, 19:12: daily. [place] (VITAMIN 44 Medical D3) 2,000 Branch unit capsule diazepam 2015-07 Yes 5mg Take 5 mg Univ ers (VALIUM) 5 1-10 by mouth 2 ity of mg tablet 19:12: (two) [place] [address] times Medical daily. Branch BECLOMETHAS 2015-07 Yes Use in Uni vers ONE 1-10 each ity of DIPROPIONAT 19:12: nostril. [place] E (QNASL 44 Indication Medic al NASAL) s: 2 Branch sprays each nostril daily CETIRIZINE 2015-07 Yes Take by Uni vers HCL (ZYRTEC 1-10 mouth ity of ORAL) 19:12: daily. [address] pravastatin 2015-07 Yes 10mg Take 10 mg Univers (PRAVACHOL) 1-10 by mouth ity of 10 mg 13:12: at [place] tablet 44 bedtime. Medical Branch primidone 2015-07 Yes 250mg Take 250 Uni vers (MYSOLINE) 1-10 mg by ity of 250 mg 13:12: mouth [place] tablet 44 every 8 Medical (eight) Branch hours. ergocalcife 2015-07 Yes [id number] Take Univ ers rol, 1-10 50,000 ity of vitamin d2, 13:12: Units by [place] (VITAMIN 44 mouth Medical D2) 50,000 weekly. Branch unit capsule baclofen 2015-07 Yes 10mg Take 10 mg Uni vers (LIORESAL) 1-10 by mouth 3 ity of 10 mg 13:12: (three) [place] tablet 44 times Medical daily. Branch SERTraline 2015-07 Yes 25mg Take 25 mg U nivers (ZOLOFT) 25 1-10 by mouth ity of mg tablet 13:12: daily. [address] Branch cyclobenzap 2015-07 Yes 10mg Take 10 mg Univers rine 1-10 by mouth ity of (FLEXERIL) 13:12: daily. [place] 10 mg 44 Medical tablet Branch roflumilast 2015-07 Yes Take by Un lia (DALIRESP) 1-10 mouth ity of 500 mcg 13:12: daily. [place] [address] Medical Branch pregabalin 2015-07 Yes 75mg Take 75 mg U nivers (LYRICA) 75 1-10 by mouth 2 it y of mg capsule 13:12: (two) [place] 44 times Medical daily. Branch Indication s: 2caps Dexlansopra 2015-07 Yes Take by Un lia zole 1-10 mouth ity of (DEXILANT) 13:12: daily. [place] 60 mg 44 Medical capsule Branch MULTIVITAMI 2015-07 Yes Take by Un lia N ORAL 1-10 mouth ity of 13:12: daily. [address] Branch VITAMIN E, 2015-07 Yes Take by Uni vers DL,TOCOPHER 1-10 mouth ity of YL ACET, 13:12: daily. [place] (VITAMIN E, 44 Indication Me dical DL, s: 2 Branch ACETATE,) 400 unit Cap amLODIPine 2015-07 Yes 10mg Take 10 mg U nivers (NORVASC) 1-10 by mouth ity of 10 mg 13:12: daily. [address] Branch LACTOBACILL 2015-07 Yes Take by Un lia US 1-10 mouth ity of ACIDOPHILUS 13:12: daily. [facility] Medical S ORAL) Branch aspirin 81 2015-07 Yes 81mg Take 81 mg U nivers mg chewable 1-10 by mouth ity of tablet 13:12: daily. [place] [address] Medical Branch Cholecalcif 2015-07 Yes Take by Un lia george, 1-10 mouth ity of Vitamin D3, 13:12: daily. [facility] ([facility] Medical D3) 2,000 Branch unit capsule diazepam 2015-07 Yes 5mg Take 5 mg Univ ers (VALIUM) 5 1-10 by mouth 2 ity of mg tablet 13:12: (two) [place] [address] times Medical daily. Branch CETIRIZINE 2015-07 Yes Take by Uni vers HCL (ZYRTEC 1-10 mouth ity of ORAL) 13:12: daily. [place] [address] Medical Branch predniSONE 2015-07 Yes 10mg Take 10 mg U nivers (DELTASONE) 1-10 by mouth ity of 10 mg 13:12: daily. [place] [address] Indication Medical s: as Branch needed Immunizations Ordered Filled Immunization Date Status Comments [facility] Immunization Name Name Influenza High Dose 2017-07-03 Completed Unive rsity of 00:00:00 [facility] Influenza High Dose 2017-07-03 Completed Unive rsity of 00:00:00 [facility] Influenza High Dose 2017-07-03 Completed Unive rsity of 00:00:00 [facility] Influenza High Dose 2017-07-03 Completed Unive rsity of 00:00:00 [facility] Influenza High Dose 2017-07-03 Completed Unive rsity of 00:00:00 [facility] Influenza High Dose 2017-07-03 Completed Unive rsity of 00:00:00 [facility] Influenza High Dose 2017-07-03 Completed Unive rsity of 00:00:00 [facility] Influenza High Dose 2017-07-03 Completed Unive rsity of 00:00:00 [facility] Influenza High Dose 2017-07-03 Completed Unive rsity of 00:00:00 [facility] Influenza High Dose 2017-07-03 Completed Unive rsity of 00:00:00 [facility] Influenza High Dose 2017-07-03 Completed Unive rsity of 00:00:00 [facility] Influenza High Dose 2017-07-03 Completed Unive rsity of 00:00:00 [facility] Influenza High Dose 2017-07-03 Completed Unive rsity of 00:00:00 [facility] Influenza High Dose 2017-07-03 Completed Unive rsity of 00:00:00 [facility] Tdap 2015-04-29 Completed University of 00:00:00 [facility] Tdap 2015-04-29 Completed University of 00:00:00 [facility] Tdap 2015-04-29 Completed University of 00:00:00 [facility] Tdap 2015-04-29 Completed University of 00:00:00 [facility] Tdap 2015-04-29 Completed University of 00:00:00 [facility] Tdap 2015-04-29 Completed University of 00:00:00 [facility] Tdap 2015-04-29 Completed University of 00:00:00 [facility] TDAP 2015-04-29 Completed University of 00:00:00 [facility] TDAP 2015-04-29 Completed University of 00:00:00 [facility] Tdap 2015-04-29 Completed University of 00:00:00 [facility] TDAP 2015-04-29 Completed University of 00:00:00 [facility] TDAP 2015-04-29 Completed University of 00:00:00 [facility] TDAP 2015-04-29 Completed University of 00:00:00 [facility] Tdap 2015-04-29 Completed University of 00:00:00 [facility] Pneumococcal 2015-04-19 Completed University o f Polysaccharide, 00:00:00 [place] Med ical PPSV23 (PNEUMOVAX) Branch Pneumococcal 2015-04-19 Completed University o f Polysaccharide, 00:00:00 [place] Med ical PPSV23 (PNEUMOVAX) Branch Pneumococcal 2015-04-19 Completed University o f Polysaccharide, 00:00:00 [place] Med ical PPSV23 (PNEUMOVAX) Branch Pneumococcal 2015-04-19 Completed University o f Polysaccharide, 00:00:00 [place] Med ical PPSV23 (PNEUMOVAX) Branch Pneumococcal 2015-04-19 Completed University o f Polysaccharide, 00:00:00 [place] Med ical PPSV23 (PNEUMOVAX) Branch Pneumococcal 2015-04-19 Completed University o f Polysaccharide, 00:00:00 [place] Med ical PPSV23 (PNEUMOVAX) Branch Pneumococcal 2015-04-19 Completed University o f Polysaccharide, 00:00:00 [place] Med ical PPSV23 (PNEUMOVAX) Branch Pneumococcal 2015-04-19 Completed University o f Polysaccharide, 00:00:00 [place] Med ical PPSV23 (PNEUMOVAX) Branch Pneumococcal 2015-04-19 Completed University o f Polysaccharide, 00:00:00 [place] Med ical PPSV23 (PNEUMOVAX) Branch Pneumococcal 2015-04-19 Completed University o f Polysaccharide, 00:00:00 [place] Med ical PPSV23 (PNEUMOVAX) Branch Pneumococcal 2015-04-19 Completed University o f Polysaccharide, 00:00:00 [place] Med ical PPSV23 (PNEUMOVAX) Branch Pneumococcal 2015-04-19 Completed University o f Polysaccharide, 00:00:00 [place] Med ical PPSV23 (PNEUMOVAX) Branch Pneumococcal 2015-04-19 Completed University o f Polysaccharide, 00:00:00 [place] Med ical PPSV23 (PNEUMOVAX) Branch Pneumococcal 2015-04-19 Completed University o f Polysaccharide, 00:00:00 [place] Med ical PPSV23 (PNEUMOVAX) Branch Vital Signs Vital Name Observation Time Observation Value Comments Source Systolic blood 2019-08-14 20:58:00 116 mm[facility]Hg[facility] 2019-08-14 20:58:00 70 mm[Hg] Unive [facility] Heart rate 2019-08-14 20:58:00 82 /min [facility] Respiratory rate 2019-08-14 20:58:00 19 /min [facility] Body weight 2019-08-14 20:58:00 64.411 kg [facility] BMI 2019-08-14 20:58:00 25.97 kg/m2 [facility] Oxygen saturation in 2019-08-14 20:58:00 89 /min [facility] Arterial blood by [facility] Pulse oximetry Branch Systolic blood 2019-08-14 20:58:00 116 mm[Hg] [facility] Diastolic blood 2019-08-14 20:58:00 70 [facility]Hg[facility] 2019-08-14 20:58:00 82 /min [facility] Respiratory rate 2019-08-14 20:58:00 19 /min [facility] Body weight 2019-08-14 20:58:00 [facility] BMI 2019-08-14 20:58:00 25.97 kg/m2 [facility] Oxygen saturation in 2019-08-14 20:58:00 89 /min [facility] Arterial blood by [facility] Pulse oximetry Branch Procedures Procedure Date / Time Performing Clinician Source Performed DME/SUPPLY JUSTIFICATION 2021-04-28 05:01:00 Doctor Unassigned, No [facility] DME/SUPPLY JUSTIFICATION 2020-06-03 06:01:00 Doctor Unassigned, No [facility] MEDICAL 2019-11-25 05:01:00 Doctor Unassigned, No [facility] RELEASE/CLEARANCE FORMS [facility] Encounters Start End Encounter Admission Attending Care Care Encounter Source Date/Time Date/Time Type Type Clinicians Facility Department ID 2021-04-28 2021-04-28 Orders Doctor DUNBAR [id number] [id number] Univers 00:00:00 00:00:00 Only UnassignedDELFIN [id number] ity [facility] [id number] Natan as [id number] [place] [address] Branch 2020-07-02 2020-07-02 Outpatient R BENJIE ALVARADO [facility] 10 [id number] Univers 15:40:00 15:40:00 BENJIE ALVARADO i ty of [facility] 2020-07-02 2020-07-02 Outpatient R BENJIE ALVARADO [facility] [id number] Univers 11:00:00 11:00:00 BENJIE ALVARADO [id number] i ty of [facility] 2020-07-02 2020-07-02 Outpatient R BENJIE ALVARADO [facility] 10 [id number] Univers 11:00:00 11:00:00 BENJIE ALVARADO i ty of [facility] 2020-07-02 2020-07-02 Telemedici Christiano FLJARRED 1.2.840.114 [id number] 08:53:25 09:08:25 ne Visit Benjie Ross [id number] [place] [id number] Professio [phone] [address] 2020-07-02 2020-07-02 Telemedici Christiano [facility] 1.2.840.114 [id number] Univers 08:53:25 09:08:25 ne Visit Juliannenoemi Ross [id number] ity [id number] Profess[place] [phone] Tn dic[address] 2020-06-03 2020-06-03 Telephone Christiano [facility] [id number] 00:00:00 00:00:00 Ashleecat Ross [id number] [place] [id number] Professio [phone] [address] 2020-06-03 2020-06-03 Orders Doctor MANJINDER 1.2.840.114 [id number] 00:00:00 00:00:00 Only Unassigned, [place] [id number] [place] [facility] [id number] [id number] [facility] 2020-06-03 2020-06-03 Telephone Christiano [facility] [id number] Univers 00:00:00 00:00:00 Benjie Ross [id number] i ty [id number] [phone] Tn dic[address] 2020-06-03 2020-06-03 Orders Doctor MANJINDER 1.2.840.114 [id number] Univers 00:00:00 00:00:00 Only Unassigned, DELFIN [id number] ity of [place] [facility] [id number] Natan as [phone] [address] 2020-05-14 2020-05-14 Outpatient R BENJIE ALVARADO [facility] [id number] Univers 15:40:00 15:40:00 BENJIE ALVARADO i ty of [facility] 2020-05-14 2020-05-14 Outpatient R BENJIE ALVARADO [facility] 10 [id number] Univers 15:40:00 15:40:00 BENJIE ALVARADO i ty of [facility] 2020-05-14 2020-05-14 [facility] 1.2.840.114 [id number] 11:24:18 11:44:18 ne Visit Benjie Ross [id number] [place] [id number] Professio [phone] [address] 2020-05-14 2020-05-14 [facility]medici [facility] [id number] Univers 11:24:18 11:44:18 ne Visit Benjie Ross [id number] [place]y [id number] [phone] Tn dical [address] 2020-05-13 2020-05-13 Outpatient R BENJIE ALVARADO [facility] 10 [id number] Univers 14:40:00 14:40:00 BENJIE ALVARADO i ty of [facility] 2020-05-13 2020-05-13 Outpatient R BENJIE ALVARADO [facility] [id number] Univers 14:40:00 14:40:00 BENJIE ALVARADO [id number] i ty of [facility] 2020-05-07 2020-05-07 Outpatient R BENJIE ALVARADO [facility] [id number] Univers 14:20:00 14:20:00 BENJIE ALVARADO [id number] i ty of [facility] 2020-05-07 2020-05-07 Outpatient R BENJIE ALVARADO [facility] 10 [id number] Univers 14:20:00 14:20:00 BENJIE ALVARADO i ty of [facility] 2020-04-09 2020-04-09 Outpatient R BENJIE ALVARADO [facility] [id number] Univers 14:20:00 14:20:00 BENJIE ALVARADO [id number] i ty of [facility] 2020-04-09 2020-04-09 Outpatient R BENJIE ALVARADO [facility] 10 [id number] Univers 14:20:00 14:20:00 BENJIE ALVARADO i ty of [facility] 2020-03-05 2020-03-05 Outpatient R BENJIE ALVARADO [facility] [id number] Univers 12:40:00 12:40:00 BENJIE ALVARADO [id number] i ty of [facility] 2020-03-05 2020-03-05 Outpatient R BENJIE ALVARADO [facility] 10 [id number] Univers 12:40:00 12:40:00 BENJIE ALVARADO i ty of [facility] 2020-02-26 2020-02-26 Outpatient R BENJIE ALVARADO [facility] [id number] Univers 14:40:00 14:40:00 BENJIE ALVARADO [id number] i ty of [facility] 2020-02-26 2020-02-26 Outpatient R BENJIE ALVARADO [facility] 10 [id number] Univers 14:40:00 14:40:00 BENJIE ALVARADO i ty of [facility] 2020-02-19 2020-02-19 Outpatient R BENJIE ALVARADO [facility] [id number] Univers 10:20:00 10:20:00 BENJIE ALVARADO i ty of [facility] 2020-02-19 2020-02-19 Outpatient R BENJIE ALVARADO [facility] 10 [id number] Univers 10:20:00 10:20:00 BENJIE ALVARADO i ty of [facility] 2019-12-01 2019-12-01 Telephone [facility] [id number] Univers 00:00:00 00:00:00 Benjie Ross [id number] i ty [id number] [phone] Tn dic[address] 2019-12-01 2019-12-01 Telephone [facility] [id number] 00:00:00 00:00:00 Benjie Ross [id number] [place] [id number] Professio [phone] [address] 2019-11-28 2019-11-28 Letter Christiano [facility] [id number] Univers 00:00:00 00:00:00 (Out) Benjie Ross [id number] i [id number] [phone] [address] 2019-11-28 2019-11-28 Letter [facility] [id number] 00:00:00 00:00:00 (Out) Shiwan Hatch [id number] [place] [id number] Professio [phone] [address] 2019-11-26 2019-11-26 Telephone [facility] [id number] 00:00:00 00:00:00 Shiwan Hatch [id number] [place] [id number] Professio [phone] [address] 2019-11-26 2019-11-26 Telephone [facility] [id number] Univers 00:00:00 00:00:00 Shiwan Hatch 350.1.13.10 [place] [phone] [address] 2019-11-25 2019-11-25 Orders Doctor MANJINDER [id number] 00:00:00 00:00:00 Only Unassigned, DELFIN 350.1.13.10 [facility] 4.2.7.2.686 [id number] [facility] 2019-11-25 2019-11-25 Orders Doctor MANJINDER [id number] [facility] 00:00:00 00:00:00 Only Unassigned, DELFIN 350.1.13.10 ity of [facility] 4.2.7.2.686 Natan as [phone] [address] 2019-11-16 2019-11-16 Telephone [facility] [id number] [facility] 00:00:00 00:00:00 Shiwan Hatch 350.1.13.10 [place] [phone] [address] 2019-11-16 2019-11-16 Telephone [facility] [id number] 00:00:00 00:00:00 Shiwan Hatch 350.1.13.10 [place] 4.2.7.2.686 Professio [phone] [address] 2019-11-13 2019-11-13 Outpatient R CHRISTIANO BENJIE [facility] [id number] Univers 13:00:00 13:00:00 BENJIE ALVARADO [id number] i ty of [facility] 2019-11-13 2019-11-13 Outpatient R CHRISTIANO BENJIE [facility] 10 [id number] Univers 13:00:00 13:00:00 BENJIE ALVARADO i ty of [facility] 2019-11-13 2019-11-13 Telemedici [facility] [id number] [facility] 08:26:11 08:46:11 ne Visit Benjie Oconnorton 350.1.13.10 [place] [phone] [address] 2019-11-13 2019-11-13 Telemedici [facility] [id number] 08:26:11 08:46:11 ne Visit Benjie Oconnorton 350.1.13.10 [place] 4.2.7.2.686 Professio [phone] [address] 2019-10-27 2019-10-27 Telephone [facility] [id number] [facility] 00:00:00 00:00:00 Shiwan Hatch 350.1.13.10 [place] [phone] [address] 2019-10-27 2019-10-27 Telephone [facility] [id number] 00:00:00 00:00:00 Shiwan Hatch 350.1.13.10 [place] 4.2.7.2.686 Professio [phone] [address] 2019-08-14 2019-08-14 [facility] 1.2.840.114 [id number] Univers 14:22:50 14:42:50 Visit Benjie Oconnorton 350.1.13.10 i ty of [place] 4.2.7.2.686 Stella giles Professio [phone] Tn dical nal 085 [facility] 2019-08-14 2019-08-14 Office EMETERIO Alvarado [id number] 14:22:50 14:42:50 Visit Benjie Ross 350.1.13.10 [place] 4.2.7.2.686 Professio [phone] [facility]5 [facility] Results Test Description Test Time Test Comments Results Result [facility] e Comments MRI ABDOMEN WO/W 2021-03-22 14:53:30 [facility] HANK MALIK : 1950 Sex: F CLINI SEAN INDICATION: K50.818, Crohn's disease of both small and large intestine with other complication. MODALITY: [email or web address] 3T MRITECHNIQUE: Parallel imaging is accomplished using T2, diffusion, in-phase, wxp-us-cwexi, and breath-holding sequences. IV contrast, Dotarem is administered. Dynamic post-contrast fat saturation breath-hold imaging is then performed. Oral Valium, 5 mg was also administered for sedation.IMPRESSION:1. Limited examination due to patient respiratory motion.2. No evidence of wall thickening, inflammatory change, or abnormal enhancement within the visualized small or large bowel.3. Moderate sigmoid and descending colonic diverticulosis.4. Mild dilatation of the pancreatic duct within the pancreatic neck and body, nonspecific. This can be compared with prior imaging for stability. 5. Mild dilatation of the extrahepatic common bile duct, likely related to prior cholecystectomy.FINDIN GS:COMPARISON: None.Examination is limited secondary to patient respiratory motion, specifically on the postcontrast images.Lung bases are clear. No pleural fluid is seen.The liver appears homogeneous. No discrete hepatic mass is visualized. The gallbladder is not visualized, surgically absent. There is mild dilatation of the common bile duct measuring 9 mm. Distal duct tapers smoothly without evidence of choledocholithiasis. TSpleen is normal in size and contour. The stomach appears unremarkable.There is no evidence of discrete pancreatic mass or peripancreatic edema. here is mild diffuse prominence of the pancreatic duct within the neck and body, measuring 5 mm. Pancreatic duct within the tail and head is normal in caliber. Adrenal glands and kidneys are morphologically normal. No cystic or solid mass lesions. No hydronephrosis. No pathological retrocrural nor retroperitoneal lymph nodes are seen. No retroperitoneal mass is present. No vascular abnormalities are noted.Abdominal wall is intact. No evidence of ascites.No evidence of small or large bowel mass, mural thickening or pericolic edema. Specifically, the terminal ileum is normal in caliber without evidence of significant wall thickening or mural enhancement. Moderate sigmoid and descending colonic diverticulosis is present.Visualized bladder is within normal limits. Uterus is surgically absent. Right ovary measures 1.7 X 1.2 cm. Left ovary measures 2.0 X 1.5 cm.There is no evidence of pathological pelvic lymphadenopathy. No significant pelvic ascites is present.No destructive osseous lesion is present.
[2021-06-02 14:32] LABS: Absolute Lymphocytes (CBC) 0.4 K/uL (0.7-4.9); Basophils % 0.4 % (0-1.3); Hematocrit 34.1 % (36.0-45.0); Lymphocytes % 3.5 % (15.3-44.8); RBC Red Blood Cell Count 3.55 M/uL (3.86-4.86)
--- NOTE | 2021-06-02 14:51 | RAD REPORT ---
EXAM DESCRIPTION: US - UPPER EXTREMITY VENOUS UNILATE - 06/02/2021 2:39 pm CLINICAL HISTORY: Swelling;Pain COMPARISON: Extremity Venous Uni Ltd dated 04/20/2018 FINDINGS: The right IJ, subclavian, cephalic, axillary, brachial, and basilic veins are all compress ible. Normal flow is present. No filling defects. IMPRESSION: Negative for right upper extremity venous thrombosis.
[2021-06-02 14:57] LABS: Potassium 3.1 mmol/L (3.5-5.1)
[2021-06-02] MEDS ORDERED: HYDROMORPHONE HCL 2 MG/ML inj ONE (16:08)
[2021-06-02] MEDS ORDERED: ONDANSETRON 4 MG/2 ML VIAL ONE (16:08)
[2021-06-02] MEDS ORDERED: POTASSIUM CL SA 10 MEQ TAB PO ONE (16:09)
[2021-06-02] MEDS ORDERED: levoFLOXacin 500 MG TAB ONE (16:09)
--- NOTE | 2021-06-02 16:52 | EDPHYS ---
Physician Documentation [facility] Name: Angella Jackson Age: 71 yrs Sex: Female : 1950 Arrival Date: 06/02/2021 Time: 12:49 Bed 8 Private MD: ED Physician Arnel Sage HPI: 06/02 17:40 This 71 yrs old Female presents to ER via Wheelchair with complaints of arm kdr swelling. 17:40 The patient or guardian complains of decreased range of motion, pain, that is acute, kdr swelling. The complaints affect the dorsal aspect of right forearm, right wrist, right hand, right elbow and palmar aspect of right forearm. Context: The problem was sustained at home, resulted from unknown cause, Possible wound on her right elbow, patient states that she has really bad psoriasis and that sometimes when she either picks at the psoriatic lesions or accidentally bumps her elbow she may open up a wound on her elbow. Apparently this may have happened in some combination recently resulting in the lateral cellulitic right forearm. Onset: The symptoms/episode began/occurred gradually, 4 day(s) ago. Treatment prior to arrival includes: no previous treatment. Modifying factors: The symptoms are alleviated by nothing. the symptoms are aggravated by nothing. Associated signs and symptoms: The patient has no apparent associated signs or symptoms. Severity of symptoms: At their worst the symptoms were mild, in the emergency department the symptoms. The patient has not experienced similar symptoms in the past. Routine care from her physicians and provider. Patient states that she has had pain and swelling and redness to her right arm for the last 4 days. She has a wound on her elbow which she had been aggravating both Percocet accidentally for the past few days which apparently has been the nidus for the infection down her forearm. She stated that last night when she slept with a pillow under her arm and on her chest, the swelling was completely resolved. However during the latter portion of the night, she rolled off of the pillow and now has swelling which is painful to the right forearm. Historical: - Allergies: 12:52 Bees; iw 12:52 Codeine; iw 12:52 HYDROCODONE; iw 12:52 PENICILLINS; iw 12:52 Wasps; iw 12:52 Bactrim; iw 12:52 Flagyl; iw - Home Meds: 12:54 albuterol sulfate 2.5 mg /3 mL (0.083 %) Nebulizer nebu [Active]; aspirin 81 mg Oral iw chew 1 tab once daily [Active]; baclofen 10 mg Oral tab 1 tab 3 times per day [Active]; beclomethasone diprop (AQ) 0.084 % nasal spry twice a day [Active]; dicyclomine 20 mg Oral tab 1 tab 3 times per day [Active]; Dilaudid 2 mg oral tab twice a day [Active]; furosemide 40 mg Oral tab 1 tab 2 times per day [Active]; pantoprazole 40 mg oral grps 1 packet once daily [Active]; pravastatin 40 mg oral tab 1 tab once daily [Active]; prednisone 10 mg Oral tab once daily [Active]; promethazine 25 mg Oral tab three times a day [Active]; sertraline 100 mg oral tab 1 tab once daily [Active]; Singulair 10 mg Oral tab 1 tab once daily [Active]; sucralfate 1 gram Oral tab three times a day [Active]; Valium 5 mg Oral tab 1 tab 4 times per day [Active]; - PMHx: 12:52 COPD; Crohn's; GERD; Hypertension; Pancreatitis; SBO; iw 12:54 Chronic pain; CRPS; iw - Immunization history:: Client reports having NOT received the Covid vaccine. - Social history:: Smoking status: Patient reports the use of cigarette tobacco products, smokes two packs cigarettes per day. ROS: 17:40 Constitutional: Negative for fever, chills, and weight loss, Eyes: Negative for injury, kdr pain, redness, and discharge, Neck: Negative for injury, pain, and swelling, Cardiovascular: Negative for chest pain, palpitations, and edema, Respiratory: Negative for shortness of breath, cough, wheezing, and pleuritic chest pain, Abdomen/GI: Negative for abdominal pain, nausea, vomiting, diarrhea, and constipation, Back: Negative for injury and pain, : Negative for injury, bleeding, discharge, and swelling, Skin: Negative for injury, rash, and discoloration, Neuro: Negative for headache, weakness, numbness, tingling, and seizure activity. Psych: Negative for depression, anxiety, suicide ideation, homicidal ideation, and hallucinations, Allergy/Immunology: Negative for hives, rash, and allergies, Endocrine: Negative for neck swelling, polydipsia, polyuria, polyphagia, and marked weight changes, Hematologic/Lymphatic: Negative for swollen nodes, abnormal bleeding, and unusual bruising. 17:40 MS/extremity: Positive for abrasion, decreased range of motion, erythema, pain, swelling, tenderness, of the dorsal aspect of right forearm, right wrist, right hand, right elbow and palmar aspect of right forearm. Exam: 17:40 Constitutional: This is a well developed, well nourished patient who is awake, alert, kdr and in no acute distress. 17:40 Skin: cellulitis, that is moderate, confluent, on the dorsal aspect of right forearm, right wrist, right hand, right elbow and palmar aspect of right forearm, induration, that is moderate is noted, Other Same location as previously noted. Vital Signs: 12:50 BP 107 / 51; Pulse 85; Resp 16; Temp 99.4; Pulse Ox 97% on R/A; Weight 68.04 kg; Height iw 5 ft. 2 in. (157.48 cm); 14:00 BP 107 / 58; Pulse 69; Resp 15; Pulse Ox 95% ; jl7 14:29 BP 108 / 52; Pulse 80; Resp 15; Pulse Ox 95% ; jl7 16:17 BP 109 / 95; Pulse 71; Resp 15; Pulse Ox 97% ; jl7 12:50 Body Mass Index 27.44 (68.04 kg, 157.48 cm) iw MDM: 16:52 Patient medically screened. kdr 16:57 ED course: I spoke with Dr. Rai who is on-call for the patient's physician. She kdr stated she would relay the message that the patient was to be seen tomorrow in follow-up. 17:40 Data reviewed: vital signs, lab test result(s), radiologic studies. Counseling: I had a kdr detailed discussion with the patient and/or guardian regarding: the historical points, exam findings, and any diagnostic results supporting the discharge/admit diagnosis, lab results, radiology results, the need for outpatient follow up. 06/02 13:52 Order name: Basic Metabolic Panel; Complete Time: 15:27 [facility] 06/02 13:52 Order name: CBC with Diff 06/02 13:52 Order name: Procalcitonin; Complete Time: 15:27 [facility] 06/02 13:53 Order name: Blood Culture Adult (2) [facility] 06/02 14:15 Order name: UPPER EXTREMITY VENOUS UNILATE; Complete Time: 15:27 [facility] 06/02 14:29 Order name: IV Saline Lock; Complete Time: 14:29 [facility] Administered Medications: 16:30 Drug: Zofran (Ondansetron) 4 mg Route: IVP; Site: left antecubital; ll3 17:07 Follow up: Response: No adverse reaction jl7 16:38 Drug: Potassium Chloride 40 mEq Route: PO; ll3 17:07 Follow up: Response: No adverse reaction jl7 16:38 Drug: Dilaudid (HYDROmorphone) 2 mg Route: IVP; Site: left antecubital; 3 17:07 Follow up: Response: No adverse reaction; Pain is decreased jl7 16:38 Drug: LevaQUIN (levofloxacin) 500 mg Route: PO; ll3 17:00 Follow up: Response: No adverse reaction jl7 16:55 Drug: vancoMYCIN 1.5 grams Route: IVPB; Rate: calculated rate; Site: left antecubital; jl7 19:00 Follow up: Response: No adverse reaction; IV Status: Completed infusion jl7 Disposition Summary: 06/02/21 16:52 Discharge Ordered Location: Home kdr Problem: new kdr Symptoms: have improved kdr Condition: Stable kdr Diagnosis - Cellulitis of left upper limb kdr - Cellulitis of right upper limb kdr Followup: kdr - With: Mark Paz, DO - When: Tomorrow - Reason: If symptoms return, Further diagnostic work-up, Recheck today's complaints, Continuance of care, Re-evaluation by your physician Discharge Instructions: - Discharge Summary Sheet kdr - Cellulitis, Adult kdr Forms: - Medication Reconciliation Form kdr - Thank You Letter kdr - Antibiotic Education kdr Prescriptions: - levofloxacin 500 mg Oral tablet - take 1 tablet by ORAL route once daily for 10 days; 10 tablet; Refills: 0, kdr Product Selection Permitted Signatures: Dispatcher [employer] EDSD Arnel Sage MD MD kdr Beth Pastor RN RN iw Shabnam Rivera RN RN jl7 Adilene Calvert RN RN ll3 Corrections: (The following items were deleted from the chart) 14:14 13:53 Extremity Venous Uni Ltd+[id number].RAD.BRZ ordered. EDMS EDMS 14:15 14:14 Upper Ext Artery Uni Amrit ordered. EDMS EDMS
--- NOTE | 2021-06-02 16:52 | ER ---
Nurse's Notes [facility] Name: Angella Jackson Age: 71 yrs Sex: Female : 1950 Arrival Date: 06/02/2021 Time: 12:49 Bed 8 Private MD: Diagnosis: Cellulitis of left upper limb;Cellulitis of right upper limb Presentation: 06/02 12:50 Chief complaint: Patient states: redness, pain and swelling to right arm and hand X 4 iw days, she scratches her arms a lot bc of itching and thinks that's how it got infected, also has a sore on right elbow, denies feeling sick, denies fever. Coronavirus screen: At this time, the client does not indicate any symptoms associated with coronavirus-19. Ebola Screen: Patient negative for fever greater than or equal to 101.5 degrees Fahrenheit, and additional compatible Ebola Virus Disease symptoms Patient denies exposure to infectious person. Patient denies travel to an Ebola-affected area in the 21 days before illness onset. No symptoms or risks identified at this time. Initial Sepsis Screen: Does the patient meet any 2 criteria? No. Patient's initial sepsis screen is negative. Does the patient have a suspected source of infection? Yes:. Risk Assessment: Do you want to hurt yourself or someone else? Patient reports no desire to harm self or others. Onset of symptoms was May 29, 2021. 12:50 Method Of Arrival: Wheelchair iw 12:50 Acuity: WADE 3 iw Historical: - Allergies: 12:52 Bees; iw 12:52 Codeine; iw 12:52 HYDROCODONE; iw 12:52 PENICILLINS; iw 12:52 Wasps; iw 12:52 Bactrim; iw 12:52 Flagyl; iw - Home Meds: 12:54 albuterol sulfate 2.5 mg /3 mL (0.083 %) Nebulizer nebu [Active]; aspirin 81 mg Oral iw chew 1 tab once daily [Active]; baclofen 10 mg Oral tab 1 tab 3 times per day [Active]; beclomethasone diprop (AQ) 0.084 % nasal spry twice a day [Active]; dicyclomine 20 mg Oral tab 1 tab 3 times per day [Active]; Dilaudid 2 mg oral tab twice a day [Active]; furosemide 40 mg Oral tab 1 tab 2 times per day [Active]; pantoprazole 40 mg oral grps 1 packet once daily [Active]; pravastatin 40 mg oral tab 1 tab once daily [Active]; prednisone 10 mg Oral tab once daily [Active]; promethazine 25 mg Oral tab three times a day [Active]; sertraline 100 mg oral tab 1 tab once daily [Active]; Singulair 10 mg Oral tab 1 tab once daily [Active]; sucralfate 1 gram Oral tab three times a day [Active]; Valium 5 mg Oral tab 1 tab 4 times per day [Active]; - PMHx: 12:52 COPD; Crohn's; GERD; Hypertension; Pancreatitis; SBO; iw 12:54 Chronic pain; CRPS; iw - Immunization history:: Client reports having NOT received the Covid vaccine. - Social history:: Smoking status: Patient reports the use of cigarette tobacco products, smokes two packs cigarettes per day. Screenin:22 Abuse screen: Denies threats or abuse. Denies injuries from another. Nutritional jl7 screening: No deficits noted. Tuberculosis screening: No symptoms or risk factors identified. Fall Risk IV access (20 points). Total Bettencourt Fall Scale indicates No Risk (0-24 pts). Assessment: 13:15 General: Appears in no apparent distress. uncomfortable, Behavior is calm, cooperative, jl7 appropriate for age. Pain: Complains of pain in right arm Pain currently is 8 out of 10 on a pain scale. Pain began x 4 days. Neuro: Level of Consciousness is awake, alert, obeys commands, Oriented to person, place, time, situation. Cardiovascular: Patient's skin is warm and dry. Respiratory: Airway is patent Respiratory effort is even, unlabored, Respiratory pattern is regular, symmetrical. Derm: Skin is pink, warm \T\ dry. Musculoskeletal: Swelling present in right arm. 14:00 Reassessment: Pt will be discharged once fluids are done infusing. Reassessment: jl7 Patient appears in no apparent distress at this time. No changes from previously documented assessment. Patient and/or family updated on plan of care and expected duration. Pain level reassessed. Patient is alert, oriented x 3, equal unlabored respirations, skin warm/dry/pink. 15:00 Reassessment: Patient appears in no apparent distress at this time. No changes from jl7 previously documented assessment. Patient and/or family updated on plan of care and expected duration. Pain level reassessed. Patient is alert, oriented x 3, equal unlabored respirations, skin warm/dry/pink. 16:10 Reassessment: Vancomycin order faxed o pharmacy, awaiting delivery for administration jl7 Patient states feeling better. Patient states symptoms have improved. Vital Signs: 12:50 BP 107 / 51; Pulse 85; Resp 16; Temp 99.4; Pulse Ox 97% on R/A; Weight 68.04 kg; Height iw 5 ft. 2 in. (157.48 cm); 14:00 BP 107 / 58; Pulse 69; Resp 15; Pulse Ox 95% ; jl7 14:29 BP 108 / 52; Pulse 80; Resp 15; Pulse Ox 95% ; jl7 16:17 BP 109 / 95; Pulse 71; Resp 15; Pulse Ox 97% ; jl7 12:50 Body Mass Index 27.44 (68.04 kg, 157.48 cm) iw ED Course: 12:49 Patient arrived in ED. iw 12:52 Triage completed. iw 12:53 Arm band placed on. iw 12:57 Arnel Sage MD is Attending Physician. kdr 13:02 Pedrito Sales, RN is Primary Nurse. bp 13:15 Shabnam Rivera, DANIELLE is Primary Nurse. jl7 13:30 Patient has correct armband on for positive identification. Placed in gown. Bed in low jl7 position. Call light in reach. Side rails up X2. Pulse ox on. NIBP on. 13:45 Initial lab(s) drawn, by wi, sent to lab. First set of blood cultures drawn by me jl7 Second set of blood cultures drawn by wi. Inserted saline lock: 20 gauge in left antecubital area, using aseptic technique. Blood collected. 14:39 UPPER EXTREMITY VENOUS UNILATE In Process Unspecified. EDMS 16:50 Mark Paz DO is Referral Physician. kdr 19:30 No provider procedures requiring assistance completed. IV discontinued, intact, df1 bleeding controlled, No redness/swelling at site. Pressure dressing applied. Administered Medications: 16:30 Drug: Zofran (Ondansetron) 4 mg Route: IVP; Site: left antecubital; ll3 17:07 Follow up: Response: No adverse reaction jl7 16:38 Drug: Potassium Chloride 40 mEq Route: PO; ll3 17:07 Follow up: Response: No adverse reaction jl7 16:38 Drug: Dilaudid (HYDROmorphone) 2 mg Route: IVP; Site: left antecubital; ll3 17:07 Follow up: Response: No adverse reaction; Pain is decreased jl7 16:38 Drug: LevaQUIN (levofloxacin) 500 mg Route: PO; ll3 17:00 Follow up: Response: No adverse reaction jl7 16:55 Drug: vancoMYCIN 1.5 grams Route: IVPB; Rate: calculated rate; Site: left antecubital; jl7 19:00 Follow up: Response: No adverse reaction; IV Status: Completed infusion jl7 Outcome: 16:52 Discharge ordered by MD. kdr 19:30 Discharged to home via wheelchair. df1 19:30 Condition: good 19:30 Discharge instructions given to patient, Instructed on discharge instructions, follow up and referral plans. medication usage, Demonstrated understanding of instructions, follow-up care, medications, Prescriptions given X 1. 19:32 Patient left the ED. df1 Signatures: Dispatcher [employer] EDMS Arnel Sage MD MD kdr Beth Pastor RN RN iw Shabnam Rivera RN RN jl7 Pedrito Sales RN RN bp Furlich, Dawn df1 Adilene Calvert RN RN ll3 Corrections: (The following items were deleted from the chart) 12:59 12:50 BP 133 / 93; Pulse 85bpm; Resp 16bpm; Pulse Ox 97% RA; Temp 99.4F; 68.04 kg; iw Height 5 ft. 2 in.; BMI: 27.4; iw
[2021-06-02] MEDS ORDERED: VANCOMYCIN 1.5 GM in NA CHLORIDE 0.9% 500 ML IVPB ONE (17:00)
[2021-06-02 19:50] VITALS: TEMP 99.4
[2021-06-02 19:54] VITALS: BP 109/95; O2SAT 97
[2021-06-02 20:35] LABS: Blood Morphology Comment NOT SEEN (NOT SEEN); Platelet Estimate INCR; White Blood Cell Scan OK (OK)
== END 2021-06-02 19:32 | disposition home or self-care (01) ==
LOC: ER 12:38
DX: L03.113 Cellulitis of right upper limb (principal); L03.114 Cellulitis of left upper limb; I10 Essential (primary) hypertension; J44.9 Chronic obstructive pulmonary disease, unspecified; F17.210 Nicotine dependence, cigarettes, uncomplicated; Z88.5 Allergy status to narcotic agent; Z88.0 Allergy status to penicillin; Z88.1 Allergy status to other antibiotic agents; Z91.030 Bee allergy status
CPT/HCPCS: 96365; 87040 ×2; 85025; 80048; 36415; 84145; 93971; 96375; 99284; 96366; J1170; J3370; J7040; J2405

== ENCOUNTER 2022-05-04 19:13 | Emergency (ER) | payer OTHER ==
--- OUTSIDE RECORDS SUMMARY | 2022-05-04 19:22 | XMS REPORT | Continuity of Care Document ---
:1950 Author Organization [facility] t Address [address] [place] [address] Care Team Providers Name Role Phone PCP, PATIENT DOES NOT HAVE A Primary Care Physician Unavaila BENJIE Juan Attending Clinician Unavailable BENJIE ALVARADO Attending Clinician Unavailable Vito Lino Attending Clinician Doctor Unassigned, Golva Attending Clinician Unavailable Benjie Alvarado DO Attending Clinician Lillian Price Attending Clinician Unavailable Payers Payer Name Policy Type Policy Number Effective Date Expiration Date [facility] PART A [id number] 2004 \T\ B 00:00:00 FOR LIFE [id number] 2021 00:00:00 FOR LIFE [id number] 2014 00:00:00 Problems Condition Condition Condition Status Onset Resolution Last Treating Co mments Source Name Details Category Date Date Treatment Clinician Date Bowel Bowel Disease Active 2017-[address] [facility] [address] [facility] l Crohn Crohn Disease Active 2017-07 [facility] disease disease 0 00:[facility]: [facility] 00 l Essential Essential Disease Active 2017-07 Met hodi hypertensi hypertensi 0 on on 00:00: Hospita 00 l COPD COPD Disease Active 2017-07 [facility] (chronic (chronic 0- st obstructiv obstructiv 00:00: Ho spita e e 00 l pulmonary pulmonary disease) disease) Essential Essential Disease Active 2017-07 [facility] hodi tremor tremor 0- st 00:00: Hospita 00 l Chronic Chronic Disease Active 2017-07 [facility] pain pain 0-09 st syndrome syndrome 00:00: Hospit a 00 l Amnesia Amnesia Problem Active 2022-03-24 Me moria (finding) (finding) 08-11 03:33:39 l Active 00:00: Chace 08/11/2016 00 Problem 03/24/2022 [facility] Transient Transient Problem Active 2022-03-24 Memoria altered altered 08-11 03:33:39 l mental mental 00:00: Chace status status 00 (finding) (finding) Active 08/11/2016 Problem 03/24/2022 [facility] Essential Essential Problem Active 2022-03-24 Memoria tremor tremor 6-17 03:33:39 l (disorder) (disorder) 00:00: [place] Active 00 12/31/2015 Problem 03/24/2022 [facility] No known No known Disease Unive rs active active ity of problems problems [facility] Headache Headache Problem Active 2022-03-24 Memoria (finding) (finding) 03:33:39 l Active [place] Problem 03/24/2022 [facility] Hypertensi Hypertens Problem Active 2022-03-24 Memoria ve keily 03:33:39 l disorder, disorder, Herm gladis systemic systemic arterial arterial (disorder) (disorder) Active Problem 03/24/2022 [facility] Hyperlipid Hyperlipi Problem Active 2022-03-24 Memoria emia demia 03:33:39 l (disorder) (disorder) [place] Active Problem 03/24/2022 [facility] Paresthesi Paresthes Problem Active 2022-03-24 Memoria a ia 03:33:39 l (finding) (finding) Herm gladis Active Problem 03/24/2022 [facility] Shoulder Shoulder Problem Active 2022-03-24 Memoria pain pain 03:33:39 l (finding) (finding) Herm gladis Active Problem 03/24/2022 [facility] Ecchymosis Ecchymosi Problem Active 2022-03-24 Memoria (finding) s 03:33:39 l (finding) [place] Active Problem 03/24/2022 [facility] 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 03:33:39 l (disorder) (disorder) Jm isaacann Active Problem 03/24/2022 [facility] Allergies, Adverse Reactions, Alerts Allergy Allergy Status Severity Reaction(s) Onset Inactive Treating Comm ents Source Name Type Date Date Clinician AZITHROM DRUG Active Other-Cmnt 2020-0 Univ ers YCIN INGREDI 4-13 ity of 00:00: [place] 00 [facility] METRONID DRUG Active N/V 2019-0 Univers AZOLE INGREDI 4-13 ity of HCL 00:00: [place] 00 [facility] Azithrom Propensi Active Other - See 2019-0 U nivers ycin ty to comments 4-13 ity of adverse 00:00: [place] reaction 00 Medical s Branch Metronid Propensi Active Nausea 2019-0 Univer s azole ty to and/or 4-13 ity of Hcl adverse Vomiting 00:00: [place] reaction 00 Medical s Branch Codeine Propensi Active Nausea 2019-0 Univers ty to and/or 6-24 ity of adverse Vomiting 00:00: [place] reaction Medical s Branch Hydrocod Propensi Active Nausea 2019-0 Univer s one ty to and/or 6-24 ity of adverse Vomiting 00:00: [place] reaction 00 Medical s Branch CODEINE DRUG Active N/V 2019-0 Univers INGREDI 6-24 ity of 00:00: [place] [facility] HYDROCOD DRUG Active N/V 2019-0 Univers ONE INGREDI 6-24 ity of 00:00: [place] 00 [facility] Fentanyl Propensi Active Itching 2017-07 Fentanyl Met hodi ty to 0-[address] adverse 00:00: Hospita reaction 00 l s to drug Penicill Propensi Active Rash 2017-07 Method i ins ty to 0-09 st adverse 00:00: Hospita reaction 00 l s to drug Penicill Propensi Active Hives 0 Univer s in ty to 9-15 ity of adverse 00:00: [place] reaction 00 Medical s Branch Penicill Propensi Active Hives 0 Univer s in ty to 9-15 ity of adverse 00:00: [place] reaction 00 Medical s Branch PENICILL DRUG Active Hives 2015- Univers IN INGREDI -15 ity of 00:00: [place] 00 [facility] penicill penicill Active Memori a ins ins l Chace Family History Family Member Diagnosis Comments Start Date Stop Date Source Family member [facility] Family member Heart disease [facility] Social History Social Habit Start Date Stop Date Quantity Comments Source History of tobacco Cigarette Smoker University of use [facility] Tobacco use and 2019-08-14 2019-08-14 Smokeless tobacco Un iversity of exposure 00:00:00 00:00:00 non-user [facility] Cigarette 2019-08-14 2019-08-14 University of pack-years 00:00:00 00:00:00 [facility] Alcohol intake 2018-05-13 2018-05-13 Current drinker [facility] 00:00:00 00:00:00 of alcohol Hospital (finding) Cigarettes smoked 2018-04-25 2018-04-[address] current (pack per 00:00:00 00:00:00 [facility] day) - Reported Tobacco Comment 2018-04-23 2018-04-[address] 00:00:00 00:00:00 history Hospital Alcohol Comment 2018-04-23 2018-04-23 occasional [facility] 00:00:00 00:00:00 Hospital Sex Ass[birth year] At [birth year] [facility] 00:00:00 00:00:00 Hospital Smoking Status Start Date Stop Date Source Social History 2022-03-21 15:46:30 [facility] Medications Ordered Filled Start Stop Current Ordering Indication Dosage Frequency Signature Comments Components Source Medication Medication Date Date Medication? Clinician (SIG) Name Name Namenda 5 Yes 5 mg = 1 Apollo raf mg oral 03-21 tab, PO, l tablet 16:08: BID, # 60 Lino n 00 tab, 3 Refill(s), Pharmacy: [facility], 158.75, cm, 03/21/22 10:56:00 CDT, Height, 68.182, kg, 03/21/22 10:56:00 CDT, Weight buPROPion Yes 300mg Take 300 Uni vers XL 300 mg 4-29 mg by ity of 24 hr 13:41: mouth. [place] tablet 50 Medical Branch escitalopra 2022-0 Yes 20mg Take 20 mg Univers m oxalate 4-29 by mouth. ity o f 20 mg 13:41: [place] tablet 50 [facility] buPROPion 2021-0 Yes 300mg Take 300 Uni vers XL 300 mg 4-29 mg by ity of 24 hr 13:41: mouth. [place] tablet 50 [facility] escitalopra 2021-0 Yes 20mg Take 20 mg Univers m oxalate 4-29 by mouth. ity o f 20 mg 13:41: [place] tablet 50 [facility] gabapentin 2021-0 Yes 300 mg = 1 M emoria 300 MG Oral 3-03 cap, PO, l Capsule 18:02: BID, # 180 Herm gladis 00 cap, 3 Refill(s), Pharmacy: [facility], 64.659, kg, 08/18/21 14:07:00 [facility] [employer], Weight gabapentin 2021-0 No 300 mg = 1 M emoria 300 MG Oral 3-03 cap, PO, l Capsule 18:01: BID, # 180 Herm gladis 00 cap, 3 Refill(s), Pharmacy: [facility], 64.659, kg, 08/18/21 14:07:00 [employer], Weight sertraline 2021-0 Yes 100 mg = 1 M emoria 100 mg oral 2-11 tab, PO, l tablet 20:51: Daily, # Chace 00 30 tab, 1 Refill(s), Pharmacy: [facility], 64.659, kg, 08/18/21 14:07:00 [employer], Weight gabapentin 2021-0 No 300 mg = 1 M emoria 300 MG Oral 2-11 cap, PO, l Capsule 20:51: BID, X 30 [place] nn 00 day, # 60 cap, 2 Refill(s), Pharmacy: [facility], 64.659, kg, 08/18/21 14:07:00 [employer], Weight topiramate 2021-0 Yes 25 mg = 1 Me moria 25 MG Oral 2-03 tab, PO, l Tablet 21:30: BID, # 60 Lino n [Topamax] 00 tab, 3 Refill(s), [facility], 64.659, kg, 08/18/21 14:07:00 [employer], Weight sertraline 2021-0 Yes 50 mg = 1 Me moria 50 mg oral 2-03 tab, PO, l tablet 21:15: Daily, # Chace 00 90 tab, 1 Refill(s), Pharmacy: [facility], 64.659, kg, 08/18/21 14:07:00 [employer], Weight methscopola Yes 5 mg = 1 Me moria mine 5 mg 2-03 tab, PO, l oral tablet 20:28: Before Herm gladis 00 Meals & Bedtime, # 120 tab, 0 Refill(s) dicyclomine Yes 20 mg = 1 M emoria 20 mg oral 2-03 tab, PO, l tablet 20:28: QID, # 28 Lino n 00 tab, 0 Refill(s) Lorazepam 1 Yes See Memori a MG Oral 6-17 Instructio l Tablet 22:27: ns, Take 1 Alma nn [Ativan] 00 tab po 1 hour prior to MRI, may repeat q 15 min. if still anxious, # 5 tab, 0 Refill(s), Pharmacy: [facility], 157.48, cm, 05/27/19 13:37:00 [employer], Height, 66.364, kg, 05/27/19 13:37:00 [employer], Weight diazepam 5 2020- Yes 5 mg = 1 Mem oria mg oral 5-21 tab, PO, l tablet 20:45: TID, X 30 Lino n 00 day, # 90 tab, 2 Refill(s), Pharmacy: [facility], 157.48, cm, 05/27/19 13:37:00 [employer], Height, 66.364, kg, 05/27/19 13:37:00 [employer], Weight topiramate 2019-07 Yes 25 mg = 1 Me moria 25 mg oral 1-03 cap, PO, l capsule, 22:30: Daily, # Alma nn extended 00 30 cap, 3 release Refill(s), Pharmacy: [facility], 157.48, cm, 05/27/19 13:37:00 [employer], Height, 66.364, kg, 05/27/19 13:37:00 [employer], Weight Diazepam 5 2019-07 Yes 5 mg = 1 Mem oria MG Oral 1-03 tab, PO, l Tablet 22:21: TID, X 30 Lino n [Valium] 00 day, # 90 tab, 3 Refill(s), Pharmacy: [facility], 157.48, cm, 05/27/19 13:37:00 [employer], Height, 66.364, kg, 05/27/19 13:37:00 [employer], Weight infliximab 2019-07 Yes IV, 0 Memori a 10 MG/ML 07-18 Refill(s) l Injectable 22:19: [place] Solution 00 [Remicade] Methotrexat 2019-07 Yes 0 Memori a e 07-18 Refill(s) l 22:18: [place] 00 escitalopra 2019-07 Yes 20mg Take 20 mg Univers m oxalate 0-29 by mouth. ity o f 20 mg 13:25: [place] tablet 37 [facility] escitalopra 2019-07 Yes 20mg Take 20 mg Univers m oxalate 0-29 by mouth. ity o f 20 mg 13:25: [place] tablet 37 [facility] escitalopra 2019-07 Yes 20mg Take 20 mg Univers m oxalate 0-29 by mouth. ity o f 20 mg 13:25: [place] tablet 37 [facility] escitalopra 2019-07 Yes 20mg Take 20 mg Univers m oxalate 0-29 by mouth. ity o f 20 mg 13:25: [place] tablet 37 [facility] buPROPion 2019-07 Yes 300mg Take 300 Uni vers XL 300 mg 0-29 mg by ity of 24 hr 13:25: mouth. [place] tablet 36 [facility] buPROPion 2019-07 Yes 300mg Take 300 Uni vers XL 300 mg 0-29 mg by ity of 24 hr 13:25: mouth. [place] tablet 36 [facility] buPROPion 2019-07 Yes 300mg Take 300 Uni vers XL 300 mg 0-29 mg by ity of 24 hr 13:25: mouth. [place] tablet 36 [facility] Branch buPROPion 2019-07 Yes 300mg Take 300 Uni vers XL 300 mg 0-29 mg by ity of 24 hr 13:25: mouth. [place] tablet 36 [facility] escitalopra 2019-07 Yes 20mg Take 20 mg Univers m oxalate 0-29 by mouth. ity o f 20 mg 08:25: [place] tablet 37 [facility] buPROPion 2019-07 Yes 300mg Take 300 Uni vers XL 300 mg 0-29 mg by ity of 24 hr 08:25: mouth. [place] tablet 36 [facility] Branch dicyclomine 2020- Yes Univer s 10 mg 0-26 ity of capsule 00:00: [place] [facility] dicyclomine 2020- Yes Univer s 10 mg 0-26 ity of capsule 00:00: [place] [facility] dicyclomine 2019-07 Yes Univer s 10 mg 0-26 ity of capsule 00:00: [place] [facility] dicyclomine 2020- Yes Univer s 10 mg 0-26 ity of capsule 00:00: [place] [facility] dicyclomine 2019- Yes Univer s 10 mg 0-26 ity of capsule 00:00: [place] [facility] dicyclomine 2019-07 Yes Univer s 10 mg 0-26 ity of capsule 00:00: [place] [facility] dicyclomine 2019-07 Yes Univer s 10 mg 0-26 ity of capsule 00:00: [place] [facility] methotrexat 2020 Yes Take by Uni vers e 2.5 mg 0-01 mouth ity of tablet 00:00: [place] [facility] methotrexat 2020- Yes Take by Uni vers e 2.5 mg 0-01 mouth ity of tablet 00:00: [place] [facility] methotrexat 2020- Yes Take by Uni vers e 2.5 mg 0-01 mouth ity of tablet 00:00: [place] [facility] methotrexat 2020- Yes Take by Uni vers e 2.5 mg 0-01 mouth ity of tablet 00:00: [place] [facility] methotrexat 2020- Yes Take by Uni vers e 2.5 mg 0-01 mouth ity of tablet 00:00: [place] [facility] methotrexat 2020- Yes Take by Uni vers e 2.5 mg 0-01 mouth ity of tablet 00:00: [place] [facility] methotrexat 2020- Yes Take by Uni vers e 2.5 mg 0-01 mouth ity of tablet 00:00: [place] [facility] [place] diazepam 5 2020-0 Yes 5 mg = 1 Mem oria mg oral 7-08 tab, PO, l tablet 17:32: TID, X 30 Lino n 00 day, # 90 tab, 2 Refill(s), Pharmacy: [facility], 157.48, cm, 05/27/19 13:37:00 [employer], Height, 66.364, kg, 05/27/19 13:37:00 [employer], Weight BECLOMETHAS 2020-0 2020- No Use in Uni vers ONE 4-30 04-30 each ity of DIPROPIONAT 19:04: 00:00 nostril. [place] E (QNASL 58 :00 Indication Medic al NASAL) s: 2 Branch sprays each nostril daily beclomethas 2020-0 Yes [id number] 2{spray Use 2 Univers one 4-30 } Sprays in ity of dipropionat 00:00: each [place] e (QNASL) 00 nostril Medical 80 daily. Branch mcg/actuati on nasal spray albuterol 2020-0 Yes [id number] 2.5mg Inhale 3 Univers 2.5 mg /3 [...] Indication s: 2 puffs tiotropium 2020-0 Yes [id number] 18ug Inhale 1 Univers (SPIRIVA 4-30 capsule ity of WITH 00:00: daily. [place] HANDIHALER) 00 Medical 18 mcg Branch inhalation beclomethas 2020-0 Yes [id number] 2{spray Use 2 Univers one 4-30 } Sprays in ity of dipropionat 00:00: each [place] e (QNASL) 00 nostril Medical 80 daily. Branch mcg/actuati on nasal spray albuterol 2020-0 Yes [id number] 2.5mg Inhale 3 Univers 2.5 mg /3 [...] Indication s: 2 puffs tiotropium 2020-0 Yes [id number] 18ug Inhale 1 Univers (SPIRIVA 4-30 capsule ity of WITH 00:00: daily. [place] HANDIHALER) 00 Medical 18 mcg Branch inhalation beclomethas 2020-0 Yes [id number] 2{spray Use 2 Univers one 4-30 } Sprays in ity of dipropionat 00:00: each [place] e (QNASL) 00 nostril Medical 80 daily. Branch mcg/actuati on nasal spray albuterol 2020-0 Yes [id number] 2.5mg Inhale 3 Univers 2.5 mg /3 [...] Indication s: 2 puffs tiotropium 2020-0 Yes [id number] 18ug Inhale 1 Univers (SPIRIVA 4-30 capsule ity of WITH 00:00: daily. [place] HANDIHALER) 00 Medical 18 mcg Branch inhalation beclomethas 2020-0 Yes [id number] 2{spray Use 2 Univers one 4-30 } Sprays in ity of dipropionat 00:00: each [place] e (QNASL) 00 nostril Medical 80 daily. Branch mcg/actuati on nasal spray albuterol 2020-0 Yes [id number] 2.5mg Inhale 3 Univers 2.5 mg /3 [...] Indication s: 2 puffs tiotropium 2020-0 Yes [id number] 18ug Inhale 1 Univers (SPIRIVA 4-30 capsule ity of WITH 00:00: daily. [place] HANDIHALER) 00 Medical 18 mcg Branch inhalation beclomethas 2020-0 Yes [id number] 2{spray Use 2 Univers one 4-30 } Sprays in ity of dipropionat 00:00: each [place] e (QNASL) 00 nostril Medical 80 daily. Branch mcg/actuati on nasal spray albuterol 2020-0 Yes [id number] 2.5mg Inhale 3 Univers 2.5 mg /3 [...] Indication s: 2 puffs tiotropium 2020-0 Yes [id number] 18ug Inhale 1 Univers (SPIRIVA 4-30 capsule ity of WITH 00:00: daily. [place] HANDIHALER) 00 Medical 18 mcg Branch inhalation beclomethas 2020-0 Yes [id number] 2{spray Use 2 Univers one 4-30 } Sprays in ity of dipropionat 00:00: each [place] e (QNASL) 00 nostril Medical 80 daily. Branch mcg/actuati on nasal spray albuterol 2020-0 Yes [id number] 2.5mg Inhale 3 Univers 2.5 mg /3 [...] Indication s: 2 puffs tiotropium 2020-0 Yes [id number] 18ug Inhale 1 Univers (SPIRIVA 4-30 capsule ity of WITH 00:00: daily. [place] HANDIHALER) 00 Medical 18 mcg Branch inhalation beclomethas 2020-0 Yes [id number] 2{spray Use 2 Univers one 4-30 } Sprays in ity of dipropionat 00:00: each [place] e (QNASL) 00 nostril Medical 80 daily. Branch mcg/actuati on nasal spray albuterol 2020-0 Yes [id number] 2.5mg Inhale 3 Univers 2.5 mg /3 [...] Indication s: 2 puffs tiotropium 2020-0 Yes [id number] 18ug Inhale 1 Univers (SPIRIVA 4-30 capsule ity of WITH 00:00: daily. [place] HANDIHALER) 00 Medical 18 mcg Branch inhalation beclomethas 2020-0 Yes [id number] 2{spray Use 2 Univers one 4-30 } Sprays in ity of dipropionat 00:00: each [place] e (QNASL) 00 nostril Medical 80 daily. Branch mcg/actuati on nasal spray albuterol 2020-0 Yes [id number] 2.5mg Inhale 3 Univers 2.5 mg /3 [...] Indication s: 2 puffs tiotropium 2020-0 Yes [id number] 18ug Inhale 1 Univers (SPIRIVA 4-30 capsule ity of WITH 00:00: daily. [place] HANDIHALER) 00 Medical 18 mcg Branch inhalation beclomethas 2020-0 Yes [id number] 2{spray Use 2 Univers one 4-30 } Sprays in ity of dipropionat 00:00: each [place] e (QNASL) 00 nostril Medical 80 daily. Branch mcg/actuati on nasal spray albuterol 2020-0 Yes [id number] 2.5mg Inhale 3 Univers 2.5 mg /3 [...] Indication s: 2 puffs tiotropium 2020-0 Yes [id number] 18ug Inhale 1 Univers (SPIRIVA 4-30 capsule ity of WITH 00:00: daily. [place] HANDIHALER) 00 Medical 18 mcg Branch inhalation beclomethas 2020-0 Yes [id number] 2{spray Use 2 Univers one 4-30 } Sprays in ity of dipropionat 00:00: each [place] e (QNASL) 00 nostril Medical 80 daily. Branch mcg/actuati on nasal spray albuterol 2020-0 Yes [id number] 2.5mg Inhale 3 Univers 2.5 mg /3 [...] Indication s: 2 puffs tiotropium 2020-0 Yes [id number] 18ug Inhale 1 Univers (SPIRIVA 4-30 capsule ity of WITH 00:00: daily. [place] HANDIHALER) 00 Medical 18 mcg Branch inhalation beclomethas 2020-0 Yes [id number] 2{spray Use 2 Univers one 4-30 } Sprays in ity of dipropionat 00:00: each [place] e (QNASL) 00 nostril Medical 80 daily. Branch mcg/actuati on nasal spray albuterol 2020-0 Yes [id number] 2.5mg Inhale 3 Univers 2.5 mg /3 [...] Indication s: 2 puffs tiotropium 2020-0 Yes [id number] 18ug Inhale 1 Univers (SPIRIVA 4-30 capsule ity of WITH 00:00: daily. [place] HANDIHALER) 00 Medical 18 mcg Branch inhalation beclomethas 2020-0 Yes [id number] 2{spray Use 2 Univers one 4-30 } Sprays in ity of dipropionat 00:00: each [place] e (QNASL) 00 nostril Medical 80 daily. Branch mcg/actuati on nasal spray albuterol 2019-0 Yes [id number] 2.5mg Inhale 3 Univers 2.5 mg /3 [...] Indication s: 2 puffs tiotropium 2020-0 Yes [id number] 18ug Inhale 1 Univers (SPIRIVA 4-30 capsule ity of WITH 00:00: daily. [place] HANDIHALER) 00 Medical 18 mcg Branch inhalation beclomethas 2020-0 Yes [id number] 2{spray Use 2 Univers one 4-30 } Sprays in ity of dipropionat 00:00: each [place] e (QNASL) 00 nostril Medical 80 daily. Branch mcg/actuati on nasal spray albuterol 2020-0 Yes [id number] 2.5mg Inhale 3 Univers 2.5 mg /3 [...] Indication s: 2 puffs tiotropium 2020-0 Yes [id number] 18ug Inhale 1 Univers (SPIRIVA 4-30 capsule ity of WITH 00:00: daily. [place] HANDIHALER) 00 Medical 18 mcg Branch inhalation predniSONE 2019-0 2020- No [id number] 40mg Take 2 Univers 20 mg 4-30 05-06 tablets by ity of tablet 00:00: 04:59 mouth [place] 00 :00 daily for Medical 5 days. Branch predniSONE 2020-0 2020- No [id number] 40mg Take 2 Univers 20 mg 4-30 05-06 tablets by ity of tablet 00:00: 04:59 mouth [place] 00 :00 daily for Medical 5 days. Branch doxycycline 2020-0 2020- No [id number] 100mg Take 1 Univers hyclate 100 4-15 04-23 tablet by it y of mg tablet 00:00: 04:59 mouth 2 [place] :00 (two) Medical times Branch daily for 7 days. dicyclomine 2020-0 Yes 20mg Take 20 mg Univers 20 mg 3-24 by mouth. ity of tablet 00:00: [place] 00 Medical Branch dicyclomine 2020-0 Yes 20mg Take 20 mg Univers 20 mg 3-24 by mouth. ity of tablet 00:00: [place] 00 Medical Branch dicyclomine 2020-0 Yes 20mg Take 20 mg Univers 20 mg 3-24 by mouth. ity of tablet 00:00: [place] 00 Medical Branch dicyclomine 2020-0 Yes 20mg Take 20 mg Univers 20 mg 3-24 by mouth. ity of tablet 00:00: Medical Branch dicyclomine 2019-0 Yes 20mg Take 20 mg Univers 20 mg 3-24 by mouth. ity of tablet 00:00: Medical Branch dicyclomine 2019-0 Yes 20mg Take 20 mg Univers 20 mg 3-24 by mouth. ity of tablet 00:00: Medical Branch dicyclomine 2019-0 Yes 20mg Take 20 mg Univers 20 mg 3-24 by mouth. ity of tablet 00:00: Medical Branch diazepam 5 2019-0 Yes 5 mg = 1 Mem oria mg oral 3-17 tab, PO, l tablet 20:10: TID, X 30 Lino n 00 day, # 90 tab, 2 Refill(s), Pharmacy: [facility] lubiproston 0 Yes Univer s e (AMITIZA) 3-06 ity of 24 mcg 00:00: [place] capsule Medical Branch lubiproston 2019-0 Yes Univer s e (AMITIZA) 3-06 ity of 24 mcg 00:00: [place] capsule Medical Branch lubiproston 2019-0 Yes Univer s e (AMITIZA) 3-06 ity of 24 mcg 00:00: [place] capsule Medical Branch lubiproston 2019-0 Yes Univer s e (AMITIZA) 3-06 ity of 24 mcg 00:00: [place] capsule Medical Branch lubiproston 2019-0 Yes Univer s e (AMITIZA) 3-06 ity of 24 mcg 00:00: [place] capsule Medical Branch lubiproston 2019-0 Yes Univer s e (AMITIZA) 3-06 ity of 24 mcg 00:00: [place] capsule Medical Branch lubiproston 2019-0 Yes Univer s e (AMITIZA) 3-06 ity of 24 mcg 00:00: [place] capsule Medical Branch albuterol 2019-0 Yes USE 2 Univers (PROAIR 2-03 INHALATION ity of HFA) 90 00:00: S EVERY 6 [place] mcg/actuati 00 HOURS Medi tab on inhaler NEEDED Branch albuterol 2019-0 Yes USE 2 Univers (PROAIR 2-03 INHALATION ity of HFA) 90 00:00: S EVERY 6 [place] mcg/actuati 00 HOURS Medi tab on inhaler NEEDED Branch albuterol 2020-0 Yes USE 2 Univers (PROAIR 2-03 INHALATION ity of HFA) 90 00:00: S EVERY 6 [place] mcg/actuati 00 HOURS Medi tab on inhaler NEEDED Branch albuterol 2020-0 Yes USE 2 Univers (PROAIR 2-03 INHALATION ity of HFA) 90 00:00: S EVERY 6 [place] mcg/actuati 00 HOURS Medi tab on inhaler NEEDED Branch albuterol 2020-0 Yes USE 2 Univers (PROAIR 2-03 INHALATION ity of HFA) 90 00:00: S EVERY 6 [place] mcg/actuati 00 HOURS Medi tab on inhaler NEEDED Branch albuterol 2020-0 Yes USE 2 Univers (PROAIR 2-03 INHALATION ity of HFA) 90 00:00: S EVERY 6 [place] mcg/actuati 00 HOURS Medi tab on inhaler NEEDED Branch albuterol 2020-0 Yes USE 2 Univers (PROAIR 2-03 INHALATION ity of HFA) 90 00:00: S EVERY 6 [place] mcg/actuati 00 HOURS Medi tab on inhaler NEEDED Branch albuterol 2020-0 Yes USE 2 Univers (PROAIR 2-03 INHALATION ity of HFA) 90 00:00: S EVERY 6 [place] mcg/actuati 00 HOURS Medi tab on inhaler NEEDED Branch albuterol 2020-0 Yes USE 2 Univers (PROAIR 2-03 INHALATION ity of HFA) 90 00:00: S EVERY 6 [place] mcg/actuati 00 HOURS Medi tab on inhaler NEEDED Branch albuterol 2020-0 Yes USE 2 Univers (PROAIR 2-03 INHALATION ity of HFA) 90 00:00: S EVERY 6 [place] mcg/actuati 00 HOURS Medi tab on inhaler NEEDED Branch albuterol 2020-0 Yes USE 2 Univers (PROAIR 2-03 INHALATION ity of HFA) 90 00:00: S EVERY 6 [place] mcg/actuati 00 HOURS Medi tab on inhaler NEEDED Branch albuterol 2020-0 Yes USE 2 Univers (PROAIR 2-03 INHALATION ity of HFA) 90 00:00: S EVERY 6 [place] mcg/actuati 00 HOURS Medi tab on inhaler NEEDED Branch albuterol 2020-0 Yes USE 2 Univers (PROAIR 2-03 INHALATION ity of HFA) 90 00:00: S EVERY 6 [place] mcg/actuati 00 HOURS Medi tab on inhaler NEEDED Branch albuterol Yes USE 2 Univers (PROAIR 2-03 INHALATION ity of HFA) 90 00:00: S EVERY 6 [place] mcg/actuati 00 HOURS Medi tab on inhaler NEEDED Branch sertraline 2018-07 Yes = 1 tab, Mem oria 100 mg oral 1-15 PO, Daily, l tablet 16:07: # 90 tab, Lino n 50 Refill(s) 4, Pharmacy: [facility] sertraline 2018-07 Yes = 1 tab, Mem oria 100 mg oral 1-12 PO, Daily, l tablet 20:00: # 90 tab, Lino n 46 2 Refill(s), Pharmacy: [facility] diazepam 5 2018-07 Yes 5 mg = 1 Mem oria mg oral 1-12 tab, PO, l tablet 20:00: TID, X 30 [place] n 00 day, # 90 tab, 2 Refill(s) Diazepam 5 Yes 5 mg = 1 Mem oria MG Oral 8-13 tab, PO, l Tablet 21:04: TID, X 30 [place] n [Valium] 00 day, # 90 tab, 2 Refill(s) Hydromorpho Yes 0 Memori a ne 8-13 Refill(s) l 20:40: Chace 00 baclofen 10 Yes See Memori a mg oral 7-19 Instructio l tablet 21:46: ns, TAKE 1 [place] nn 01 TABLET THREE TIMES A DAY, # 270 tab, 3 Refill(s), Pharmacy: [facility] sertraline Yes = 1 tab, Mem oria 100 mg oral 7-19 PO, Daily, l tablet 21:45: # 90 tab, Lino n 53 2 Refill(s), Pharmacy: [facility] ondansetron Yes [id number] 4mg Take 1 Univers (ZOFRAN 6-24 tablet by ity of ODT) 4 mg 00:00: mouth [place] disintegrat 00 every 8 Medic al ing tablet (eight) Branch hours as needed for Nausea and Vomiting (N/V). ondansetron Yes [id number] 4mg Take 1 [facility] (ZOFRAN 6-24 tablet by ity of ODT) 4 mg 00:00: mouth [place] disintegrat 00 every 8 Medic al ing tablet (eight) Branch hours as needed for Nausea and Vomiting (N/V). ondansetron 2019-0 Yes [id number] 4mg Take 1 [facility] (ZOFRAN 6-24 tablet by ity of ODT) 4 mg 00:00: mouth [place] disintegrat 00 every 8 Medic al ing tablet (eight) Branch hours as needed for Nausea and Vomiting (N/V). ondansetron 2019-0 Yes [id number] 4mg Take 1 Univers (ZOFRAN 6-24 tablet by ity of ODT) 4 mg 00:00: mouth [place] disintegrat 00 every 8 Medic al ing tablet (eight) Branch hours as needed for Nausea and Vomiting (N/V). ondansetron 2019-0 Yes [id number] 4mg Take 1 Univers (ZOFRAN 6-24 tablet by ity of ODT) 4 mg 00:00: mouth [place] disintegrat 00 every 8 Medic al ing tablet (eight) Branch hours as needed for Nausea and Vomiting (N/V). ondansetron 2019-0 Yes [id number] 4mg Take 1 [facility] (ZOFRAN 6-24 tablet by ity of ODT) 4 mg 00:00: mouth [place] disintegrat 00 every 8 Medic al ing tablet (eight) Branch hours as needed for Nausea and Vomiting (N/V). ondansetron 2019-0 Yes [id number] 4mg Take 1 Univers (ZOFRAN 6-24 tablet by ity of ODT) 4 mg 00:00: mouth [place] disintegrat 00 every 8 Medic al ing tablet (eight) Branch hours as needed for Nausea and Vomiting (N/V). ondansetron 2019-0 Yes [id number] 4mg Take 1 [facility] (ZOFRAN 6-24 tablet by ity of ODT) 4 mg 00:00: mouth [place] disintegrat 00 every 8 Medic al ing tablet (eight) Branch hours as needed for Nausea and Vomiting (N/V). ondansetron 2019-0 Yes [id number] 4mg Take 1 Univers (ZOFRAN 6-24 tablet by ity of ODT) 4 mg 00:00: mouth [place] disintegrat 00 every 8 Medic al ing tablet (eight) Branch hours as needed for Nausea and Vomiting (N/V). ondansetron 2019-0 Yes [id number] 4mg Take 1 [facility] (ZOFRAN 6-24 tablet by ity of ODT) 4 mg 00:00: mouth [place] disintegrat 00 every 8 Medic al ing tablet (eight) Branch hours as needed for Nausea and Vomiting (N/V). ondansetron 2019-0 Yes [id number] 4mg Take 1 Univers (ZOFRAN 6-24 tablet by ity of ODT) 4 mg 00:00: mouth [place] disintegrat 00 every 8 Medic al ing tablet (eight) Branch hours as needed for Nausea and Vomiting (N/V). ondansetron 2019-0 Yes [id number] 4mg Take 1 Univers (ZOFRAN 6-24 tablet by ity of ODT) 4 mg 00:00: mouth [place] disintegrat 00 every 8 Medic al ing tablet (eight) Branch hours as needed for Nausea and Vomiting (N/V). ondansetron 2019-0 Yes [id number] 4mg Take 1 Univers (ZOFRAN 6-24 tablet by ity of ODT) 4 mg 00:00: mouth [place] disintegrat 00 every 8 Medic al ing tablet (eight) Branch hours as needed for Nausea and Vomiting (N/V). ondansetron 2019-0 Yes [id number] 4mg Take 1 Univers (ZOFRAN 6-24 tablet by ity of ODT) 4 mg 00:00: mouth [place] disintegrat 00 every 8 Medic al ing tablet (eight) Branch hours as needed for Nausea and Vomiting (N/V). ondansetron 2019-0 Yes [id number] 4mg Take 1 Univers (ZOFRAN 6-24 tablet by ity of ODT) 4 mg 00:00: mouth [place] disintegrat 00 every 8 Medic al ing tablet (eight) Branch hours as needed for Nausea and Vomiting (N/V). ondansetron 2019-0 Yes [id number] 4mg Take 1 Univers (ZOFRAN 6-24 tablet by ity of ODT) 4 mg 00:00: mouth [place] disintegrat 00 every 8 Medic al ing tablet (eight) Branch hours as needed for Nausea and Vomiting (N/V). diazepam 5 No 10 mg = 2 Me moria mg oral 2-06 tab, PO, l tablet 17:12: BID, X 30 [place] n 00 day, # 120 tab, 2 Refill(s) [place] 2017- Yes TAKE 1 Univ ers 10 mg 1-19 TABLET ity of tablet 00:00: DAILY [facility] MONTEKAST 2018 Yes TAKE 1 Univ ers 10 mg 1-19 TABLET ity of tablet 00:00: DAILY [facility] MONTEKAST 2017-07 Yes TAKE 1 Univ ers 10 mg 1-19 TABLET ity [facility] 10 mg 1-19 TABLET ity [facility] tablet [facility] ers 10 mg 1-19 TABLET ity of tablet 00:00[facility] 1 [facility] ers 10 mg 1-19 TABLET ity of tablet 00:00[facility] ers 10 mg 1-19 TABLET ity of tablet 00:00[facility] TA[facility] 1 [facility] ers 10 mg 1-19 TABLET ity of tablet 00:00: [facility] [place] [facility] TAKE 1 Univ ers 10 mg 1-19 TABLET ity of tablet 00:00[facility] TA[facility] 1 Univ ers 10 mg 1-19 TABLET ity of tablet 00:00: [facility] Yes TAKE 1 [facility] ers 10 mg 1-19 TABLET ity of tablet 00:00[facility] Yes TA[facility] 1 [facility] ers 10 mg 1-19 TABLET ity of tablet 00:00: [facility] 1 [facility] ers 10 mg 1-19 TABLET ity of tablet 00:00[facility] 1 Univ ers 10 mg 1-19 TABLET ity of tablet 00:00: DAILY [place] [facility]07 Yes TAKE 1 Univ ers 10 mg 1-19 TABLET ity of tablet 00:00: DAILY [place] [facility] 2017-07 Yes TAKE 1 Univ ers 10 mg 1-19 TABLET ity of tablet 00:00: DAILY [place] [facility] amLODIPine 2017-07 Yes 10mg QD Take 10 mg M ethodi (NORVASC) 0-[address] 10 mg 15:07: daily. Hospita tablet 54 l sulfaSALAzi 2017-07 Yes 500mg Q.25D Take 500 Methodi ne 0-[address] (AZULFIDINE 15:07: mouth 4 Hos ava ) 500 mg 54 (four) l tablet times a day. diazePAM 2017-07 Yes 10mg Q12H Take 10 mg Met hodi (VALIUM) 5 0-[address] MG tablet 15:07: every 12 Hosp lesly 54 (twelve) l hours as needed for anxiety. dexlansopra 2017-07 Yes 60mg QD Take 60 mg Methodi zole 0-[address] (DEXILANT) 15:07: daily. Hospi ta 60 mg 54 l capsule pravastatin 2017-07 Yes 40mg QD Take 40 mg Methodi (PRAVACHOL) 0-[address] 40 MG 15:07: daily. Hospita tablet 54 l aspirin 2017-07 Yes 81mg QD Take 81 mg Meth eusebio (ECOTRIN) 0-[address] 81 MG 15:07: daily. Hospita enteric 54 l coated tablet sertraline 2017-07 Yes 50mg QD Take 50 mg M ethodi (ZOLOFT) 50 0-[address] MG tablet 15:07: daily. Hospit a 54 l traMADol 2017-07 Yes 50mg Q6H Take 50 mg Met hodi (ULTRAM) 50 0-[address] mg tablet 15:07: every 6 Hospi ta 54 (six) l hours as needed for moderate pain. SPIRIVA Yes 18ug QD Place 18 Method i WITH 9-[address] HANDIHALER 00:00: inhaler Hosp lesly 18 mcg per 00 and inhale l inhalation daily. capsule PROAIR HFA Yes USE 2 Univer s 90 8-31 INHALATION ity of mcg/actuati 00:00: S EVERY 6 [place] on inhaler 00 HOURS Medic al NEEDED Branch PROAIR HFA Yes USE 2 Univer s 90 8-31 INHALATION ity of mcg/actuati 00:00: S EVERY 6 [place] on inhaler 00 HOURS Medic al NEEDED Branch PROAIR HFA Yes 90ug Q4H Inhale 90 Me thodi 90 8-[address] mcg/actuati 00:00: 4 (four) Ho [facility] on inhaler 00 hours as l needed. losartan 50 2018-0 Yes 50mg Take 50 mg Univers mg tablet 8-20 by mouth. ity o f 00:00: [place] [facility] losartan 50 2018-0 Yes 50mg Take 50 mg Univers mg tablet 8-20 by mouth. ity o f 00:00: [address] losartan 50 2018-0 Yes 50mg Take 50 mg Univers mg tablet 8-20 by mouth. ity o f 00:00: [place] [facility] Branch losartan 50 2018-0 Yes 50mg Take 50 mg Univers mg tablet 8-20 by mouth. ity o f 00:00: [place] [facility] losartan 50 2018-0 Yes 50mg Take 50 mg Univers mg tablet 8-20 by mouth. ity o f 00:00: [place] [facility] losartan 50 2018-0 Yes 50mg Take 50 mg Univers mg tablet 8-20 by mouth. ity o f 00:00: [address] losartan 50 2018-0 Yes 50mg Take 50 mg Univers mg tablet 8-20 by mouth. ity o f 00:00: [address] baclofen 2018-0 Yes 10mg Q.[id number] Take 10 mg Methodi (LIORESAL) 8-[id number] 10 MG 00:00: 3D (three) Hospita tablet 00 times a l day. losartan 2018-0 Yes 50mg QD Take 50 mg Met hodi (COZAAR) 50 8-[address] MG tablet 00:00: daily. Hospit a 00 l budesonide- 2017-0 Yes 2{puff} Inhale 2 Univers formoterol 4-27 Puffs 2 ity of (SYMBICORT) 00:00: (two) [place] 160-4.5 00 times Medical mcg/actuati daily. Branch on inhaler Indication s: 2 puffs tiotropium 2017-0 Yes 18ug Inhale 1 Uni vers (SPIRIVA 4-27 capsule ity of WITH 00:00: daily. [facility]) 00 Medical 18 mcg Branch inhalation budesonide- 2017-0 Yes 2{puff} Inhale 2 Univers formoterol 4-27 Puffs 2 ity of (SYMBICORT) 00:00: (two) [place] 160-4.5 00 times Medical mcg/actuati daily. Branch on inhaler Indication s: 2 puffs tiotropium Yes 18ug Inhale 1 Uni vers (SPIRIVA 4-27 capsule ity of WITH 00:00: daily. [place] [facility]) 00 Medical 18 mcg Branch inhalation budesonide- Yes 2{puff} Inhale 2 Univers formoterol 4-27 Puffs 2 ity of (SYMBICORT) 00:00: (two) [place] 160-4.5 00 times Medical mcg/actuati daily. Branch on inhaler Indication s: 2 puffs tiotropium Yes 18ug Inhale 1 Uni vers (SPIRIVA 4-27 capsule ity of WITH 00:00: daily. [place] [facility]) 00 Medical 18 mcg Branch inhalation budesonide- 2020- No 2{puff} Inhale 2 Univers formoterol 4-27 04-30 Puffs 2 ity o f (SYMBICORT) 00:00: 00:00 (two[place] 160-4.5 00 :00 times Medical mcg/actuati daily. Branch on inhaler Indication s: 2 puffs tiotropium 2020- No 18ug Inhale 1 Un lia (SPIRIVA 4-27 04-30 capsule ity of WITH 00:00: 00:00 daily. [place] HAND[facility]) 00 :00 Medical 18 mcg Branch [...] Medical (eight) Branch hours. ergocalcife 2015-07 Yes [id number] Take Univ ers rol, 1-10 50,000 ity of vitamin d2, 19:12: Units by [place] (VITAMIN 44 mouth Medical D2) 50,000 weekly. Branch unit capsule baclofen 2015-07 Yes 10mg Take 10 mg Uni vers (LIORESAL) 1-10 by mouth 3 ity of 10 mg 19:12: (three) [place] tablet 44 times Medical daily. Branch SERTraline 2015-07 Yes 25mg Take 25 mg U nivers (ZOLOFT) 25 1-10 by mouth ity of mg tablet 19:12: daily. [address] Branch cyclobenzap 2015-07 Yes 10mg Take 10 mg Univers rine 1-10 by mouth ity of (FLEXERIL) 19:12: daily. [place] 10 mg 44 Medical tablet Branch roflumilast 2015-07 Yes Take by Uni vers (DALIRESP) 1-10 mouth ity of 500 mcg 19:12: daily. [place] [address] Medical Branch pregabalin 2015-07 Yes 75mg Take 75 mg U nivers (LYRICA) 75 1-10 by mouth 2 it y of mg capsule 19:12: (two) [place] 44 times Medical daily. Branch Indication s: 2caps Dexlansopra 2015-07 Yes Take by Uni vers zole 1-10 mouth ity of (DEXILANT) 19:12: daily. [place] 60 mg 44 Medical capsule Branch MULTIVITAMI 2015-07 Yes Take by Uni vers N ORAL 1-10 mouth ity of 19:12: daily. [address] Branch VITAMIN E, 2015-07 Yes Take by Univ ers DL,TOCOPHER 1-10 mouth ity of YL ACET, 19:12: daily. [place] (VITAMIN E, 44 Indication Me dical DL, s: 2 Branch ACETATE,) 400 unit Cap amLODIPine 2015-07 Yes 10mg Take 10 mg U nivers (NORVASC) 1-10 by mouth ity of 10 mg 19:12: daily. [address] Branch LACTOBACILL 2015-07 Yes Take by Uni vers US 1-10 mouth ity of ACIDOPHILUS 19:12: daily. [place] s (ACIDOPHILU 44 Medical S ORAL) Branch aspirin 81 2015-07 Yes 81mg Take 81 mg U nivers mg chewable 1-10 by mouth ity of tablet 19:12: daily. [address] Branch Cholecalcif 2015-07 Yes Take by Uni vers george, 1-10 mouth ity of Vitamin D3, 19:12: daily. [place] (VITAMIN 44 Medical D3) 2,000 Branch unit capsule diazepam 2015-07 Yes 5mg Take 5 mg Univ ers (VALIUM) 5 1-10 by mouth 2 ity of mg tablet 19:12: (two) [place] 44 times Medical daily. Branch CETIRIZINE 2015-07 Yes Take by [facility] ers HCL (ZYRTEC 1-10 mouth ity of ORAL) 19:12: daily. [address] Branch predniSONE 2015-07 Yes 10mg Take [...] 44 bedtime. Medical Branch ergocalcife 2015-07 Yes [id number] Take [facility] ers rol, 1-10 50,000 ity of vitamin [...] mouth ity of mg tablet 19:12: daily. [place] [address] Medical Branch cyclobenzap 2015-07 Yes 10mg Take 10 mg Univers rine 1-10 by mouth ity of (FLEXERIL) 19:12: daily. [place] [facility] tablet Branch roflumilast 2015-07 Yes Take by Uni vers (DALIRESP) 1-10 mouth ity of 500 mcg 19:12: daily. [place] [address] Medical Branch pregabalin 2015-07 Yes 75mg Take 75 mg U nivers (LYRICA) 75 1-10 by mouth 2 it y of mg capsule 19:12: (two) [place] [address] times Medical daily. Branch Indication s: 2caps Dexlansopra 2015-07 Yes Take by Uni vers zole 1-10 mouth ity of (DEXILANT) 19:12: daily. [place] 60 mg 44 Medical capsule Branch MULTIVITAMI 2015-07 Yes Take by Uni vers N ORAL 1-10 mouth ity of 19:12: daily. [address] Branch VITAMIN E, 2015-07 Yes Take by Univ ers DL,TOCOPHER 1-10 mouth ity of YL ACET, 19:12: daily. [place] (VITAMIN E, 44 Indication Me dical DL, s: 2 Branch ACETATE,) 400 unit Cap amLODIPine 2016- Yes 10mg Take 10 mg U nivers (NORVASC) 1-10 by mouth ity of 10 mg 19:12: daily. [place] tablet 44 Medical Branch primidone 2015-07 Yes 250mg Take 250 Uni vers (MYSOLINE) 1-10 mg by ity of 250 mg 19:12: mouth [place] tablet 44 every 8 Medical (eight) Branch hours. LACTOBACILL 2015- Yes Take by Uni vers US 1-10 mouth ity of ACIDOPHILUS 19:12: daily. [place] (ACIDOPHILU 44 Medical S ORAL) Branch aspirin 81 2015-07 Yes 81mg Take 81 mg U nivers mg chewable 1-10 by mouth ity of tablet 19:12: daily. [address] Branch Cholecalcif 2015-07 Yes Take by Uni vers george, 1-10 mouth ity of Vitamin D3, 19:12: daily. [place] (VITAMIN 44 Medical D3) 2,000 Branch unit capsule diazepam 2015- Yes 5mg Take 5 mg Univ ers (VALIUM) 5 1-10 by mouth 2 ity of mg tablet 19:12: (two) [place] [address] times Medical daily. Branch CETIRIZINE 2015-07 Yes Take by Univ ers HCL (ZYRTEC 1-10 mouth ity of ORAL) 19:12: daily. [address] Branch predniSONE 2015-07 Yes 10mg Take 10 mg U nivers (DELTASONE) 1-10 by mouth ity of 10 mg 19:12: daily. [place] tablet 44 Indication Medical s: as Branch needed ergocalcife 2015-07 Yes [id number] Take Univ ers rol, 1-10 50,000 ity [...] Medical (eight) Branch hours. ergocalcife 2015-07 Yes [id number] Take Univ ers rol, 1-10 50,000 ity [...] mouth ity of mg tablet 19:12: daily. [address] Branch cyclobenzap 2015-07 Yes 10mg Take 10 mg Univers rine 1-10 by mouth ity of (FLEXERIL) 19:12: daily. [place] 10 mg 44 Medical tablet Branch roflumilast 2015-07 Yes Take by Uni vers (DALIRESP) 1-10 mouth ity of 500 mcg 19:12: daily. [place] [address] Medical Branch pregabalin 2015-07 Yes 75mg Take 75 mg U nivers (LYRICA) 75 1-10 by mouth 2 it y of mg capsule 19:12: (two) [place] 44 times Medical daily. Branch Indication s: 2caps Dexlansopra 2015-07 Yes Take by Uni vers zole 1-10 mouth ity of (DEXILANT) 19:12: daily. [place] 60 mg 44 Medical capsule Branch MULTIVITAMI 2015-07 Yes Take by Uni vers N ORAL 1-10 mouth ity of 19:12: daily. [address] Branch VITAMIN E, 2015-07 Yes Take by Univ ers DL,TOCOPHER 1-10 mouth ity of YL ACET, 19:12: daily. [place] (VITAMIN E, 44 Indication Me dical DL, s: 2 Branch ACETATE,) 400 unit Cap SERTraline 2015-07 Yes 25mg Take 25 mg U nivers (ZOLOFT) 25 1-10 by mouth ity of mg tablet 19:12: daily. [place] [address] Medical Branch amLODIPine 2015- Yes 10mg Take 10 mg U nivers (NORVASC) 1-10 by mouth ity of 10 mg 19:12: daily. [place] [address] Medical Branch LACTOBACILL 2015- Yes Take by Uni vers US 1-10 mouth ity of ACIDOPHILUS 19:12: daily. [place] s (ACIDOPHILU Medical S ORAL) Branch aspirin 81 2015- Yes 81mg Take 81 mg U nivers mg chewable 1-10 by mouth ity of tablet 19:12: daily. [place] [address] Medical Branch Cholecalcif 2015-07 Yes Take by Uni vers george, 1-10 mouth ity of Vitamin D3, 19:12: daily. [place] (VITAMIN Medical D3) 2,000 Branch unit capsule diazepam 2015- Yes 5mg Take 5 mg Univ ers (VALIUM) 5 1-10 by mouth 2 ity of mg tablet 19:12: (two) [place] [address] times Medical daily. Branch CETIRIZINE 2015-07 Yes Take by Univ ers HCL (ZYRTEC 1-10 mouth ity of ORAL) 19:12: daily. [place] [address] Medical Branch predniSONE 2015-07 Yes 10mg Take 10 mg U nivers (DELTASONE) 1-10 by mouth ity of 10 mg 19:12: daily. [place] [facility] 44 Indication Medical s: as Branch needed cyclobenzap 2015-07 Yes 10mg Take 10 mg Univers rine 1-10 by mouth ity of (FLEXERIL) 19:12: daily. [place] 10 mg Medical tablet Branch pravastatin 2015- Yes 10mg Take 10 mg Univers (PRAVACHOL) 1-10 by mouth ity of 10 mg 19:12: at [place] tablet 44 bedtime. Medical Branch roflumilast 2015- Yes Take by Uni vers (DALIRESP) 1-10 mouth ity of 500 mcg 19:12: daily. [place] [address] Medical Branch primidone 2015- Yes 250mg Take 250 Uni vers (MYSOLINE) 1-10 mg by ity of 250 mg 19:12: mouth [facility] 44 every 8 Medical (eight) Branch hours. ergocalcife 2015- Yes [id number] Take Univ ers rol, 1-10 50,000 ity [...] mouth ity of mg tablet 19:12: daily. [address] Branch cyclobenzap 2015-07 Yes 10mg Take 10 mg Univers rine 1-10 by mouth ity of (FLEXERIL) 19:12: daily. [place] 10 mg 44 Medical tablet Branch roflumilast 2015-07 Yes Take by Uni vers (DALIRESP) 1-10 mouth ity of 500 mcg 19:12: daily. [place] [address] Medical Branch pregabalin 2015-07 Yes 75mg Take 75 mg U nivers (LYRICA) 75 1-10 by mouth 2 it y of mg capsule 19:12: (two) [place] 44 times Medical daily. Branch Indication s: 2caps Dexlansopra 2015-07 Yes Take by Uni vers zole 1-10 mouth ity of (DEXILANT) 19:12: daily. [place] 60 mg 44 Medical capsule Branch MULTIVITAMI 2015-07 Yes Take by Uni vers N ORAL 1-10 mouth ity of 19:12: daily. [address] VITAMIN E, 2015-07 Yes Take by Univ ers DL,TOCOPHER 1-10 mouth ity of YL ACET, 19:12: daily. [place] (VITAMIN E, 44 Indication Me dical DL, s: 2 Branch ACETATE,) 400 unit Cap pregabalin 2015- Yes 75mg Take 75 mg U nivers (LYRICA) 75 1-10 by mouth 2 it y of mg capsule 19:12: (two) [place] 44 times Medical daily. Branch Indication s: 2caps amLODIPine 2015- Yes 10mg Take 10 mg U nivers (NORVASC) 1-10 by mouth ity of 10 mg 19:12: daily. [place] tablet Medical Branch LACTOBACILL 2015-07 Yes Take by Uni vers US 1-10 mouth ity of ACIDOPHILUS 19:12: daily. [place] (ACIDOPHILU 44 Medical S ORAL) Branch aspirin 81 2015-07 Yes 81mg Take 81 mg U nivers mg chewable 1-10 by mouth ity of tablet 19:12: daily. [address] Branch Cholecalcif 2015-07 Yes Take by Uni vers george, 1-10 mouth ity of Vitamin D3, 19:12: daily. [place] (VITAMIN 44 Medical D3) 2,000 Branch unit capsule diazepam 2015-07 Yes 5mg Take 5 mg Univ ers (VALIUM) 5 1-10 by mouth 2 ity of mg tablet 19:12: (two) [place] 44 times Medical daily. Branch CETIRIZINE 2015-07 Yes Take by Univ ers HCL (ZYRTEC 1-10 mouth ity of ORAL) 19:12: daily. [address] Branch predniSONE 2015-07 Yes 10mg Take 10 mg U nivers (DELTASONE) 1-10 by mouth ity of 10 mg 19:12: daily. [place] tablet 44 Indication Medical s: as Branch needed Dexlansopra 2015-07 Yes Take by Uni vers zole 1-10 mouth ity of (DEXILANT) 19:12: daily. [place] 60 mg 44 Medical capsule Branch MULTIVITAMI 2015-07 Yes Take by Uni vers N ORAL 1-10 mouth ity of 19:12: daily. [address] Branch pravastatin 2015-07 Yes 10mg Take 10 mg Univers (PRAVACHOL) 1-10 by mouth ity of 10 mg 19:12: at [place] tablet 44 bedtime. Medical Branch primidone 2015-07 Yes 250mg Take 250 Uni vers (MYSOLINE) 1-10 mg by ity of 250 mg 19:12: mouth [place] tablet 44 every 8 Medical (eight) Branch hours. ergocalcife 2015-07 Yes [id number] Take Univ ers rol, 1-10 50,000 ity [...] mouth ity of mg tablet 19:12: daily. [address] Branch cyclobenzap 2016-1 Yes 10mg Take 10 mg Univers rine 1-10 by mouth ity of (FLEXERIL) 19:12: daily. [place] 10 mg 44 Medical tablet Branch roflumilast 2015-07 Yes Take by Uni vers (DALIRESP) 1-10 mouth ity of 500 mcg 19:12: daily. [place] tablet Medical Branch pregabalin 2015-07 Yes 75mg Take 75 mg U nivers (LYRICA) 75 1-10 by mouth 2 it y of mg capsule 19:12: (two) [place] [address] times Medical daily. Branch Indication s: 2caps Dexlansopra 2015-07 Yes Take by Uni vers zole 1-10 mouth ity of (DEXILANT) 19:12: daily. [place] 60 mg 44 Medical capsule Branch MULTIVITAMI 2015-07 Yes Take by Uni vers N ORAL 1-10 mouth ity of 19:12: daily. [address] VITAMIN E, 2015-07 Yes Take by Univ ers DL,TOCOPHER 1-10 mouth ity of YL ACET, 19:12: daily. [place] (VITAMIN E, 44 Indication Me dical DL, s: 2 Branch ACETATE,) 400 unit Cap VITAMIN E, 2015-07 Yes Take by Univ ers DL,TOCOPHER 1-10 mouth ity of YL ACET, 19:12: daily. [place] (VITAMIN E, 44 Indication Me dical DL, s: 2 Branch ACETATE,) 400 unit Cap amLODIPine 2015-07 Yes 10mg Take 10 mg U nivers (NORVASC) 1-10 by mouth ity of 10 mg 19:12: daily. [address] Branch LACTOBACILL 2015-07 Yes Take by Uni vers US 1-10 mouth ity of ACIDOPHILUS 19:12: daily. [place] (ACIDOPHILU 44 Medical S ORAL) Branch aspirin 81 2015-07 Yes 81mg Take 81 mg U nivers mg chewable 1-10 by mouth ity of tablet 19:12: daily. [address] Cholecalcif 2015-07 Yes Take by Uni vers george, 1-10 mouth ity of Vitamin D3, 19:12: daily. [place] (VITAMIN 44 Medical D3) 2,000 [place] unit capsule diazepam 2015-07 Yes 5mg Take 5 mg Univ ers (VALIUM) 5 1-10 by mouth 2 ity of mg tablet 19:12: (two) [place] [address] times Medical daily. Branch CETIRIZINE 2015-07 Yes Take by [facility] ers HCL (ZYRTEC 1-10 mouth ity of ORAL) 19:12: daily. [place] [address] Medical Branch predniSONE 2015-07 Yes 10mg Take 10 mg U nivers (DELTASONE) 1-10 by mouth ity of 10 mg 19:12: daily. [place] tablet 44 Indication Medical s: as Branch needed amLODIPine 2015-07 Yes 10mg Take 10 mg U nivers (NORVASC) 1-10 by mouth ity of 10 mg 19:12: daily. [place] [address] Medical Branch LACTOBACILL 2015-07 Yes Take by Uni vers US 1-10 mouth ity of ACIDOPHILUS 19:12: [facility] Medical S ORAL) Branch pravastatin 2015-07 Yes 10mg Take 10 mg Univers (PRAVACHOL) 1-10 by mouth ity of 10 mg 19:12: at [place] tablet 44 bedtime. Medical Branch primidone 2015-07 Yes 250mg Take 250 Uni vers (MYSOLINE) 1-10 mg by ity of 250 mg 19:12: mouth [place] tablet 44 every 8 Medical (eight) Branch hours. ergocalcife 2015-07 Yes [id number] Take [facility] ers rol, 1-10 50,000 ity of vitamin [...] mouth ity of mg tablet 19:12: daily. [place] [address] Medical Branch cyclobenzap 2015-07 Yes 10mg Take 10 mg Univers rine 1-10 by mouth ity of (FLEXERIL) 19:12: daily. [place] 10 mg 44 Medical tablet Branch roflumilast 2015-07 Yes Take by Uni vers (DALIRESP) 1-10 mouth ity of 500 mcg 19:12: daily. [place] [address] Medical Branch pregabalin 2015-07 Yes 75mg Take 75 mg U nivers (LYRICA) 75 1-10 by mouth 2 it y of mg capsule 19:12: (two) [place] 44 times Medical daily. Branch Indication s: 2caps Dexlansopra 2015-07 Yes Take by Uni vers zole 1-10 mouth ity of (DEXILANT) 19:12: daily. [place] 60 mg 44 Medical capsule Branch MULTIVITAMI 2015-07 Yes Take by Uni vers N ORAL 1-10 mouth ity of 19:12: daily. [address] Branch aspirin 81 2015-07 Yes 81mg Take 81 mg U nivers mg chewable 1-10 by mouth ity of tablet 19:12: daily. [address] Branch VITAMIN E, 2015-07 Yes Take by Univ ers DL,TOCOPHER 1-10 mouth ity of YL ACET, 19:12: daily. [place] (VITAMIN E, 44 Indication Me dical DL, s: 2 Branch ACETATE,) 400 unit Cap amLODIPine 2015- Yes 10mg Take 10 mg U nivers (NORVASC) 1-10 by mouth ity of 10 mg 19:12: daily. [place] [address] Medical Branch LACTOBACILL 2015-07 Yes Take by Uni vers US 1-10 mouth ity of ACIDOPHILUS 19:12: daily. [place] (ACIDOPHILU 44 Medical S ORAL) Branch aspirin 81 2015-07 Yes 81mg Take 81 mg U nivers mg chewable 1-10 by mouth ity of tablet 19:12: daily. [address] Branch Cholecalcif 2015-07 Yes Take by Uni vers [place], 1-10 mouth ity of Vitamin D3, 19:12: daily. [place] (VITAMIN 44 Medical D3) 2,000 Branch unit capsule diazepam 2015-07 Yes 5mg Take 5 mg Univ ers (VALIUM) 5 1-10 by mouth 2 ity of mg tablet 19:12: (two) [place] [address] times Medical daily. Branch CETIRIZINE 2015-07 Yes Take by Univ ers HCL (ZYRTEC 1-10 mouth ity of ORAL) 19:12: daily. [address] Branch predniSONE 2015-07 Yes 10mg Take 10 mg U nivers (DELTASONE) 1-10 by mouth ity of 10 mg 19:12: daily. [place] tablet 44 Indication Medical s: as Branch needed Cholecalcif 2015-07 Yes Take by [facility] vers [place], 1-10 mouth ity of Vitamin D3, 19:12: daily. [place] (VITAMIN 44 Medical D3) 2,000 Branch unit capsule diazepam 2015-07 Yes 5mg Take 5 mg Univ ers (VALIUM) 5 1-10 by mouth 2 ity of mg tablet 19:12: (two) [place] 44 times Medical daily. Branch pravastatin 2015-07 Yes 10mg Take 10 mg Univers (PRAVACHOL) 1-10 by mouth ity of 10 mg 19:12: at [place] tablet 44 bedtime. Medical Branch primidone 2015-07 Yes 250mg Take 250 Uni vers (MYSOLINE) 1-10 mg by ity of 250 mg 19:12: mouth [place] tablet 44 every 8 Medical (eight) Branch hours. ergocalcife 2015-07 Yes [id number] Take [facility] ers rol, 1-10 50,000 ity of vitamin d2, 19:12: Units by [place] (VITAMIN 44 mouth Medical D2) 50,000 weekly. Branch unit capsule baclofen 2015-07 Yes 10mg Take 10 mg Uni vers (LIORESAL) 1-10 by mouth 3 ity of 10 mg 19:12: (three) [place] tablet 44 times Medical daily. Branch SERTraline 2015-07 Yes 25mg Take 25 mg U nivers (ZOLOFT) 25 1-10 by mouth ity of mg tablet 19:12: daily. [address] Branch cyclobenzap 2015-07 Yes 10mg Take 10 mg Univers rine 1-10 by mouth ity of (FLEXERIL) 19:12: daily. [place] 10 mg 44 Medical tablet Branch roflumilast 2015-07 Yes Take by Uni vers (DALIRESP) 1-10 mouth ity of 500 mcg 19:12: daily. [place] [address] Medical Branch BECLOMETHAS 2015-07 Yes Use in [facility] ers ONE 1-10 each ity of DIPROPIONAT 19:12: nostril. [place] E (QNASL 44 Indication Medic al NASAL) s: 2 Branch sprays each nostril daily pregabalin 2015-07 Yes 75mg Take 75 mg U nivers (LYRICA) 75 1-10 by mouth 2 it y of mg capsule 19:12: (two) [place] 44 times Medical daily. Branch Indication s: 2caps Dexlansopra 2015-07 Yes Take by Uni vers zole 1-10 mouth ity of (DEXILANT) 19:12: daily. [place] 60 mg 44 Medical capsule Branch MULTIVITAMI 2015-07 Yes Take by Uni vers N ORAL 1-10 mouth ity of 19:12: daily. [place] [address] Medical Branch VITAMIN E, 2015-07 Yes Take by Univ ers DL,TOCOPHER 1-10 mouth ity of YL ACET, 19:12: daily. [place] (VITAMIN E, 44 Indication Me dical DL, s: 2 Branch ACETATE,) 400 unit Cap amLODIPine 2015- Yes 10mg Take 10 mg U nivers (NORVASC) 1-10 by mouth ity of 10 mg 19:12: daily. [place] [address] Medical Branch LACTOBACILL 2015-07 Yes Take by Uni vers US 1-10 mouth ity of ACIDOPHILUS 19:12: [place]. [place] (ACIDOPHILU 44 Medical S ORAL) Branch aspirin 81 2015- Yes 81mg Take 81 mg U nivers mg chewable 1-10 by mouth ity of tablet 19:12: daily. [place] [address] Medical Branch Cholecalcif 2015-07 Yes Take by Uni vers [place], 1-10 mouth ity of Vitamin D3, 19:12: daily. [place] (VITAMIN 44 Medical D3) 2,000 Branch unit capsule diazepam 2015-07 Yes 5mg Take 5 mg Univ ers (VALIUM) 5 1-10 by mouth 2 ity of mg tablet 19:12: (two) [place] [address] times Medical daily. Branch CETIRIZINE 2015-07 Yes Take by Univ ers HCL (ZYRTEC 1-10 mouth ity of ORAL) 19:12: daily. [place] [address] Medical Branch CETIRIZINE 2015-07 Yes Take by Univ ers HCL (ZYRTEC 1-10 mouth ity of ORAL) 19:12: daily. [place] [address] Medical Branch predniSONE 2015-07 Yes 10mg Take 10 mg U nivers (DELTASONE) 1-10 by mouth ity of 10 mg 19:12: daily. [place] tablet 44 Indication Medical s: as Branch needed predniSONE 2015-07 Yes 10mg Take 10 mg U nivers (DELTASONE) 1-10 by mouth ity of 10 mg 19:12: daily. [place] tablet 44 Indication Medical s: as Branch needed pravastatin 2015-07 Yes 10mg Take 10 mg Univers (PRAVACHOL) 1-10 by mouth ity of 10 mg 19:12: at [place] tablet 44 bedtime. Medical Branch primidone 2015-07 Yes 250mg Take 250 Uni vers (MYSOLINE) 1-10 mg by ity of 250 mg 19:12: mouth [place] tablet 44 every 8 Medical (eight) Branch hours. ergocalcife 2015-07 Yes [id number] Take [facility] ers rol, 1-10 50,000 ity of vitamin d2, 19:12: Units by [place] (VITAMIN 44 mouth Medical D2) 50,000 weekly. Branch unit capsule baclofen 2015-07 Yes 10mg Take 10 mg Uni vers (LIORESAL) 1-10 by mouth 3 ity of 10 mg 19:12: (three) [place] tablet 44 times Medical daily. Branch SERTraline 2015-07 Yes 25mg Take 25 mg U nivers (ZOLOFT) 25 1-10 by mouth ity of mg tablet 19:12: daily. [address] Branch cyclobenzap 2015-07 Yes 10mg Take 10 mg Univers rine 1-10 by mouth ity of (FLEXERIL) 19:12: daily. [place] 10 mg 44 Medical tablet Branch roflumilast 2015-07 Yes Take by Uni vers (DALIRESP) 1-10 mouth ity of 500 mcg 19:12: daily. [place] [address] Medical Branch pregabalin 2015-07 Yes 75mg Take 75 mg U nivers (LYRICA) 75 1-10 by mouth 2 it y of mg capsule 19:12: (two) [place] 44 times Medical daily. Branch Indication s: 2caps Dexlansopra 2015-07 Yes Take by Uni vers zole 1-10 mouth ity of (DEXILANT) 19:12: daily. [place] 60 mg 44 Medical capsule Branch MULTIVITAMI 2015-07 Yes Take by Uni vers N ORAL 1-10 mouth ity of 19:12: daily. [address] Branch VITAMIN E, 2015-07 Yes Take by [facility] ers DL,TOCOPHER 1-10 mouth ity of YL ACET, 19:12: daily. [place] (VITAMIN E, 44 Indication Me dical DL, s: 2 Branch ACETATE,) 400 unit Cap amLODIPine 2015-07 Yes 10mg Take 10 mg U nivers (NORVASC) 1-10 by mouth ity of 10 mg 19:12: daily. [place] [address] Medical Branch LACTOBACILL 2015- Yes Take by Uni vers US 1-10 mouth ity of ACIDOPHILUS 19:12: daily. [place] (ACIDOPHILU 44 Medical S ORAL) Branch aspirin 81 2015-07 Yes 81mg Take 81 mg U nivers mg chewable 1-10 by mouth ity of tablet 19:12: daily. [place] [address] Medical Branch Cholecalcif 2015- Yes Take by Uni vers [place], 1-10 mouth ity of Vitamin D3, 19:12: [place]. [place] (VITAMIN Medical D3) 2,000 Branch unit capsule diazepam 2016- Yes 5mg Take 5 mg Univ ers (VALIUM) 5 1-10 by mouth 2 ity of mg tablet 19:12: (two) [place] [address] times Medical daily. Branch CETIRIZINE 2015-07 Yes Take by Univ ers HCL (ZYRTEC 1-10 mouth ity of ORAL) 19:12: daily. [address] Branch predniSONE 2015-07 Yes 10mg Take 10 mg U nivers (DELTASONE) 1-10 by mouth ity of 10 mg 19:12: daily. [place] [address] Indication Medical s: as Branch needed pravastatin 2015-07 Yes 10mg Take 10 mg Univers (PRAVACHOL) 1-10 by mouth ity of 10 mg 19:12: at [place] tablet 44 bedtime. Medical Branch primidone 2015-07 Yes 250mg Take 250 Uni vers (MYSOLINE) 1-10 mg by ity of 250 mg 19:12: mouth [place] tablet 44 every 8 Medical (eight) Branch hours. ergocalcife 2015-07 Yes [id number] Take Univ ers rol, 1-10 50,000 ity of vitamin d2, 19:12: Units by [place] (VITAMIN 44 mouth Medical D2) 50,000 weekly. Branch unit capsule baclofen 2015-07 Yes 10mg Take 10 mg Uni vers (LIORESAL) 1-10 by mouth 3 ity of 10 mg 19:12: (three) [place] [facility] 44 times Medical daily. Branch SERTraline 2015-07 Yes 25mg Take 25 mg U nivers (ZOLOFT) 25 1-10 by mouth ity of mg tablet 19:12: daily. [address] Branch cyclobenzap 2015- Yes 10mg Take 10 mg Univers rine 1-10 by mouth ity of (FLEXERIL) 19:12: daily. [place] 10 mg 44 Medical tablet Branch roflumilast 2015-07 Yes Take by Uni vers (DALIRESP) 1-10 mouth ity of 500 mcg 19:12: daily. [place] [address] Medical Branch pregabalin 2015-07 Yes 75mg Take 75 mg U nivers (LYRICA) 75 1-10 by mouth 2 it y of mg capsule 19:12: (two) [place] [address] times Medical daily. Branch Indication s: 2caps Dexlansopra 2015-07 Yes Take by Uni vers zole 1-10 mouth ity of (DEXILANT) 19:12: daily. [place] 60 mg 44 Medical capsule Branch MULTIVITAMI 2015-07 Yes Take by Uni vers N ORAL 1-10 mouth ity of 19:12: daily. [address] Branch VITAMIN E, 2015-07 Yes Take by Univ ers DL,TOCOPHER 1-10 mouth ity of YL ACET, 19:12: daily. [place] (VITAMIN E, 44 Indication Me dical DL, s: 2 Branch ACETATE,) 400 unit Cap amLODIPine 2015- Yes 10mg Take 10 mg U nivers (NORVASC) 1-10 by mouth ity of 10 mg 19:12: daily. [facility] 44 Medical Branch LACTOBACILL 2015-07 Yes Take by Uni vers US 1-10 mouth ity of ACIDOPHILUS 19:12: daily. [place] (ACIDOPHILU 44 Medical S ORAL) Branch aspirin 81 2015-07 Yes 81mg Take 81 mg U nivers mg chewable 1-10 by mouth ity of tablet 19:12: daily. [address] Branch Cholecalcif 2015-07 Yes Take by Uni vers [place], 1-10 mouth ity of Vitamin D3, 19:12: daily. [place] (VITAMIN 44 Medical D3) 2,000 Branch unit capsule diazepam 2015-07 Yes 5mg Take 5 mg Univ ers (VALIUM) 5 1-10 by mouth 2 ity of mg tablet 19:12: (two) [place] [address] times Medical daily. Branch CETIRIZINE 2015-07 Yes Take by Univ ers HCL (ZYRTEC 1-10 mouth ity of ORAL) 19:12: daily. [address] Branch predniSONE 2015-07 Yes 10mg Take 10 mg U nivers (DELTASONE) 1-10 by mouth ity of 10 mg 19:12: daily. [place] tablet 44 Indication Medical s: as Branch needed pravastatin 2015-07 Yes 10mg Take 10 mg Univers (PRAVACHOL) 1-10 by mouth ity of 10 mg 19:12: at [place] tablet 44 bedtime. Medical Branch primidone 2015-07 Yes 250mg Take 250 Uni vers (MYSOLINE) 1-10 mg by ity of 250 mg 19:12: mouth [place] tablet 44 every 8 Medical (eight) Branch hours. ergocalcife 2015-07 Yes [id number] Take [facility] ers rol, 1-10 50,000 ity of vitamin d2, 19:12: Units by [place] (VITAMIN 44 mouth Medical D2) 50,000 weekly. Branch unit capsule baclofen 2015-07 Yes 10mg Take 10 mg Uni vers (LIORESAL) 1-10 by mouth 3 ity of 10 mg 19:12: (three) [place] tablet 44 times Medical daily. Branch SERTraline 2015-07 Yes 25mg Take 25 mg U nivers (ZOLOFT) 25 1-10 by mouth ity of mg tablet 19:12: daily. [address] Branch cyclobenzap 2015-07 Yes 10mg Take 10 mg Univers rine 1-10 by mouth ity of (FLEXERIL) 19:12: daily. [place] 10 mg 44 Medical tablet Branch roflumilast 2015-07 Yes Take by Uni vers (DALIRESP) 1-10 mouth ity of 500 mcg 19:12: daily. [address] Branch pregabalin 2015-07 Yes 75mg Take 75 mg U nivers (LYRICA) 75 1-10 by mouth 2 it y of mg capsule 19:12: (two) [place] 44 times Medical daily. Branch Indication s: 2caps Dexlansopra 2015-07 Yes Take by Uni vers zole 1-10 mouth ity of (DEXILANT) 19:12: daily. [place] 60 mg 44 Medical capsule Branch MULTIVITAMI 2015-07 Yes Take by Uni vers N ORAL 1-10 mouth ity of 19:12: daily. [address] Branch VITAMIN E, 2015-07 Yes Take by [facility] ers DL,TOCOPHER 1-10 mouth ity of YL ACET, 19:12: daily. [place] (VITAMIN E, 44 Indication Me dical DL, s: 2 Branch ACETATE,) 400 unit Cap amLODIPine 2015-07 Yes 10mg Take 10 mg U nivers (NORVASC) 1-10 by mouth ity of 10 mg 19:12: daily. [address] Branch LACTOBACILL 2015-07 Yes Take by Uni vers US 1-10 mouth ity of ACIDOPHILUS 19:12: daily. [place] (ACIDOPHILU 44 Medical S ORAL) Branch aspirin 81 2015-07 Yes 81mg Take 81 mg U nivers mg chewable 1-10 by mouth ity of tablet 19:12: daily. [place] [address] Medical Branch Cholecalcif 2015-07 Yes Take by Uni vers [place], 1-10 mouth ity of Vitamin D3, 19:12: daily. [place] (VITAMIN Medical D3) 2,000 Branch unit capsule diazepam 2015-07 Yes 5mg Take 5 mg Univ ers (VALIUM) 5 1-10 by mouth 2 ity of mg tablet 19:12: (two) [place] [address] times Medical daily. Branch CETIRIZINE 2015-07 Yes Take by Univ ers HCL (ZYRTEC 1-10 mouth ity of ORAL) 19:12: daily. [place] [address] Medical Branch predniSONE 2015-07 Yes 10mg Take 10 mg U nivers (DELTASONE) 1-10 by mouth ity of 10 mg 19:12: daily. [place] [address] Indication Medical s: as Branch needed pravastatin 2015-07 Yes 10mg Take 10 mg Univers (PRAVACHOL) 1-10 by mouth ity of 10 mg 19:12: at [place] tablet 44 bedtime. Medical Branch primidone 2015-07 Yes 250mg Take 250 Uni vers (MYSOLINE) 1-10 mg by ity of 250 mg 19:12: mouth [place] tablet 44 every 8 Medical (eight) Branch hours. ergocalcife 2015-07 Yes [id number] Take Univ ers rol, 1-10 50,000 ity of vitamin d2, 19:12: Units by [place] (VITAMIN 44 mouth Medical D2) 50,000 weekly. Branch unit capsule baclofen 2015-07 Yes 10mg Take 10 mg Uni vers (LIORESAL) 1-10 by mouth 3 ity of 10 mg 19:12: (three) [place] tablet 44 times Medical daily. Branch SERTraline 2015-07 Yes 25mg Take 25 mg U nivers (ZOLOFT) 25 1-10 by mouth ity of mg tablet 19:12: daily. [address] Branch cyclobenzap 2015-07 Yes 10mg Take 10 mg Univers rine 1-10 by mouth ity of (FLEXERIL) 19:12: daily. [place] 10 mg Medical tablet Branch roflumilast 2015-07 Yes Take by Uni vers (DALIRESP) 1-10 mouth ity of 500 mcg 19:12: daily. [place] [address] Medical Branch pregabalin 2015-07 Yes 75mg Take 75 mg U nivers (LYRICA) 75 1-10 by mouth 2 it y of mg capsule 19:12: (two) [place] [address] times Medical daily. Branch Indication s: 2caps Dexlansopra 2015- Yes Take by Uni vers zole 1-10 mouth ity of (DEXILANT) 19:12: daily. [place] 60 mg 44 Medical capsule Branch MULTIVITAMI 2015-07 Yes Take by Uni vers N ORAL 1-10 mouth ity of 19:12: daily. [address] Branch VITAMIN E, 2015-07 Yes Take by [facility] ers DL,TOCOPHER 1-10 mouth ity of YL ACET, 19:12: daily. [place] (VITAMIN E, 44 Indication Me dical DL, s: 2 Branch ACETATE,) 400 unit Cap amLODIPine 2015-07 Yes 10mg Take 10 mg U nivers (NORVASC) 1-10 by mouth ity of 10 mg 19:12: daily. [place] [address] Medical Branch LACTOBACILL 2015-07 Yes Take by Uni vers US 1-10 mouth ity of ACIDOPHILUS 19:12: daily. [place] (ACIDOPHILU 44 Medical S ORAL) Branch aspirin 81 2015-07 Yes 81mg Take 81 mg U nivers mg chewable 1-10 by mouth ity of tablet 19:12: daily. [address] Branch Cholecalcif 2015-07 Yes Take by Uni vers [place], 1-10 mouth ity of Vitamin D3, 19:12: daily. [place] (VITAMIN 44 Medical D3) 2,000 Branch unit capsule diazepam 2015-07 Yes 5mg Take 5 mg [facility] ers (VALIUM) 5 1-10 by mouth 2 ity of mg tablet 19:12: (two) [place] [address] times Medical daily. Branch BECLOMETHAS 2015-07 Yes Use in [facility] ers ONE 1-10 each ity of DIPROPIONAT 19:12: nostril. [place] (QNASL 44 Indication Medic al NASAL) s: 2 Branch sprays each nostril daily CETIRIZINE 2015-07 Yes Take by [facility] ers HCL (ZYRTEC 1-10 mouth ity of ORAL) 19:12: daily. [address] Branch predniSONE 2015-07 Yes 10mg Take 10 mg U nivers (DELTASONE) 1-10 by mouth ity of 10 mg 19:12: daily. [place] tablet 44 Indication Medical s: as Branch needed pravastatin 2015-07 Yes 10mg Take 10 mg Univers (PRAVACHOL) 1-10 by mouth ity of 10 mg 19:12: at [place] tablet 44 bedtime. Medical Branch primidone 2015-07 Yes 250mg Take 250 Uni vers (MYSOLINE) 1-10 mg by ity of 250 mg 19:12: mouth [place] tablet 44 every 8 Medical (eight) Branch hours. ergocalcife 2015-07 Yes [id number] Take [facility] ers rol, 1-10 50,000 ity of vitamin [...] mouth ity of mg tablet 19:12: daily. [place] [address] Medical Branch cyclobenzap 2015-07 Yes 10mg Take 10 mg Univers rine 1-10 by mouth ity of (FLEXERIL) 19:12: daily. [place] 10 mg 44 Medical tablet Branch roflumilast 2015-07 Yes Take by Uni vers (DALIRESP) 1-10 mouth ity of 500 mcg 19:12: daily. [place] tablet 44 Medical Branch pregabalin 2015-07 Yes 75mg Take 75 mg U nivers (LYRICA) 75 1-10 by mouth 2 it y of mg capsule 19:12: (two) [place] 44 times Medical daily. Branch Indication s: 2caps Dexlansopra 2015-07 Yes Take by Uni vers zole 1-10 mouth ity of (DEXILANT) 19:12: daily. [place] 60 mg 44 Medical capsule Branch MULTIVITAMI 2015-07 Yes Take by Uni vers N ORAL 1-10 mouth ity of 19:12: daily. [place] [address] Medical Branch VITAMIN E, 2015-07 Yes Take by [facility] ers DL,TOCOPHER 1-10 mouth ity of YL ACET, 19:12: daily. [place] (VITAMIN E, 44 Indication Me dical DL, s: 2 Branch ACETATE,) 400 unit Cap amLODIPine 2015-07 Yes 10mg Take 10 mg U nivers (NORVASC) 1-10 by mouth ity of 10 mg 19:12: daily. [place] tablet 44 Medical Branch LACTOBACILL 2015-07 Yes Take by Uni vers US 1-10 mouth ity of ACIDOPHILUS 19:12: daily. [place] (ACIDOPHILU 44 Medical S ORAL) Branch aspirin 81 2015-07 Yes 81mg Take 81 mg U nivers mg chewable 1-10 by mouth ity of tablet 19:12: daily. [address] Branch Cholecalcif 2015-07 Yes Take by Uni vers [place], 1-10 mouth ity of Vitamin D3, 19:12: daily. [place] (VITAMIN 44 Medical D3) 2,000 Branch unit capsule diazepam 2015-07 Yes 5mg Take 5 mg [facility] ers (VALIUM) 5 1-10 by mouth 2 ity of mg tablet 19:12: (two) [place] times Medical daily. Branch BECLOMETHAS 2015-07 Yes Use in [facility] ers ONE 1-10 each ity of DIPROPIONAT 19:12: nostril. [place] E (QNASL 44 Indication Medic al NASAL) s: 2 Branch sprays each nostril daily CETIRIZINE 2015-07 Yes Take by [facility] ers HCL (ZYRTEC 1-10 mouth ity of ORAL) 19:12: daily. [address] Branch pravastatin 2015-07 Yes 10mg Take 10 mg Univers (PRAVACHOL) 1-10 by mouth ity of 10 mg 13:12: at [place] tablet 44 bedtime. Medical Branch primidone 2015-07 Yes 250mg Take 250 Uni vers (MYSOLINE) 1-10 mg by ity of 250 mg 13:12: mouth [place] tablet 44 every 8 Medical (eight) Branch hours. ergocalcife 2015-07 Yes [id number] Take [facility] ers rol, 1-10 50,000 ity of vitamin [...] mouth ity of mg tablet 13:12: daily. [address] Branch cyclobenzap 2015-07 Yes 10mg Take 10 mg Univers rine 1-10 by mouth ity of (FLEXERIL) 13:12: daily. [place] 10 mg 44 Medical tablet Branch roflumilast 2015-07 Yes Take by Uni vers (DALIRESP) 1-10 mouth ity of 500 mcg 13:12: daily. [place] tablet 44 Medical Branch pregabalin 2015-07 Yes 75mg Take 75 mg U nivers (LYRICA) 75 1-10 by mouth 2 it y of mg capsule 13:12: (two) [place] [address] times Medical daily. Branch Indication s: 2caps Dexlansopra 2015-07 Yes Take by Uni vers zole 1-10 mouth ity of (DEXILANT) 13:12: daily. [place] 60 mg 44 Medical capsule Branch MULTIVITAMI 2015-07 Yes Take by Uni vers N ORAL 1-10 mouth ity of 13:12: daily. [address] Branch VITAMIN E, 2015-07 Yes Take by Univ ers DL,TOCOPHER 1-10 mouth ity of YL ACET, 13:12: daily. [place] (VITAMIN E, 44 Indication Me dical DL, s: 2 Branch ACETATE,) 400 unit Cap amLODIPine 2015-07 Yes 10mg Take 10 mg U nivers (NORVASC) 1-10 by mouth ity of 10 mg 13:12: daily. [address] Branch LACTOBACILL 2015-07 Yes Take by Uni vers US 1-10 mouth ity of ACIDOPHILUS 13:12: daily. [place] (ACIDOPHILU 44 Medical S ORAL) Branch aspirin 81 2015-07 Yes 81mg Take 81 mg U nivers mg chewable 1-10 by mouth ity of tablet 13:12: daily. [address] Branch Cholecalcif 2015-07 Yes Take by Uni vers [place], 1-10 mouth ity of Vitamin D3, 13:12: daily. [place] (VITAMIN 44 Medical D3) 2,000 Branch unit capsule diazepam 2015- Yes 5mg Take 5 mg Univ ers (VALIUM) 5 1-10 by mouth 2 ity of mg tablet 13:12: (two) [place] [address] times Medical daily. Branch CETIRIZINE 2015-07 Yes Take by Univ ers HCL (ZYRTEC 1-10 mouth ity of ORAL) 13:12: daily. [address] predniSONE 2015-07 Yes 10mg Take 10 mg U nivers (DELTASONE) 1-10 by mouth ity of 10 mg 13:12: daily. [place] tablet 44 Indication Medical s: as Branch needed pravastatin 2015-07 Yes 10mg Take 10 mg Univers (PRAVACHOL) 1-10 by mouth ity of 10 mg 13:12: at [place] tablet 44 bedtime. Medical Branch primidone 2015-07 Yes 250mg Take 250 Uni vers (MYSOLINE) 1-10 mg by ity of 250 mg 13:12: mouth [place] tablet 44 every 8 Medical (eight) Branch hours. ergocalcife 2015-07 Yes [id number] Take Univ ers rol, 1-10 50,000 ity [...] mouth ity of mg tablet 13:12: daily. [address] Branch cyclobenzap 2015-07 Yes 10mg Take 10 mg Univers rine 1-10 by mouth ity of (FLEXERIL) 13:12: daily. [place] 10 mg 44 Medical tablet Branch roflumilast 2015-07 Yes Take by Uni vers (DALIRESP) 1-10 mouth ity of 500 mcg 13:12: daily. [facility] 44 Medical Branch pregabalin 2015-07 Yes 75mg Take 75 mg U nivers (LYRICA) 75 1-10 by mouth 2 it y of mg capsule 13:12: (two) [place] 44 times Medical daily. Branch Indication s: 2caps Dexlansopra 2015-07 Yes Take by Uni vers zole 1-10 mouth ity of (DEXILANT) 13:12: daily. [place] 60 mg 44 Medical capsule Branch MULTIVITAMI 2015-07 Yes Take by Uni vers N ORAL 1-10 mouth ity of 13:12: daily. [address] Branch VITAMIN E, 2015-07 Yes Take by Univ ers DL,TOCOPHER 1-10 mouth ity of YL ACET, 13:12: daily. [place] (VITAMIN E, 44 Indication Me dical DL, s: 2 Branch ACETATE,) 400 unit Cap amLODIPine 2015-07 Yes 10mg Take 10 mg U nivers (NORVASC) 1-10 by mouth ity of 10 mg 13:12: daily. [place] [address] Medical Branch LACTOBACILL 2015-07 Yes Take by Uni vers US 1-10 mouth ity of ACIDOPHILUS 13:12: daily. [place] (ACIDOPHILU 44 Medical S ORAL) Branch aspirin 81 2015-07 Yes 81mg Take 81 mg U nivers mg chewable 1-10 by mouth ity of tablet 13:12: daily. [address] Branch Cholecalcif 2015-07 Yes Take by Uni vers [place], 1-10 mouth ity of Vitamin D3, 13:12: daily. [place] (VITAMIN 44 Medical D3) 2,000 Branch unit capsule diazepam 2015-07 Yes 5mg Take 5 mg Univ ers (VALIUM) 5 1-10 by mouth 2 ity of mg tablet 13:12: (two) [place] [address] times Medical daily. Branch CETIRIZINE 2015-07 Yes Take by Univ ers HCL (ZYRTEC 1-10 mouth ity of ORAL) 13:12: daily. [place] [address] Medical Branch predniSONE 2015-07 Yes 10mg Take 10 mg U nivers (DELTASONE) 1-10 by mouth ity of 10 mg 13:12: daily. [facility] 44 Indication Medical s: as Branch needed pravastatin 2015-07 Yes 10mg Take 10 mg Univers (PRAVACHOL) 1-10 by mouth ity of 10 mg 13:12: at [place] tablet 44 bedtime. Medical Branch primidone 2015-07 Yes 250mg Take 250 Uni vers (MYSOLINE) 1-10 mg by ity of 250 mg 13:12: mouth [place] tablet 44 every 8 Medical (eight) Branch hours. ergocalcife 2015-07 Yes [id number] Take Univ ers rol, 1-10 50,000 ity [...] mouth ity of mg tablet 13:12: daily. [address] Branch cyclobenzap 2015-07 Yes 10mg Take 10 mg Univers rine 1-10 by mouth ity of (FLEXERIL) 13:12: daily. [place] 10 mg 44 Medical tablet Branch roflumilast 2015-07 Yes Take by Uni vers (DALIRESP) 1-10 mouth ity of 500 mcg 13:12: daily. [place] tablet Medical Branch pregabalin 2015-07 Yes 75mg Take 75 mg U nivers (LYRICA) 75 1-10 by mouth 2 it y of mg capsule 13:12: (two) [place] [address] times Medical daily. Branch Indication s: 2caps Dexlansopra 2015-07 Yes Take by Uni vers zole 1-10 mouth ity of (DEXILANT) 13:12: daily. [place] 60 mg 44 Medical capsule Branch MULTIVITAMI 2015-07 Yes Take by Uni vers N ORAL 1-10 mouth ity of 13:12: daily. [address] VITAMIN E, 2015-07 Yes Take by Univ ers DL,TOCOPHER 1-10 mouth ity of YL ACET, 13:12: daily. [place] (VITAMIN E, 44 Indication Me dical DL, s: 2 Branch ACETATE,) 400 unit Cap amLODIPine 2015-07 Yes 10mg Take 10 mg U nivers (NORVASC) 1-10 by mouth ity of 10 mg 13:12: daily. [place] [address] Medical Branch LACTOBACILL 2015-07 Yes Take by Uni vers US 1-10 mouth ity of ACIDOPHILUS 13:12: daily. [place] (ACIDOPHILU 44 Medical S ORAL) Branch aspirin 81 2015-07 Yes 81mg Take 81 mg U nivers mg chewable 1-10 by mouth ity of tablet 13:12: daily. [address] Branch Cholecalcif 2015-07 Yes Take by Uni vers [place], 1-10 mouth ity of Vitamin D3, 13:12: daily. [place] (VITAMIN 44 Medical D3) 2,000 Branch unit capsule diazepam 2015-07 Yes 5mg Take 5 mg Univ ers (VALIUM) 5 1-10 by mouth 2 ity of mg tablet 13:12: (two) [place] [id number] times Medical daily. Branch CETIRIZINE 2015-07 Yes Take by Univ ers HCL (ZYRTEC 1-10 mouth ity of ORAL) 13:12: daily. [address] predniSONE 2015- Yes 10mg Take 10 mg U nivers (DELTASONE) 1-10 by mouth ity of 10 mg 13:12: daily. [place] tablet 44 Indication Medical s: as Branch needed Immunizations Ordered Filled Immunization Date Status Comments [facility] e Immunization Name Name Influenza High Dose 2017-07-03 Completed Unive rsity of 00:00:00 [facility] Branch Influenza High Dose 2017-07-03 Completed Unive rsity of 00:00:00 [facility] Branch Influenza High Dose 2017-07-03 Completed Unive rsity of 00:00:00 [facility] Branch Influenza High Dose 2017-07-03 Completed Unive rsity of 00:00:00 [facility] Branch Influenza High Dose 2017-07-03 Completed Unive rsity of 00:00:00 [facility] Branch Influenza High Dose 2017-07-03 Completed Unive rsity of 00:00:00 [facility] Branch Influenza High Dose 2017-07-03 Completed Unive rsity of 00:00:00 [facility] Influenza High Dose 2017-07-03 Completed Unive rsity of 00:00:00 [facility] Branch Influenza High Dose 2017-07-03 Completed Unive rsity of 00:00:00 [facility] Branch Influenza High Dose 2017-07-03 Completed Unive rsity of 00:00:00 [facility] Branch Influenza High Dose 2017-07-03 Completed Unive rsity of 00:00:00 [facility] Branch Influenza High Dose 2017-07-03 Completed Unive rsity of 00:00:00 [facility] Branch Influenza High Dose 2017-07-03 Completed Unive rsity of 00:00:00 [facility] Influenza High Dose 2017-07-03 Completed Unive rsity of 00:00:00 [facility] Influenza High Dose 2017-07-03 Completed Unive rsity of 00:00:00 [facility] Influenza High Dose 2017-07-03 Completed Unive rsity of 00:00:00 [facility] Branch Tdap 2015-04-29 Completed University of 00:00:00 [facility] Branch Tdap 2015-04-29 Completed University of 00:00:00 [facility] Branch Tdap 2015-04-29 Completed University of 00:00:00 [facility] Branch Tdap 2015-04-29 Completed University of 00:00:00 [facility] Branch Tdap 2015-04-29 Completed University of 00:00:00 [facility] Branch Tdap 2015-04-29 Completed University of 00:00:00 [facility] Tdap 2015-04-29 Completed University of 00:00:00 [facility] TDAP 2015-04-29 Completed University of 00:00:00 [facility] Branch TDAP 2015-04-29 Completed University of 00:00:00 [facility] Branch Tdap 2015-04-29 Completed University of 00:00:00 [facility] TDAP 2015-04-29 Completed University of 00:00:00 [facility] Branch TDAP 2015-04-29 Completed University of 00:00:00 [facility] Branch TDAP 2015-04-29 Completed University of 00:00:00 [facility] TDAP 2015-04-29 Completed University of 00:00:00 [facility] TDAP 2015-04-29 Completed University of 00:00:00 [facility] Tdap 2015-04-29 Completed University of 00:00:00 [facility] Pneumococcal 2015-04-19 Completed University o f Polysaccharide, [...] Systolic blood 2019-08-14 20:58:00 116 mm[Hg] Univer sity of [facility] Diastolic blood 2019-08-14 20:58:00 70 mm[Hg] Unive rsity of [facility] Heart rate 2019-08-14 20:58:00 82 /min Universi ty [facility] Respiratory rate 2019-08-14 20:58:00 19 /min [facility] Body weight 2019-08-14 20:58:00 64.411 [facility] 2019-08-14 20:58:00 25.97 kg/m2 Universi [facility] Oxygen saturation in 2019-08-14 20:58:00 89 /min [facility] Arterial blood by [facility] Pulse oximetry Branch Systolic blood 2019-08-14 20:58:00 116 mm[Hg] Univer sity of [facility] Diastolic blood 2019-08-14 20:58:00 70 mm[Hg] Unive rsity of [facility] Heart rate 2019-08-14 20:58:00 82 /min Universi ty [facility] Respiratory rate 2019-08-14 20:58:00 19 /min [facility] Body weight 2019-08-14 20:58:00 64.411 kg Universi ty [facility] BMI 2019-08-14 20:58:00 25.97 kg/m2 Universi [facility] Oxygen saturation in 2019-08-14 20:58:00 89 /min University of Arterial blood by [facility] Pulse oximetry Branch Systolic (mm Hg) 2022-03-21 15:46:00 Apollo [facility] [place] Diastolic (mm Hg) 2022-03-21 15:46:00 Mem orial [place] Heart Rate 2022-03-21 15:46:00 [facility] [place] Respitory Rate 2022-03-21 15:46:00 Memori al [place] Height 2022-03-21 15:46:00 158.75 cm [facility] [place] Weight 2022-03-21 15:46:00 [facility] [place] BMI Calculated 2022-03-21 15:46:00 Memori al [place] Systolic (mm Hg) 2021-08-18 20:07:00 Apollo [facility] [place] Diastolic (mm Hg) 2021-08-18 20:07:00 Mem orial [place] Heart Rate 2021-08-18 20:07:00 [facility] [place] Respitory Rate 2021-08-18 20:07:00 Memori al [place] Weight 2021-08-18 20:07:00 [facility] [place] Diastolic (mm Hg) 2019-05-27 19:23:00 Mem orial [place] Heart Rate 2019-05-27 19:23:00 [facility] [place] Respitory Rate 2019-05-27 19:23:00 Memori al [place] Height 2019-05-27 19:23:00 157.48 cm [facility] Weight 2019-05-27 19:23:00 [facility] BMI Calculated 2019-05-27 19:23:00 Memori al [place] Systolic (mm Hg) 2019-05-27 19:23:00 Apollo [facility] [place] Heart Rate 2019-02-25 20:22:00 [facility] [place] Systolic (mm Hg) 2019-02-25 20:22:00 Apollo rial [place] Diastolic (mm Hg) 2019-02-25 20:22:00 Mem orial [place] Respitory Rate 2019-02-25 20:22:00 Memori al [place] Height 2019-02-25 20:22:00 157.48 cm [facility] Weight 2019-02-25 20:22:00 [facility] [place] BMI Calculated 2019-02-25 20:22:00 Memori al [place] Systolic (mm Hg) 2018-08-21 17:03:00 Apollo rial [place] Diastolic (mm Hg) 2018-08-21 17:03:00 Alejo boudreaux Chace Heart Rate 2018-08-21 17:03:00 Cirilo Aguayoann Height 2018-08-21 17:03:00 157.48 cm Cirilo Aguayoann Weight 2018-08-21 17:03:00 [facility] BMI Calculated 2018-08-21 17:03:00 Doron Last Procedures Procedure Date / Time Performing Clinician Source Performed DME/SUPPLY JUSTIFICATION 2022-03-14 05:01:00 Doctor Unassigned, No [facility] DME/SUPPLY JUSTIFICATION 2021-04-28 05:01:00 Doctor Unassigned, No [facility] DME/SUPPLY JUSTIFICATION 2020-06-03 06:01:00 Doctor Unassigned, No [facility] MEDICAL 2019-11-25 05:01:00 Doctor Unassigned, No [facility] RELEASE/CLEARANCE FORMS [facility] Laparoscopic [facility] adhesiolysis Plan of Care Planned Activity Planned Date Details Comments Source Future Scheduled 2022-03-17 HEPATITIS B VACCINES Met [facility] Test 02:20:01 (1 of 3 - 3-dose series) [code = HEPATITIS B VACCINES (1 of 3 - 3-dose series)] Future Scheduled 2022-03-17 COVID-19 VACCINE (#1) [facility] Test 02:20:01 [code = COVID-19 VACCINE (#1)] Future Scheduled 2022-03-17 BREAST CANCER [facility] Test 02:20:01 SCREENING [code = BREAST CANCER SCREENING] Future Scheduled 2022-03-17 COLONOSCOPY SCREENING [facility] Test 02:20:01 [code = COLONOSCOPY SCREENING] Future Scheduled 2022-03-17 SHINGLES VACCINES (1 [facility] Test 02:20:01 of 2) [code = SHINGLES VACCINES (1 of 2)] Future Scheduled 2022-03-17 65+ [facility]AL [facility] Test 02:20:01 VACCINE (1 - PCV) [code = 65+ PNEUMOCOCCAL VACCINE (1 - PCV)] Future Scheduled 2022-03-17 INFLUENZA VACCINE [facility] Test 02:20:01 [code = INFLUENZA VACCINE] Encounters Start End Encounter Admission Attending Care Care Encounter Source Date/Time Date/Time Type Type Clinicians Facility Department ID 2022-07-21 2022-07-21 Outpatient MHIE MHIE [id number] Memoria 13:00:00 13:00:00 22 l [place]ace 2022-05-05 2022-05-05 Outpatient R BENJIE ALVARADO [facility] 10 [id number] Univers 10:00:00 10:00:00 [place] BEJNIE [place] [facility] 2022-04-24 2022-04-24 Outpatient R BENJIE ALVARADO [facility] 10 [id number] Univers 10:00:00 10:00:00 CHRISTIANO BENJIE [place] [facility] 2022-03-23 2022-03-23 Outpatient R BENJIE ALVARADO [facility] 10 [id number] Univers 09:00:00 09:00:00 CHRISTIANO BENJIE [place] [facility] 2022-03-21 2022-03-22 Outpatient nullFlavo MNA [id number] Memoria 15:15:00 04:59:59 r Neurology 21 l Cierra Mas 2022-03-21 2022-03-21 Outpatient ANSHUL LinoMISCHER MHMISCHER [id number] 10:15:00 23:59:59 Vito An Davis 2022-03-21 2022-03-21 Outpatient MHIE MHIE [id number] Memoria 10:15:00 10:15:00 21 josé luis Chace 2022-03-14 2022-03-14 Orders Doctor MANJINDER 1.2.840.114 [id number] Univers 00:00:00 00:00:00 Only Unassigned, DELFIN 350.1.13.10 ity [place] [facility] [id number] Natan as [phone] [address] 2022-02-23 2022-02-23 Outpatient R BENJIE ALVARADO [facility] 10 [id number] Univers 11:30:00 11:30:00 CHRISTIANO BENJIE [place] [facility] 2021-11-24 2021-11-26 Outside nullFlavo MNA [id number] Memoria 13:35:16 04:59:59 Medical r Neurology 08 l Records Cierra Mas 2021-11-24 2021-11-25 Outpatient MHMISCHER MHMISCHER [id number] 08:35:16 23:59:59 08 2021-11-16 2021-11-18 Outside nullFlavo MNA [id number] Memoria 21:12:02 04:59:59 Medical r Neurology 07 l Travis Mas 2021-11-16 2021-11-17 Outpatient MHMISCHER MHMISCHER [id number] 16:12:02 23:59:59 07 2021-11-11 2021-11-11 Telephone [facility] [id number] [facility] 00:00:00 00:00:00 Benjie HESTERFELIPE 350.1.13.10 i [facility] 4.2.7.2.686 St[facility] [phone] Fl dical NAL 085 [facility] 2021-09-29 2021-09-29 Ambulatory nullFlavo MNA [id number] Memoria 18:30:00 18:30:00 Pre-Reg r Neurology 20 l Cierra Chace 2021-09-29 2021-09-29 Outpatient MHIE MHIE [id number] Memoria 13:30:00 13:30:00 20 josé luis [place] 2021-09-29 2021-09-29 Outpatient DARSHAN Lino RICHARDSCHER [id number] 13:30:00 13:30:00 Vito 20 Ryan 2021-08-18 2021-08-19 Outpatient nullFlavo MNA [id number] Memoria 19:00:00 05:59:59 r Neurology 19 josé luis Aguayoann 2021-08-18 2021-08-18 Outpatient DARSHAN Lino MISCHER [id number] 13:00:00 23:59:59 Vito 19 Ryan 2021-08-18 2021-08-18 Ambulatory nullFlavo MNA [id number] Memoria 19:00:00 19:00:00 Pre-Reg r Neurology 18 l Cierra Mas 2021-08-18 2021-08-18 Outpatient MHIE MHIE [id number] Memoria 13:00:00 13:00:00 19 josé luis Mas 2021-08-18 2021-08-18 Outpatient DARSHAN Lino MHMISCHER [id number] 13:00:00 13:00:00 Vito 18 Ryan 2021-08-10 2021-08-10 Outpatient MHIE MHIE [id number] Memoria 13:00:00 13:00:00 18 josé luis Mas 2021-07-13 2021-07-13 Ambulatory nullFlavo MNA [id number] Memoria 21:45:00 21:45:00 Pre-Reg r Neurology 17 josé luis Aguayoann 2021-07-13 2021-07-13 Outpatient DARSHAN Lino MISCHER [id number] 15:45:00 15:45:00 Vito 17 Ryan 2021-07-12 2021-07-12 Outpatient MHIE MHIE [id number] Memoria 16:00:00 16:00:00 17 josé luis Mas 2021-07-11 2021-07-11 Ambulatory nullFlavo MNA [id number] Memoria 21:45:00 21:45:00 Pre-Reg r Neurology 16 josé luis [place] Aguayoann 2021-07-11 2021-07-11 Outpatient DARSHAN Lino RICHARDSCHER [id number] 15:45:00 15:45:00 Vito 16 Ryan 2021-07-06 2021-07-06 Outpatient MHIE MHIE [id number] Memoria 15:45:00 15:45:00 16 josé luis Mas 2021-04-28 2021-04-28 Orders Doctor MANJINDER 1.2.840.114 [id number] Univers 00:00:00 00:00:00 Only Unassigned, DELFIN 350.1.13.10 [place] [facility] 4.2.7.2.686 Natan as [phone] Medi tab 009 Branch 2021-01-14 2021-01-14 Ambulatory nullFlavo MNA [id number] Memoria 18:00:00 18:00:00 Pre-Reg r Neurology 15 josé luis Aguayoann 2021-01-14 2021-01-14 Outpatient MHIE MHIE [id number] Memoria 13:00:00 13:00:00 15 josé luis Chace 2021-01-14 2021-01-14 Outpatient YUSEF LinoSCHER MHMISCHER [id number] 13:00:00 13:00:00 Vito 15 Ryan 2020-12-08 2020-12-08 Ambulatory nullFlavo MNA [id number] Memoria 20:30:00 20:30:00 Pre-Reg r Neurology 13 l Cierra Mas 2020-12-08 2020-12-08 Outpatient MHIE MHIE [id number] Memoria 15:30:00 15:30:00 13 josé luis Mas 2020-12-08 2020-12-08 Outpatient ANSHUL LinoMISCHER MHMISCHER [id number] 15:30:00 15:30:00 Vito 13 Ryan 2020-12-03 2020-12-04 Outpatient nullFlavo MNA [id number] Memoria 20:30:00 04:59:59 r Neurology 14 l Cierra Mas 2020-12-03 2020-12-03 Outpatient ANSHUL LinoMISCHER MHMISCHER [id number] 15:30:00 23:59:59 Vito 14 Ryan 2020-12-03 2020-12-03 Outpatient MHIE MHIE [id number] Memoria 15:30:00 15:30:00 14 josé luis Mas 2020-08-17 2020-08-17 Ambulatory nullFlavo MNA [id number] Memoria 20:00:00 20:00:00 Pre-Reg r Neurology 12 l Cierra Mas 2020-08-17 2020-08-17 Outpatient MHIE MHIE [id number] Memoria 14:00:00 14:00:00 12 josé luis Mas 2020-08-17 2020-08-17 Outpatient ANSHUL LinoMISCHER MHMISCHER [id number] 14:00:00 14:00:00 Vito 12 Ryan 2020-07-02 2020-07-02 Outpatient R BENJIE ALVARADO [facility] 10 [id number] Univers 15:40:00 15:40:00 BENJIE ALVARADO i ty [facility] 2020-07-02 2020-07-02 Outpatient R BENJIE ALVARADO [facility] 10 [id number] Univers 11:00:00 11:00:00 BENJIE ALVARADO i [facility] 2020-07-02 2020-07-02 Telemedici [facility] 1.2.840.114 [id number] 08:53:25 09:08:25 ne Visit Benjie Ross 350.1.13.10 [place] 4.2.7.2.[phone] 2020-07-02 2020-07-02 [facility] 1.2.840.114 [id number] [facility] 08:53:25 09:08:25 ne Visit Benjie Ross 350.1.13.10 ity [place] [phone] Fl dical [address] 2020-06-03 2020-06-03 Telephone [facility] [id number] [facility] 00:00:00 00:00:00 Benjie Ross 350.1.13.10 i ty of [place]2.[place] [phone] Fl dical [address] 2020-06-03 2020-06-03 Orders Doctor MANJINDER 1.2.840.114 [id number] [facility] 00:00:00 00:00:00 Only Unassigned, DELFIN 350.1.13.10 [place] [facility] 4.2.7.2.686 Natan as [phone] [address] 2020-06-03 2020-06-03 Telephone [facility] [id number] 00:00:00 00:00:00 Benjie Ross 350.1.13.10 [place] 4.2.7.2.686 Professio [phone] nal [address] [place] [address] 2020-06-03 2020-06-03 Orders Doctor MANJINDER 1.2.840.114 [id number] 00:00:00 00:00:00 Only Unassigned, DEL[place] 350.1.13.10 [place] [facility] 4.2.7.2.686 [id number] 2020-05-18 2020-05-19 Outpatient nullFlavo MNA [id number] Memoria 21:45:00 05:59:59 r Neurology 11 l [place] Chace 2020-05-18 2020-05-18 Outpatient ANSHUL LinoMISCHER MHMISCHER [id number] 15:45:00 23:59:59 Vito [place] 2020-05-18 2020-05-18 Outpatient MHIE MHIE [id number] [facility] 15:45:00 15:45:00 11 l [place] 2020-05-14 2020-05-14 Outpatient R BENJIE ALVARADO [facility] 10 [id number] Univers 15:40:00 15:40:00 BENJIE ALVARADO i ty of [facility] 2020-05-14 2020-05-14 Telemedici [facility] 1.2.840.114 [id number] Univers 11:24:18 11:44:18 ne Visit Benjie Ross 350.1.13.10 ity of [place]2.[place] [phone] Fl dical [address] 2020-05-14 2020-05-14 Telemedici [facility] 1.2.840.114 [id number] 11:24:18 11:44:18 ne Visit Benjie Ross 350.1.13.10 [place] 4.2.7.2.[address] Professio [phone] [address] 2020-05-13 2020-05-13 Outpatient R BENJIE ALVARADO [facility] 10 [id number] Univers 14:40:00 14:40:00 BENJIE ALVARADO i ty of [facility] 2020-05-07 2020-05-07 Outpatient R BENJIE ALVARADO [facility] 10 [id number] Univers 14:20:00 14:20:00 BENJIE ALVARADO i ty of [facility] 2020-04-09 2020-04-09 Outpatient R BENJIE ALVARADO [facility] 10 [id number] Univers 14:20:00 14:20:00 BENJIE ALVARADO i ty of [facility] 2020-03-05 2020-03-05 Outpatient R BENJIE ALVARADO [facility] 10 [id number] Univers 12:40:00 12:40:00 BENJIE ALVARADO i ty of [facility] 2020-02-26 2020-02-26 Outpatient R BENJIE ALVARADO [facility] 10 [id number] Univers 14:40:00 14:40:00 BENJIE ALVARADO i ty of [facility] 2020-02-19 2020-02-19 Outpatient R BENJIE ALVARADO [facility] 10 [id number] Univers 10:20:00 10:20:00 BENJIE ALVARADO i ty of [facility] 2020-01-21 2020-01-22 Outpatient nullFlavo MNA [id number] Memoria 16:45:00 04:59:59 r Neurology 10 l [place] 2020-01-21 2020-01-21 Outpatient Holland MHMISCHER MHMISCHER [id number] 11:45:00 23:59:59 Vito Nidhi Ryan 2020-01-21 2020-01-21 Outpatient [facility]IE [facility] [id number] 11:45[facility] 11:45:00 10 l [place] 2019-12-01 2019-12-01 Telephone [facility] [id number] [facility] 00:00:00 00:00:00 Shiwan [place] 350.1.13.10 i ty of [place] [phone] Fl dic[address] 2019-12-01 2019-12-01 Telephone [facility] [id number] 00:00:00 00:00:00 Shiwan [place] 350.1.13.10 [place] 4.2.7.2.686 Professio [phone] [address] 2019-11-28 2019-11-28 Letter [facility] 1.2.840.114 [id number] Univers 00:00:00 00:00:00 (Out) Shiwan [place] 350.1.13.10 i ty of [place] [phone] Fl dic[address] 2019-11-28 2019-11-28 Letter [facility] 1.2.840.114 [id number] 00:00:00 00:00:00 (Out) Shiwan [place] 350.1.13.10 [place] 4.2.7.2.686 Professio [phone] [address] 2019-11-26 2019-11-26 Telephone Christiano [facility] [id number] 00:00:00 00:00:00 Shiwan [place] 350.1.13.10 [place] 4.2.7.2.686 Professio [phone] [address] 2019-11-26 2019-11-26 Telephone [facility] [id number] Univers 00:00:00 00:00:00 Shiwan [place] 350.1.13.10 i ty of [place] [phone] [address] 2019-11-25 2019-11-25 Orders Doctor MANJINDER 1.2.840.114 [id number] 00:00:00 00:00:00 Only Unassigned, DEL[place] 350.1.13.10 [place] [facility] 4.2.7.2.686 [id number] [facility] 2019-11-25 2019-11-25 Orders Doctor MANJINDER 1.2.840.114 [id number] [facility] 00:00:00 00:00:00 Only Unassigned, DELFIN 350.1.13.10 [place] [facility] 4.2.7.2.686 Natan as [phone] [address] 2019-11-16 2019-11-16 [place] [facility] 1.2.215.351 [id number] Univers 00:00:00 00:00:00 Benjie Ross 350.1.13.10 i ty of [place] [phone] Fl dic[address] 2019-11-16 2019-11-16 [place] [facility] [id number] 00:00:00 00:00:00 Shiwan [place] 350.1.13.10 [place] 4.2.7.2.686 Professio [phone] [address] 2019-11-13 2019-11-13 Outpatient R BENJIE ALVARADO [facility] 10 [id number] Univers 13:00:00 13:00:00 BENJIE ALVARADO i ty of [facility] 2019-11-13 2019-11-13 Telemedici [facility] 1.2.840.114 [id number] [facility] 08:26:11 08:46:11 ne Visit Benjie Ross 350.1.13.10 ity of [place].2.[place] [phone] [address] 2019-11-13 2019-11-13 Telemedic [facility] 1.2.840.114 [id number] 08:26:11 08:46:11 ne Visit Benjie Ross 350.1.13.10 [place] 4.2.7.2.686 Professio [phone] [address] 2019-10-27 2019-10-27 Telephone [facility] [id number] Univers 00:00:00 00:00:00 Benjie Ross 350.1.13.10 i ty of [place]2.[place] [phone] [address] 2019-10-27 2019-10-27 Telephone [facility] [id number] 00:00:00 00:00:00 Benjie Ross 350.1.13.10 [place] 4.2.7.2.686 Professio [phone] [address] 2019-09-30 2019-09-30 Ambulatory nullFlavo MNA [id number] Memoria 15:00:00 15:00:00 Pre-Reg r Neurology 09 l [place]ierra [place] 2019-09-30 2019-09-30 Outpatient MHIE MHIE [id number] Memoria 10:00:00 10:00:00 09 l [place] 2019-09-30 2019-09-30 Outpatient ANSHUL LinoMISCHER ANSHULMISCHER [id number] 10:00:00 10:00:00 Vito Davis 2019-08-28 2019-08-28 Ambulatory nullFlavo MNA [id number] Memoria 20:30:00 20:30:00 Pre-Reg r Neurology 08 l Cierra Aguayoann 2019-08-28 2019-08-28 Outpatient MHIE MHIE [id number] Memoria 14:30:00 14:30:00 08 josé luis Mas 2019-08-28 2019-08-28 Outpatient Holland MHMISCHER MHMISCHER [id number] 14:30:00 14:30:00 Vito Christos [facility] 2019-08-14 2019-08-14 Office [facility] 1.2.840.114 [id number] Univers 14:22:50 14:42:50 Visit [facility] 350.1.13.10 i ty of [place] 4[place].2.[place] [phone] Fl dical [address] 2019-08-14 2019-08-14 Office [facility] 1.2.840.114 [id number] 14:22:50 14:42:50 Visit [facility] 350.1.13.10 [place] 4.2.7.2.686 Professio [phone] nal [address] [place] [address] 2019-07-18 2019-07-18 Ambulatory nullFlavo MNA [id number] Memoria 19:30:00 19:30:00 Pre-Reg r Neurology 07 l Cierra [place]ace 2019-07-18 2019-07-18 Outpatient MHIE MHIE [id number] Memoria 13:30:00 13:30:00 07 josé luis Chace 2019-07-18 2019-07-18 Outpatient ANSHUL LinoMISCHER MHMISCHER [id number] 13:30:00 13:30:00 Vito 07 [facility] 2019-07-17 2019-07-17 Ambulatory nullFlavo MNA [id number] Memoria 21:00:00 21:00:00 Pre-Reg r Neurology 06 l Cierra Chace 2019-07-17 2019-07-17 Outpatient MHIE MHIE [id number] Memoria 15:00:00 15:00:00 06 josé luis Chace 2019-07-17 2019-07-17 Outpatient Holland MHMISCHER MHMISCHER [id number] 15:00:00 15:00:00 Vito 06 Ryan 2019-05-27 2019-05-28 Outpatient nullFlavo MNA [id number] Memoria 19:30:00 05:59:59 r Neurology 05 josé luis Mas 2019-05-27 2019-05-27 Outpatient ANSHUL LinoMISCHER MHMISCHER [id number] 13:30:00 23:59:59 Vito Mirella Ryan 2019-05-27 2019-05-27 Outpatient MHIE MHIE [id number] Memoria 13:30:00 13:30:00 05 josé luis [place] 2019-02-25 2019-02-26 Outpatient nullFlavo MNA [id number] Memoria 20:15:00 04:59:59 r Neurology 04 josé luis [place] Chace 2019-02-25 2019-02-25 Outpatient ANSHUL LinoMISCHER MHMISCHER [id number] 15:15:00 23:59:59 Vito 04 Ryan 2019-02-25 2019-02-25 Outpatient MHIE MHIE [id number] Memoria 15:15:00 15:15:00 04 josé luis [place] 2018-11-20 2018-11-20 Ambulatory nullFlavo MNA [id number] Memoria 18:45:00 18:45:00 Pre-Reg r Neurology 03 josé luis Lemos [place] 2018-11-20 2018-11-20 Outpatient MHIE MHIE [id number] Memoria 13:45:00 13:45:00 03 josé luis Mas 2018-11-20 2018-11-20 Outpatient YUSEF LinoSCHER MHMISCHER [id number] 13:45:00 13:45:00 Vito Beatris [place] 2018-08-21 2018-08-23 Phone nullFlavo MNA [id number] Memoria 20:35:00 05:59:59 Message r Neurology 06 josé luis Aguayo[place] 2018-08-21 2018-08-22 Outpatient MHMISCHER MHMISCHER [id number] 14:35:00 23:59:59 2018-08-21 2018-08-22 Outpatient nullFlavo MNA [id number] Memoria 16:15:00 05:59:59 r Neurology 02 josé luis Silver Bowray Aguayoann 2018-08-21 2018-08-21 Outpatient ANSHUL LinoMISCHER MHMISCHER [id number] 10:15:00 23:59:59 Vito 02 Ryan 2018-08-21 2018-08-21 Outpatient RERE RERE [id number] Memoria 10:15:00 10:15:00 02 josé luis Mas 2018-07-12 2018-07-14 Phone nullFlavo OLGA [id number] Memoria 17:55:00 05:59:59 Message r Neurology 05 l Cierra Mas 2018-07-12 2018-07-13 Outpatient [facility] [id number] 11:55:00 23:59:59 05 2018-04-03 2018-04-03 Outpatient ANGUS GRECO [id number] Memoria 13:00:00 13:00:00 01 l Chace 2017-11-28 2017-11-28 Outpatient RERE RERE [id number] Memoria 13:30:00 13:30:00 00 josé luis Mas Results Test Description Test Time Test Comments Results Result Sour e Comments MRI ABDOMEN WO/W 2021-03-22 14:53:30 [facility] H[facility]N MALIK : 1950 Sex: F CLINI TAB INDICATION: K50.818, Crohn's disease of both small and large intestine with other complication. MODALITY: SprayCool 3T MRITECHNIQUE: Parallel imaging is accomplished using T2, diffusion, in-phase, qss-ch-ncapd, and breath-holding sequences. IV contrast, Dotarem is [...]
--- NOTE | 2022-05-04 19:43 | ER ---
Nurse's Notes [facility] Name: Angella Jackson Age: 72 yrs Sex: Female : 1950 Arrival Date: 05/04/2022 Time: 19:37 Bed Waiting Private MD: Diagnosis: Presentation: 05/04 19:37 Chief complaint: Patient states: called 911 for SOB due to covid 2 months ago, smokes a jh5 pack a day and has copd and doesn't do her albuterol treatment as prescribed. EMS states she was smoking 2 cigarettes as they pulled up to site. Pt states she see's her lung doctor tomorrow, the meds in EMS gave her are helping her and she wants to go home. EMS administered solu medrol 125, and breathing treatment pt has 20g IV right hand. Coronavirus screen: Vaccine status: Patient reports being unvaccinated. Client denies travel out of the [place] in the last 14 days. Ebola Screen: Patient negative for fever greater than or equal to 101.5 degrees Fahrenheit, and additional compatible Ebola Virus Disease symptoms Patient denies exposure to infectious person. Patient denies travel to an Ebola-affected area in the 21 days before illness onset. Initial Sepsis Screen: Does the patient meet any 2 criteria? No. Patient's initial sepsis screen is negative. Does the patient have a suspected source of infection? No. Patient's initial sepsis screen is negative. Risk Assessment: Do you want to hurt yourself or someone else? Patient reports no desire to harm self or others. Onset of symptoms was February 2022. 19:37 Method Of Arrival: EMS: [place] [id number] 19:37 Acuity: WADE 3 jh5 Triage Assessment: 19:39 General: Appears in no apparent distress. slender, unkempt, Behavior is calm, jh5 cooperative, appropriate for age. Pain: Denies pain. Respiratory: Reports shortness of breath at rest Onset: The symptoms/episode began/occurred gradually, the patient has mild shortness of breath. Historical: - Allergies: 19:39 Bactrim; jh5 19:39 Bees; jh5 19:39 Codeine; jh5 19:39 Flagyl; jh5 19:39 HYDROCODONE; jh5 19:39 PENICILLINS; jh5 19:39 Wasps; jh5 - PMHx: 19:39 Chronic pain; COPD; Crohn's; CRPS; GERD; Pancreatitis; SBO; Hypertension; jh5 - Immunization history:: Adult Immunizations up to date. - Social history:: Smoking status: Patient reports the use of cigarette tobacco products, smokes one pack cigarettes per day. Assessment: 19:41 Reassessment: Registration called the appeals writer to the lobby, pt wanted IV removed to [facility] leave. Pt states she see's her lung doctor tomorrow, feels better, and wants to leave. solutions analyst notified at this time. IV removed in lobby from right hand. Cardiovascular: Rhythm is regular. Respiratory: Airway is patent Respiratory effort is even, unlabored, Vital Signs: 19:37 BP 148 / 88; Pulse 102; Resp 22; Temp 98.6; Pulse Ox 100% on 3 lpm NC; Weight 61.23 kg; 5 Height 5 ft. 2 in. (157.48 cm); Pain 0/10; 19:37 Body Mass Index 24.69 (61.23 kg, 157.48 cm) [facility] ED Course: 19:37 Patient arrived in ED. am2 19:39 Triage completed. 5 19:39 Arm band placed on right wrist. 5 19:43 Denise Solomon MD is Attending Physician. [facility] Administered Medications: No medications were administered Medication: 19:41 VIS not applicable for this client. [facility] Outcome: 19:43 Patient left the ED. [facility] Signatures: Angella Falcon am2 Lizbeth Breaux RN RN [facility]
[2022-05-04 19:48] VITALS: BP 148/88; TEMP 98.6; O2SAT 100
== END 2022-05-04 19:43 | disposition left against medical advice (07) ==
LOC: ER 19:13
DX: Z53.21 Procedure and treatment not carried out due to patient leaving prior to being seen by health care provider (principal)
CPT/HCPCS: 99282

== ENCOUNTER 2022-09-27 06:52 | Day surgery (SDC) | payer OTHER ==
[2022-09-27] MEDS ORDERED: Ringers Lactate 1,000 ML IV ONE (07:11)
[2022-09-27] MEDS ORDERED: ONDANSETRON 4 MG/2 ML VIAL ONE (07:11)
[2022-09-27] MEDS ORDERED: LIDOCAINE 1% MPF 5 ML VIAL ONE (08:39)
[2022-09-27] MEDS ORDERED: propofoL 200 MG/20 ML VIAL IV ONE ×2 (08:39→09:19)
[2022-09-27] MEDS ORDERED: PROMETHAZINE INJ 25 MG/ML AMP ONE (08:45)
[2022-09-27 11:18] VITALS: TEMP 96.9
[2022-09-27 11:20] VITALS: BP 145/75; O2SAT 97
--- NOTE | 2022-09-27 12:45 | RAD REPORT ---
EXAM DESCRIPTION: CT - Abdomen Pelvis W Contrast - 09/27/2022 12:19 pm CLINICAL HISTORY: S/P COLONOSCOPY COMPARISON: Abdomen Pelvis W Contrast dated 11/18/2020; Abdomen Pelvis W Contrast dated 01/17/2019; Abdomen Pelvis W Contrast dated 04/15/2018 TECHNIQUE: Thin cut axial CT imaging of the abdomen and pelvis was performed following intravenous a dministration of 100 mL Isovue 300. Multiplanar reformats were generated and reviewed. All CT scans are performed using dose optimization technique as appropriate and may include automated exposure control or mA/KV adjustment according to patient size. FINDINGS: No suspicious findings in the lung bases. Moderate centrilobular emphysematous changes of the included lung bases. The liver, spleen, and pancreas show no suspicious findings. Status post cholecystectomy. No evidence of intra or extrahepatic biliary ductal dilation. Symmetric renal function is seen with no hydronephrosis or suspicious renal mass. No dilated bowel loops or bowel wall thickening. Colonic diverticulosis without evidence of acute div erticulitis. No free air, free fluid or inflammatory stranding. No hernia, mass or bulky lymphadenopa thy. The urinary bladder is without significant finding. No suspicious bony findings. IMPRESSION: No acute intra-abdominal process. Moderate centrilobular emphysematous changes of the in cluded lung bases. Colonic diverticulosis.
== END 2022-09-27 11:00 | disposition home or self-care (01) ==
LOC: OR 06:52
PROVIDERS: ATTEND Internal Medicine Gastroenterology
PROC: 0D758ZZ Dilation of Esophagus, Via Natural or Artificial Opening Endoscopic (ICD-10-PCS; 2022-09-27)
PROC: 0DJD8ZZ Inspection of Lower Intestinal Tract, Via Natural or Artificial Opening Endoscopic (ICD-10-PCS; 2022-09-27)
PROC: 0DB68ZX Excision of Stomach, Via Natural or Artificial Opening Endoscopic, Diagnostic (ICD-10-PCS; principal; 2022-09-27 08:00)
PROC: 0DB78ZX Excision of Stomach, Pylorus, Via Natural or Artificial Opening Endoscopic, Diagnostic (ICD-10-PCS; 2022-09-27 08:00)
DX: R10.13 Epigastric pain (principal); R10.12 Left upper quadrant pain; R10.11 Right upper quadrant pain; R14.0 Abdominal distension (gaseous); R14.2 Eructation; K21.9 Gastro-esophageal reflux disease without esophagitis; R13.19 Other dysphagia; K29.50 Unspecified chronic gastritis without bleeding; K92.1 Melena; K64.8 Other hemorrhoids; K57.30 Diverticulosis of large intestine without perforation or abscess without bleeding
CPT/HCPCS: 36415; 74177; 82565; 88305; 88312; C1769; J2001; J2405; J2550; J2704; J7120; Q9967

== ENCOUNTER 2024-04-29 22:03 | Inpatient (IN) | payer OTHER ==
[2024-04-29] MEDS ORDERED: ONDANSETRON 4 MG/2 ML VIAL ONE (22:20)
[2024-04-29] MEDS ORDERED: METOCLOPRAMIDE 10 MG/2mL INJ ONE (22:20)
[2024-04-29 22:25] LABS: Arterial Blood Carboxyhemoglob 0.8 % (0-1.5); Blood Gas Oxyhemoglobin 95.5 % (94-97); Blood Gas THB 15.4 g/dl (12-18); Blood O2 Saturation 98.3 % (92-98.5)
[2024-04-29] MEDS ORDERED: IPRATROPIUM BROM 0.5MG/2.5ML ONE ×2 (22:40→23:13)
[2024-04-29] MEDS ORDERED: ALBUTEROL 2.5 MG/3 ML NEB SOL ONE ×2 (22:40→23:13)
[2024-04-29 22:58] LABS: Absolute Basophils 0.1 K/uL (0-0.5); Absolute Lymphocytes (CBC) 3.4 K/uL (0.7-4.9); Absolute Neutrophil 8.7 K/uL (1.8-8.0); Basophils % 0.6 % (0-1.3); Eosinophils % 0.3 % (0-4.4); Hematocrit 45.8 % (36.0-45.0); Hemoglobin 14.5 g/dL (12.0-15.0); Lymphocytes % 25.5 % (15.3-44.8); MCH 28.3 pg (27.0-35.0); MCHC 31.7 g/dL (32.0-36.0); MCV 89.3 fL (80-100); MPV 7.7 fL (7.6-11.3); Monocytes % 7.8 % (3.3-12.3); Neutrophils % 65.8 % (41.7-73.7); Platelets 367 thou/uL (152-406); RBC Red Blood Cell Count 5.13 M/uL (3.86-4.86); Red Cell Distribution Width 15.3 % (12.1-15.2)
[2024-04-29 23:05] LABS: D-Dimer 0.544 FEUug/mL (0-0.500); PT Prothrombin Time 10.7 SECONDS (9.4-12.5); PTT, Activated Partial Thromb 38.1 SECONDS (24.3-36.9); Protime INR 0.95
[2024-04-29 23:06] LABS: ALT/SGPT 16 U/L (13-56); AST/SGOT 20 U/L (15-37); Albumin 3.8 g/dL (3.4-5.0); Alkaline Phosphatase 76 U/L (45-117); Anion Gap 16.7 mEq/L (5.0-15.0); BUN Blood Urea Nitrogen 28 mg/dL (7-18); Bicarbonate 23 mEq/L (21-32); Bilirubin Total 0.7 mg/dL (0.2-1.0); C-Reactive Protein 6.86 mg/L (<3.00); Creatine Phosphokinase 54 U/L (26-192); Globulin 3.8 g/dL (2.3-3.5); Glomerular Filtration Rate 48 ml/min (=/>90); Glucose Level 83 mg/dL (74-106); Lipase 33 U/L (13-75); Magnesium 2.5 mg/dL (1.6-2.4); NT PRO-BNP 4516 pg/mL (<450); Potassium 3.7 mEq/L (3.5-5.1); Protein, Total 7.6 g/dL (6.4-8.2); Sodium Level 137 mEq/L (136-145)
[2024-04-29 23:08] LABS: Bilirubin Direct < 0.2 mg/dL (0-0.2); Bilirubin Indirect, Calculated 0.5 mg/dL (0.2-0.8)
[2024-04-29 23:09] LABS: Troponin High Sensitivity 166.2 pg/mL (<58.9)
[2024-04-29 23:13] LABS: SARS-CoV-2 Antigen CONTROL BLUE LINE VIS/BG OK; SARS-CoV-2 Antigen Rapid Res Negative (Negative)
[2024-04-29] MEDS ORDERED: HEPARIN 5000 UNIT/ML 1 ML VIAL ONE (23:53)
[2024-04-29] MEDS ORDERED: ASPIRIN 81 MG CHEWABLE TABLET ONE (23:54)
[2024-04-29] MEDS ORDERED: HEPARIN/D5W 25,000 UNIT/500 ML BAG IV ONE (23:54)
[2024-04-30] MEDS ORDERED: MUPIROCIN 2% OINT 22GM TUBE TOP ONE (01:12)
[2024-04-30] MEDS ORDERED: CEFEPIME 2 GM VIAL ONE (03:08)
[2024-04-30] MEDS ORDERED: NA CHLORIDE 0.9% 100 ML ONE (03:09)
[2024-04-30] MEDS ORDERED: VANCOMYCIN 1 GM/VIAL ONE (03:22)
[2024-04-30] MEDS ORDERED: NA CHLORIDE 0.9% 250 ML ONE (03:22)
--- NOTE | 2024-04-30 04:08 | EDPHYS ---
Physician Documentation [facility] Name: Angella Jackson Age: 74 yrs Sex: Female : 1950 Arrival Date: 04/29/2024 Time: 22:03 Bed 3 Private MD: ED Physician Horacio Meza HPI: 04/29 22:18 This 74 yrs old Female presents to ER via Unassigned with complaints of sp4 Respiratory Distress. 04/30 01:40 Patient is a 74-year-old female with past medical history of chronic pain COPD Crohn's sp4 disease, hypertension pancreatitis SBO. . 01:44 Patient was reported to be very short of breath at home. EMS arrived for shortness of sp4 breath reporting patient has significant history of smoking, everyone else seems to be smoking in the house. Patient has very poor peripheral vascular access. Patient was given Solu-Medrol 125 mg IV, magnesium 2 g IV, albuterol treatments x 5, and patient was started on the BiPAP prior to arrival. . Historical: - Allergies: 04/29 22:10 Bactrim; al5 22:10 Codeine; al5 22:10 Flagyl; al5 22:10 HYDROCODONE; al5 22:10 PENICILLINS; al5 22:10 Bees; al5 22:10 Wasps; al5 - PMHx: 22:10 Chronic pain; COPD; Crohn's; CRPS; GERD; Hypertension; Pancreatitis; SBO; al5 - Immunization history:: Adult Immunizations unknown. - Infectious Disease History:: Denies. - Social history:: Smoking status: Patient reports the use of cigarette tobacco products, every day, unknown amount. - Family history:: not pertinent. ROS: 04/30 01:44 Constitutional: Positive dyspnea, positive tachypnea, positive respiratory distress sp4 All other systems are negative, Exam: 01:42 Constitutional: Frail elderly female acutely dyspneic, arrives with BiPAP, signs of sp4 moderate to severe physical deconditioning, hypoxemic on arrival dyspneic, tachypneic, physically debilitated Head/Face: Normocephalic, atraumatic. Eyes: Pupils equal round and reactive to light, extra-ocular motions intact. Lids and lashes normal. Conjunctiva and sclera are not injected. Cornea within normal limits. Periorbital areas with no swelling, redness, or edema. ENT: Nares patent. No nasal discharge, no septal abnormalities noted. Tympanic membranes are normal and external auditory canals are clear. Oropharynx with no redness, swelling, or masses, exudates, or evidence of obstruction, uvula midline. Mucous membranes moist. Neck: Trachea midline, no thyromegaly or masses palpated, and no cervical lymphadenopathy. Supple, full range of motion without nuchal rigidity, or vertebral point tenderness. Chest/axilla: Normal chest wall appearance and motion. Nontender with no deformity. No lesions are appreciated. Cardiovascular: Regular rate and rhythm with a normal S1 and S2. No gallops, murmurs, or rubs. Normal PMI, no JVD. No pulse deficits. Respiratory: Lungs have equal breath sounds bilaterally, clear to auscultation and percussion. No rales, bilateral diffuse expiratory wheezing. Abdomen/GI: Soft, with normal bowel sounds. No distension or tympany. No guarding or rebound. No evidence of tenderness throughout. Back: No spinal tenderness. No costovertebral tenderness. Skin: Warm, dry with normal turgor. Normal color with no rashes, no lesions, and no evidence of cellulitis. MS/ Extremity: Pulses equal, no cyanosis. Neurovascular intact. Full, normal range of motion. Neuro: Awake and alert, GCS 15, oriented to person, place, time, and situation. Cranial nerves II-XII grossly intact. Motor strength 5/5 in all extremities. Sensory grossly intact. Psych: Awake, alert, with orientation to person, place and time. Behavior, mood, and affect are within normal limits 01:44 ECG was reviewed by the Attending Physician. EKG at 2204 sinus tachycardia at rate sp4 of 106 otherwise normal Vital Signs: 04/29 22:00 BP 126 / 78; Pulse 102; Resp 16; Pulse Ox 100% on BiPAP; al5 22:10 BP 124 / 84; Pulse 106; Resp 24; Temp 98.4(A); Pulse Ox 100% on BiPAP; Weight 48.99 kg; al5 Height 5 ft. 3 in. ; 22:30 BP 127 / 60; Pulse 102; Resp 23; Pulse Ox 96% on NC; al5 23:00 BP 119 / 57; Pulse 102; Resp 23; Pulse Ox 96% on NC; al5 23:30 BP 107 / 88; Pulse 91; Resp 21; Pulse Ox 93% on NC; al5 04/30 00:00 BP 103 / 56; Pulse 104; Resp 20; Pulse Ox 100% on NC; al5 00:30 BP 103 / 47; Pulse 109; Resp 24; Pulse Ox 100% on NC; al5 01:00 BP 109 / 69; Pulse 108; Resp 24; Pulse Ox 97% on NC; al5 01:30 BP 118 / 58; Pulse 105; Resp 19; Pulse Ox 98% on NC; al5 02:00 BP 111 / 57; Pulse 111; Resp 23; Pulse Ox 95% on NC; al5 02:30 BP 102 / 55; Pulse 100; Resp 17; Pulse Ox 95% on NC; al5 04/29 22:10 Body Mass Index 19.13 (48.99 kg, 160.02 cm) al5 [place] Coma Score: 01:44 Eye Response: spontaneous(4). Motor Response: obeys commands(6). Verbal Response: sp4 oriented(5). Total: 15. Procedures: 01:41 Central Line: the site was prepped with Betadine, in sterile fashion, a triple lumen sp4 catheter was inserted, in the right internal jugular vein, in 1 attempts. placement was verified, by CXR, by blood return, Ultrasound-guided central line placement, the site was dressed with 4X4s, Tegaderm, using sterile technique, the patient tolerated the procedure, well, Ultrasound guided line placed secondary to exhausted peripheral vascular access. 05:25 Central Line: the site was prepped with Betadine, in sterile fashion, Patient has sp4 accidentally pulled out right internal jugular line, to replace his left internal jugular central line was placed., a triple lumen catheter was inserted, in the left internal jugular vein, in 1 attempts. placement was verified, by CXR, by blood return, Ultrasound-guided left internal jugular CVL, the site was dressed with 4X4s, Tegaderm, using sterile technique, the patient tolerated the procedure, well, Central line placed without complications. MDM: 04/29 22:17 Medical Screening Exam initiated sp4 04/30 01:37 ED course: EXAM: XR Chest, 1 View CLINICAL HISTORY: Chest pain. TECHNIQUE: Frontal view sp4 of the chest. COMPARISON: XR Chest 05/09/2019. FINDINGS: Lungs: Hyperinflation and coarsened interstitial markings. Left basilar calcified granuloma. No consolidation. Pleural space: Blunting of the right costophrenic angle. No pneumothorax. Heart: Unremarkable. No cardiomegaly. Mediastinum: Unremarkable. Normal mediastinal contour. Bones/joints: Unremarkable. No acute fracture. IMPRESSION: Possible small right pleural effusion and/or pleural thickening/scar. . 01:49 Differential diagnosis: Anemia Anxiety Reaction asthma, Bronchitis CHF exacerbation, sp4 Chronic Obstructive Pulmonary Disease Myocardial Infarction. Antibiotic administration: Vancomycin and Cefepime . Data reviewed: vital signs, nurses notes, EMS record, old medical records, lab test result(s), EKG, radiologic studies, CT scan, plain films. 05:24 ED course: EXAM: XR Chest, 1 View CLINICAL HISTORY: Chest pain. TECHNIQUE: Frontal view sp4 of the chest. COMPARISON: XR Chest 05/09/2019. FINDINGS: Lungs: Hyperinflation and coarsened interstitial markings. Left basilar calcified granuloma. No consolidation. Pleural space: Blunting of the right costophrenic angle. No pneumothorax. Heart: Unremarkable. No cardiomegaly. Mediastinum: Unremarkable. Normal mediastinal contour. Bones/joints: Unremarkable. No acute fracture. IMPRESSION: Possible small right pleural effusion and/or pleural thickening/scar. . 04/29 22:16 Order name: BMP; Complete Time: 23:12 sp4 04/29 22:16 Order name: Blood Culture Adult (2) sp4 04/29 22:16 Order name: CBC with Diff; Complete Time: 23:12 sp4 04/29 22:16 Order name: CPK; Complete Time: 23:12 sp4 04/29 22:16 Order name: D-Dimer; Complete Time: 23:12 sp4 04/29 22:16 Order name: Hepatic Function; Complete Time: 23:12 sp4 04/29 22:16 Order name: Lipase; Complete Time: 23:12 sp4 04/29 22:16 Order name: Magnesium; Complete Time: 23:12 sp4 04/29 22:16 Order name: NT PRO-BNP; Complete Time: 23:12 sp4 04/29 22:16 Order name: PT-INR; Complete Time: 23:12 sp4 04/29 22:16 Order name: Ptt, Activated; Complete Time: 23:12 sp4 04/29 22:16 Order name: Troponin HS; Complete Time: 23:12 sp4 04/29 22:16 Order name: ABG; Complete Time: 23:12 sp4 04/29 22:17 Order name: Lactate w/ 2H reflex if indic.; Complete Time: 23:12 sp4 04/29 22:17 Order name: SARS RAPID; Complete Time: 23:43 sp4 04/29 22:17 Order name: Influenza Screen (a \T\ B); Complete Time: 23:43 sp4 04/29 22:17 Order name: CRP; Complete Time: 23:12 sp4 04/29 22:17 Order name: TSH; Complete Time: 23:12 sp4 04/29 22:17 Order name: T4 Free; Complete Time: 23:12 sp4 04/30 05:23 Order name: Urinalysis w/ reflexes EDMS 04/30 05:23 Order name: CBC with Automated Diff EDMS 04/30 05:23 Order name: CBC with Automated Diff EDMS 04/30 05:23 Order name: Comprehensive Metabolic Panel EDMS 04/30 05:23 Order name: Comprehensive Metabolic Panel EDMS 04/30 05:23 Order name: Troponin High Sensitivity EDMS 04/30 05:23 Order name: Troponin High Sensitivity EDMS 04/30 05:23 Order name: Troponin High Sensitivity EDMS 04/30 05:23 Order name: Troponin High Sensitivity EDMS 04/30 07:07 Order name: Ptt, Activated ph 04/30 08:45 Order name: PTT, Activated Partial Thromb EDMS 04/30 12:56 Order name: Ptt, Activated iw 04/30 13:32 Order name: PTT, Activated Partial Thromb EDMS 04/29 22:16 Order name: XRAY CXR (1 view) sp4 04/29 22:16 Order name: BIPAP sp4 04/30 01:39 Order name: Chest Single View XRAY sp4 04/30 01:46 Order name: CT Chest, Abdomen, Pelvis - W/Contrast sp4 04/30 06:43 Order name: RAD EDMS 04/30 06:58 Order name: CT EDMS 04/29 22:16 Order name: Call RT; Complete Time: 22:36 sp4 04/29 22:16 Order name: EKG; Complete Time: 22:17 sp4 04/30 05:23 Order name: CONS Physician Consult EDMS 04/29 22:16 Order name: Central Line Dressing Kit; Complete Time: 01:01 sp4 04/29 22:16 Order name: Central Line Kit; Complete Time: 01:01 sp4 04/29 22:16 Order name: Chlorhexidine prep; Complete Time: 01:01 sp4 04/29 22:16 Order name: Consent for central line completed; Complete Time: 00:41 sp4 04/29 22:16 Order name: Line Caps x3; Complete Time: 01:02 sp4 04/29 22:16 Order name: NS Flushes x3; Complete Time: 01:02 sp4 04/29 22:16 Order name: Sterile Gloves; Complete Time: 01:02 sp4 04/29 22:16 Order name: Sterile Probe Cover; Complete Time: 01:05 sp4 04/29 22:16 Order name: Cardiac monitoring; Complete Time: 22:36 sp4 04/29 22:16 Order name: EKG - Nurse/Tech; Complete Time: 22:36 sp4 04/29 22:16 Order name: IV Saline Lock; Complete Time: 22:36 sp4 04/29 22:16 Order name: Labs collected and sent; Complete Time: 22:36 sp4 04/29 22:16 Order name: O2 Per Protocol; Complete Time: 22:36 sp4 04/29 22:16 Order name: O2 Sat Monitoring; Complete Time: 22:36 sp4 EC:44 Rate is 106 beats/min. Rhythm is regular, Sinus tachycardia. QRS [place] is Normal. [place] sp4 interval is normal. QRS interval is normal. QT interval is normal. No Q waves. No ST changes noted. Clinical impression: No evidence of ischemia. Interpreted by me. Reviewed by me. Administered Medications: 04/29 22:24 Drug: metoCLOPramide IVP 10 mg IVP once; over 1 to 2 minutes Route: IVP; Site: left dd2 jugular; 22:39 Follow up: Response: No adverse reaction dd2 22:25 Drug: Ondansetron IVP 4 mg IVP once; over 2 minutes Route: IVP; Site: left jugular; dd2 22:39 Follow up: Response: No adverse reaction dd2 22:44 Drug: Albuterol Inhalation 2.5 mg Inhalation every 20 minutes x3 Route: Inhalation; dd2 22:59 Follow up: Response: No adverse reaction dd2 22:44 Drug: Ipratropium Inhalation Aerosol 0.5 mg Inhalation once; Every 20 min for a total dd2 of 3 treatments x3 Route: Inhalation; 22:59 Follow up: Response: No adverse reaction dd2 23:10 Drug: Albuterol Inhalation 2.5 mg Inhalation every 20 minutes x3 Route: Inhalation; dd2 23:25 Follow up: Response: No adverse reaction dd2 23:10 Drug: Ipratropium Inhalation Aerosol 0.5 mg Inhalation once; Every 20 min for a total dd2 of 3 treatments x3 Route: Inhalation; 23:40 Drug: Albuterol Inhalation 2.5 mg Inhalation every 20 minutes x3 Route: Inhalation; dd2 23:55 Follow up: Response: No adverse reaction dd2 23:40 Drug: Ipratropium Inhalation Aerosol 0.5 mg Inhalation once; Every 20 min for a total dd2 of 3 treatments x3 Route: Inhalation; 23:55 Follow up: Response: No adverse reaction dd2 04/30 00:08 Drug: Aspirin PO Chewable Tablet 324 mg PO once; 81 mg tablets x 4 Route: PO; al5 01:06 Follow up: Response: No adverse reaction al5 00:13 Drug: Heparin (TN-Bolus with thrombolytic) - HEParin IVP 60 units/kg IVP once; Max 4000 al5 units {Co-Signature: dd2 (PATRICIA LONGO RN).} Route: IVP; Site: left jugular; 01:06 Follow up: Response: No adverse reaction al5 00:14 Drug: Heparin (TN Drip) 12 units/kg/hr - ([place] [address] units, D5W IV 500 ml) IV at al5 calculated rate Per protocol; Max initial rate 1000 units/hr {Co-Signature: dd2 (PATRICIA LONGO RN).} Route: IV; Rate: calculated rate; Site: left jugular; 01:33 Follow up: Response: No adverse reaction al5 02:12 Follow up: IV Status: Infusion continued upon admission al5 01:20 Drug: Mupirocin Topical Ointment 2 % 1 application Topical once Route: Topical; Site: al5 affected area; :33 Follow up: Response: No adverse reaction al5 03:14 Drug: Cefepime IVPB 2 grams IVPB at 200 ml/hr once over 30 mins; (mix in NS 100 mL) al5 Route: IVPB; Rate: 200 ml/hr; Infused Over: 30 mins; Site: right jugular; 05:12 Follow up: Response: No adverse reaction; IV Status: Completed infusion; IV Intake: al5 100ml 03:41 Drug: vancoMYCIN IVPB 1 grams IVPB once over 2 hrs Route: IVPB; Infused Over: 2 hrs; al5 Site: right jugular; 07:00 Follow up: IV Status: Completed infusion iw 06:46 Drug: Albumin IVPB 25 grams 100 ml IVPB once; (Note: Albumin 25% concentration) Volume: al5 100 ml; Route: IVPB; Site: left jugular; 07:30 Follow up: IV Status: Completed infusion iw 06:46 Drug: Ondansetron IVP 4 mg IVP once; over 2 minutes Route: IVP; Site: left jugular; al5 06:47 Drug: morphine IVP or IV 2 mg IVP once over 4 mins Route: IVP; Infused Over: 4 mins; al5 Site: left jugular; Disposition: 01:47 Critical Care:. sp4 Disposition Summary: 04/30/24 01:49 Hospitalization Ordered Notes: Hospitalization Status: Inpatient Admission sp4 Provider: Walter Farrell sp4 Condition: Stable sp4 Problem: new sp4 Symptoms: have improved sp4 Bed/Room Type: Standard sp4 Location: Telemetry/[facility] (Inpatient)(04/30/24 12:52) Room Assignment: [facility](04/30/24 12:52) Diagnosis - COPD/ Chronic obstructive pulmonary disease with acute lower respiratory infection sp4 - NSTEMI, Acute Hypoxemic Respiratory Failure, Tobacco Use Disorder sp4 Forms: - Medication Reconciliation Form sp4 - SBAR form sp4 - Leadership Thank You Letter sp4 Critical care time excluding procedures: 01:47 Critical care time: Bedside Care: 36 minutes, Consultation: 12 minutes, Family sp4 Intervention: 12 minutes. Total time: 60 minutes Signatures: Dispatcher [employer] Krysta Goodwin, IMAN ADLERP-Amada Hudson RN RN ss Lola Abbott RN RN vc1 Horacio Meza MD MD sp4 Angella Villarreal RN RN al5 PATRICIA LONGO RN RN dd2 Beth Pastor RN iw PATRICIA LONGO RN dd2 Corrections: (The following items were deleted from the chart) 04/29 22:17 22:17 BASIC METABOLIC PANEL+C.LAB.BRZ ordered. EDMS EDMS 22:17 22:17 BLOOD CULTURE*+BA.LAB.BRZ ordered. EDMS EDMS 22:17 22:17 CBC+H.LAB.BRZ ordered. EDMS EDMS 22:17 22:17 CREATINE PHOSPHOKINASE+C.LAB.BRZ ordered. EDMS EDMS 22:17 22:17 D-DIMER+COAG.LAB.BRZ ordered. EDMS EDMS 22:17 22:17 HEPATIC FUNCTION+C.LAB.BRZ ordered. EDMS EDMS 22:17 22:17 LIPASE+C.LAB.BRZ ordered. EDMS EDMS 22:17 22:17 MAGNESIUM+C.LAB.BRZ ordered. EDMS EDMS 22:17 22:17 PROBNP+C.LAB.BRZ ordered. EDMS EDMS 22:17 22:17 PROTIME (+INR)+COAG.LAB.BRZ ordered. EDMS EDMS 22:17 22:17 PTT, ACTIVATED+COAG.LAB.BRZ ordered. EDMS EDMS 22:17 22:17 Troponin High Sensitivity+C.LAB.BRZ ordered. EDMS EDMS 04/30 01:07 04/29 22:16 [place] ordered. sp4 al5 04/30 03:08 01:49 Intensive Care Unit sp4 vc1 03:08 01:49 sp4 vc1 12:52 03:08 [facility] ER HOLD vc1 ss 12:52 03:08 ERHOLD- vc1 ss
--- NOTE | 2024-04-30 04:08 | ER ---
Nurse's Notes [facility] Name: Angella Jackson Age: 74 yrs Sex: Female : 1950 Arrival Date: 04/29/2024 Time: 22:03 Bed 3 Private MD: Diagnosis: COPD/ Chronic obstructive pulmonary disease with acute lower respiratory infection;NSTEMI, Acute Hypoxemic Respiratory Failure, Tobacco Use Disorder Presentation: 04/29 22:10 Chief complaint: EMS states: toned out for respiratory distress, per family patient has al5 been on at home cpap for the past 2 days and has been progressively getting worse. patient found by ems pale and labored breathing with cpap machine. patient hx of COPD. 22:10 Coronavirus screen: difficulty breathing, shortness of breath. Ebola Screen: No al5 symptoms or risks identified at this time. Initial Sepsis Screen: Does the patient meet any 2 criteria? RR > 20 per min. HR > 90 bpm. Yes Does the patient have a suspected source of infection? No. Patient's initial sepsis screen is negative. If YES to both, name of provider notified: Horacio Meza MD Risk Assessment: Do you want to hurt yourself or someone else? Patient reports no desire to harm self or others. Onset of symptoms was April 27, 2024. 22:10 Method Of Arrival: EMS: [facility] al5 22:10 Care prior to arrival: Medication(s) given: Albuterol Neb x5 Atrovent Neb x 1, epi 0.3 al5 in L deltoid, 125mg solumedrol, 25mg ketamine, 2 g Magnesium (currently running) IV initiated. 22 GA, in the right hand, Oxygen administered. via CPAP or BiPAP. 22:13 Acuity: WADE 2 al5 Triage Assessment: 22:10 General: Appears distressed, ill, unkempt, Behavior is cooperative. General: patient al5 denies any new pain, but has generalized pain all over, hx of chronic pain.. Pain: Complains of pain in generalized. EENT: No signs and/or symptoms were reported regarding the EENT system. Neuro: Level of Consciousness is awake, obeys commands, Oriented to person, place, time, situation. Cardiovascular: Patient's skin is warm and dry. Rhythm is sinus tachycardia. Respiratory: Reports shortness of breath Airway is patent Respiratory effort is even, labored, Respiratory pattern is regular, symmetrical, tachypnea Patient placed on BiPAP: Respiratory Rate: 15 Breath sounds are clear bilaterally. Onset: The symptoms/episode began/occurred past 2 days, the patient has severe shortness of breath. GI: Reports nausea. : No signs and/or symptoms were reported regarding the genitourinary system. Derm: Skin is intact. Musculoskeletal: No signs and/or symptoms reported regarding the musculoskeletal system. Historical: - Allergies: 22:10 Bactrim; al5 22:10 Codeine; al5 22:10 Flagyl; al5 22:10 HYDROCODONE; al5 22:10 PENICILLINS; al5 22:10 Bees; al5 22:10 Wasps; al5 - PMHx: 22:10 Chronic pain; COPD; Crohn's; CRPS; GERD; Hypertension; Pancreatitis; SBO; al5 - Immunization history:: Adult Immunizations unknown. - Infectious Disease History:: Denies. - Social history:: Smoking status: Patient reports the use of cigarette tobacco products, every day, unknown amount. - Family history:: not pertinent. Screenin:10 [facility] ED Fall Risk Assessment (Adult) History of falling in the last 3 months, al5 including since admission No falls in past 3 months (0 pts). [facility] ED Fall Risk Assessment (Adult) Confusion or Disorientation No (0 pts) Intoxicated or Sedated No (0 pts) Impaired Gait No (0 pts) Mobility Assist Device Used No (0 pt) Altered Elimination No (0 pt) Score/Fall Risk Level 0 - 2 = Low Risk Oriented to surroundings, Maintained a safe environment, Hourly rounding (assess needs \T\ fall precautionary measures) done. Abuse screen: Denies threats or abuse. Denies injuries from another. Nutritional screening: No deficits noted. Tuberculosis screening: No symptoms or risk factors identified. Assessment: 22:31 Reassessment: see triage assessment. Cardiovascular: Patient's skin is warm and dry. al5 Rhythm is sinus tachycardia. 23:50 Reassessment: Patient appears in no apparent distress at this time. No changes from al5 previously documented assessment. Patient and/or family updated on plan of care and expected duration. Pain level reassessed. Patient is alert, oriented x 3, equal unlabored respirations, skin warm/dry/pink. patient had vomited into her bipap machine, patient switched to nasal cannula. patient O2 saturation holding, patient tolerating well. 04/30 00:46 Reassessment: Patient appears in no apparent distress at this time. No changes from al5 previously documented assessment. Patient and/or family updated on plan of care and expected duration. Pain level reassessed. Patient is alert, oriented x 3, equal unlabored respirations, skin warm/dry/pink. 01:32 Reassessment: Patient appears in no apparent distress at this time. No changes from al5 previously documented assessment. Patient and/or family updated on plan of care and expected duration. Pain level reassessed. Patient is alert, oriented x 3, equal unlabored respirations, skin warm/dry/pink. 02:58 Reassessment: Patient appears in no apparent distress at this time. No changes from al5 previously documented assessment. Patient and/or family updated on plan of care and expected duration. Pain level reassessed. Patient is alert, oriented x 3, equal unlabored respirations, skin warm/dry/pink. Vital Signs: 04/29 22:00 BP 126 / 78; Pulse 102; Resp 16; Pulse Ox 100% on BiPAP; al5 22:10 BP 124 / 84; Pulse 106; Resp 24; Temp 98.4(A); Pulse Ox 100% on BiPAP; Weight 48.99 kg; al5 Height 5 ft. 3 in. ; 22:30 BP 127 / 60; Pulse 102; Resp 23; Pulse Ox 96% on NC; al5 23:00 BP 119 / 57; Pulse 102; Resp 23; Pulse Ox 96% on NC; al5 23:30 BP 107 / 88; Pulse 91; Resp 21; Pulse Ox 93% on NC; al5 04/30 00:00 BP 103 / 56; Pulse 104; Resp 20; Pulse Ox 100% on NC; al5 00:30 BP 103 / 47; Pulse 109; Resp 24; Pulse Ox 100% on NC; al5 01:00 BP 109 / 69; Pulse 108; Resp 24; Pulse Ox 97% on NC; al5 01:30 BP 118 / 58; Pulse 105; Resp 19; Pulse Ox 98% on NC; al5 02:00 BP 111 / 57; Pulse 111; Resp 23; Pulse Ox 95% on NC; al5 02:30 BP 102 / 55; Pulse 100; Resp 17; Pulse Ox 95% on NC; al5 04/29 22:10 Body Mass Index 19.13 (48.99 kg, 160.02 cm) al5 [place] Coma Score: 01:44 Eye Response: spontaneous(4). Motor Response: obeys commands(6). Verbal Response: sp4 oriented(5). Total: 15. ED Course: 04/29 22:10 Arm band placed on right wrist. Patient placed in the treatment room, on a stretcher. al5 22:12 Patient arrived in ED. al5 22:12 Horacio Meza MD is Attending Physician. al5 22:12 Angella Villarreal RN is Primary Nurse. al5 22:13 Triage completed. al5 22:15 Initial lab(s) drawn, by ED staff, sent to lab. First set of blood cultures drawn by dd2 physician, EKG done, by ED staff, reviewed by Horacio Meza MD. Inserted saline lock: 18 gauge in left EJ, using aseptic technique. Blood collected. Flushed with 10 mL NS. 22:31 Patient has correct armband on for positive identification. Placed in gown. Bed in low al5 position. Call light in reach. Side rails up X2. Provided Education on: plan of care. 22:53 XRAY CXR (1 view) In Process Unspecified. EDMS 04/30 01:47 Walter Farrell MD is Hospitalizing Provider. sp4 01:55 Assisted provider with central line placement. Set up central line tray. Triple lumen al5 line placed in right internal jugular. Line placed by Horacio Meza MD Placement verified by blood return, Dressed with Tegaderm, Patient tolerated well. Before procedure, did Practitioner(s) obtain informed consent? Yes. Patient \T\ family education about procedure, CLABSI prevention and S/S of infection? Yes. Time-out/Briefing performed prior to start of procedure? Yes. Was handwashing/sanitizing done immediately prior to procedure? Yes. Was patient positioned to in a way to prevent air embolism? Yes. Was procedure site sterilized? Yes, with chlorhexidine. Was the site allowed to dry? Yes. Was local anesthetic and/or sedation utilized? Yes. During the procedure, did the Practitioner(s) maintain a sterile field? Yes. Were unused ports clamped during insertion? Yes. Was a 2nd qualified MD obtained after 3 unsuccessful insertion attempts? No. Was blood aspirated from each lumen? Yes. After the procedure, did the Practitioner(s) clean the site and apply a sterile dressing? Yes. 03:04 Patient admitted, IV remains in place. al5 04:37 Chest Single View XRAY In Process Unspecified. EDMS 06:59 Primary Nurse role handed off by Angella Villarreal RN bd Administered Medications: 04/29 22:24 Drug: metoCLOPramide IVP 10 mg IVP once; over 1 to 2 minutes Route: IVP; Site: left dd2 jugular; 22:39 Follow up: Response: No adverse reaction dd2 22:25 Drug: Ondansetron IVP 4 mg IVP once; over 2 minutes Route: IVP; Site: left jugular; dd2 22:39 Follow up: Response: No adverse reaction dd2 22:44 Drug: Albuterol Inhalation 2.5 mg Inhalation every 20 minutes x3 Route: Inhalation; dd2 22:59 Follow up: Response: No adverse reaction dd2 22:44 Drug: Ipratropium Inhalation Aerosol 0.5 mg Inhalation once; Every 20 min for a total dd2 of 3 treatments x3 Route: Inhalation; 22:59 Follow up: Response: No adverse reaction dd2 23:10 Drug: Albuterol Inhalation 2.5 mg Inhalation every 20 minutes x3 Route: Inhalation; dd2 23:25 Follow up: Response: No adverse reaction dd2 23:10 Drug: Ipratropium Inhalation Aerosol 0.5 mg Inhalation once; Every 20 min for a total dd2 of 3 treatments x3 Route: Inhalation; 23:40 Drug: Albuterol Inhalation 2.5 mg Inhalation every 20 minutes x3 Route: Inhalation; dd2 23:55 Follow up: Response: No adverse reaction dd2 23:40 Drug: Ipratropium Inhalation Aerosol 0.5 mg Inhalation once; Every 20 min for a total dd2 of 3 treatments x3 Route: Inhalation; 23:55 Follow up: Response: No adverse reaction dd2 04/30 00:08 Drug: Aspirin PO Chewable Tablet 324 mg PO once; 81 mg tablets x 4 Route: PO; al5 01:06 Follow up: Response: No adverse reaction al5 00:13 Drug: Heparin (NV-Bolus with thrombolytic) - HEParin IVP 60 units/kg IVP once; Max 4000 al5 units {Co-Signature: dd2 (PATRICIA LONGO RN).} Route: IVP; Site: left jugular; 01:06 Follow up: Response: No adverse reaction al5 00:14 Drug: Heparin (NV Drip) 12 units/kg/hr - ([place] [address] units, D5W IV 500 ml) IV at al5 calculated rate Per protocol; Max initial rate 1000 units/hr {Co-Signature: dd2 (PATRICIA LONGO RN).} Route: IV; Rate: calculated rate; Site: left jugular; 01:33 Follow up: Response: No adverse reaction al5 02:12 Follow up: IV Status: Infusion continued upon admission al5 01:20 Drug: Mupirocin Topical Ointment 2 % 1 application Topical once Route: Topical; Site: al5 affected area; :33 Follow up: Response: No adverse reaction al5 03:14 Drug: Cefepime IVPB 2 grams IVPB at 200 ml/hr once over 30 mins; (mix in NS 100 mL) al5 Route: IVPB; Rate: 200 ml/hr; Infused Over: 30 mins; Site: right jugular; 05:12 Follow up: Response: No adverse reaction; IV Status: Completed infusion; IV Intake: al5 100ml 03:41 Drug: vancoMYCIN IVPB 1 grams IVPB once over 2 hrs Route: IVPB; Infused Over: 2 hrs; al5 Site: right jugular; 07:00 Follow up: IV Status: Completed infusion iw 06:46 Drug: Albumin IVPB 25 grams 100 ml IVPB once; (Note: Albumin 25% concentration) Volume: al5 100 ml; Route: IVPB; Site: left jugular; 07:30 Follow up: IV Status: Completed infusion iw 06:46 Drug: Ondansetron IVP 4 mg IVP once; over 2 minutes Route: IVP; Site: left jugular; al5 06:47 Drug: morphine IVP or IV 2 mg IVP once over 4 mins Route: IVP; Infused Over: 4 mins; al5 Site: left jugular; Medication: 04/29 22:31 VIS not applicable for this client. al5 Intake: 04/30 05:12 IV: 100ml; Total: 100ml. al5 Outcome: 01:49 Decision to Hospitalize by Provider. sp4 03:04 Admitted to ER Hold. Please see [facility] for further documentation. al5 03:04 Condition: stable 03:04 Instructed on the need for admit, 14:23 Patient left the ED. iw Signatures: Dispatcher [employer] EDMS Charley Celis Irene, RN RN iw Horacio Meza MD MD sp4 Angella Villarreal RN RN al5 PATRICIA LONGO RN RN dd2 PATRICIA LONGO RN dd2 Corrections: (The following items were deleted from the chart) 00:14 00:12 Heparin (NV Drip) - ([place] [address] units, D5W IV 500 ml) IV at calculated rate al5 in right jugular al5 02:59 10 23:50 Reassessment: Patient appears in no apparent distress at this time. No al5 changes from previously documented assessment. Patient and/or family updated on plan of care and expected duration. Pain level reassessed. Patient is alert, oriented x 3, equal unlabored respirations, skin warm/dry/pink. al5
--- NOTE | 2024-04-30 05:16 | P.HP ---
Certification for Inpatient Patient admitted to: Inpatient With expected LOS: >2 Midnights Practitioner: I am a practitioner with admitting privileges, knowledge of patient current condition, hospital course, and medical plan of care. Services: Services provided to patient in accordance with Admission requirements found in Title 42 Section 412.3 of the Code of Federal Regulations Patient History Date of Service: 04/30/24 Reason for admission: SOB History of Present Illness: 74 yrs old Female with past medical history of COPD, Crohn's disease, history of hypertension, history of pancreatitis, history of SBO was brought to ER with shortness of breath and respiratory distress . Patient apparently was very short of breath at home and had to be placed on BiPAP when the EMS came and was brought to ER. Denies any chest pain. No nausea vomiting or diarrhea. No fever or chills. No sick contacts. Patient still smokes. Patient was assessed in the ER and was admitted for further management of COPD exacerbation/NSTEMI Allergies fentanyl Allergy (Verified 09/27/22 07:38) Itching hydrocodone Allergy (Verified 09/27/22 07:38) Nausea/Vomiting metronidazole [From Flagyl] Allergy (Verified 09/27/22 07:38) Shortness of breath Penicillins Allergy (Verified 09/27/22 07:38) Hives venom-honey bee [bee venom (honey bee)] Allergy (Verified 09/27/22 07:38) Shortness of breath venom-wasp [wasp venom] Allergy (Verified 09/27/22 07:38) Shortness of breath ciprofloxacin [From Cipro] Adverse Reaction (Verified 09/27/22 07:38) ineffective codeine Adverse Reaction (Verified 09/27/22 07:38) Nausea/Vomiting Home medications list reviewed: Yes Home Medications: Albuterol Sulfate [Proair Hfa] 2 puff IH TIDP PRN 05/17/15 Aspirin 81 mg PO BEDTIME 05/17/15 Hydromorphone [Dilaudid*] 2 mg PO BID PRN 05/17/15 Montelukast Sodium [Singulair] 10 mg PO BEDTIME 05/17/15 Furosemide 40 mg PO DAILY 04/15/18 predniSONE [Deltasone*] 10 mg PO DAILYPRN PRN 04/15/18 Dicyclomine HCl 20 mg PO Q6HP PRN 01/15/20 Promethazine Tab [Phenergan] 25 mg PO BID 01/15/20 Sucralfate [Carafate -Tab] 1 gm PO ACHS 01/15/20 Tiotropium [Spiriva Handihaler] 1 sprays IH DAILY 01/15/20 Diphenox/Atropine [Lomotil] 2 tab PO BIDP PRN 08/09/20 Pantoprazole [Protonix Tab*] 1 tab PO DAILY 11/18/20 Famotidine [Pepcid] 20 mg PO BEDTIME 09/26/22 Lubiprostone [Amitiza] 24 mcg PO DAILY 09/26/22 Memantine HCl [Namenda] 5 mg PO BID 09/26/22 Methscopolamine [place] 5 mg PO DAILY 09/26/22 Pravastatin Sodium 80 mg PO BEDTIME 09/26/22 Tizanidine [Zanaflex] 4 mg PO BIDP PRN 09/26/22 - Past Medical/Surgical History Diabetic: No Past Medical History: Reviewed- Non-Contributory -: Crohn's disease -: COPD -: Anxiety/Depression -: Hyperlipidemia -: GERD -: Chronic Pancreatitis -: Chronic Regional Pain Syndrome Past Surgical History: Reviewed- Non-Contributory -: Left arm nerve surgery -: Carpel tunnel x3 -: Hysterectomy -: Tonsilectomy -: Cholecystectomy -: Appendectomy -: BLE Vascular Surgery (unable to state type) -: Spinal stimulator implanted and removed - Family History Father -: Heart disease, Cancer Notes: kidney cancer Mother -: Heart disease Brother -: Cancer Notes: Brain tumor - Social History Smoking Status: Current every day smoker Alcohol use: No CD- Drugs: No Caffeine use: Yes Review of Systems 10-point ROS is otherwise unremarkable Physical Examination - Vital Signs Temperature: 98.2 F Blood Pressure: 172/70 Pulse: 98 Respirations: 18 Pulse Ox (%): 95 - Physical Exam General: Alert, Oriented x3, Moderate distress HEENT: Atraumatic, Normocephalic Neck: Supple, No Thyromegaly Respiratory: Diminished, Crackles/rales, Expiratory wheezes Cardiovascular: Regular rate/rhythm, Normal S1 S2 Capillary refill: <2 Seconds Gastrointestinal: Soft and benign, W/out hepatosplenomegaly Musculoskeletal: No clubbing, No swelling Integumentary: No rashes, No tenderness/swelling Neurological: Normal speech, Normal strength at 5/5 x4 extr, Cranial nerves 3-12 intact, Normal reflexes 2+ Lymphatics: No axilla or inguinal lymphadenopathy - Studies Laboratory Data (last 24 hrs) 04/29/24 04/29/24 04/29/24 22:24 22:24 22:24 WBC 13.20 H Hgb 14.5 Hct 45.8 H Plt Count 367 PT 10.7 INR 0.95 APTT 38.1 H Sodium 137 Potassium 3.7 BUN 28 H Creatinine 1.19 H Glucose 83 Magnesium 2.5 H Total Bilirubin 0.7 AST 20 ALT 16 Alkaline Phosphatase 76 Lipase 33 Microbiology Data (last 24 hrs): 04/29/24 22:24 Nasopharnyx Influenza Type A Antigen Screen - Final 04/29/24 22:24 Nasopharnyx Influenza Type B Antigen Screen - Final Assessment and Plan - Plan COPD exacerbation Monitor closely on telemetry in ICU Started on bronchodilators Oxygen supplementation Steroids added Chest x-ray findings noted Pulmonology consult if not better in the a.m. NSTEMI possibly type II Will trend cardiac enzymes Will monitor telemetry Started on aspirin and statin Patient denies any chest pain Will get an echocardiogram Cardiology consult Hypertension Antihypertensives titrated Continue home medications and titrate as needed Hyperlipidemia Continue statin JUNE Monitor renal parameters Electrolytes monitor and replace accordingly Chronic pain Continue home medications and titrate as needed Smoking Advise smoking cessation GI/DVT prophylaxis Advanced directive full code Discharge Plan: Home Plan to discharge in: 48 Hours - Advance Directives Does patient have a Living Will: No Does patient have a Durable POA for Healthcare: No - Code Status/Comfort Care Code Status: Full Code Time Spent Managing Pts Care (In Minutes): 48
[2024-04-30] MEDS ORDERED: ALBUTEROL 2.5 MG/3 ML NEB SOL NEB PRN (05:18)
[2024-04-30] MEDS ORDERED: ACETAMINOPHEN 325 MG TABLET PO PRN (05:18)
[2024-04-30] MEDS ORDERED: HYDROCODONE/APAP 5/325 MG TAB PO PRN (05:22)
--- NOTE | 2024-04-30 06:06 | RAD REPORT ---
EXAM: XR Chest, 1 View CLINICAL HISTORY: The patient is 74 years old and is Female; Chest pain. TECHNIQUE: Single view of the chest. COMPARISON: XR Chest 04/29/2024. FINDINGS: Lungs: No pulmonary vascular congestion or consolidation. Pleural space: Unremarkable. No pneumothorax. Heart: Unremarkable. No cardiomegaly. Mediastinum: Unremarkable. Bones/joints: No acute fracture visualized. Upper abdomen: No free air in the visualized upper abdomen. IMPRESSION: No acute cardiopulmonary process identified. Electronically signed by: Denise Mendez MD 04/30/2024 05:30 AM CDT RP ND Due to temporary technical issues with the PACS/[employer] reporting system, reports are being sonia d by the in-house radiologist without review as a courtesy to ensure prompt reporting the interpreting radiologist is fully responsible for the content of the report. Transcribed Date/Time: 04/30/2024 6:05 AM
--- NOTE | 2024-04-30 06:08 | RAD REPORT ---
EXAM: XR Chest, 1 View CLINICAL HISTORY: Chest pain. TECHNIQUE: Frontal view of the chest. COMPARISON: XR Chest 05/09/2019. FINDINGS: Lungs: Hyperinflation and coarsened interstitial markings. Left basilar calcified granuloma. No c onsolidation. Pleural space: Blunting of the right costophrenic angle. No pneumothorax. Heart: Unremarkable. No cardiomegaly. Mediastinum: Unremarkable. Normal mediastinal contour. Bones/joints: Unremarkable. No acute fracture. IMPRESSION: Possible small right pleural effusion and/or pleural thickening/scar. Electronically signed by: Hitesh Taylor MD 04/30/2024 12:00 AM LOFTYT Due to temporary technical issues with the PACS/[employer] reporting system, reports are being sonia d by the in-house radiologist without review as a courtesy to ensure prompt reporting the interpreting radiologist is fully responsible for the content of the report. Transcribed Date/Time: 04/30/2024 6:08 AM
[2024-04-30] MEDS ORDERED: ONDANSETRON 4 MG/2 ML VIAL ONE (06:33)
[2024-04-30] MEDS ORDERED: MORPHINE 2 MG/ML SYR ONE (06:33)
[2024-04-30] MEDS ORDERED: ALBUMIN HUMAN 25% 50 ML IV ONE (06:33)
--- NOTE | 2024-04-30 06:42 | RAD REPORT ---
PROCEDURE: XR Chest, 1 View CLINICAL INDICATION: The patient is 74 years old and is Female; Central line placement. TECHNIQUE: Frontal view of the chest. COMPARISON: CT Chest Abdomen Pelvis 04/30/2024 and XR Chest 04/30/2024. FINDINGS: LUNGS: No focal consolidation. PLEURAL SPACE: No appreciable pleural effusion or pneumothorax. MEDIASTINUM: Stable cardiomediastinal silhouette. BONES/JOINTS: No acute osseous abnormality. SOFT TISSUES: Vertically oriented skinfold demonstrated overlying the right lung base. TUBES, LINES AND DEVICES: Left IJ approach CVC tip terminates over the mid SVC. UPPER ABDOMEN: Right hemidiaphragm elevation. IMPRESSION: 1. Left IJ approach CVC tip terminates over the mid SVC. 2. No acute cardiopulmonary abnormality. 3. Right hemidiaphragm elevation. Electronically signed by: Gregorio King MD 04/30/2024 06:21 AM CDT Due to temporary technical issues with the PACS/[employer] reporting system, reports are being sonia d by the in-house radiologist without review as a courtesy to ensure prompt reporting the interpreting radiologist is fully responsible for the content of the report. Transcribed Date/Time: 04/30/2024 6:42 AM
--- NOTE | 2024-04-30 06:57 | RAD REPORT ---
PROCEDURE: CT Chest, Abdomen and Pelvis With Intravenous Contrast CLINICAL INDICATION: The patient is 74 years old and is Female; Chest Pain. TECHNIQUE: Axial computed tomography images of the chest, abdomen and pelvis with intravenous contrast. Sagitt al and coronal reformatted images were created and reviewed. This CT exam was performed using one or more of the following dose reduction techniques: automated exposure control, adjustment of the m A and/or kV according to patient size, and/or use of iterative reconstruction technique. COMPARISON: XR Chest 04/30/[address] Abdomen Pelvis 09/27/2022. FINDINGS: CHEST: LUNGS: Centrilobular emphysema. Right hemidiaphragm elevation with mild right middle and lower lobe subsegmental atelectasis. No mass. No additional focal consolidation. PLEURAL SPACE: Unremarkable No significant effusion. No pneumothorax. HEART: Moderate proximal LAD coronary artery calcification. No cardiomegaly. No significant pericardial effusion. MEDIASTINUM: Small hiatal hernia. No abnormal mediastinal or free fluid, fluid collection, or pneumomediastinum. THYROID: Thyroid nodules measuring up to 1.2 cm in maximum dimension. No follow-up is necessary. ABDOMEN: LIVER: Focal fatty change along the falciform ligament. GALLBLADDER AND BILE DUCTS: Cholecystectomy clips noted in the gallbladder fossa. No greater than e xpected ductal dilatation. PANCREAS: Unremarkable No ductal dilation. No mass. SPLEEN: Unremarkable No splenomegaly. ADRENALS: Unremarkable No mass. KIDNEYS AND URETERS: See below. STOMACH AND BOWEL: Hepatic flexure of the colon is interpositioned between the adjacent anterior ab dominal wall and hepatic parenchyma, consistent with Chilaiditi sign. Of doubtful clinical significance in the absence of symptoms. Colonic diverticulosis without evidence of acute diverticulitis. No evidence of small or large bowel obstruction. PELVIS: APPENDIX: No findings to suggest acute appendicitis. BLADDER: Bladder wall thickening which may be due to the decompressed state of the bladder or due t o cystitis. REPRODUCTIVE: Hysterectomy. Mild pelvic floor laxity, with associated mild vaginal and rectal prolapse. CHEST, ABDOMEN and PELVIS: INTRAPERITONEAL SPACE: See above. BONES/JOINTS: Multilevel diffuse disc bulges at the L2-3, L3-4, and L4-5 levels with only mild asso ciated canal stenosis. No high-grade bony spinal canal stenosis. Mild to moderate right L4-5 and mild left L5-S1 neuroforaminal narrowing secondary to disc bulge and facet arthrosis. No displaced or depressed rib fractures. No appreciable sternal or vertebral fractures. No acute osseous abnormality. SOFT TISSUES: Unremarkable VASCULATURE: Moderate calcified atherosclerosis of the abdominal aorta without aneurysmal dilatatio n. No thoracic or abdominal aortic gross dissection. Renal cyst too small No hydronephrosis or obstructive intrarenal or intraureteral stones. LYMPH NODES: Unremarkable No enlarged lymph nodes. TUBES, LINES AND DEVICES: Partially visualized left IJ approach CVC with tip terminating in the mid SVC. IMPRESSION: 1. Urinary bladder wall thickening which may be due to the decompressed state of the bladder or due to cystitis. Correlation with urinalysis recommended. 2. Otherwise, no acute abnormality of the chest, abdomen, or pelvis. 3. Mild pelvic floor laxity, with associated mild vaginal and rectal prolapse. 4. Additional nonacute findings as above. Electronically signed by: Gregorio King MD 04/30/2024 06:41 AM CDT Due to temporary technical issues with the PACS/[employer] reporting system, reports are being sonia d by the in-house radiologist without review as a courtesy to ensure prompt reporting the interpreting radiologist is fully responsible for the content of the report. Transcribed Date/Time: 04/30/2024 6:57 AM
[2024-04-30] MEDS: HEPARIN/D5W 25,000 UNIT/500 ML BAG IV SCH (07:00)
[2024-04-30] MEDS ORDERED: ALBUTEROL 2.5 MG/3 ML NEB SOL ONE ×2 (07:38→13:15)
[2024-04-30] MEDS ORDERED: IPRATROPIUM BROM 0.5MG/2.5ML ONE ×2 (07:38→13:15)
[2024-04-30] MEDS: ALBUTEROL 2.5 MG/3 ML NEB SOL NEB SCH (07:40)
[2024-04-30] MEDS: IPRATROPIUM BROM 0.5MG/2.5ML NEB SCH (07:40)
[2024-04-30] MEDS: METHYLPREDNISOLONE 40 MG INJ IV SCH (09:00)
[2024-04-30] MEDS: ASPIRIN EC 81 MG TAB PO SCH (09:00)
[2024-04-30] MEDS ORDERED: ENOXAPARIN 40 MG/0.4 ML SQ SCH ×2 (09:00→17:00)
[2024-04-30] MEDS ORDERED: METHYLPREDNISOLONE 40 MG INJ ONE (09:10)
[2024-04-30] MEDS ORDERED: ASPIRIN 81 MG CHEWABLE TABLET ONE (09:10)
--- NOTE | 2024-04-30 15:40 | P.CNS ---
Date of Consult: 04/30/24 Chief Complaint: SOB History of Present Illness: Patient with PMH of COPD, presented with worsening SOB, denies chest pain, no palpitations, no syncope. Allergies fentanyl Allergy (Verified 09/27/22 07:38) Itching hydrocodone Allergy (Verified 09/27/22 07:38) Nausea/Vomiting metronidazole [From Flagyl] Allergy (Verified 09/27/22 07:38) Shortness of breath Penicillins Allergy (Verified 09/27/22 07:38) Hives venom-honey bee [bee venom (honey bee)] Allergy (Verified 09/27/22 07:38) Shortness of breath venom-wasp [wasp venom] Allergy (Verified 09/27/22 07:38) Shortness of breath ciprofloxacin [From Cipro] Adverse Reaction (Verified 09/27/22 07:38) ineffective codeine Adverse Reaction (Verified 09/27/22 07:38) Nausea/Vomiting Home medications list reviewed: Yes Home Medications: Albuterol Sulfate [Proair Hfa] 2 puff IH TIDP PRN 05/17/15 Aspirin 81 mg PO BEDTIME 05/17/15 Hydromorphone [Dilaudid*] 2 mg PO BID PRN 05/17/15 Montelukast Sodium [Singulair] 10 mg PO BEDTIME 05/17/15 Furosemide 40 mg PO DAILY 04/15/18 predniSONE [Deltasone*] 10 mg PO DAILYPRN PRN 04/15/18 Dicyclomine HCl 20 mg PO Q6HP PRN 01/15/20 Promethazine Tab [Phenergan] 25 mg PO BID 01/15/20 Sucralfate [Carafate -Tab] 1 gm PO ACHS 01/15/20 Tiotropium [Spiriva Handihaler] 1 sprays IH DAILY 01/15/20 Diphenox/Atropine [Lomotil] 2 tab PO BIDP PRN 08/09/20 Pantoprazole [Protonix Tab*] 1 tab PO DAILY 11/18/20 Famotidine [Pepcid] 20 mg PO BEDTIME 09/26/22 Lubiprostone [Amitiza] 24 mcg PO DAILY 09/26/22 Memantine HCl [Namenda] 5 mg PO BID 09/26/22 Methscopolamine Sartell 5 mg PO DAILY 09/26/22 Pravastatin Sodium 80 mg PO BEDTIME 09/26/22 Tizanidine [Zanaflex] 4 mg PO BIDP PRN 09/26/22 - Past Medical/Surgical History Diabetic: No -: Crohn's disease -: COPD -: Anxiety/Depression -: Hyperlipidemia -: GERD -: Chronic Pancreatitis -: Chronic Regional Pain Syndrome -: Left arm nerve surgery -: Carpel tunnel x3 -: Hysterectomy -: Tonsilectomy -: Cholecystectomy -: Appendectomy -: BLE Vascular Surgery (unable to state type) -: Spinal stimulator implanted and removed - Family History Father Medical History: Heart disease, Cancer Notes: kidney cancer Mother Medical History: Heart disease Brother Medical History: Cancer Notes: Brain tumor - Social History Smoking Status: Current every day smoker Alcohol use: No CD- Drugs: No Caffeine use: Yes Review of Systems 10-point ROS is otherwise unremarkable Physical Examination Temp Pulse Resp BP Pulse Ox 98.0 F 100 H 20 126/65 96 04/30/24 12:00 04/30/24 12:00 04/30/24 12:00 04/30/24 12:00 04/30/24 12:00 General: Alert, In no apparent distress HEENT: Atraumatic, PERRLA, Mucous membr. moist/pink, EOMI, Sclerae nonicteric Neck: Supple, 2+ carotid pulse no bruit, No LAD, Without JVD or thyroid abnorm ality Respiratory: Clear to auscultation bilaterally, Normal air movement Cardiovascular: Regular rate/rhythm, Normal S1 S2 Gastrointestinal: Normal bowel sounds, No tenderness Musculoskeletal: No tenderness Integumentary: No rashes Neurological: Normal gait, Normal speech, Normal tone, Normal affect Lymphatics: No axilla or inguinal lymphadenopathy Laboratory Data (last 24 hrs) 04/29/24 04/29/24 04/29/24 22:24 22:24 22:24 WBC 13.20 H Hgb 14.5 Hct 45.8 H Plt Count 367 PT 10.7 INR 0.95 APTT 38.1 H Sodium 137 Potassium 3.7 BUN 28 H Creatinine 1.19 H Glucose 83 Magnesium 2.5 H Total Bilirubin 0.7 AST 20 ALT 16 Alkaline Phosphatase 76 Lipase 33 - Problems (1) NSTEMI (non-ST elevated myocardial infarction) Current Visit: Yes Status: Acute Plan: Troponin mild elevated with worsening SOB. NPO after midnight for nuclear stress test in am (Lexiscan)
[2024-04-30 16:19] VITALS: BMI 29.2
[2024-04-30] MEDS: FLU (Fluarix Triv) TS24-25(6MOS UP)/PF 45 MCG/0.5 ML Syringe IM ONE (16:30)
[2024-04-30] MEDS: PNEUMOCOCCAL VACCINE 0.5 ML IMVAC ONE (17:00)
[2024-04-30] MEDS: MORPHINE 2 MG/ML SYR IV PRN (18:11)
[2024-04-30] MEDS: ONDANSETRON 4 MG/2 ML VIAL IV PRN (18:16)
--- NOTE | 2024-04-30 18:38 | P.PN ---
Date of Service: 04/30/24 Patient seen and examined. Patient reports significant improvement in her shortness of breath. She denies any chest pain. Troponin mildly elevated but trended flat. Echocardiogram Cardiology consult. Bronchodilators and IV steroid.
[2024-04-30] MEDS: VANCOMYCIN 500 MG/VIAL ONE (20:24)
[2024-04-30] MEDS: NA CHLORIDE 0.9% 250 ML ONE (20:25)
[2024-04-30] MEDS: VANCOMYCIN 1 GM/VIAL ONE (20:27)
[2024-04-30] MEDS: ATORVASTATIN 40 MG TAB PO SCH (20:38)
[2024-04-30] MEDS: CEFTRIAXONE 1,000 MG in NA CHLORIDE 0.9% 50 ML IVPB ONE (20:38)
[2024-04-30] MEDS: PROMETHAZINE INJ 25 MG/ML AMP IV PRN (20:38)
[2024-04-30] MEDS: VANCOMYCIN 1.25 GM in NA CHLORIDE 0.9% 250 ML IVPB SCH (20:39)
[2024-04-30] MEDS ORDERED: VANCOMYCIN 1 GM in NA CHLORIDE 0.9% 250 ML IVPB ONE (21:00)
[2024-05-01 06:48] LABS: Absolute Lymphocytes (CBC) 0.7 K/uL (0.7-4.9); Absolute Monocytes 0.6 K/uL (0.1-1.3); Absolute Neutrophil 15.3 K/uL (1.8-8.0); Basophils % 0.1 % (0-1.3); Hematocrit 36.1 % (36.0-45.0); Hemoglobin 12.1 g/dL (12.0-15.0); MCH 29.2 pg (27.0-35.0); MCHC 33.6 g/dL (32.0-36.0); MCV 87.1 fL (80-100); MPV 7.3 fL (7.6-11.3); Monocytes % 3.4 % (3.3-12.3); Neutrophils % 92.5 % (41.7-73.7); Platelets 325 thou/uL (152-406); RBC Red Blood Cell Count 4.14 M/uL (3.86-4.86); Red Cell Distribution Width 15.1 % (12.1-15.2)
--- NOTE | 2024-05-01 07:02 | ECHO ---
HEIGHT: 5 ft 2 in WEIGHT: 160 lb 0 oz DATE OF STUDY: 04/30/[address]: Prashanth Farrell DO 2-DIMENSIONAL: YES M.MODE: YES DOPPLER: YES COLOR FLOW: YES TDS: YES PORTABLE: YES DEFINITY: BUBBLE STUDY: DIAGNOSIS: NON ST ELEVATION MYOCARDIAL INFARCTION CARDIAC HISTORY: CATHERIZATION: NO SURGERY: NO PROSTHETIC VALVE: NO PACEMAKER: NO MEASUREMENTS (cm) DIASTOLIC (NORMALS) SYSTOLIC (NORMALS) IVSd 1.3 (0.6-1.2) LA Diam 3.0 (1.9-4.0) LVEF 60-65% LVIDd 3.9 (3.5-5.7) LVIDs 2.9 (2.0-3.5) %FS 27% LVPWd 1.4 (0.6-1.2) Ao Diam 3.1 (2.0-3.7) 2 DIMENSIONAL ASSESSMENT: RIGHT ATRIUM: NORMAL LEFT ATRIUM: NORMAL RIGHT VENTRICLE: NORMAL LEFT VENTRICLE: NORMAL TRICUSPID VALVE: TRACE TRICUSPID REGURGITATION MITRAL VALVE: NORMAL PULMONIC VALVE: NORMAL AORTIC VALVE: NORMAL PERICARDIAL EFFUSION: SMALL AORTIC ROOT: NORMAL LEFT VENTRICULAR WALL MOTION: NORMAL DOPPLER/COLOR FLOW: NORMAL COMMENTS: 1. NORMAL LEFT VENTRICULAR SYSTOLIC FUNCTION, EJECTION FRACTION 60-65%, NORMAL WALL MOTION 2. NORMAL DIASTOLIC FUNCTION 3. NORMAL FILLING PRESSURE TECHNOLOGIST: VISHNU CORADO
[2024-05-01 07:18] LABS: AST/SGOT 15 U/L (15-37); Albumin 3.5 g/dL (3.4-5.0); Albumin/Globulin Ratio 1.1 (1.1-1.8); Alkaline Phosphatase 57 U/L (45-117); Anion Gap 8.8 mEq/L (5.0-15.0); BUN Blood Urea Nitrogen 26 mg/dL (7-18); Bicarbonate 29 mEq/L (21-32); Bilirubin Total 0.3 mg/dL (0.2-1.0); Globulin 3.2 g/dL (2.3-3.5); Glomerular Filtration Rate 59 ml/min (=/>90); Glucose Level 138 mg/dL (74-106); Potassium 3.8 mEq/L (3.5-5.1); Protein, Total 6.7 g/dL (6.4-8.2); Sodium Level 137 mEq/L (136-145)
[2024-05-01 07:24] LABS: ALT/SGPT < 14 U/L (13-56)
[2024-05-01 08:42] LABS: Blood Morphology Comment NOT SEEN (NOT SEEN); Differential Total Cells Count 100; Lymphocytes 7 % (15-42); Monocytes 0 % (0-10); Platelet Estimate ADEQ; Segmented Neutrophils 93 % (40-80)
[2024-05-01] MEDS ORDERED: REGADENOSON 0.4 MG/5 ML SYR IV ONE (11:00)
--- NOTE | 2024-05-01 11:54 | EKG ---
Test Date: 2024-04-29 Test Time: 22:04:00 Ad Copy Writer: RICK MEASUREMENT RESULTS: Intervals: Rate: 106 WI: 132 QRSD: 78 QT: 344 QTc: 456 [place]: P: 85 WI: 132 QRS: 94 T: 124 INTERPRETIVE STATEMENTS: Sinus tachycardia with fusion complexes Otherwise normal ECG Compared to ECG 04/14/2018 22:26:11 Fusion complex(es) now present Sinus rhythm no longer present Right-axis deviation no longer present Electronically Signed On 05-01-24 11:51:40 CDT by Shiv Bedoya
--- NOTE | 2024-05-01 12:43 | TREADPHA ---
DX: NON ST ELEVATION MYOCARDIAL INFARCTION Date of Study: 05/01/2024 Ht: 5' 2 " Wt: 160 lb 0 oz Consulting Physician: ALYX MEDICATIONS: TYLENOL, PROVENTIL, ASPIRIN, LIPITOR, HEPARIN, ATROVENT, SOLU-MEDROL, MORPHINE, ZOFRAN, PHENERGAN, VANCOMYCIN HISTORY: 74 YEAR OLD FEMALE WITH COMPLAINTS OF SHORTNESS OF BREATH. HISTORY OF CHRONS, CHRONIC OBSTRUCTIVE PULMONARY DISEASE, ANXIETY, HYPERLIPIDEMIA, GASTROESOPHAGEAL REFLUX DISEASE AND CHRONIC PAIN. PATIENT SMOKES ONE PACK A DAY, NON DRINKER. PHYSICIAL EXAMINATION: RESTING B.P.: 139/65 RESTING H.R.: 85 RESTING EKG: PROTOCOL: PHARMACOLOGIC EXERCISE TIME: 3:30 B.P. AT [place] STRESS: 154/61 IMPRESSION: LEXISCAN INJECTED FOLLOWED BY CARDIOLITE PER PROTOCOL. SEE NUCLEAR MEDICINE REPORT. NO SUPRAVENTRICULAR TACHYCARDIA, VENTRICULAR TACHYCARDIA, PREMATURE ATRIAL COMPLEXES, PREMATURE VENTRICULAR COMPLEXES. PATIENT REPORTS NO PAIN THROUGHOUT PROCEDURE.
--- NOTE | 2024-05-01 13:26 | RAD REPORT ---
EXAM: Nuclear medicine cardiac perfusion examination with ejection fraction HISTORY: Chest pain TECHNIQUE: Rest images: 10.1 mCi technetium 99m sestamibi Stress images: 31.5 mCi of technetium 99m sestamibi; Lexiscan COMPARISON: None FINDINGS: Tomographic images: Moderate sized fixed defect involving the mid to basal inferior wall, could at le ast be partially related to splanchnic uptake resulting in artifact. Small reversible defect along the anterior wall midsegment, concerning for ischemia. Gated images: Normal wall motion and ejection fraction of 73%. EDV: 60 mL ESV: 16 mL TID: 1.22 IMPRESSION: Small reversible defect along the anterior wall midsegment, concerning for myocardial ischemia. Fixed defect involving the mid to basal inferior wall, could reflect sequelae of prior infarct, altho ugh it could at least partially be artifactual. Left ventricular ejection fraction:73%. Reduced end-systolic volume may relate to long-standing hyper tension, please correlate clinically.
--- NOTE | 2024-05-01 16:58 | P.PN ---
Subjective Date of Service: 05/01/24 Chief Complaint: SOB Subjective: No new changes, No C/O voiced, Tolerating diet, Ambulating, Improving Review of Systems 10-point ROS is otherwise unremarkable Physical Examination - Vital Signs Temperature: 97.6 F Blood Pressure: 156/67 Pulse: 77 Respirations: 16 Pulse Ox (%): 95 - Physical Exam General: Alert, In no apparent distress HEENT: Atraumatic, PERRLA, EOMI Neck: Supple, JVD not distended Respiratory: Clear to auscultation bilaterally, Normal air movement Cardiovascular: Regular rate/rhythm, Normal S1 S2 Gastrointestinal: Normal bowel sounds, No tenderness Musculoskeletal: No tenderness Integumentary: No rashes Neurological: Normal speech, Normal tone, Normal affect Lymphatics: No axilla or inguinal lymphadenopathy - Studies Medications List Reviewed: Yes Assessment And Plan - Current Problems (Diagnosis) (1) NSTEMI (non-ST elevated myocardial infarction) Current Visit: Yes Status: Acute Plan: Troponin mild elevated with worsening SOB. Stress test shows reversible apical wall perfusion defect. NPO after midniht for coronary anioram in am ASA 81 daily (2) HTN (hypertension) Current Visit: Yes Status: Acute Plan: start losartan 25 daily (3) Hyperlipidemia Onset Date: 04/16/18 Current Visit: No Status: Acute Plan: continue lipitor 40 daily
[2024-05-01] MEDS: ASPIRIN 81 MG CHEWABLE TABLET PO SCH (17:30)
[2024-05-01] MEDS: VANCOMYCIN 1.25 GM in NA CHLORIDE 0.9% 250 ML IVPB SCH (20:56)
[2024-05-01 23:44] LABS: Specific Gravity 1.008 (1.005-1.030); Sqamous Epithelial <5 /HPF (None Seen); Urine Bacteria <20 /HPF (<20); Urine Bilirubin NEGATIVE (Negative); Urine Blood Negative (Negative); Urine Clarity Turbid (Clear); Urine Color Colorless (Yellow); Urine Crystals Unidentified Few /HPF (None Seen); Urine Culture Reflex Order NOT NEEDED; Urine Glucose NEGATIVE (Negative); Urine Ketones NEGATIVE (Negative); Urine Microscopic Reflex YN ORDER UMIC; Urine Mucus Slight /HPF (None Seen); Urine Nitrite NEGATIVE (Negative); Urine Protein NEGATIVE (Negative); Urine RBC <5 /HPF (None Seen); Urine Urobilinogen Normal (Normal); Urine WBC <5 /HPF (<5)
--- NOTE | 2024-05-02 07:46 | P.PN ---
Subjective Date of Service: 05/01/24 Chief Complaint: SOB Patient denies any complaint. She reports improvement in her shortness of breath. Oxygen requirement has decreased to 2 L by nasal cannula which is her baseline. Physical Examination - Vital Signs Temperature: 97.3 F Blood Pressure: 151/69 Pulse: 81 Respirations: 16 Pulse Ox (%): 96 - Studies Microbiology Data (last 24 hrs): 04/29/24 22:10 Blood - Blood Blood Culture Gram Stain - Final 04/29/24 22:10 Blood - Blood Gram Stain - Final Medications List Reviewed: Yes Assessment And Plan - Plan Physical examination General: Alert and oriented x3, NAD, HEENT: Oxygen by nasal cannula, anicteric sclera. Neck: Supple, no elevated JVD Heart: Heart sounds 1 and 2 normal, regular rhythm, normal rate, no pedal edema Lungs: Clear to auscultation bilaterally, adequate breath sounds bilaterally, mild scattered wheezes. Abdomen: Soft, nondistended, nontender, normal bowel sounds. Extremities: No tenderness, no deformity Skin: Normal skin turgor, no rash, no nodules or ulcers. Neuro: No focal motor deficit. Normal speech. Psychiatry: Normal mood, no agitation. Assessment and plan COPD exacerbation Clinically improved. Continue bronchodilators Transition IV steroids to p.o. prednisone. Oxygen supplementation Pulmonary consult. NSTEMI Troponin trended up slightly and plateaued at 249 Cardiology evaluated patient and recommended nuclear stress test. Continue aspirin and statin Echocardiogram is pending Hypertension Antihypertensives titrated Continue home medications and titrate as needed Hyperlipidemia Continue statin JUNE Resolved Monitor renal function. Chronic pain Continue home medications. Tobacco use Smoking cessation advised DVT prophylaxis: Lovenox. Advanced directive full code
--- NOTE | 2024-05-02 14:19 | P.PN ---
Subjective Date of Service: 05/02/24 Chief Complaint: SOB Patient denies any complaint. Patient is stable on her home oxygen 2 L by nasal cannula. No issues overnight. She is n.p.o. for cardiac catheterization today. Physical Examination - Vital Signs Temperature: 97.3 F Blood Pressure: 151/69 Pulse: 81 Respirations: 16 Pulse Ox (%): 96 - Studies Microbiology Data (last 24 hrs): 04/29/24 22:10 Blood - Blood Blood Culture Gram Stain - Final 04/29/24 22:10 Blood - Blood Gram Stain - Final Medications List Reviewed: Yes Assessment And Plan - Plan Physical examination General: Alert and oriented x3, NAD, HEENT: Oxygen by nasal cannula, anicteric sclera. Neck: Supple, no elevated JVD Heart: Heart sounds 1 and 2 normal, regular rhythm, normal rate, no pedal edema Lungs: Clear to auscultation bilaterally, adequate breath sounds bilaterally, mild scattered wheezes. Abdomen: Soft, nondistended, nontender, normal bowel sounds. Extremities: No tenderness, no deformity Skin: Normal skin turgor, no rash, no nodules or ulcers. Neuro: No focal motor deficit. Normal speech. Psychiatry: Normal mood, no agitation. Assessment and plan COPD exacerbation Clinically improved. Continue bronchodilators Oral prednisone Oxygen supplementation Pulmonary consult. NSTEMI Troponin trended up slightly and plateaued at 249 Stress test positive, patient is scheduled for cardiac catheterization today. Continue aspirin and statin Echocardiogram shows normal EF. Coagulase-negative staph bacteremia Continue IV vancomycin Repeat blood culture is pending Elevated BP Hydralazine as needed for BP spikes. Hyperlipidemia Continue statin JUNE Resolved Monitor renal function. Chronic pain Continue home medications. Tobacco use Smoking cessation advised DVT prophylaxis: Lovenox. Advanced directive: full code
[2024-05-02] MEDS: ENOXAPARIN 40 MG/0.4 ML SQ SCH (15:00)
[2024-05-02] MEDS: NA CHLORIDE 0.9% 500 ML ONE (15:59)
[2024-05-02] MEDS ORDERED: HEPARIN 10,000 UNIT/10 ML VIAL IV ONE (16:38)
[2024-05-02] MEDS ORDERED: VERAPAMIL HCL 10 MG/4 ML VIAL IV ONE (16:38)
[2024-05-02] MEDS ORDERED: LIDOCAINE 1% 20 ML MDV ONE (16:38)
[2024-05-02] MEDS ORDERED: HEPA 1000U/500MLS 2,000 UNIT/1,000 ML BAG IV ONE (16:38)
[2024-05-02] MEDS ORDERED: ATROPINE SULF 1 MG/10 ML SYR IV ONE (16:39)
[2024-05-02] MEDS ORDERED: TICAGRELOR 90 MG TABLET PO ONE (16:39)
[2024-05-02] MEDS ORDERED: HEPARIN 5000 UNIT/ML 1 ML VIAL ONE (16:39)
[2024-05-02] MEDS ORDERED: ASPIRIN 325 MG TAB ONE (16:39)
[2024-05-02] MEDS ORDERED: CLOPIDOGREL 75 MG TABLET ONE (16:39)
[2024-05-02] MEDS: MIDAZOLAM HCL 2 MG/2 ML INJ ONE (16:50)
[2024-05-02] MEDS: FENTANYL CITR 100 MCG/2 ML ONE (16:50)
[2024-05-02] MEDS ORDERED: ACETAMINOPHEN 325 MG TABLET PO PRN (18:03)
[2024-05-02] MEDS ORDERED: NITROGLYCERIN 0.4 MG/TAB SL PRN (18:04)
[2024-05-02] MEDS: NA CHLORIDE 0.9% 1,000 ML IV SCH (20:52)
[2024-05-02] MEDS: MEMANTINE HCL 10 MG TABLET PO SCH (20:53)
[2024-05-02] MEDS: MONTELUKAST 10 MG TAB PO SCH (20:53)
[2024-05-02] MEDS: predniSONE 20 MG TAB PO SCH (20:53)
[2024-05-03] MEDS: TIOTROPIUM IH SCH (08:24)
[2024-05-03] MEDS: LUBIPROSTONE 24 MCG PO SCH (08:24)
[2024-05-03] MEDS: PANTOPRAZOLE 40MG TABLET PO SCH (08:24)
[2024-05-03] MEDS: CEFTRIAXONE 2,000 MG in NA CHLORIDE 0.9% 100 ML IV SCH (09:28)
--- NOTE | 2024-05-03 09:56 | P.CNS ---
Date of Consult: 05/03/24 Reason for Consult: COPD exacerbation Chief Complaint: SOB History of Present Illness: Is 74 years of age with a history of COPD on oxygen was recently started on Trelegy seeing pulmonary in [place] has been sick for the past month has become progressively worse with dyspnea on home oxygen and a very heavy smoker feeling better and changes on his stress test doing better Allergies fentanyl Allergy (Verified 09/27/22 07:38) Itching hydrocodone Allergy (Verified 09/27/22 07:38) Nausea/Vomiting metronidazole [From Flagyl] Allergy (Verified 09/27/22 07:38) Shortness of breath Penicillins Allergy (Verified 09/27/22 07:38) Hives venom-honey bee [bee venom (honey bee)] Allergy (Verified 09/27/22 07:38) Shortness of breath venom-wasp [wasp venom] Allergy (Verified 09/27/22 07:38) Shortness of breath ciprofloxacin [From Cipro] Adverse Reaction (Verified 09/27/22 07:38) ineffective codeine Adverse Reaction (Verified 09/27/22 07:38) Nausea/Vomiting Home Medications: Albuterol Sulfate [Proair Hfa] 2 puff IH TIDP PRN 05/17/15 Montelukast Sodium [Singulair] 10 mg PO BEDTIME 05/17/15 predniSONE [Deltasone*] 10 mg PO DAILYPRN PRN 04/15/18 Dicyclomine HCl 20 mg PO Q6HP PRN 01/15/20 Promethazine Tab [Phenergan] 25 mg PO BID 01/15/20 Tiotropium [Spiriva Handihaler] 1 sprays IH DAILY 01/15/20 Pantoprazole [Protonix Tab*] 1 tab PO DAILY 11/18/20 Famotidine [Pepcid] 20 mg PO BEDTIME 09/26/22 Lubiprostone [Amitiza] 24 mcg PO DAILY 09/26/22 Memantine HCl [Namenda] 5 mg PO BID 09/26/22 Pravastatin Sodium 80 mg PO BEDTIME 09/26/22 - Past Medical/Surgical History Diabetic: No -: Crohn's disease -: COPD -: Anxiety/Depression -: Hyperlipidemia -: GERD -: Chronic Pancreatitis -: Chronic Regional Pain Syndrome -: Sleep apnea -: Left arm nerve surgery -: Carpel tunnel x3 -: Hysterectomy -: Tonsilectomy -: Cholecystectomy -: Appendectomy -: BLE Vascular Surgery (unable to state type) -: Spinal stimulator implanted and removed - Family History Father Medical History: Heart disease, Cancer Notes: kidney cancer Mother Medical History: Heart disease Brother Medical History: Cancer Notes: Brain tumor - Social History Smoking Status: Current every day smoker Alcohol use: No CD- Drugs: No Caffeine use: Yes Place of Residence: Home Review of Systems 10-point ROS is otherwise unremarkable General: Weakness Respiratory: Cough, Shortness of Breath Physical Examination Temp Pulse Resp BP Pulse Ox 96.9 F 101 H 16 149/66 H 92 05/03/24 04:00 05/03/24 04:00 05/03/24 04:00 05/03/24 04:00 05/03/24 04:00 General: Alert, Oriented x3 Respiratory: Diminished, Expiratory wheezes Cardiovascular: No edema, Regular rate/rhythm Gastrointestinal: Normal bowel sounds, Soft and benign - Problems (1) COPD exacerbation Current Visit: Yes Status: Acute Plan: Patient is 74 years of age admitted with worsening dyspnea over the past month heavy smoker uses Trelegy at home which apparently helps also on home oxygen breathing treatments x-ray shows COPD changes patient had also had a non-STEMI stress test shoulders mild changes currently the patient she is already had cardiac cath done no need for her to have a stent placed benefit from a low-dose of beta-michael discharge patient has normal echo count is declining
[2024-05-03] MEDS: METOPROLOL TAR 25 MG TAB PO SCH (10:20)
--- NOTE | 2024-05-03 13:54 | P.PN ---
Subjective Date of Service: 05/03/24 Chief Complaint: SOB Patient complaining of back pain which is chronic. Patient is stable on her home oxygen 2 L by nasal cannula. No issues overnight. Status post cardiac catheterization yesterday. Physical Examination - Vital Signs Temperature: 97 F Blood Pressure: 180/78 Pulse: 77 Respirations: 18 Pulse Ox (%): 94 - Studies Medications List Reviewed: Yes Assessment And Plan - Plan Physical examination General: Alert and oriented x3, NAD, HEENT: Oxygen by nasal cannula, anicteric sclera. Neck: Supple, no elevated JVD Heart: Heart sounds 1 and 2 normal, regular rhythm, normal rate, no pedal edema Lungs: Clear to auscultation bilaterally, adequate breath sounds bilaterally, mild scattered wheezes. Abdomen: Soft, nondistended, nontender, normal bowel sounds. Extremities: No tenderness, no deformity Skin: Normal skin turgor, no rash, no nodules or ulcers. Neuro: No focal motor deficit. Normal speech. Psychiatry: Normal mood, no agitation. Assessment and plan COPD exacerbation Clinically improved. Continue bronchodilators Oral prednisone Oxygen supplementation Pulmonary Dr. Tomas input appreciated NSTEMI Troponin trended up slightly and plateaued at 249 Status post cardiac catheterization Continue medical management Continue aspirin and statin Echocardiogram shows normal EF. Coagulase-negative staph bacteremia 3 blood culture bottles grew coagulase-negative staph. Patient treated with IV vancomycin for 3 days and transition to IV Rocephin. Repeat blood culture did not show any growth. Midline requested for IV Rocephin. Patient to complete 2 weeks of treatment. Repeat blood culture is pending Elevated BP Hydralazine as needed for BP spikes. Hyperlipidemia Continue statin JUNE Resolved Monitor renal function. Chronic pain Continue home medications. Hydromorphone as needed Tobacco use Smoking cessation advised DVT prophylaxis: Lovenox. Advanced directive: full code
[2024-05-03] MEDS: HYDRALAZINE HCL 20 MG/ML VIAL IV PRN (15:08)
[2024-05-03] MEDS ORDERED: DICYCLOMINE HCL 10 MG CAP PO PRN (17:52)
[2024-05-03] MEDS: AMLODIPINE 10 MG TAB PO SCH (18:25)
--- NOTE | 2024-05-03 21:06 | OP ---
Date of Procedure: 05/02/2024 Surgeon: CHERRI ROPER Procedures Performed: 1.Selective coronary angiogram. 2.Left heart catheterization. Indication: [id number] myocardial infarction. Access: Right radial artery 6-Setswana, closed with TR band. Complications: None. Bleeding: Less than 50 mL. Anesthesia: Total sedation time was 50 minutes. Used fentanyl and Versed. Description Of Procedure: After risks, benefits, and alternatives were explained, patient agreed to procedure and signed informed consent. The patient was brought into cardiac catheterization laborato , prepped and draped in usual sterile fashion. Then, I accessed right radial artery. Using pediat [place] micropuncture kit, placed 6-Setswana Slender sheath and took 5-Setswana Bassett 4 catheter into the aor tic root over J-wire, across the aortic valve, measured the LVEDP and pullback did not record any gra dient. Then, engaged left main and took standard views and then engaged the RCA and took standard vi ews and removed the catheter and the sheath and placed TR band with good hemostasis. Findings: 1.Left main: Large and normal. 2.LAD: Normal proximal segment and mid segment. There is focal 20% to 30% stenosis. Normal diagon al branches. 3.Left circumflex is normal. 4.RCA is normal. 5.LVEDP is normal between 8 and 10 mmHg. Conclusion: 1.Mild nonobstructive coronary artery disease. 2.Normal LVEDP. Recommendation: Medical management. Statin, baby aspirin. Follow up on outpatient basis. SR/MODL Voice ID: [id number] Report ID: [id number]
--- NOTE | 2024-05-03 21:54 | PN ---
Date of Progress Note: 05/02/2024 Subjective: Seen by bedside. Denies having any chest pain. She is n.p.o. for coronary angiogram an d positive stress test and positive troponin. Review of Systems: There is no chest pain, shortness of breath has improved. No nausea, vomiting, diarrhea. No abdomin al pain. No dysuria, polyuria, or urgency. All other systems reviewed are negative except as mentio katherin in the HPI. Physical Examination: Vital Signs: Reviewed. Head and Neck: Pupils are equal, reactive to light. Intact eye movements. No JVD. No cervical lym phadenopathy. Neck is supple. Thyroid is not enlarged. Lungs: Clear to auscultation bilaterally. No rhonchi, wheezing, or crackles. No accessory muscle u se. Heart: Regular rate and rhythm. No extra sounds. Abdomen: Soft, nontender. Bowel sounds positive. No organomegaly. No masses or hernia. No rigidi ty or rebound. Extremities: There is no edema, clubbing, or cyanosis. Intact pulses. Skin: No rash. No nodule. Neurologic: Alert, awake, oriented x3. No acute focal deficits appreciated. Lymph Nodes: No cervical lymphadenopathy. Investigations: Labs were reviewed. The troponin peaked at 242 and coming down. BUN is 26, creatin ine is 1. Assessment/recommendations: 1.Htl-EF-[id number] myocardial infarction. She is status post coronary angiogram. She has mild dise ase in the LAD about 20% to 30%. This is demand ischemia. No further cardiac workup is needed. 2.Elevated NT-proBNP, likely diastolic dysfunction. I recommend blood pressure control and low-salt diet. 3.Dyslipidemia. Recommend Lipitor 40 mg q.h.s. 4.Hypertension. Blood pressure is controlled. Cardiology will sign off on this case and to follow up on outpatient basis for medical management of her coronary artery disease. SR/MODL Voice ID: [id number] Report ID: [id number]
--- NOTE | 2024-05-04 13:04 | P.PN ---
Subjective Date of Service: 05/04/24 Chief Complaint: SOB Patient complaining of back pain and neck pain which are chronic. Patient is stable on her home oxygen 2 L by nasal cannula. Physical Examination - Vital Signs Temperature: 98.8 F Blood Pressure: 171/75 Pulse: 76 Respirations: 18 Pulse Ox (%): 96 - Studies Microbiology Data (last 24 hrs): 04/29/24 22:10 Blood - Blood Aerobic Blood Culture - Final Staph Hominis 04/29/24 22:10 Blood - Blood Blood Culture Gram Stain - Final 04/29/24 22:10 Blood - Blood Anaerobic Blood Culture - Final Staph Hominis 04/29/24 22:10 Blood - Blood Gram Stain - Final Medications List Reviewed: Yes Assessment And Plan - Plan Physical examination General: Alert and oriented x3, NAD, HEENT: Oxygen by nasal cannula, anicteric sclera. Heart: Heart sounds 1 and 2 normal, regular rhythm, normal rate, no pedal edema Lungs: Clear to auscultation bilaterally, adequate breath sounds bilaterally, mild scattered wheezes. Abdomen: Soft, nondistended, nontender, normal bowel sounds. Extremities: No tenderness, no deformity Skin: Normal skin turgor, no rash, no nodules or ulcers. Neuro: No focal motor deficit. Normal speech. Psychiatry: Normal mood, no agitation. Assessment and plan COPD exacerbation Clinically improved and stable Continue bronchodilators Oral prednisone Oxygen supplementation Pulmonary Dr. Tomas input appreciated. Increase activity as tolerated. NSTEMI Troponin trended up slightly and plateaued at 249 Status post cardiac catheterization which reported mild nonobstructive coronary artery disease, no percutaneous intervention. Continue medical management Continue aspirin and statin Echocardiogram shows normal EF. Coagulase-negative staph bacteremia 4 blood culture bottles grew Staph hominis Patient treated with IV vancomycin for 3 days and transition to IV Rocephin. Repeat blood culture did not show any growth. Midline requested for IV Rocephin. Patient to complete 2 weeks of treatment. Elevated BP Hydralazine as needed for BP spikes. Hyperlipidemia Continue statin JUNE Resolved Monitor renal function. Chronic pain Continue home medications. Hydromorphone as needed Tobacco use Smoking cessation advised DVT prophylaxis: Lovenox. Advanced directive: full code
[2024-05-04] MEDS: HYDROMORPHONE ORAL 2 MG TAB PO PRN (14:18)
[2024-05-04] MEDS: ALBUTEROL INHALER 200 PUFF/6.7 GM IH PRN (16:53)
[2024-05-05 08:16] VITALS: O2SAT 99
--- NOTE | 2024-05-05 08:34 | P.DS ---
Admission Date: 04/30/24 Discharge Date: 05/05/24 Disposition: DC HOME/HOME HEALTH CARE Discharge Condition: FAIR Reason for Admission: SOB Brief History of Present Illness: 74 yrs old Female with past medical history of COPD, Crohn's disease, history of hypertension, history of pancreatitis, history of SBO was brought to ER with shortness of breath and respiratory distress. Patient apparently was very short of breath at home and had to be placed on BiPAP when the EMS got to her and was brought to ER. Patient still smokes. Patient was assessed in the ER, noted to have elevated troponin. Chest x-ray showed small right pleural effusion. Patient was admitted for further management of COPD exacerbation/NSTEMI , Hospital Course: Patient admitted to the medical floor and the following problems addressed: COPD exacerbation Clinically improved and stable Patient treated with bronchodilators and IV steroid. IV steroid transition to oral prednisone after. her respiratory status improved Oxygen supplementation Pulmonary Dr. Tomas evaluated patient and assisted with management. Patient is discharged with a short course prednisone therapy NSTEMI Troponin trended up slightly and plateaued at 249 Status post cardiac catheterization which reported mild nonobstructive coronary artery disease, no percutaneous intervention. Medical management recommended Continued aspirin and statin Echocardiogram showed normal EF. Coagulase-negative staph bacteremia 4 blood culture bottles grew Staph hominis Patient treated with IV vancomycin for 3 days and transition to IV Rocephin. Repeat blood culture did not show any growth. Patient had no symptoms like fever, no leukocytosis to suggest sepsis. Skin contamination is possible. Patient discharged with oral ciprofloxacin according to the culture sensitivity result. Patient to complete 14 days of antibiotic treatment. Elevated BP Hydralazine as needed for BP spikes. Patient started on oral amlodipine and metoprolol. Hyperlipidemia Continued statin JUNE Resolved with IV hydration. Chronic pain Continued home medications. Hydromorphone as needed. Tobacco use Smoking cessation advised Vital Signs/Physical Exam: Temp Pulse Resp BP Pulse Ox 97.8 F 70 19 183/75 H 95 05/05/24 04:00 05/05/24 04:00 05/05/24 06:17 05/05/24 04:00 05/05/24 06:17 General: Alert, In no apparent distress, Oriented x3 HEENT: Mucous membr. moist/pink, Sclerae nonicteric Neck: Supple, JVD not distended Respiratory: Clear to auscultation bilaterally, Normal air movement Cardiovascular: No edema, Regular rate/rhythm, Normal S1 S2 Gastrointestinal: Normal bowel sounds, Soft and benign, Non-distended Musculoskeletal: No swelling Integumentary: No rashes, No cyanosis Neurological: Normal strength at 5/5 x4 extr Laboratory Data at Discharge: WBC 16.50 thou/uL (4.3-10.9) H 05/01/24 06:30 Hgb 12.1 g/dL (12.0-15.0) 05/01/24 06:30 Hct 36.1 % (36.0-45.0) 05/01/24 06:30 Plt Count 325 thou/uL (152-406) 05/01/24 06:30 PT 10.7 SECONDS (9.4-12.5) 04/29/24 22:24 INR 0.95 04/29/24 22:24 APTT 25.2 SECONDS (24.3-36.9) 05/02/24 06:00 Sodium 137 mEq/L (136-145) 05/01/24 06:30 Potassium 3.8 mEq/L (3.5-5.1) 05/01/24 06:30 BUN 26 mg/dL (7-18) H 05/01/24 06:30 Creatinine 1.00 mg/dL (0.55-1.02) 05/01/24 06:30 Glucose 138 mg/dL (74-106) H 05/01/24 06:30 Magnesium 2.5 mg/dL (1.6-2.4) H 04/29/24 22:24 Total Bilirubin 0.3 mg/dL (0.2-1.0) 05/01/24 06:30 AST 15 U/L (15-37) 05/01/24 06:30 ALT < 14 U/L (13-56) 05/01/24 06:30 Alkaline Phosphatase 57 U/L (45-117) 05/01/24 06:30 Lipase 33 U/L (13-75) 04/29/24 22:24 Home Medications: Albuterol Sulfate [Proair Hfa] 2 puff IH TIDP PRN 05/17/15 Montelukast Sodium [Singulair] 10 mg PO BEDTIME 05/17/15 predniSONE [Deltasone*] 10 mg PO DAILYPRN PRN 04/15/18 Dicyclomine HCl 20 mg PO Q6HP PRN 01/15/20 Promethazine Tab [Phenergan*] 25 mg PO BID 01/15/20 Tiotropium [Spiriva Handihaler*] 1 sprays IH DAILY 01/15/20 Pantoprazole [Protonix Tab*] 1 tab PO DAILY 11/18/20 Famotidine [Pepcid*] 20 mg PO BEDTIME 09/26/22 Lubiprostone [Amitiza*] 24 mcg PO DAILY 09/26/22 Memantine HCl [Namenda] 5 mg PO BID 09/26/22 Pravastatin Sodium 80 mg PO BEDTIME 09/26/22 Amlodipine [Norvasc*] 10 mg PO DAILY #30 tab 05/05/24 Aspirin [Aspirin EC 81 MG] 81 mg PO DAILY #30 tab 05/05/24 Ciprofloxacin HCl [Cipro 500 MG Tablet] 500 mg PO BID #14 tab 05/05/24 Hydromorphone [Dilaudid*] 2 mg PO Q4H PRN #30 tab 05/05/24 Metoprolol Tartrate [Lopressor*] 25 mg PO BID #60 tab 05/05/24 predniSONE [Prednisone*] 20 mg PO BID #10 tab 05/05/24 New Medications: Aspirin [Aspirin EC 81 MG] 81 mg PO DAILY #30 tab Ciprofloxacin HCl [Cipro 500 MG Tablet] 500 mg PO BID #14 tab Hydromorphone [Dilaudid*] 2 mg PO Q4H PRN #30 tab PRN Reason: Pain Scale 8-10 (Severe) Metoprolol Tartrate [Lopressor*] 25 mg PO BID #60 tab Amlodipine [Norvasc*] 10 mg PO DAILY #30 tab predniSONE [Prednisone*] 20 mg PO BID #10 tab Diet: AHA Activity: Fall precautions Followup: Ovi Tomas MD [ACTIVE - CAN ADMIT] - Mark Paz DO [Primary Care Provider] - 1 Week Shiv Bedoya MD [ACTIVE - CAN ADMIT] - Time spent managing pt's care (in minutes): 37
[2024-05-05 08:45] VITALS: BP 149/61; TEMP 99
[2024-05-05] MEDS: CIPROFLOXACIN HCL 500 MG TAB PO SCH (08:48)
== END 2024-05-05 11:51 | disposition home health service (06) | DRG 190 ==
LOC: ER 22:03 → ERHOLD 04-30 05:22 → 2ND 04-30 14:00
PROVIDERS: ADMIT Hospitalist; ATTEND Internal Medicine
PROC: 4A033R1 Measurement of Arterial Saturation, Peripheral, Percutaneous Approach (ICD-10-PCS; principal; 2024-04-30)
PROC: 5A09357 Assistance with Respiratory Ventilation, Less than 24 Consecutive Hours, Continuous Positive Airway Pressure (ICD-10-PCS; 2024-04-30)
PROC: 02HV33Z Insertion of Infusion Device into Superior Vena Cava, Percutaneous Approach (ICD-10-PCS; 2024-04-30)
PROC: 4A023N7 Measurement of Cardiac Sampling and Pressure, Left Heart, Percutaneous Approach (ICD-10-PCS; 2024-05-02)
PROC: B2111ZZ Fluoroscopy of Multiple Coronary Arteries using Low Osmolar Contrast (ICD-10-PCS; 2024-05-02)
DX: J44.1 Chronic obstructive pulmonary disease with (acute) exacerbation (principal); I21.A1 Myocardial infarction type 2; J96.01 Acute respiratory failure with hypoxia; K50.90 Crohn's disease, unspecified, without complications; N17.9 Acute kidney failure, unspecified; R78.81 Bacteremia; I10 Essential (primary) hypertension; G89.29 Other chronic pain; I73.9 Peripheral vascular disease, unspecified; K21.9 Gastro-esophageal reflux disease without esophagitis; I25.10 Atherosclerotic heart disease of native coronary artery without angina pectoris; F17.210 Nicotine dependence, cigarettes, uncomplicated; B95.8 Unspecified staphylococcus as the cause of diseases classified elsewhere; Z88.0 Allergy status to penicillin; Z88.5 Allergy status to narcotic agent; Z88.1 Allergy status to other antibiotic agents; Z11.52 Encounter for screening for COVID-19; Z90.710 Acquired absence of both cervix and uterus
CPT/HCPCS: 36415; 36556; 36569; 71045; 71260; 74177; 76937; 78452; 80048; 80053; 80076; 80202; 81001; 82550; 82805; 83605; 83690; 83735; 83880; 84439; 84443; 84484; 85025; 85379; 85610; 85730; 86140; 87040; 87077; 87186; 87205; 87804; 87811; 90732; 93005; 93017; 93306; 93458; 94010; 94640; 94660; 94760; 99285; A9500; C1893; J0360; J0461; J0692; J0696; J1644; J1650; J2001; J2250; J2270; J2405; J2550; J2765; J2785; J2919; J3010; J7030; J7040; J7050; J7512; J7613; J7644; P9047; Q9966; Q9967